=== PATIENT | female | born 1965 | race Caucasian/White ===

== ENCOUNTER 2019-08-05 10:35 | Emergency (ER) | payer OTHER ==
[2019-08-05 11:03] LABS: Absolute Lymphocytes (CBC) 1.3 K/uL (0.7-4.9); Basophils % 0.6 % (0-1.3); Hematocrit 38.7 % (36.0-45.0); MPV 10.1 fL (7.6-11.3); RBC Red Blood Cell Count 4.16 M/uL (3.86-4.86)
[2019-08-05 11:11] LABS: Protime INR 0.98
--- NOTE | 2019-08-05 11:27 | RAD REPORT ---
EXAM DESCRIPTION: RAD - Chest Single View - 08/05/2019 11:10 am CLINICAL HISTORY: CHEST PAIN COMPARISON: Two view chest September 2017 TECHNIQUE: AP portable chest image was obtained 08/05/2019 11:10 am . FINDINGS: Lungs are clear. Heart and vasculature are normal. No measurable pleural effusion and no p neumothorax. No acute bony abnormality seen. No acute aortic findings suspected. IMPRESSION: No acute cardiopulmonary process.
--- OUTSIDE RECORDS SUMMARY | 2019-08-05 11:30 | XMS REPORT | Clinical Summary ---
:1965 Author Organization [facility] Address [address] [place] [address] Care Team Providers Name Role Phone Jose Espino DO Primary Care Provider Allergies Active Allergy Reactions Severity Noted Date Comments Tetracycline Hives, Nausea And Vomiting Medium 02/14/2016 Medications Medication Sig Dispensed Refills Start Date End Date Status dexlansoprazole 60 mg Take 60 mg by 0 Active capsule mouth daily. levothyroxine (SYNTHROID, Take 50 mcg by 0 Active LEVOTHROID) 50 MCG tablet mouth Every morning on an empty stomach. methscopolamine (PAMINE Take 5 mg by 0 Active FORTE) 5 MG tablet mouth daily. propranolol (INDERAL) 40 Take 40 mg by 0 Active MG tabletIndications: mouth daily. migraines fLUoxetine (PROZAC) 10 MG Take 10 mg by 0 Active capsule mouth daily Takes 2 capsules . QUEtiapine (SEROQUEL) 300 Take 300 mg by 0 Active MG tablet mouth nightly. mesalamine (PENTASA) 500 Take 500 mg by 0 Active MG CR capsuleIndications: mouth 2 (two) Crohn's disease times daily Takes 4 tablets . uadk-crlcsjbqtgmyw-gglfwv Take 2 tablets 0 Active ls (THERAGRAN-M) 9 mg by mouth daily. iron-400 mcg Tab tablet Lactobacillus acidophilus Take by mouth. 0 Active (PROBIOTIC ORAL) calcium carbonate Take 2 tablets 0 Active (CALCIUM 500 ORAL) by mouth daily. cholecalciferol, vitamin Take 1 tablet 0 Active D3, (VITAMIN D3 ORAL) by mouth daily. methylPREDNISolone 2 tablets QID 33 tablet 0 01/19/2018 Active (MEDROL) 2 MG tablet for 2 days, 1.5 tablets TID for 2 days, 1 tablet TID for 2 days, then 0.5 tablets BID for 2 days. 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 Last Filed Vital Signs Not on file Plan of Treatment Not on file Implants Implanted Type Area Senior Care Manager Device Shelf Model / Identifier Expiration Serial / Date Lot Ryder Vhsd Full Strlprep 10ml [id number] - [id number] Cement/F N/A: Spine JOHNSON:BIOSCI 05/20/2019 [id number] / Implanted: Qty: 1 on 01/19/2018 by Chad Otto MD iller/ John Cervical / hesive [id number] Results Not on fileafter 08/04/2018 Insurance Payer Benefit Plan / Group Subscriber ID Type Phone A ddress AETNA - MGD CARE AETNA SELECT US ACCESS xxxxxxxxxx HMO/POS Advance Directives For more information, please contact:[address] [phone] Code Status Date Activated Date Inactivated Comments Full Code 01/19/2018 5:39 AM This code status was determined by: Patient
--- OUTSIDE RECORDS SUMMARY | 2019-08-05 11:31 | XMS REPORT | Continuity of Care Document ---
:1965 Author Organization [facility] Information [place] Care Team Providers Name Role Phone [facility] Pablito Information Infrascale Unavailable Un available Problems Problem Status Onset Classification Date Comments Sour e Date Reported [id number], MORBID Active 11/20/19 MH OBESITY 17 [facility] Gastroesophageal Active Problem 12/02/2016 reflux disease Memor ial (disorder) [facility] Hypothyroidism Active Problem 12/02/2016 MH (disorder) [facility] Migraine (disorder) Active Problem 12/02/[address] [facility] Morbid obesity Active Problem 12/02/2016 MH (disorder) [facility] Motion sickness Active Problem 12/02/2016 MH (disorder) [facility] Obesity (disorder) Active Problem 12/02/[address] [facility] Sleep apnea Active Problem 12/02/2016 MH (finding) [facility] ILLNESS, Active MH UNSPECIFIED [facility] Medications Medication Details Route Status Patient Ordering Order Source Instructions Provider Date Tylenol Notes: Do not No Longer exceed [address] [place] [address] gm/day. (Same City as: Tylenol) tramadol 50 mg = 1 tab, Active hydrochloride 50 PO, Q4H, PRN 2016 Mo morial MG Oral Tablet Pain, X 10 day, C ity # 60 tab, 0 Refill(s) Beneprotein 7 gm Notes: (Same Inactive 11/29/ H pkt as: [address] [place] [address] Beneprotein) [facility] Enoxaparin Notes: (Same Inactive as: Lovenox) [address] [place] [address] Ofirmev Notes: Infuse Inactive over 15 minutes 2016 [facility] Do not exceed [facility] 4gm/day of acetaminophen MEDICATION WASTE Product Size: 1000 mg Product Wasted: ___ mg Ketorolac 4 days Inactive MEDICATION [address] [place] [address] WASTE [facility] Product Size: 30 mg Product Wasted: ___ mg Famotidine Notes: (Same No Longer as: Pepcid) Can Active 2016 [facility] be dilute in [facility] 5-10cc NS IVP: Slow IV push over at least 2 minutes. tramadol Notes: Not to No Longer hydrochloride 50 exceed Active 2016 Memoria l MG Oral Tablet 400mg/day. [facility] (Same As: [facility]) Dilaudid Notes: Same as No Longer Dilaudid Active 2016 [facility] Calcium Chloride 1,000 mL, Rate: No Longer 11/29 0.0014 MEQ/ML / 125 ml/hr, [facility] Pot[facility] Infuse over: 8 [facility] Chloride 0.004 hr, Route: IV, MEQ/ML / Sodium Dosing Weight Chloride 0.103 102.273 kg, MEQ/ML / Sodium Total Volume: Lactate 0.028 1,000, Start MEQ/ML Injectable date: 11/28/16 Solution 19:49:00 CDT, Duration: 30 day, Stop date: 12/28/16 19:48:00 CDT Promethazine Notes: Do not No Longer give IV push. Active 2016 [facility] (Same as: [facility] Phenerg) Ondansetron Notes: (Same No Longer as: Zofran) Active 2016 [facility] MEDICATION City WASTE Product Size: 4 mg Product Wasted: ___ mg Metoprolol Notes: (Same No Longer as: Lopressor) Active 2016 [facility] Push over 2 City minutes Zofran Notes: (Same Inactive as: Zofran) 2016 [facility] MEDICATION City WASTE Product Size: 4 mg Product Wasted: ___ mg Dilaudid Notes: Same as No Longer Dilaudid Active 2016 [facility] ondansetron Route: IV, Drug Inactive (ANES) form: INJ, 2016 [facility] ONCE, Stop [facility] date: 11/28/16 15:52:00 CDT glycopyrrolate Route: IV, Drug Inactive (ANES) form: INJ, 2016 [facility] , Stop [facility] date: 11/28/16 15:52:00 CDT morphine Sulfate Route: IV, Drug Inactive (ANES) form: INJ, 2016 [facility] , Stop [facility] date: 11/28/16 15:52:00 CDT neostigmine Route: IV, Drug Inactive 10/05/ MH (ANES) form: 2016 date: 11/28/16 15:52:00 CDT fentaNYL (ANES) Route: IV, Drug Inactive 11/28/ MH form: 2016 date: 11/28/16 15:12:00 CDT hydrALAZINE Route: IV, Drug Inactive 11/28/ MH (ANES) form: 2016 date: 11/28/16 14:47:00 CDT fentaNYL (ANES) Route: IV, Drug Inactive 11/28/ MH form: 2016 date: 11/28/16 14:32:00 CDT famotidine (ANES) Route: IV, Drug Inactive 11/28 / MH form: 2016 [facility] date: 11/28/16 14:32:00 CDT metoclopramide Route: IV, Drug Inactive 11/28/ MH (ANES) form: 2016 [facility] date: 11/28/16 14:32:00 CDT succinylcholine Route: IV, Drug Inactive 11/28/ MH (ANES) form: 2016 [facility] date: 11/28/16 14:32:00 CDT midazolam (ANES) Route: IV, Drug Inactive 11/28/ MH form: [id number] date: 11/28/16 14:32:00 CDT lidocaine (ANES) Route: IV, Drug Inactive 11/28/ MH form: 2016 [facility] date: 11/28/16 14:32:00 CDT propofol (ANES) Route: IV, Drug Inactive 11/28/ MH form: 2016 [facility] date: 11/28/16 14:32:00 CDT dexamethasone Route: IV, Drug Inactive 11/28/ M H (ANES) form: 2016 [facility] date: 11/28/16 14:22:00 CDT rocuronium (ANES) Route: IV, Drug Inactive 05 / MH form: 2016 [facility] date: 11/28/16 14:22:00 CDT Promethazine Notes: Do not Inactive give IV push. 2016 (Same as: [facility] Phenergan) Ondansetron Notes: (Same Inactive as: Zofran) 2016 [facility] MEDICATION [facility] WASTE Product Size: 4 mg Product Wasted: ___ mg Morphine Notes: (Same Inactive as:MORPhine 2017 [facility] Sulfate) [facility] Flumazenil Notes: (Same Inactive as: Romazicon) 2016 [facility] Naloxone Notes: Same as Inactive Narcan 2016 [facility] Hydromorphone Notes: Same as Inactive Dilaudid 2016 [facility] ceFAZolin (ANES) Route: IV, Drug Inactive form: INJ, 2016 [facility] ONCE, Stop [facility] date: 11/28/16 14:16:00 CDT acetaminophen Route: IV, Drug Inactive H (ANES) (ANES) form: INJ, 2016 Memoria l Start date: [facility] 11/28/16 13:48:00 CDT, Stop date: 11/28/16 14:48:00 CDT LR 1000 mL INJ Route: IV, Inactive (ANES) Total Volume: 2016 [facility] 1,000, Start [facility] date: 11/28/16 13:32:00 CDT, Stop date: 11/28/16 14:32:00 CDT ceFAZolin Notes: Same as: No Longer Ancef Active 2016 [facility] dexlansoprazole 60 mg = 1 cap, No Longer 60 MG Enteric PO, Daily, # 30 Active 2016 Me morial Coated Capsule cap, 0 [facility] [Dexilant] Refill(s) Probiotic Formula 1 cap, PO, Active Daily, 0 2016 [facility] Refill(s) [facility] Allergies, Adverse Reactions, Alerts Substance Category Reaction Severity Reaction Status Date Comments S ource type Reported tetracyclines Assertion hives, Drug Active rash allergy [facility] Immunizations No Data Provided for This Section Results Order Name Results Value Reference Date Interpretation Comments Mahi rce Range ELECTROLYTE AGAP 14.2 10.0 - 11/29 S 20.0 /2017 [facility] ELECTROLYTE eGFR 76 11/29 Result S Comment: The [facility] eGFR is [facility] calculated using the CKD-EPI formula. In most young, healthy individuals the eGFR will be >90 mL/min/1.73m2 . The eGFR declines with age. An eGFR of 60-89 may be normal in some populations, particularly the elderly, for whom the CKD-EPI formula has not been extensively validated. Use of the eGFR is not recommended in the following populations:< br/>
Gunjan viduals with unstable creatinine concentration s, including patients and those with serious co-morbid conditions.<b r/>
Patie nts with extremes in muscle mass or diet.

The data above are obtained from the National Kidney Disease Education Program (NKDEP) which additionally recommends that when the eGFR is used in patients with extremes of body mass index for purposes of drug dosing, the eGFR should be multiplied by the estimated BMI. ELECTROLYTE CO2 27 24 - 32 11/29 S [facility] ELECTROLYTE Creatinine 0.88 0.50 - 11/29 S Lvl 1.40 [facility] ELECTROLYTE BUN 9 7 - 22 11/29 S [facility] ELECTROLYTE Glucose Lvl 119 70 - 99 11/29 S [facility] ELECTROLYTE Sodium Lvl 137 135 - 145 11/29 S [facility] ELECTROLYTE Chloride Lvl 100 95 - 109 11/29 S [facility] ELECTROLYTE Calcium Lvl 8.6 8.5 - 10.5 11/29 S [facility] ELECTROLYTE Potassium 4.2 3.5 - 5.1 11/29 S Lvl [facility] HEMATOLOGY Lymphocytes 0.7 1.0 - 5.5 11/29 # [facility] HEMATOLOGY Basophils 0.1 0.0 - 1.0 11/29 [facility] HEMATOLOGY Monocytes # 0.6 0.0 - 0.8 11/29 [facility] HEMATOLOGY Segs-Bands # 9.8 1.5 - 8.1 11/29 [facility] HEMATOLOGY Segs 88.3 45.0 - 11/29 MH 75.0 [facility] HEMATOLOGY Monocytes 5.6 2.0 - 12.0 11/29 [facility] HEMATOLOGY Lymphocytes 6.0 20.0 - 11/29 MH 40.0 [facility] HEMATOLOGY WBC 11.1 3.7 - 10.4 11/29 [facility] HEMATOLOGY RDW 14.6 11.5 - 11/29 MH 14.5 /2016 [facility] HEMATOLOGY Platelet 198 133 - 450 10 /2016 [facility] HEMATOLOGY Hgb 12.9 12.0 - 11/29 MH 16.0 [facility] HEMATOLOGY MPV 10.8 7.4 - 10.4 11/29 /2016 [facility] HEMATOLOGY MCH 29.8 27.0 - 11/29 MH 31.0 /2016 [facility] HEMATOLOGY MCHC 34.1 32.0 - 11/29 MH 36.0 /2016 [facility] HEMATOLOGY Hct 37.7 36.0 - 11/29 MH 48.0 /2016 [facility] HEMATOLOGY MCV 87.3 80.0 - 11/29 MH 98.0 /2016 [facility] HEMATOLOGY RBC 4.32 4.20 - 11/29 MH 5.40 /2016 [facility] BLOOD BANK Antibody Negative 11/28 RESULTS Scrn (11/28/16 10:31 AM) /2016 [facility] BLOOD BANK ABO/Rh B POS 11/28 RESULTS /2016 [facility] BLOOD [facility] RBC product Product available 11/28 RESULTS (11/28/16 6:00 AM) /2016 [facility] CHEM PANEL VITAMIN B1 140.8 66.5 - 11/21 Result (THIAMINE) 200.0 /2016 Comment: [facility] WHOLE BLOOD Performed At: [facility] [place]
[address] [place], [place] [id number]<br/ >Job Robbins MD Ph:[phone] CHEM PANEL Vitamin D, 25.5 30.0 - 11/21 25-OH, Total 100.0 [facility] ELECTROLYTE AGAP 14.0 10.0 - 11/21 MH S 20.0 [facility] ELECTROLYTE A/G Ratio 1.2 0.7 - 1.6 11/21 S [facility] ELECTROLYTE Globulin 3.7 2.7 - 4.2 11/21 S [facility] ELECTROLYTE B/C Ratio 14 6 - 25 11/21 S [facility] ELECTROLYTE Glucose Lvl 95 70 - 99 11/21 S [facility] ELECTROLYTE Calcium Lvl 8.9 8.5 - 10.5 11/21 S [facility] ELECTROLYTE BUN 15 7 - 22 11/21 S /2016 [facility] ELECTROLYTE Albumin Lvl 4.4 3.5 - 5.0 11/21 S [facility] ELECTROLYTE Potassium 4.0 3.5 - 5.1 11/21 S Lvl /2016 [facility] ELECTROLYTE Chloride Lvl 107 95 - 109 11/21 S [facility] ELECTROLYTE CO2 27 24 - 32 11/21 S [facility] ELECTROLYTE Sodium Lvl 144 135 - 145 11/21 S [facility] ELECTROLYTE Bili Total 0.9 0.2 - 1.3 11/21 S [facility] ELECTROLYTE Alk Phos 109 39 - 136 11/21 S [facility] ELECTROLYTE Total 8.1 6.4 - 8.4 11/21 S Protein [facility] ELECTROLYTE eGFR 59 11/21 Result Comment: The [facility] eGFR is City calculated using the CKD-EPI formula. In most young, healthy individuals the eGFR will be >90 mL/min/1.73m2 . The eGFR declines with age. An eGFR of 60-89 may be normal in some populations, particularly the elderly, for whom the CKD-EPI formula has not been extensively validated. Use of the eGFR is not recommended in the following populations:< br/>
Gunjan viduals with unstable creatinine concentration s, including patients and those with serious co-morbid conditions.<b r/>
Patie nts with extremes in muscle mass or diet.

The data above are obtained from the National Kidney Disease Education Program (NKDEP) which additionally recommends that when the eGFR is used in patients with extremes of body mass index for purposes of drug dosing, the eGFR should be multiplied by the estimated BMI. ELECTROLYTE ALT 36 0 - 65 11/21 S [facility] ELECTROLYTE AST 26 0 - 37 11/21 S [facility] ELECTROLYTE Creatinine 1.09 0.50 - 11/21 S Lvl 1.40 [facility] HEMATOLOGY Platelet 200 133 - 450 11/21 [facility] HEMATOLOGY MPV 10.3 7.4 - 10.4 11/21 [facility] HEMATOLOGY RDW 14.6 11.5 - 11/21 MH 14. [facility] HEMATOLOGY RBC 4.58 4.20 - 11/21 MH 5.40 [facility] HEMATOLOGY WBC 5.4 3.7 - 10.4 11/21 [facility] HEMATOLOGY Hct 39.8 36.0 - 11/21 MH 48.0 /2016 [facility] HEMATOLOGY MCV 86.9 80.0 - 11/21 MH 98.0 /2017 [facility] HEMATOLOGY Hgb 13.2 12.0 - 11/21 MH 16.0 /2016 [facility] HEMATOLOGY MCHC 33.3 32.0 - 11/21 MH 36.0 /2016 [facility] HEMATOLOGY MCH 28.9 27.0 - 11/21 MH 31.0 /2016 [facility] HEMATOLOGY Segs 51.4 45.0 - 11/21 MH 75.0 /2017 [facility] HEMATOLOGY Eosinophils 2.4 0.0 - 4.0 11/21 MH /2016 [facility] HEMATOLOGY Lymphocytes 34.7 20.0 - 11/21 MH 40.0 /2017 [facility] HEMATOLOGY Monocytes 10.8 2.0 - 12.0 11/21 /2016 [facility] HEMATOLOGY Basophils 0.7 0.0 - 1.0 11/21 /2016 [facility] HEMATOLOGY Segs-Bands # 2.8 1.5 - 8.1 11/21 /2016 [facility] HEMATOLOGY Lymphocytes 1.9 1.0 - 5.5 11/21 MH # /2017 [facility] HEMATOLOGY Monocytes # 0.6 0.0 - 0.8 11/21 /2016 [facility] HEMATOLOGY Eosinophils 0.1 0.0 - 0.5 11/21 MH # /2017 [facility] HEMATOLOGY PTT 44.5 22.9 - 11/21 MH 35.8 /2016 [facility] HEMATOLOGY PT 13.3 12.0 - 11/21 MH 14.7 /2016 [facility] HEMATOLOGY INR 0.99 0.85 - 11/21 MH 1.17 /2016 [facility] URINE AND UA <=1.0 0.1 - 1.0 11/21 STOOL Urobilinogen mg/dL /2016 [facility] URINE AND UA Ketones Negative 11/21 STOOL /2016 [facility] URINE AND UA RBC 2 0 - 2 11/21 STOOL /2017 [facility] URINE AND UA Mucus Few /LPF None Seen 11/21 STOOL /LPF /2016 [facility] URINE AND UA Glucose Negative Negative 11/21 STOOL mg/dL mg/dL /2016 [facility] URINE AND UA Blood Negative Negative 11/21 STOOL (11/21/16 1:20 PM) /2016 [facility] URINE AND UA Nitrite Negative Negative 11/21 STOOL (11/21/16 1:20 PM) /2016 [facility] URINE AND UA Protein Negative Negative 11/21 STOOL mg/dL mg/dL [facility] URINE AND UA Bili Negative Negative 11/21 STOOL *NA* /2016 [facility] (11/21/16 1:20 PM) [facility] URINE AND UA Leuk Est Negative Negative 11/21 STOOL (11/21/16 1:20 PM) [facility] URINE AND UA WBC 1 0 - 5 11/21 STOOL [facility] URINE AND UA Sq Epi Few /LPF Few /LPF 11/21 STOOL /2016 [facility] URINE AND UA Color Yellow Yellow 11/21 STOOL *NA* /2016 [facility] (11/21/16 1:20 PM) [facility] URINE AND UA Turbidity Clear Clear 11/21 STOOL (11/21/16 1:20 PM) [facility] URINE AND UA Spec Grav 1.025 <=1.030 11/21 [facility] URINE AND UA pH 5.0 5.0 - 8.0 11/21 STOOL [facility] Pathology Reports No Data Provided for This Section Diagnostic Reports Report Value Date Source Chest 2 views DX EXAM: 11/21/2016 [facility] y 2 view(s) of the chest. CLINICAL HX: Coughing - Pt Having Gastric procedure. Age: 51 years. Gender: Female. COMPARISON: Chest x-ray: 11/25/2008. FINDINGS: Support apparatus: None. Cardiac silhouette: Unremarkable. Mediastinum: -- Brenda: Unremarkable. -- Other: None. Lungs: -- Consolidation: Negative. -- Pleural effusion: Negative. -- Pneumothorax: Negative. -- Other: Negative. Bones: Unremarkable. Other: None. IMPRESSION: 1. No acute cardiopulmonary process. Consultation Notes No Data Provided for This Section Discharge Summaries No Data Provided for This Section History and Physicals No Data Provided for This Section Vital Signs Vital Sign Value Date Comments Source Systolic (mm Hg) 122 11/29/2016 [facility] Diastolic (mm Hg) 77 11/29/2016 [facility] Temperature Oral (F) 98.0 F 11/29/2016 [facility] Heart Rate 65 11/29/2016 [facility] Respitory Rate 18 11/29/2016 [facility] Temperature Oral (F) 97.7 F 11/29/2016 [facility] Heart Rate 69 11/29/2016 [facility] y Systolic (mm Hg) 116 11/29/2016 [facility] Rodriguez Diastolic (mm Hg) 79 11/29/2016 Rosio Frias Respitory Rate 18 11/29/2016 [facility] Ariadna douglas Respitory Rate 20 11/29/2016 [facility] Systolic (mm Hg) 137 11/29/[address] [facility] Diastolic (mm Hg) 82 11/29/2016 [facility] Temperature Oral (F) 97.6 F 11/29/[address] [facility] makenna [facility] Heart Rate 71 11/29/2016 [facility] y BMI Calculated 34.28 11/21/2016 [facility] Ariadna douglas Weight 102.273 11/21/2016 [facility] aj Height 172.72 cm 11/21/2016 [facility] aj Encounters Location Location Encounter Encounter Reason Attending ADM DC Stat us Source Details Type Number For Provider Date Date Visit [facility] Inpatient [id number] Wilfredo 11/28 11/29 KANDI Kenney [facility] Outpatient [id number] 12/08 Active [place] Procedures Procedure Code Date Perfomer Comments Source Cholecystectomy [id number] [facility] Colon operation [id number] [facility] Endoscopy [id number] [facility] Hysterectomy [id number] [facility] Assessment and Plan Assessment and Plan Date Source Extracted from:Title: Clinical Document 11/29/2016 [facility] Author: Wilfredo Macias MD Date: 11/29/16 Doing great, no issues VSS AFEB Abd is soft and wounds CDI A/P- will d/c, reviewed d/c info in detail Plan of Care No Data Provided for This Section Social History Social History Date Source Social History TypeResponse 11/21/[address] [facility] Alcohol Current, Type Liquor. Frequency: 1-2 times per week. Smoking Status Never smoker; Exposure to Tobacco Smoke None; Cigarette Smoking Last 365 Days No; Reg Smoking Cessation Counseling No Family History No Data Provided for This Section Advance Directives No Data Provided for This Section Functional Status No Data Provided for This Section
[2019-08-05 11:33] LABS: ALT/SGPT 31 U/L (12-78); AST/SGOT 24 U/L (15-37); Albumin 3.6 g/dL (3.4-5.0); Alkaline Phosphatase 110 U/L (45-117); BUN Blood Urea Nitrogen 15 mg/dL (7-18); Bicarbonate 29 mmol/L (21-32); Bilirubin Direct 0.1 mg/dL (0-0.2); Bilirubin Total 0.4 mg/dL (0.2-1.0); Glucose Level 61 mg/dL (74-106); Magnesium 1.9 mg/dL (1.8-2.4); NT PRO-BNP 70 pg/mL (<125); Potassium 3.9 mmol/L (3.5-5.1); Protein, Total 6.8 g/dL (6.4-8.2); Sodium Level 141 mmol/L (136-145); Troponin (Emerg Dept Use Only) < 0.02 ng/mL (0.0-0.045)
--- OUTSIDE RECORDS SUMMARY | 2019-08-05 11:33 | XMS REPORT | Continuity of Care Document ---
:1965 Author Organization [facility] t Address [address] [place] [address] Care Team Providers Name Role Phone Jose Espino DO Primary Care Physician Chetna Miller MD Attending Clinician JAMAICA HINSON Attending Clinician Unavailable Martha Macias Attending Clinician JAMAICA HINSON Admitting Clinician Unavailable Martha Macias Admitting Clinician Problems Condition Condition Condition Status Onset Resolution Last Treating Co mments Source Name Details Category Date Date Treatment Clinician Date Dysphagia Dysphagia Disease Active 2017-[address] [facility] Osteophyte Osteophyte Disease Active 2017-[address] [facility] [id number], Diagnosis Active 2016-2016-11-28 Mem oria MORBID 11-19 16:43:00 l OBESITY [id number], 00:00: [place] MORBID 00 OBESITY Active 11/19/2016 [facility] Mild Mild Problem Active [facility] vitamin D vitamin D [facility] - deficiency deficiency Me moria l Outpati ent Clinics B12 B12 Problem Active [facility] deficiency deficiency Laura kes - Memoria l Out[facility] Clinics Migraine Migraine Problem Active [facility] without without [facility] - aura and aura and Memori a without without l status status Outpati migrainosu migrainosu en t s, not s, not Clinics intractabl intractabl e e Bipolar Bipolar Problem Active [facility] disorder disorder [facility] Obstructiv Obstructiv Problem Active [facility] e sleep e sleep [facility] apnea apnea [facility]ics IBD IBD Problem Active [facility] (inflammat (inflammat Laura kes - ory bowel ory bowel Jose jabari disease) disease) l [facility] Diverticul Diverticul Problem Active [facility] ar disease ar disease Laura kes - [facility] Depression Depression Problem Active [facility] Gastroesop Gastroesop Diagnosis Active [facility] hageal hageal [facility] - reflux reflux Memoria disease disease l [facility] Iron Iron Problem Active [facility] deficiency deficiency Laura kes - anemia due anemia due Me moria to dietary to dietary l causes causes [facility] Mixed Mixed Problem Active [facility] hyperlipid hyperlipid Laura kes - emia emia [facility] Prediabete Prediabete Problem Active [facility] Hypothyroi Hypothyroi Problem Active [facility] dism dism kes - [facility]oria [facility] Anemia Anemia Problem Active [facility] History of History of Problem Active [facility] gastric gastric [facility] - bypass bypass [facility] Irritable Irritable Problem Active [facility] bowel bowel [facility] - syndrome syndrome Memori a with with l diarrhea diarrhea Outpat i ent Clinics Primary Primary Problem Active [facility] osteoarthr osteoarthr Laura kes - itis of itis of Memoria right knee right knee l [facility] Primary Primary Problem Active [facility] osteoarthr osteoarthr Laura kes - itis of itis of Memoria left knee left knee l [facility] Tension-ty Tension-ty Problem Active [facility] pe pe [facility] - headache, headache, Jose jabari not not l intractabl intractabl Ou tpati e, e, ent unspecifie unspecifie Cl inics d d chronicity chronicity pattern pattern Bone spur Bone spur Diagnosis Active [facility] History of History of Diagnosis Active [facility] chickenpox chickenpox Laura kes - [facility] Gastroesop Problem Active 2016-12-02 M emoria hageal 01:02:49 l reflux [place] disease Gastroesop (disorder) hageal reflux disease (disorder) Active Problem 12/02/2016 [facility] Hypothyroi Problem Active 2016-12-02 M emoria dism 01:02:49 l (disorder) Clarence n Hypothyroi dism (disorder) Active Problem 12/02/2016 [facility] Migraine Problem Active 2016-12-02 Mem oria (disorder) 01:02:49 l Migraine Clarence n (disorder) Active Problem 12/02/2016 [facility] Morbid Problem Active 2016-12-02 Memor ia obesity 01:02:49 l (disorder) Morbid Herm beverly obesity (disorder) Active Problem 12/02/2016 [facility] Motion Problem Active 2016-12-02 Memor ia sickness 01:02:49 l (disorder) Motion Herm beverly sickness (disorder) Active Problem 12/02/2016 [facility] Obesity Problem Active 2016-12-02 Jose jabari (disorder) 01:02:49 l Obesity [place] (disorder) Active Problem 12/02/2016 [facility] Sleep Problem Active 2016-12-02 Memor ia apnea 01:02:49 l (finding) Sleep Clarence n apnea (finding) Active Problem 12/02/2016 [facility] ILLNESS, Diagnosis Active 2016-11-28 M emoria UNSPECIFIE 16:43:00 l D ILLNESS, Clarence n UNSPECIFIE D Active [facility] Allergies, Adverse Reactions, Alerts Allergy Allergy Status Severity Reaction(s) Onset Inactive Treating Comm ents Source Name Type Date Date Clinician Tetracyc Propensi Active Hives, 2016- [facility] line ty to Nausea And 2-21 [facility] - adverse Vomiting 00:00: Medical reaction 00 Center s tetracyc Adverse Active Hives, [facility] line Reaction vomiting [facility] Zoloft Adverse Active Hives [facility] Reaction [facility] Neospori Adverse Active Info Not [facility] n Reaction Available [facility] tetracyc tetracyc Active Memori a lines lines l [place] Social History Social Habit Start Date Stop Date Quantity Comments Source Sex Assigned At [facility] Alcohol Comment 2017-12-31 2017-12-31 ocasional [facility] - 00:00:00 00:00:00 Medical Center Social History 2016-11-21 2016-11-21 [facility] Blake grijalva 18:33:35 18:33:35 Smoking Status Start Date Stop Date Source Never smoker [facility] edical [facility] Medications Ordered Filled Start Stop Current Ordering Indication Dosage Frequency Signature Comments Components Source Medication Medication Date Date Medication? Clinician (SIG) Name Name Propranolol Propranolol Yes Ashok [address] [facility] HCl HCl -04 Espino on an [facility] - 00:00: empty Memoria 00 stomach l Outpati ent Clinics methylPREDN 2017-02 Yes [address] ISolone 1-26 QID for 2 [facility] - (MEDROL) 2 00:00: days, 1.5 Me dical MG tablet 00 tablets Center TID for 2 days, 1 tablet TID for 2 days, then 0.5 tablets BID for 2 days. calcium 2017-02 Yes 2{tbl} QD Take [address] carbonate 1-07 tablets by Elijah Copeland (CALCIUM 10:36: mouth Medical 500 ORAL) 23 daily. [facility] cholecalcif 2017-02 Yes 1{tbl} QD Take [address] terry, 1-07 tablet by Lise Copeland vitamin D3, 10:36: mouth Medic al (VITAMIN D3 23 daily. [facility] ORAL) iron-multiv 2017-02 Yes 2{tbl} QD Take [address] itamins-min 1-07 tablets by Laura schaefer 10:10: mouth Medical (THERAGRAN- [address] [facility]) 9 mg iron-400 mcg Tab tablet Lactobacill 2017-02 Yes Take by [facility] St us 1-07 mouth. Lise - acidophilus 10:10: Medica l (PROBIOTIC 27 Center ORAL) methscopola 2017-02 Yes 5mg QD Take [address] mine 1-07 by mouth [facility] - (PAMINE 10:10: daily. Medical FORTE) 5 MG 26 Center tablet propranolol 2017-02 Yes 40mg QD Take [address] [facility] (INDERAL) 1-07 by mouth [facility] - 40 MG 10:10: daily. Medical tablet 26 Center fLUoxetine 2017-02 Yes 10mg QD Take [address] (PROZAC) 10 07 by mouth Luke s - MG capsule 10:10: daily Medica l 26 Takes 2 Center capsules . QUEtiapine 2017-02 Yes 300mg QD Take [address] (SEROQUEL) 1-07 mg by [facility] - 300 MG 10:10: mouth Medical tablet 26 nightly. Center mesalamine 2017-02 Yes Crohn's 500mg Q.5D Take [address] (PENTASA) 1-07 disease mg by [facility] - 500 MG CR 10:10: mouth 2 Medic al capsule 26 (two) Center times daily Takes 4 tablets . dexlansopra 2017-02 Yes 60mg QD Take [address] zole 60 mg 1-07 by mouth [facility] - capsule 10:10: daily. Medical 25 Center levothyroxi 2017-02 Yes 50ug Take [address] ne 1-07 mcg by [facility]ukes - (SYNTHROID, 10:10: mouth Medic al LEVOTHROID) 25 Every Center 50 MCG morning on tablet an empty stomach. Tylenol 2016-02 No Notes: Do Memor ia 0-07 not exceed l 05:00: 4 gm/day. [place] 00 (Same as: Tylenol) tramadol 2016-02 Yes 50 mg = 1 Jose jabari hydrochlori 0-06 tab, PO, l de 50 MG 17:02: Q4H, PRN Zaira nn Oral Tablet 00 Pain, X 10 day, # 60 tab, 0 Refill(s) Beneprotein 2016-02 No Notes: Jose jabari 7 gm pkt 0-06 (Same as: l 14:00: Beneprotei [place] 00 n) Enoxaparin 2016-02 No Notes: Memor ia 0-06 (Same as: l 13:00: Lovenox) [place] [facility] No Notes: Memoria 0-06 Infuse l 05:00: over 15 [place] 00 minutes Do not exceed 4gm/day of acetaminop hen MEDICATION WASTE Product Size: 1000 mg Product Wasted: ___ mg Ketorolac 2016-02 No 4 days Memor ia 0-06 l 05:00: MEDICATION [place] 00 WASTE Product Size: 30 mg Product Wasted: ___ mg Famotidine 2016-02 No Notes: Memor ia 0-06 (Same as: l 02:00: Pepcid) [place] 00 Can be dilute in 5-10cc NS IVP: Slow IV push over at least 2 minutes. tramadol 2016-02 No Notes: Not Mem oria hydrochlori 0-06 to exceed l de 50 MG 00:49: 400mg/day. Her abdalla Oral Tablet 00 (Same As: Ultram) Dilaudid 2016-02 No Notes: Memoria 0-06 Same as l 00:49: Dilaudid [place] 00 Calcium 2016-02 No 1,000 mL, Memor ia Chloride 0-06 Rate: 125 l 0.0014 00:49: ml/hr, [place] MEQ/ML / 00 Infuse Potassium over: 8 Chloride hr, Route: 0.004 IV, Dosing MEQ/ML / Weight Sodium 102.273 Chloride kg, Total 0.103 Volume: MEQ/ML / 1,000, Sodium Start Lactate date: 0.028 11/28/16 MEQ/ML 19:49:00 Injectable CDT, Solution Duration: 30 day, Stop date: 12/28/16 19:48:00 CDT Promethazin 2016-02 No Notes: Do M emoria e 0-06 not give l 00:49: IV push. [place] 00 (Same as: Phenergan) Ondansetron 2016-02 No Notes: Jose jabari 0-06 (Same as: l 00:49: Zofran) 00 MEDICATION WASTE Product Size: 4 mg Product Wasted: ___ mg Metoprolol 2016-02 No Notes: Memor ia 0-06 (Same as: l 00:49: Lopressor) [place] 00 Push over 2 minutes Zofran 2016-02 No Notes: Memoria 0-06 (Same as: l 00:10: Zofran) MEDICATION WASTE Product Size: 4 mg Product Wasted: ___ mg Dilaudid 2016-02 No Notes: Memoria 0-06 Same as l 00:09: Dilaudid [place] 00 ondansetron 2016-02 No Route: IV, Memoria (ANES) 0-05 Drug form: l 20:52: INJ, ONCE, Stop date: 11/28/16 15:52:00 CDT glycopyrrol 2016-02 No Route: IV, Memoria ate (ANES) 0-05 Drug form: l 20:52: INJ, ONCE, Stop date: 11/28/16 15:52:00 CDT morphine 2016-02 No Route: IV, Mem oria Sulfate 0-05 Drug form: l (ANES) 20:52: INJ, ONCE, Zaira nn Stop date: 11/28/16 15:52:00 CDT neostigmine 2016-02 No Route: IV, Memoria (ANES) 0-05 Drug form: l 20:52: INJ, ONCE, [place] 00 Stop date: 11/28/16 15:52:00 CDT fentaNYL 2016-02 No Route: IV, Mem oria (ANES) 0-05 Drug form: l 20:12: INJ, ONCE, Stop date: 11/28/16 15:12:00 CDT hydrALAZINE 2016-02 No Route: IV, Memoria (ANES) 0-05 Drug form: l 19:47: INJ, ONCE, Stop date: 11/28/16 14:47:00 CDT fentaNYL 2016-02 No Route: IV, Mem oria (ANES) 0-05 Drug form: l 19:32: INJ, ONCE, Stop date: 11/28/16 14:32:00 CDT famotidine 2016-02 No Route: IV, M emoria (ANES) 0-05 Drug form: l 19:32: INJ, ONCE, Stop date: 11/28/16 14:32:00 CDT metoclopram 2016-02 No Route: IV, Memoria tony (ANES) 0-05 Drug form: l 19:32: INJ, ONCE, Stop date: 11/28/16 14:32:00 CDT succinylcho 2016-02 No Route: IV, Memoria line (ANES) 0-05 Drug form: l 19:32: INJ, ONCE, Stop date: 11/28/16 14:32:00 CDT midazolam 2016-02 No Route: IV, Me moria (ANES) 0-05 Drug form: l 19:32: SOLN, 00 ONCE, Stop date: 11/28/16 14:32:00 CDT lidocaine 2016-02 No Route: IV, Me moria (ANES) 0-05 Drug form: l 19:32: INJ, ONCE, Stop date: 11/28/16 14:32:00 CDT propofol 2016-02 No Route: IV, Mem oria (ANES) 0-05 Drug form: l 19:32: INJ, ONCE, [place] 00 Stop date: 11/28/16 14:32:00 CDT dexamethaso 2016-02 No Route: IV, Memoria ne (ANES) 0-05 Drug form: l 19:22: INJ, ONCE, [place] Stop date: 11/28/16 14:22:00 CDT rocuronium 2016-02 No Route: IV, M emoria (ANES) 0-05 Drug form: l 19:22: INJ, ONCE, [place] Stop date: 11/28/16 14:22:00 CDT Promethazin 2016-02 No Notes: Do M emoria e 0-05 not give l 19:22: IV push. (Same as: Phenergan) Ondansetron 2016-02 No Notes: Jose jabari 0-05 (Same as: l 19:22: Zofran) MEDICATION WASTE Product Size: 4 mg Product Wasted: ___ mg Morphine 2016-02 No Notes: Memoria 0-05 (Same l 19:22: as:MORPhin e Sulfate) Flumazenil 2016-02 No Notes: Memor ia 0-05 (Same as: l 19:22: Romazicon) Naloxone 2016-02 No Notes: Memoria 0-05 Same as l 19:22: Narcan Hydromorpho 2016-02 No Notes: Jose jabari ne 0-05 Same as l 19:22: Dilaudid ceFAZolin 2016-02 No Route: IV, Me moria (ANES) 0-05 Drug form: l 19:16: INJ, ONCE, [place] Stop date: 11/28/16 14:16:00 CDT acetaminoph 2016-02 No Route: IV, Memoria en (ANES) 0-05 Drug form: l (ANES) 18:48: INJ, Start Zaira nn date: 11/28/16 13:48:00 CDT, Stop date: 11/28/16 14:48:00 CDT LR 1000 mL 2016-02 No Route: IV, M emoria INJ (ANES) 0-05 Total l 18:32: Volume: [place] 00 1,000, Start date: 11/28/16 13:32:00 CDT, Stop date: 11/28/16 14:32:00 CDT ceFAZolin 2016-02 No Notes: Memori a 0-05 Same as: l 03:00: Ancef [place] 00 dexlansopra 2016-02 No 60 mg = 1 M emoria zole 60 MG 0-04 cap, PO, l Enteric 20:19: Daily, # Clarence n Coated 00 30 cap, 0 Capsule Refill(s) [Dexilant] Probiotic Yes 1 cap, PO, Me moria Formula 9-28 Daily, 0 l 18:34: Refill(s) [place] 00 Multivitami Multivitami Yes Ashok not [facility] n & Mineral n & Mineral Espino defined [facility] Levothyroxi Levothyroxi Yes Ashok take [address] [facility] ne Sodium ne Sodium Espino tablet by [facility] - mouth once Memoria daily l [facility] Seroquel XR Seroquel XR Yes Ashok [address] [facility] Espino in the [facility]ukes - evening Memoria l [facility] Prozac Prozac Yes Ashok not [facility] Espino defined [facility] Dexilant Dexilant Yes Ashok [address] [facility] Espino [facility] Vitamin D3 Vitamin D3 Yes Ashok [address] [facility] Ultra Ultra Espino [facility]ukes - Potency Potency Memoria l [facility] Calcium Calcium Yes Ashok [address] [facility] Espino with meals [facility] Probiotic Probiotic Yes Ashok not [facility] Espino defined [facility] Ferrous Ferrous Yes Ashok [address] [facility] Sulfate Sulfate Espino [facility] Butalbital- Butalbital- Yes Ashok not [facility] APAP-Caffei APAP-Caffei Espino defined [facility] - ne ne Memoria l [facility] Immunizations Ordered Filled Immunization Date Status Comments Sour e Immunization Name Name Mary Hernandez 2019-03-[address] [facility] Afluria Afluria 2017-11-[address] [facility] - [facility]00 [facility] Vital Signs Vital Name Observation Time Observation Value Comments Source Systolic (mm Hg) 2016-11-29 15:59:00 Jose rial [place] Diastolic (mm Hg) 2016-11-29 15:59:00 Mem orial [place] Temperature Oral (F) 2016-11-29 15:59:00 98.0 F [facility] [place] Heart Rate 2016-11-29 15:59:00 [facility] [place] Respitory Rate 2016-11-29 15:59:00 Memori al [place] Temperature Oral (F) 2016-11-29 12:24:00 97.7 F [facility] [place] Heart Rate 2016-11-29 12:24:00 [facility] [place] Systolic (mm Hg) 2016-11-29 12:24:00 Jose rial [place] Diastolic (mm Hg) 2016-11-29 12:24:00 Mem orial [place] Respitory Rate 2016-11-29 12:24:00 Memori al [place] Respitory Rate 2016-11-29 09:00:00 Memori al [place] Systolic (mm Hg) 2016-11-29 09:00:00 Jose rial [place] Diastolic (mm Hg) 2016-11-29 09:00:00 Mem orial [place] Temperature Oral (F) 2016-11-29 09:00:00 97.6 F [facility] [place] Heart Rate 2016-11-29 09:00:00 [facility] [place] BMI Calculated 2016-11-21 18:12:00 Memori al [place] Weight 2016-11-21 18:12:00 [facility] [place] Height 2016-11-21 18:12:00 172.72 cm [facility] [place] Procedures Procedure Date / Time Performed Performing Clinician Sourc e Cholecystectomy [facility] [place] Colon operation [facility] [place] Endoscopy [facility] [place] Hysterectomy [facility] [place] Encounters Start End Encounter Admission Attending Care Care Encounter Source Date/Time Date/Time Type Type Clinicians Facility Department ID 2019-04-28 2019-04-28 Outpatient Jenna Ulloa [id number] [facility] 15:00:00 15:00:00 [facility] Medicine Outpati ent Clinics 2019-03-04 2019-03-04 Outpatient Jenna Ulloa [id number] [facility] 08:00:00 08:00:00 t [facility] - and [facility] ent Clinics 2019-03-01 2019-03-01 [place] [id number] 15:00:00 15:00:00 t [employer] s [facility] 2018-12-28 2018-12-28 [place]patient [place] [id number] 15:00:00 15:00:00 [place] [employer] s [facility] 2018-12-18 2018-12-18 Out[place] [id number] [facility] 15:44:00 15:44:00 t [place] [employer] Undergarments [employer] [facility] 2018-11-09 2018-11-09 Outpatient [place] [id number] 11:00:00 11:00:00 t [employer] s [facility] 2018-10-27 2018-10-27 Office Angela [facility] [id number] 13:07:55 13:47:13 Visit Suneal K AMBULATOR [id number] 2018-10-27 2018-10-27 Outpatient Jenna West[place] [id number] 08:00:00 08:00:00 t [facility] - [facility] Clinics 2018-10-20 2018-10-20 [place] [id number] 09:00:00 09:00:00 t [facility] Clinics 2018-10-13 2018-10-13 [place] [id number] 09:00:00 09:00:00 t [facility] Clinics 2018-09-24 2018-09-24 [place] [id number] 09:30:00 09:30:[address] [place] [address] [facility] 2018-09-23 2018-09-23 [place] [id number] 09:54:00 09:54:00 t [facility] 2018-09-09 2018-09-09 [place] [id number] 12:32:00 12:32:00 t [facility] and [facility] of [facility] 2018-09-08 2018-09-08 [place] [id number] 13:48:00 13:48:00 t [facility] and [facility] and [facility] 2018-08-25 2018-08-25 [place] [id number] 14:30:00 14:30:00 t [facility] Clinic of [facility] Clinics 2018-06-26 2018-06-26 [place] [id number] 09:00:00 09:00:00 t [facility] 2018-06-24 2018-06-24 [place] [id number] 09:00:00 09:00:00 t [facility] 2018-06-17 2018-06-17 [place] [id number] 13:52:00 13:52:00 t [facility] of [facility] 2018-06-09 2018-06-09 [place] [id number] 13:30:00 13:30:00 t [facility] Clinics 2018-02-27 2018-02-27 [place] [id number] 09:00:00 09:00:00 [facility] 2017-11-27 2017-11-27 Outpatient Jenna Ulloa [id number] 09:15:00 09:15:00 [facility] 2016-11-28 2016-11-29 Outpatient Gilberto [facility] [id number] 06:24:00 14:00:00 Garth P 01 Results Test Description Test Time Test Comments Results Result Sourc e Comments TISSUE EXAM 2018-01-28 Surgical Pathology 15:12:00 Report Case: [id number] Authorizing Provider: Chad Hinson MD Collected: 01/19/2018908 Ordering Location: [facility] PERI[facility] Received: 01/19/2018 0948 SERVICES Pathologist: Farzaneh Emery MD Specimen: Bone, C4-C5 Ostephyte VERTEBRA, C4-C5 DISCECTOMY WITH OSTEOPHYTECTOMY: - BONE AND FIBROCARTILAGE WITH DEGENERATIVE CHANGES AND REACTIVE FEATURES - NEGATIVE FOR MALIGNANCY Signing Pathologist Direct Phone Line: [phone] [place] signed by Farzaneh Emery MD on 01/28/2018 at 3:12 [id number] e vertebral, other dysphagia. C4-C5 osteophyte The specimen is received in a fluidless container labeled with patient information and labeled "C4-C5 osteophyte" and consists of three fragments of off white fibrocartilaginous tissue measuring 1 x 0.4 x 0.2 cm in aggregate. Submitted entirely A1 for decalcification. CG/pl Performed. FL, BREAKER UP IN 2018-01-19 Reason for FINAL REPORT PATIENT OR/30 MINUTE 12:31:00 exam:->osteoph ID: [id number] INCREMENTS yte Nondiagnostic exam. Radiology provided fluoroscopy for cervical surgery performed by Dr. hinson. Neither radiologist presence nor interpretation were requested. Please refer to the operative report for further information. Fluoroscopy time was 1.4 seconds. Total # of images: 1 Signed: JR Montoya Robert MDReport Verified Date/Time: 01/19/2018 12:31:32 Reading Location: [facility] Radiology Reading Room , BREAKER UP IN 2018-01-19 Reason for FINAL REPORT PATIENT OR/30 MINUTE 09:09:00 exam:->osteoph ID: [id number] FL, INCREMENTS yte BREAKER UP IN OR/30 MINUTE INCREMENTS CLINICAL INDICATION: osteophyte COMPARISON: None IMPRESSION: A single lateral view of the cervical spine is obtained intraoperatively. The indicator probe is oriented at the C4-5 level. Results were discussed with Dr. Hinson, who concurred with the above findings. Signed: JR Montoya Robert [place] Verified Date/Time: 01/19/2018 09:09:28 Reading Location: [facility] Radiology Reading Room , CHEST, 2 2017-12-31 Reason for FINAL REPORT PATIENT VIEWS 12:43:00 Exam:->pre op ID: [id number] HISTORY : pre op. Comparison: None Comment: Two views of the chest, PA and lateral, were obtained. The cardiac silhouette is within normal limits. There is no pleural effusion, pneumothorax or infiltrate. No lytic or blastic abnormalities. Multilevel degenerative changes of the visualized thoracolumbar spine are seen. Surgical clips are seen over the right upper quadrant of the abdomen. Impression: No acute cardiothoracic abnormalities. Signed: Joann Hammondort Verified Date/Time: 12/31/2017 12:43:22 Reading Location: [address] Radiology Reading Room ALYSIS W/ REFLEX URINE CULTURE 2017-12-31 11:18:00 Test Item Value Reference Range Interpretation Comme nts COLOR (BEAKER) (test code = 470) Yellow CLARITY (BEAKER) (test code = 469) Clear SPECIFIC GRAVITY UA (BEAKER) (test code = 468) 1.024 1.001-1 .035 PH UA (BEAKER) (test code = 467) 5.5 5.0-8.0 PROTEIN UA (BEAKER) (test code = 464) 30 mg/dL Negative A GLUCOSE UA (BEAKER) (test code = 365) Negative Negative KETONES UA (BEAKER) (test code = 371) Negative Negative BILIRUBIN UA (BEAKER) (test code = 462) Negative Negative BLOOD UA (BEAKER) (test code = 461) Negative Negative NITRITE UA (BEAKER) (test code = 465) Negative Negative LEUKOCYTE ESTERASE UA (BEAKER) (test code = 466) Negative Negat aquiles UROBILINOGEN UA (BEAKER) (test code = 463) 0.2 mg/dL 0.2-1.0 RBC UA (BEAKER) (test code = 519) < /HPF WBC UA (BEAKER) (test code = 520) 1 /HPF MUCUS (BEAKER) (test code = 1574) Moderate SQUAMOUS EPITHELIAL (BEAKER) (test code = 516) < /HPF HYALINE CASTS (BEAKER) (test code = 514) 8 /LPF SOURCE(BEAKER) (test code = 2795) [id number] 11:11:00 Test Item Value Reference Range Interpretation Comments PROTIME (BEAKER) (test code = 14.5 seconds 11.7-14.7 759) INR (BEAKER) (test code = 370) 1.1 <=5.9 PARTIAL THROMBOPLASTIN TIME 29.8 seconds 22.5-36.0 (BEAKER) (test code = 760) RECOMMENDED COUMADIN/WARFARIN INR THERAPY RANGESSTANDARD DOSE: 2.0 - 3.0 Includes: PROPHYLAXIS forvenous thrombosis, systemic embolization; TREATMENT for venous thrombosis and/or pulmonary embolus.HIGH RISK: Target INR is 2.5-3.5 for patients with mechanical heart valves.PROTHROMBIN TIME/[id number] 11:10:00 Test Item Value Reference Range Interpretation Comments PROTIME (BEAKER) (test code = 14.5 seconds 11.7-14.7 759) INR (BEAKER) (test code = 370) 1.1 <=5.9 RECOMMENDED COUMADIN/WARFARIN INR THERAPY RANGESSTANDARD DOSE: 2.0 - 3.0 Includes: PROPHYLAXIS forvenous thrombosis, systemic embolization; TREATMENT for venous thrombosis and/or pulmonary embolus.HIGH RISK: Target INR is 2.5-3.5 for patients with mechanical heart valves.CBC W/PLT COUNT & AUTO DIFFERENTIAL 2017-12-31 11:00:00 Test Item Value Reference Range Interpretation Comments WHITE BLOOD CELL COUNT (BEAKER) 2.5 K/ L 3.5-10.5 L (test code = 775) RED BLOOD CELL COUNT (BEAKER) 3.83 M/ L 3.93-5.22 L (test code = 761) HEMOGLOBIN (BEAKER) (test code = 12.0 GM/DL 11.2-15.7 410) HEMATOCRIT (BEAKER) (test code = 36.2 % 34.1-44.9 411) MEAN CORPUSCULAR VOLUME (BEAKER) 94.5 fL 79.4-94.8 (test code = 753) MEAN CORPUSCULAR HEMOGLOBIN 31.3 pg 25.6-32.2 (BEAKER) (test code = 751) MEAN CORPUSCULAR HEMOGLOBIN CONC 33.1 GM/DL 32.2-35.5 (BEAKER) (test code = 752) RED CELL DISTRIBUTION WIDTH 12.1 % 11.7-14.4 (BEAKER) (test code = 412) PLATELET COUNT (BEAKER) (test 142 K/CU MM 150-450 L code = 756) MEAN PLATELET VOLUME (BEAKER) 11.7 fL 9.4-12.3 (test code = 754) NUCLEATED RED BLOOD CELLS 0 /100 WBC 0-0 (BEAKER) (test code = 413) NEUTROPHILS RELATIVE PERCENT 46 % (BEAKER) (test code = 429) LYMPHOCYTES RELATIVE PERCENT 39 % (BEAKER) (test code = 430) MONOCYTES RELATIVE PERCENT 11 % (BEAKER) (test code = 431) EOSINOPHILS RELATIVE PERCENT 3 % (BEAKER) (test code = 432) BASOPHILS RELATIVE PERCENT 1 % (BEAKER) (test code = 437) NEUTROPHILS ABSOLUTE COUNT 1.17 K/ L 1.56-6.13 L (BEAKER) (test code = 670) LYMPHOCYTES ABSOLUTE COUNT 0.97 K/ L 1.18-3.74 L (BEAKER) (test code = 414) MONOCYTES ABSOLUTE COUNT (BEAKER) 0.28 K/ L 0.24-0.36 (test code = 415) EOSINOPHILS ABSOLUTE COUNT 0.07 K/ L 0.04-0.36 (BEAKER) (test code = 416) BASOPHILS ABSOLUTE COUNT (BEAKER) 0.02 K/ L 0.01-0.08 (test code = 417) IMMATURE GRANULOCYTES-RELATIVE 0 % 0-1 PERCENT (BEAKER) (test code = 2801) DUNQNKWCHYFV6885-12-94 09:13:0014.2[facility] LbcsihtKABPWSHFKBYI2464-59-32 09:13:0076[facility] ItibtuzHCFHJVETEWNU7653-66-22 09:13:0027[facility] [place] BDFGTUIIAFEQ4662-03-33 09:13:000.88[facility] HmfyqcaDDYNNVWMUVTB6949-45-89 09:13:009[facility] CgbvrjeAEHZYMGWFPTS4737-53-83 09:13:93514Aqgjlcys [place] QDRCGSGAXNTW5425-36-09 09:13:33985Zxyeafnq XzhvaglYMWKSSXCXCYI3981-70-83 09:13:67652Odlwxpax KpszkzpIVLOJMBPXEVZ5035-36-14 09:13:008.6[facility] [place] VRNPBTUNNETP1306-71-28 09:13:004.2[facility] PkzgdpfAYDQPDXLLA5000-86-60 09:13:00 0.7[facility] DmamcojPCTXSEWLUG8233-90-28 09:13:000.1[facility] HermannHEMATOLOGY 2016-11-29 09:13:000.6[facility] RxkxcgiGBUTXEUPIL9636-65-63 09:13:009.8[facility] SimmpseACXGOZVJOV8296-19-19 09:13:0088.3[facility] FzafbozNXCFNBDOCY5092-12-69 09:13:005.6[facility] DdgqxglDMREAEBPEZ7526-08-01 09:13:006.0[facility] [place] MEKSAURLXC9158-31-62 09:13:0011.1[facility] ClgcdtbDNCDIONJWA1744-56-01 09:13:00 14.6[facility] TkaarnoGAECDZPHTT1956-06-67 09:13:10033Zxrvnznz HermannHEMATOLOGY 2016-11-29 09:13:0012.9[facility] IwoizqmQRPPTTIXIS3794-09-95 09:13:0010.8[facility] YkuihpeYWMTAMLNVH1943-67-02 09:13:00 Test Item Value Reference Range Interpretation Comments MCH (test code = MCH) 29.8 pg 27.0-31.0 [facility] KhvebdwUGDLFDZLEW0719-19-09 09:13:0034.1[facility]annHEMATOLOGY 2016-11-29 09:13:0037.7[facility] ZhkmrttGKODWRRGAE1489-73-60 09:13:0087.3[facility] EyclzeoNYPSDRYOBU3612-36-22 09:13:004.32[facility] HermannBLOOD BANK RESULTS 2016-11-28 15:31:00Negative (11/28/16 10:31 AM)[facility] HermannBLOOD BANK RESULTS 2016-11-28 11:00:00Product available (11/28/16 6:00 AM)[facility]annCHEM PANEL 2016-11-21 18:29:42106.8[facility] HermannCHEM MWLIP6947-45-80 18:29:0025.5 [facility] AgqyaulTDNDKHIOJMEQ6016-99-90 18:29:0014.0[facility] HermannELECTROLYTES 2016-11-21 18:29:001.2[facility] WtarpmiNDSRQZZAAQIA2652-41-89 18:29:003.7[facility] GvhbzzsLVJIPKLZUMFK1187-40-74 18:29:0014[facility] RlficwhEVNSMRGMWGBA5692-13-98 18:29:0095[facility] MsgpjufJMIUUXWNYFZO1741-84-00 18:29:008.9[facility] [place] OCLPWJDLJHVY5506-70-62 18:29:0015[facility] FtyzxfdLWJZVPDKMZRR5081-52-98 18:29:00 4.4[facility] LlozhyvTCLIFHNSPPIW6801-24-88 18:29:004.0[facility] [place] VCUXYBILIBSB7536-53-78 18:29:70893Yludkixe RystyluIFOJESNYGYOF1978-35-23 18:29:0027[facility] GmoyfueNADDLKIYLSTT0004-03-39 18:29:14161Jxgeznbr [place] PFNMIMMRYABY5414-70-12 18:29:000.9[facility] MjymdnjECXRKXIPBMNO9705-48-76 18:29:20927Qplmvydo UidodrbNCPZNZIVIZCD8233-28-61 18:29:008.1[facility] [place] KVYSVRDTFYUO7634-49-08 18:29:0059[facility] MhktyxbCHJDDUCDOSZG1378-83-49 18:29:00 36[facility] YfcbminFAVJJFRUCDNV7729-33-45 18:29:0026[facility] HermannELECTROLYTES 2016-11-21 18:29:001.09[facility] UuoatviEEASAWOWHL2603-86-59 18:29:91835Izxeejie OofhrcnVYAUFXXVFG4440-23-15 18:29:0010.3[facility] FadanodSGWGCYVREE0082-28-61 18:29:0014.6[facility] LolihjzCFNXNXUZOD5595-12-33 18:29:004.58[facility] [place] HKZFYGJYXT6597-16-88 18:29:005.4[facility] ResblpoADRBVFODWC5103-33-49 18:29:00 39.8[facility] GbiqwcxSUVJZRVRIU3753-16-62 18:29:0086.9[facility] HermannHEMATOLOGY 2016-11-21 18:29:0013.2[facility] NksanpuETJOVGKHXL8979-26-47 18:29:0033.3[facility] MnmdezoGZFPNUILMP3474-42-45 18:29:00 Test Item Value Reference Range Interpretation Comments MCH (test code = MCH) 28.9 pg 27.0-31.0 [facility] SjmadglOVDACSVYVT3255-00-11 18:29:0051.4[facility] HermannHEMATOLOGY 2016-11-21 18:29:002.4[facility] VfpkmsdMGVCRMZFZJ3125-05-19 18:29:0034.7[facility] NpveoctNMISPHBWYP7512-56-70 18:29:0010.8[facility] BzcejhqFHAIXCJDNP5580-23-64 18:29:000.7[facility] VqcqjqhNSXSCMVNPX4320-95-59 18:29:002.8[facility] [place] EHTPUKBUIK7857-64-61 18:29:001.9[facility] TvcutvhDWREMEVXHC3181-40-97 18:29:000.6 [facility] MnprmcuODJBBEUHYC6413-03-97 18:29:000.1[facility] HermannHEMATOLOGY 2016-11-21 18:29:00 Test Item Value Reference Range Interpretation Comments PTT (test code = PTT) 44.5 s 22.9-35.8 [facility] TxflcnoUGOKLYDUEQ8534-14-49 18:29:00 Test Item Value Reference Range Interpretation Comments PT (test code = PT) 13.3 s 12.0-14.7 [facility] RamkpczXXIEIRJJOL0506-80-47 18:29:000.99[facility] HermannURINE AND STOOL 2016-11-21 18:20:002[facility]annURINE AND SYOUV1728-40-41 18:20:00Negative (11/21/16 1:20 PM)[facility]ann[facility] AND QWYXX6023-07-66 18:20:00Negative (11/21/16 1:20 PM)[facility]ann[facility] AND KCHKA4518-83-64 18:20:00Negative *NA*(11/21/16 1:20 PM)[facility] AND BPEHM3814-98-63 18:20:00Negative (11/21/16 1:20 PM)[facility]ann[facility] AND OAWCF4637-03-39 18:20:001[facility]annURINE AND VJKUS5605-75-36 18:20:00Yellow *NA*(11/21/16 1:20 PM)[facility]ann[facility] AND ISQQK3797-79-19 18:20:00Clear (11/21/16 1:20 PM)[facility] URINE AND BWIGM8001-50-18 18:20:001.025[facility] HermannURINE AND HITDZ5950-70-95 18:20:005.0[facility] [place]
--- NOTE | 2019-08-05 12:33 | ER ---
Nurse's Notes [facility] Name: Hiral Ruelas Age: 54 yrs Sex: Female : 1965 Arrival Date: 08/05/2019 Time: 10:36 Bed 6 Private MD: Diagnosis: Chest pain, unspecified Presentation: 08/04 10:46 Chief complaint: Chest tightness x 3-4 days. Denies cough/SOB. Coronavirus screen: hb Proceed with normal triage. Ebola Screen: No symptoms or risks identified at this time. Initial Sepsis Screen: Does the patient meet any 2 criteria? No. Patient's initial sepsis screen is negative. Does the patient have a suspected source of infection? No. Patient's initial sepsis screen is negative. Risk Assessment: Do you want to hurt yourself or someone else? Patient reports no desire to harm self or others. Onset of symptoms was August 02, 2019. 10:46 Method Of Arrival: Ambulatory 10:46 Acuity: LINETTE 3 hb Historical: - Allergies: 10:49 Tetracycline; hb - Home Meds: 10:49 levothyroxine oral [Active]; Prozac 30 mg Oral cap once daily [Active]; Seroquel 300 mg hb Oral tab 1 tab once daily [Active]; - PMHx: 10:49 Bipolar disorder; Hypothyroidism; hb - PSHx: 10:49 Gastric Bypass; hb - Immunization history:: Adult Immunizations up to date. - Social history:: Smoking status: Patient denies any tobacco usage or history of. Screenin:58 Abuse screen: Denies threats or abuse. Nutritional screening: No deficits noted. em Tuberculosis screening: No symptoms or risk factors identified. Fall Risk None identified. Assessment: 10:57 General: Appears in no apparent distress. comfortable, well groomed, Behavior is ph cooperative, appropriate for age, Denies fever, feeling ill. Pain: Complains of pain in mid-sternal area Pain does not radiate. Pain currently is 3 out of 10 on a pain scale. Quality of pain is described as pressure, Pain began approx 4 days ago. Neuro: Level of Consciousness is awake, alert, obeys commands, Oriented to person, place, time, situation, Denies weakness dizziness, headache. Cardiovascular: Reports chest pain, Denies lightheadedness, nausea, palpitations, shortness of breath, Chest pain is described as mild, quality is pressure, is located in substernal area began 4 days ago. Respiratory: Airway is patent Respiratory effort is even, unlabored, Respiratory pattern is regular, symmetrical. GI: No signs and/or symptoms were reported involving the gastrointestinal system. Derm: Skin is intact, is healthy with good turgor, Skin is pink, warm \T\ dry. Musculoskeletal: Circulation, motion, and sensation intact. Range of motion: intact in all extremities. 12:00 Reassessment: Patient appears in no apparent distress at this time. Patient and/or ph family updated on plan of care and expected duration. Pain level reassessed. Patient is alert, oriented x 3, equal unlabored respirations, skin warm/dry/pink. 13:00 Reassessment: Patient appears in no apparent distress at this time. Patient and/or ph family updated on plan of care and expected duration. Pain level reassessed. Patient is alert, oriented x 3, equal unlabored respirations, skin warm/dry/pink. Pt d/c home w/ family. Vital Signs: 10:46 BP 116 / 83; Pulse 72; Resp 16; Temp 97.6; Pulse Ox 97% ; Weight 71.67 kg; Height 5 ft. hb 8 in. (172.72 cm); Pain 3/10; 12:00 BP 111 / 74; Pulse 62; Resp 16; Pulse Ox 99% on R/A; ph 13:00 BP 107 / 76; Pulse 59; Resp 18; Temp 97.8; Pulse Ox 99% on R/A; ph 10:46 Body Mass Index 24.02 (71.67 kg, 172.72 cm) hb Vitals: 13:00 Cardiac Rhythm Assessment Sinus rhythm. ED Course: 10:36 Patient arrived in ED. fj1 10:39 David Pate, RN is Primary Nurse. em 10:46 Manish Alcantar MD is Attending Physician. kdr 10:47 Triage completed. hb 10:50 Initial lab(s) drawn, by me, sent to lab. EKG done. Inserted saline lock: 20 gauge in left antecubital area, using aseptic technique. Blood collected. Patient maintains SpO2 saturation greater than 95% on room air. 10:58 Patient has correct armband on for positive identification. Bed in low position. Call em light in reach. Side rails up X2. Adult w/ patient. youth nutritional monitor on. Pulse ox on. NIBP on. 11:00 Arm band placed on Patient placed in an exam room, on a stretcher, on youth nutritional monitor. ph 11:02 Warm blanket given. mh5 11:05 XRAY Chest (1 view) In Process Unspecified. EDMS 13:01 No provider procedures requiring assistance completed. IV discontinued, intact, ph bleeding controlled, No redness/swelling at site. Pressure dressing applied. Administered Medications: 10:58 Not Given (Patient Refused; pt states she was told not to have any aspirin or nsaids em after gastric bypass): Aspirin Chewable Tablet 324 mg PO once; 81 mg tablets x 4 Outcome: 12:33 Discharge ordered by . kdr 13:01 Discharged to home ambulatory, with family. ph 13:01 Condition: good 13:01 Discharge instructions given to patient, Instructed on discharge instructions, follow up and referral plans. Demonstrated understanding of instructions, follow-up care. 13:02 Patient left the ED. ph Signatures: Dispatcher [employer] EDAZ Manish Alcantar MD MD [facility] David Pate, RN RN Tara Thornton RN RN Nakia De La Garza, Latisha Hernandes RN [facility] Collin Mtz Corrections: (The following items were deleted from the chart) 13:01 13:00 BP 107 / 76; Pulse 59bpm; Resp 18bpm; Pulse Ox 99% RA; ph ph
--- NOTE | 2019-08-05 12:33 | EDPHYS ---
Physician Documentation [facility] Name: Hiral Ruelas Age: 54 yrs Sex: Female : 1965 Arrival Date: 08/05/2019 Time: 10:36 Bed 6 Private MD: ED Physician Manish Alcantar HPI: 08/04 11:05 This 54 yrs old Female presents to ER via Ambulatory with complaints of Chest kdr Tightness. 11:05 The patient or guardian reports chest pain that is located primarily in the anterior kdr chest wall, bilaterally. Onset: gradually, 4 day(s) ago. The pain does not radiate. Associated signs and symptoms: Pertinent positives: diaphoresis, headache, shortness of breath, Pertinent negatives: abdominal pain, cough, dizziness, lower extremity swelling, lightheadedness, nausea, near syncope, palpitations, recent travel, syncope, vomiting. The chest pain is described as dull, a pressure. Duration: The patient or guardian reports a single episode, that is still ongoing, and unchanged. Modifying factors: The symptoms are alleviated by nothing. the symptoms are aggravated by nothing. Severity of pain: At its worst the pain was mild in the emergency department the pain is unchanged. The patient has experienced similar episodes in the past, a few times, but today's symptoms are worse, lasting longer. The patient has not recently seen a physician. Historical: - Allergies: 10:49 Tetracycline; hb - Home Meds: 10:49 levothyroxine oral [Active]; Prozac 30 mg Oral cap once daily [Active]; Seroquel 300 mg hb Oral tab 1 tab once daily [Active]; - PMHx: 10:49 Bipolar disorder; Hypothyroidism; hb - PSHx: 10:49 Gastric Bypass; hb - Immunization history:: Adult Immunizations up to date. - Social history:: Smoking status: Patient denies any tobacco usage or history of. ROS: 11:05 Constitutional: Negative for fever, chills, and weight loss, Eyes: Negative for injury, kdr pain, redness, and discharge, Neck: Negative for injury, pain, and swelling, Respiratory: Negative for shortness of breath, cough, wheezing, and pleuritic chest pain, Abdomen/GI: Negative for abdominal pain, nausea, vomiting, diarrhea, and constipation, Back: Negative for injury and pain, : Negative for injury, bleeding, discharge, and swelling, MS/Extremity: Negative for injury and deformity, Skin: Negative for injury, rash, and discoloration, Neuro: Negative for headache, weakness, numbness, tingling, and seizure activity. 11:05 Cardiovascular: Positive for chest pain, of the anterior aspect of right upper chest, anterior aspect of left upper chest, xyphoid area, mid-sternal area, right breast and left breast. Exam: 11:05 Constitutional: This is a well developed, well nourished patient who is awake, alert, kdr and in no acute distress. Head/Face: Normocephalic, atraumatic. Eyes: Pupils equal round and reactive to light, extra-ocular motions intact. Lids and lashes normal. Conjunctiva and sclera are non-icteric and not injected. Cornea within normal limits. Periorbital areas with no swelling, redness, or edema. Neck: Trachea midline, no thyromegaly or masses palpated, and no cervical lymphadenopathy. Supple, full range of motion without nuchal rigidity, or vertebral point tenderness. No Meningismus. Chest/axilla: Normal chest wall appearance and motion. Nontender with no deformity. No lesions are appreciated. Cardiovascular: Regular rate and rhythm with a normal S1 and S2. No gallops, murmurs, or rubs. Normal PMI, no JVD. No pulse deficits. Respiratory: Lungs have equal breath sounds bilaterally, clear to auscultation and percussion. No rales, rhonchi or wheezes noted. No increased work of breathing, no retractions or nasal flaring. Abdomen/GI: Soft, non-tender, with normal bowel sounds. No distension or tympany. No guarding or rebound. No evidence of tenderness throughout. Back: No spinal tenderness. No costovertebral tenderness. Full range of motion. Skin: Warm, dry with normal turgor. Normal color with no rashes, no lesions, and no evidence of cellulitis. MS/ Extremity: Pulses equal, no cyanosis. Neurovascular intact. Full, normal range of motion. Neuro: Awake and alert, GCS 15, oriented to person, place, time, and situation. Cranial nerves II-XII grossly intact. Motor strength 5/5 in all extremities. Sensory grossly intact. Cerebellar exam normal. Normal gait. Psych: Awake, alert, with orientation to person, place and time. Behavior, mood, and affect are within normal limits. Vital Signs: 10:46 BP 116 / 83; Pulse 72; Resp 16; Temp 97.6; Pulse Ox 97% ; Weight 71.67 kg; Height 5 ft. hb 8 in. (172.72 cm); Pain 3/10; 12:00 BP 111 / 74; Pulse 62; Resp 16; Pulse Ox 99% on R/A; ph 13:00 BP 107 / 76; Pulse 59; Resp 18; Temp 97.8; Pulse Ox 99% on R/A; ph 10:46 Body Mass Index 24.02 (71.67 kg, 172.72 cm) hb MDM: 12:33 Patient medically screened. kdr 17:37 Data reviewed: vital signs, nurses notes, lab test result(s), radiologic studies. kdr Counseling: I had a detailed discussion with the patient and/or guardian regarding: the historical points, exam findings, and any diagnostic results supporting the discharge/admit diagnosis, lab results, radiology results. 08/04 10:46 Order name: Basic Metabolic Panel; Complete Time: 12:31 kdr 08/04 10:46 Order name: CBC with Diff; Complete Time: 12:31 [facility] 08/04 10:46 Order name: LFT's; Complete Time: 12: [facility] 08/04 10:46 Order name: Magnesium; Complete Time: 12:31 [facility] 08/04 10:46 Order name: NT PRO-BNP; Complete Time: 12:31 [facility] 08/04 10:46 Order name: PT-INR; Complete Time: 12: [facility] 08/04 10:46 Order name: Troponin (emerg Dept Use Only); Complete Time: 12:31 kdr 08/04 10:46 Order name: XRAY Chest (1 view); Complete Time: 12:31 kdr 08/04 10:46 Order name: EKG; Complete Time: 10:48 kdr 08/04 10:46 Order name: Cardiac monitoring; Complete Time: 10:56 [facility] 08/04 10:46 Order name: EKG - Nurse/Tech; Complete Time: 10:56 [facility] 08/04 10:46 Order name: IV Saline Lock; Complete Time: 10:56 [facility] 08/04 10:46 Order name: Labs collected and sent; Complete Time: 10:56 [facility] 08/04 10:46 Order name: O2 Per Protocol; Complete Time: 10:55 kdr 08/04 10:46 Order name: O2 Sat Monitoring; Complete Time: 10:55 kdr Administered Medications: 10:58 Not Given (Patient Refused; pt states she was told not to have any aspirin or nsaids em after gastric bypass): Aspirin Chewable Tablet 324 mg PO once; 81 mg tablets x 4 Disposition: 08/05/19 12:33 Discharged to Home. Impression: Chest pain, unspecified. - Condition is Stable. - Discharge Instructions: Nonspecific Chest Pain, Tilw-nh-Jpnd. - Medication Reconciliation Form, Thank You Letter form. - Follow up: Private Physician; When: 2 - 3 days; Reason: If symptoms return, Further diagnostic work-up, Recheck today's complaints, Continuance of care, Re-evaluation by your physician. - Problem is an ongoing problem. - Symptoms are unchanged. Signatures: Dispatcher [employer] Manish Sheppard MD MD [facility] Tara Thornton RN RN Nakia De La Garza RN RN David Pate RN Corrections: (The following items were deleted from the chart) 13:02 12:33 08/05/2019 12:33 Discharged to Home. Impression: Chest pain, unspecified. ph Condition is Stable. Forms are Medication Reconciliation Form, Thank You Letter, Antibiotic Education, Prescription Opioid Use. Follow up: Private Physician; When: 2 - 3 days; Reason: If symptoms return, Further diagnostic work-up, Recheck today's complaints, Continuance of care, Re-evaluation by your physician. Problem is an ongoing problem. Symptoms are unchanged. kdr
[2019-08-05 13:12] VITALS: O2SAT 99
[2019-08-05 13:14] VITALS: BP 107/76; TEMP 97.8
== END 2019-08-05 13:02 | disposition home or self-care (01) ==
LOC: ER 10:35
DX: R07.9 Chest pain, unspecified (principal); E03.9 Hypothyroidism, unspecified; F31.9 Bipolar disorder, unspecified; Z88.1 Allergy status to other antibiotic agents; Z98.84 Bariatric surgery status
CPT/HCPCS: 36415; 71045; 80048; 80076; 83735; 83880; 84484; 85025; 85610; 93005; 99285

== ENCOUNTER 2022-07-23 11:44 | Emergency (ER) | payer OTHER ==
--- OUTSIDE RECORDS SUMMARY | 2022-07-23 12:03 | XMS REPORT | Continuity of Care Document ---
:1965 Author Organization [facility] t Address [address] [place] [address] [place] [id number] Care Team Providers Name Role Phone Unknown, Physician Primary Care Physician Unavailable Ashok Espino Attending Clinician Unavailable NELY OAKLEY Attending Clinician Unavailable MICAELA CALL Attending Clinician Unavailable NELY OAKLEY Attending Clinician Unavailable Vaccine, Adc Family Medicine Attending Clinician Unavailable Kady Vazquez MD Attending Clinician [phone] KADY VAZQUEZ Attending Clinician Unavailable Doctor Unassigned, [place] Attending Clinician Unavailable Andrew Bryan Claudia Attending Clinician KACARTERSE, TANDARCIZWA LETY Attending Clinician Unavailable ANDREW BRYANM Attending Clinician Unavailable VISIT, VEHICLE DYNAMICS ENGINEER MPB Attending Clinician Unavailable Nely Oakley MD Attending Clinician Sharon Garcia MD Attending Clinician Unavailable ANNIA LOZANO Attending Clinician Unavailable Annia Lozano MD Attending Clinician ANNIA LOZANO Attending Clinician Unavailable Megan Lujan Attending Clinician Unavailable ADRIENNE_ISAIAH_Cathremigio Attending Clinician Unavailable Mariam Watkins Attending Clinician [phone] DAVID BORRERO Attending Clinician Unavailable Vaccine, Ang Db Cbc Fam Attending Clinician Unavailable Unknown, Attending Attending Clinician Unavailable UNKNOWN, ATTENDING Attending Clinician Unavailable Rima Clements Attending Clinician [phone] Nataliya Glez MA Attending Clinician Unavailable Aiden Ching Attending Clinician DINESH RASHID Attending Clinician Unavailable Nurse, Adc Pob Immunization Attending Clinician Unavailable Dinesh Rashid DO Attending Clinician Radiology Attending Clinician Unavailable RADIOLOGY Attending Clinician Unavailable Lana Miller MD Attending Clinician JOHN HINSON Attending Clinician Unavailable Wilfredo Macias Attending Clinician NELY OAKLEY Admitting Clinician Unavailable JUVENAL, FROYLANZWA LETY Admitting Clinician Unavailable José Miguel Bryanwa Claudia Admitting Clinician JOSÉ MIGUEL BRYANWA CLAUDIA Admitting Clinician Unavailable ANNIA LOZANO Admitting Clinician Unavailable Megan Lujan Admitting Clinician Unavailable ADRIENNE_ISAIAH_June Admitting Clinician Unavailable Physician, No Primary or Family Admitting Clinician UnavailJOHN Hackett Admitting Clinician Unavailable Wilfredo Macias Admitting Clinician Payers Payer Name Policy Type Policy Number Effective Date Expiration Date S ource AETNA SELECT [id number] 2010 [place] ACCESS 00:00:00 OPEN ACCESS [id number] 2010 AETNA SELECT 00:00:00 EPO OPEN ACCESS [id number] 2017 HMO/POS/EPO/P 00:00:00 PO - AETNA CVCP-AETNA [id number] SELECT/SELECT [id number] 2010 PLUS - UHC 00:00:00 00:00:00 AETNA 53 [id number] 2010 [facility] 00:00:00 - [facility] AETNA (EPO) [id number] 2010 00:00:00 AETNA 53 [id number] [facility] Problems Condition Condition Condition Status Onset Resolution Last Treating Co mments Source Name Details Category Date Date Treatment Clinician Date DYSPHAGIA, DYSPHAGIA Diagnosis Active 2021-022021-12-07 Memoria REFLUX ,REFLUX 0 12:40:00 l Active 00:00: [place] 12/03/2021 [facility] DYSPHAGIA, DYSPHAGIA Diagnosis Active 2021-11-30 Memoria REFLUX , REFLUX 11-22 07:13:00 l Active 00:00: [place] 11/22/2021 [facility] Urinary Urinary Problem Active [facility] incontinen Incontinen 03-26 Me dical ce ce 00:00: 00 Dysphagia Dysphagia Disease Active 2017-[address] [facility] 00 [place] Osteophyte Osteophyte Disease Active 2017-[address] of spine of spine 03-21 [facility] Medical 00 Center [id number], [id number], Diagnosis Active 2016-11-28 Me moria MORBID MORBID 11-19 16:43:00 l OBESITY OBESITY 00:00: [place] Active 00 11/19/2016 [facility] Obesity Obesity Disease Active 2015-02 Univers (BMI (BMI 2-22 ity of 30-39.9) 30-39.9) 00:00: [address] Branch [id number] Migraine Problem Comm on without Spirit aura and - [facility] without [facility] status [facility] migrainosu Medica l s, not Center intractabl e Iron Iron Problem Common deficiency deficiency Sp dhiraj anemia due anemia due - CHI to dietary to dietary St causes [facility] [id number] Other Problem Common chronic Spirit pain - [facility] Irritable Irritable Problem Com mon bowel bowel Spirit syndrome syndrome - CHI with with St diarrhea diarrhea [facility] [id number] History of Problem Co mmon gastric Spirit bypass - [facility] [id number] Osteoarthr Problem Co mmon itis of Spirit spine with - CHI radiculopa [facility] lumbar Medical region Center Hypothyroi Hypothyroi Problem C ommon dism dism [facility] Mixed Mixed Problem Common hyperlipid hyperlipid Sp dhiraj emia emia - [facility] [id number] IBD Problem Common (inflammat Spirit ory bowel - CHI disease) [facility] [id number] Primary Problem Comm on osteoarthr Spirit itis of - CHI right knee [facility] [id number] Primary Problem Comm on osteoarthr Spirit itis of - CHI left knee [facility] [id number] Tension-ty Problem Co mmon pe Spirit headache, - CHI not St intractabl [facility] e, Medical unspecifie Center d chronicity pattern Diverticul Diverticul Problem C ommon ar disease ar disease Sp dhiraj [facility] Obstructiv Obstructiv Problem C ommon e sleep e sleep Spirit apnea apnea - [facility] Vitamin B12 Problem Common B12 deficiency Spirit deficiency [facility] (non St anemic) [facility] Bipolar Bipolar Problem Common disorder disorder [facility] Prediabete Prediabete Problem C ommon s s Spirit [facility] Gastroesop Gastroesop Problem C ommon hageal hageal Spirit reflux reflux - CHI disease disease [facility] Anemia Anemia Problem Common [facility] Depression Depression Problem C ommon Spirit [facility] Vitamin D Mild Problem Common deficiency vitamin D Spi rit deficiency - [facility] History of History Problem Active 2021-12-15 Memoria bypass of of bypass 05:23:34 l stomach of stomach Zaira nn (situation (situation ) ) Active Problem 12/15/2021 [facility] Migraine Migraine Problem Active 2021-12-15 Memoria (disorder) (disorder) 05:23:34 l Active [place] Problem 12/15/2021 [facility] Motion Motion Problem Active 2021-12-15 Jose jabari sickness sickness 05:23:34 l (disorder) (disorder) He rmann Active Problem 12/15/2021 [facility] Obesity Obesity Problem Active 2021-02-08 Me moria (disorder) (disorder) 02:21:26 l Active [place] Problem 02/08/2021 Medical Group,[facility] Sleep Sleep Problem Active 2021-02-08 Memor ia apnea apnea 02:21:26 l (finding) (finding) Herm fadi Active Problem 02/08/2021 [facility] History of History Problem Active 2021-12-15 Memoria excision of 05:23:34 l of small excision Clarence n intestine of small intestine Active Problem 12/15/2021 of elongated cany-cane limb Medical Group History of History Problem Active 2021-12-09 Memoria bariatric of 23:01:47 l surgical bariatric Zaira nn procedure surgical (situation procedure ) (situation ) Active Problem 12/09/2021 Medical Group,[facility] R11.2 - R11.2 - Diagnosis Active 2021-03-07 Memoria NAUSEA NAUSEA 11:06:00 l WITH WITH [place] VOMITING, VOMITING, UNSPECIF Z UNSPECIF Z Active MOUSTAPHA [place] ILLNESS, ILLNESS, Diagnosis Active 2021-12-07 Memoria UNSPECIFIE UNSPECIFIE 12:40:00 l D D Active [facility] Morbid Morbid Problem Active 2019-11-06 Jose jabari obesity obesity 01:02:27 l (disorder) (disorder) He rmann Active Problem 11/06/2019 Medical Group,[facility] Allergies, Adverse Reactions, Alerts Allergy Allergy Status Severity Reaction(s) Onset Inactive Treating Comm ents Source Name Type Date Date Clinician Sertrali Drug Active Hives [facility]06 [facility]: Medical 00 Center Neomycin Drug Active Other (See Caused [facility] -Bacitra Allergy Comments) 11-06 sore Luke s frank-Poly 00:00: infection Medic al myxin 00 . Center NEOMYCIN Allergy Active High Other [facility] -[facility] - [facility] FRANK-POLY 00:00: Medical MYXIN 00 Center SERTRALI Allergy Active High Hives [facility] 9-13 [facility] 00:[facility]: Medical 00 Center Neomycin Propensi Active [facility] ty to 1-04 Health adverse 00:00: reaction 00 s Neospori Propensi Active [facility] n Wound ty to 4-18 [employer] adverse 00:00: of reaction 00 Medicin s to e drug Tetracyc Propensi Active Hives [facility] lines & ty to 9-24 College Related adverse 00:00: of reaction 00 Medicin s to e drug Tetracyc Propensi Active Nausea 2015-02 Univer s line ty to and/or 2-21 ity of adverse Vomiting 00:00: [place] reaction 00 Medical s to Branch drug TETRACYC DRUG Active Med Hives 2015-02 Univers LINE INGREDI 2-21 ity of 00:00: [place] 00 Medical Branch Tetracyc Drug Active Hives, [address] line Allergy Nausea And 2-21 [facility] Vomiting 00:00: Medical 00 [place] Tetracyc Propensi Active Hives, [address] line ty to Nausea And 2-21 [facility] adverse Vomiting 00:00: Medical reaction 00 Center s TETRACYC Allergy Active High Hives 2015- [facility] LINE 2-21 [facility] 00:00: Medical 00 [place] tetracyc DA Active [place] HIVES [facility] line 2-10 [place] 00:00: d 00 [facility] tetracyc tetracyc Active Memori a lines lines l [place] tetracyc tetracyc Active Memori a lines lines l [place] Neospori Neospori Active Memori a n n l [place] NEOSPORI Allergy Active Swelling Privi a N to Medical (MATHEUS-JULISSA substanc -POLYM) e Tetracyc Allergy Active Hives, [facility] line to Nausea, Medical substanc Swelling e Tetracyc Tetracyc Active Hives, Common line line vomiting [facility] [id number] Drug Active Unknown Common allergy [facility] Social History Social Habit Start Date Stop Date Quantity Comments Source History of Tobacco [facility] - Use [facility] Alcohol intake 2021-11-13 2021-11-13 [facility]er [facility] 00:00:00 of [facility] (finding) Exposure to 2021-10-27 2021-11-06 [facility] sure [facility]2 (event) 00:00:00 14:58:00 Medica l Center History [facility] 2021-02-27 2021-02-27 4 [facility] Alcohol Frequency 00:00:00 00:00:00 History [facility] 2021-02-27 2021-02-27 1 [facility] Alcohol Std Drinks 00:00:00 00:00:00 History [facility] 2021-02-27 2021-02-27 1 [facility] Alcohol Binge 00:00:00 00:00:00 Tobacco use and 2017-12-31 2017-12-31 Smokeless tobacco [facility] exposure 00:00:00 00:00:00 non-user Medical Center Alcohol Comment 2017-12-31 2017-12-31 ocasional VALENCIA Krause 00:00:00 00:00:00 [facility] Social History 2016-11-21 2016-11-21 [facility] 18:33:35 18:33:35 Sex [birth year] At [birth year] VALENCIA Krause 00:00:00 00:00:00 [facility] Smoking Status Start Date Stop Date Source Tobacco smoking consumption unknown [facility] Tobacco smoking status [facility] Medications Ordered Filled Start Stop Current Ordering Indication Dosage Frequency Signature Comments Components Source Medication Medication Date Date Medication? Clinician (SIG) Name Name Euflexxa Euflexxa 2021-02 No 20mg Commo n 2-05 Spirit 00:00: - [facility] Euflexxa Euflexxa 2021-02 No 20mg Commo n 2-05 Spirit 00:00: - [facility] Euflexxa Euflexxa 2021- No 20mg Commo n 2-05 Spirit 00:00: - [facility] Euflexxa Euflexxa 2021- No 20mg Commo n 2-05 Spirit 00:00: - [facility] Euflexxa Euflexxa 2021- No 20mg Commo n 2-05 [facility] 00:00: - [facility] Euflexxa Euflexxa 2021- No 20mg Commo n 2-05 Spirit 00:00: - [facility] Euflexxa Euflexxa 2021-1 No 20mg Commo n 2-05 Spirit 00:00: - CHI 00 [facility] Euflexxa Euflexxa 2021-1 No 20mg Commo n 2-05 Spirit 00:00: - CHI 00 [facility] Macrobid Macrobid 2021-022- No 1{capsu BID Macrobid 100 MG 100 MG 03-20 le_with 100 MG 00:00: 00:00 _food} 00 :00 Macrobid Macrobid 2021-022- No 1{capsu BID Macrobid 100 MG 100 MG 03-20 le_with 100 MG 00:00: 00:00 _food} 00 :00 Macrobid Macrobid 2021-02- No 1{capsu BID Macrobid 100 MG 100 MG 03-20 le_with 100 MG 00:00: 00:00 _food} 00 :00 Euflexxa Euflexxa 2021-1 No 20mg Commo n 1-22 Spirit 00:00: - CHI 00 [facility] Euflexxa Euflexxa 2021-1 No 20mg Commo n 1-22 Spirit 00:00: - CHI 00 [facility] Euflexxa Euflexxa 2021-1 No 20mg Commo n 1-22 Spirit 00:00: - CHI 00 [facility] Euflexxa Euflexxa 2021-1 No 20mg Commo n 1-22 Spirit 00:00: - CHI 00 [facility] Euflexxa Euflexxa 2021-1 No 20mg Commo n 1-22 Spirit 00:00: - CHI 00 [facility] Euflexxa Euflexxa 2021-1 No 20mg Commo n 1-22 Spirit 00:00: - CHI 00 [facility] Euflexxa Euflexxa 2021-1 No 20mg Commo n 1-22 Spirit 00:00: - CHI 00 [facility] Euflexxa Euflexxa 2021-1 No 20mg Commo n 1-22 Spirit 00:00: - CHI 00 [facility] Euflexxa Euflexxa 2021-1 No 20mg Commo n 1-22 Spirit 00:00: - CHI 00 [facility] Euflexxa Euflexxa 2022-1 No 20mg Commo n 1-22 Spirit 00:00: - CHI 00 [facility] Euflexxa Euflexxa 2021-02 No 20mg Commo n 1-22 Spirit 00:00: - CHI 00 [facility] Euflexxa Euflexxa 2021-02 No 20mg Commo n 1-22 Spirit 00:00: - CHI 00 [facility] Euflexxa Euflexxa 2021-02 No 20mg Commo n 1-22 Spirit 00:00: - CHI 00 [facility] Euflexxa Euflexxa 2021-02 No 20mg Commo n 1-22 Spirit 00:00: - CHI 00 [facility] Euflexxa Euflexxa 2021-02 No 20mg Commo n 1-15 Spirit 00:00: - CHI 00 [facility] Kenalog Kenalog 2021-02 No 40mg Common (Triamcinol (Triamcinol 1-15 S pirit one) one) 00:00: - CHI 00 [facility] Bupivicaine Bupivicaine 2021-02 No 2.5mg Common [place] 1-15 Spirit 00:00: - CHI 00 [facility] Kenalog Kenalog 2021-02 No 40mg Common (Triamcinol (Triamcinol 1-15 S pirit one) one) 00:00: - CHI 00 [facility] Euflexxa Euflexxa 2021-02 No 20mg Commo n 1-15 Spirit 00:00: - CHI 00 [facility] Bupivicaine Bupivicaine 2021-02 No 2.5mg Common [place] 1-15 Spirit 00:00: - CHI 00 [facility] Euflexxa Euflexxa 2021-02 No 20mg Commo n 1-15 Spirit 00:00: - CHI 00 [facility] Kenalog Kenalog 2021-02 No 40mg Common (Triamcinol (Triamcinol 1-15 S pirit one) one) 00:00: - CHI 00 [facility] Bupivicaine Bupivicaine 2021-02 No 2.5mg Common [place] 1-15 Spirit 00:00: - CHI 00 [facility] Kenalog Kenalog 2022-1 No 40mg Common (Triamcinol (Triamcinol 1-15 S pirit one) one) 00:00: - CHI 00 [facility] Euflexxa Euflexxa 2021-02 No 20mg Commo n 1-15 Spirit 00:00: - CHI 00 [facility] Bupivicaine Bupivicaine 2021-02 No 2.5mg Common [place] 1-15 Spirit 00:00: - CHI 00 [facility] Euflexxa Euflexxa 2021-02 No 20mg Commo n 1-15 Spirit 00:00: - CHI 00 [facility] Kenalog Kenalog 2021-02 No 40mg Common (Triamcinol (Triamcinol 1-15 S pirit one) one) 00:00: - CHI 00 [facility] Bupivicaine Bupivicaine 2021-02 No 2.5mg Common [place] 1-15 Spirit 00:00: - CHI 00 [facility] Kenalog Kenalog 2021-02 No 40mg Common (Triamcinol (Triamcinol 1-15 S pirit one) one) 00:00: - CHI 00 [facility] Euflexxa Euflexxa 2021-02 No 20mg Commo n 1-15 Spirit 00:00: - CHI 00 [facility] Bupivicaine Bupivicaine 2021-02 No 2.5mg Common [place] 1-15 Spirit 00:00: - CHI 00 [facility] Euflexxa Euflexxa 2021-02 No 20mg Commo n 1-15 Spirit 00:00: - CHI 00 [facility] Kenalog Kenalog 2021-02 No 40mg Common (Triamcinol (Triamcinol 1-15 S pirit one) one) 00:00: - CHI 00 [facility] Bupivicaine Bupivicaine 2021-02 No 2.5mg Common [place] 1-15 Spirit 00:00: - CHI 00 [facility] Kenalog Kenalog 2021-02 No 40mg Common (Triamcinol (Triamcinol 1-15 S pirit one) one) 00:00: - CHI 00 [facility] Euflexxa Euflexxa 2021-02 No 20mg Commo n 1-15 Spirit 00:00: - CHI 00 [facility] Bupivicaine Bupivicaine 2021-02 No 2.5mg Common [place] 1-15 Spirit 00:00: - CHI 00 [facility] Euflexxa Euflexxa 2021-02 No 20mg Commo n 1-15 Spirit 00:00: - CHI 00 [facility] Kenalog Kenalog 2021-02 No 40mg Common (Triamcinol (Triamcinol 1-15 S pirit one) one) 00:00: - CHI 00 [facility] Bupivicaine Bupivicaine 2021-02 No 2.5mg Common [place] 1-15 Spirit 00:00: - CHI 00 [facility] Kenalog Kenalog 2021-02 No 40mg Common (Triamcinol (Triamcinol 1-15 S pirit one) one) 00:00: - CHI 00 [facility] Euflexxa Euflexxa 2021-02 No 20mg Commo n 1-15 Spirit 00:00: - CHI 00 [facility] Bupivicaine Bupivicaine 2021-02 No 2.5mg Common [place] 1-15 Spirit 00:00: - CHI 00 [facility] Euflexxa Euflexxa 2021-02 No 20mg Commo n 1-15 Spirit 00:00: - CHI 00 [facility] Kenlucius Kenalog 2021-02 No 40mg Common (Triamcinol (Triamcinol 1-15 S pirit one) one) 00:00: - CHI 00 [facility] Bupivicaine Bupivicaine 2021-02 No 2.5mg Common [place] 1-15 Spirit 00:00: - CHI 00 [facility] Kenalog Kenalog 2021-02 No 40mg Common (Triamcinol (Triamcinol 1-15 S pirit one) one) 00:00: - CHI 00 [facility] Euflexxa Euflexxa 2021-02 No 20mg Commo n 1-15 Spirit 00:00: - CHI 00 [facility] Bupivicaine Bupivicaine 2021-02 No 2.5mg Common [place] 1-15 Spirit 00:00: - CHI 00 [facility] Euflexxa Euflexxa 2021-02 No 20mg Commo n 1-15 Spirit 00:00: - CHI 00 [facility] Kenalog Kenalog 2021-02 No 40mg Common (Triamcinol (Triamcinol 1-15 S pirit one) one) 00:00: - CHI 00 [facility] Bupivicaine Bupivicaine 2021-02 No 2.5mg Common [place] 1-15 Spirit 00:00: - CHI 00 [facility] Kenalog Kenalog 2021-02 No 40mg Common (Triamcinol (Triamcinol 1-15 S pirit one) one) 00:00: - CHI 00 [facility] Euflexxa Euflexxa 2021-02 No 20mg Commo n 1-15 Spirit 00:00: - CHI 00 [facility] Bupivicaine Bupivicaine 2021-02 No 2.5mg Common [place] 1-15 Spirit 00:00: - CHI 00 [facility] Euflexxa Euflexxa 2021-02 No 20mg Commo n 1-15 Spirit 00:00: - CHI 00 [facility] Kenalog Kenalog 2021-02 No 40mg Common (Triamcinol (Triamcinol 1-15 S pirit one) one) 00:00: - CHI 00 [facility] Bupivicaine Bupivicaine 2021-02 No 2.5mg Common [place] 1-15 Spirit 00:00: - CHI 00 [facility] Kenalog Kenalog 2021-02 No 40mg Common (Triamcinol (Triamcinol 1-15 S pirit one) one) 00:00: - CHI 00 [facility] Euflexxa Euflexxa 2021-02 No 20mg Commo n 1-15 Spirit 00:00: - CHI 00 [facility] Bupivicaine Bupivicaine 2021-02 No 2.5mg Common [place] 1-15 Spirit 00:00: - [facility]I 00 [facility] tramadol 50 2021-02 Yes 50 mg = 1 M emoria mg oral 0-14 tab, PO, l tablet 14:59: Q4H, PRN [place] 00 Pain Score 1-3, # 12 tab, 0 Refill(s), Pharmacy: [id number], 172.72, cm, 12/05/21 14:07:00 CDT, Height, 78.636, kg, 12/05/21 14:07:00 CDT, Weight propranolol 2021-02 Yes 20 mg = 1 M emoria 20 mg oral 0-13 tab, PO, l tablet 13:16: Daily, 0 [place] 00 Refill(s) Home 2021-02 Yes Refill(s) Memoria Medication 0-07 0 l 12:56: [place] 00 multivitami 2021-02 Yes Daily, 0 Me moria n 0-07 Refill(s) l 12:55: [place] 00 ferrous 2021-02 Yes PO, 0 Memoria sulfate 0-07 Refill(s) l 12:55: [place] 00 famotidine Yes 20 mg = 1 Me moria 9-27 tab, PO, l 18:14: BID, # 60 [place] 00 tab, 0 Refill(s) omeprazole Yes 40 mg = 1 Me moria 40 mg oral 9-27 cap, PO, l delayed 18:14: Daily, 0 Clarence n release 00 Refill(s) capsule levothyroxi Yes 50ug Take [address] ne 9-20 mcg by Lise (SYNTHROID, 13:03: mouth Medic al LEVOTHROID) 40 Every Center 50 MCG morning on tablet an empty stomach. fLUoxetine Yes 30mg QD Take [address] (PROZAC) 10 9-20 by mouth Luke s MG capsule 13:03: daily . Medi mya 40 Center iron-multiv Yes 2{tbl} QD Take [address] itamins-min 9-20 tablets by Laura schaefer 13:03: mouth Medical (THERAGRAN- 40 daily. Center ) 9 mg iron-400 mcg Tab tablet calcium Yes 2{tbl} QD Take [address] carbonate 9-20 tablets by Elijah s (CALCIUM 13:03: mouth Medical 500 ORAL) 40 daily. [place] cholecalcif Yes 1{tbl} QD Take [address] terry, 9-20 tablet by Lise vitamin D3, 13:03: mouth Medic al (VITAMIN D3 40 daily. Center ORAL) QUEtiapine 0 Yes 200mg QD Take [address] (SEROquel) 9-20 mg by Lukes 200 MG 13:03: mouth Medical tablet 40 nightly Center Takes with 50 MG for a total of 250 MG. QUEtiapine 0 Yes 50mg QD Take [address] (SEROquel) 9-20 by mouth [facility]ukes 50 MG 13:03: nightly. Medical tablet 40 Center propranoloL 0 Yes 20mg QD Take [address] (INDERAL) 9-20 by mouth [facility]ukes 20 MG 13:03: daily For Medical tablet 40 migraine Center prevention . diphenoxyla Yes 1{tbl} Take [address] te-atropine 9-20 tablet by Magalie es (LOMOTIL) 13:03: mouth 4 Medic al 2.5-0.025 40 (four) Center mg per times tablet daily as needed for Diarrhea. famotidine Yes 20mg Take [address] (PEPCID) 20 9-20 by mouth Luke s MG tablet 13:03: every Medical 40 night as Center needed for Heartburn. omeprazole Yes 40mg QD Take [address] (PriLOSEC) 9-20 by mouth [facility]ukes 40 MG 13:03: daily. Medical capsule 40 Center colesevelam Yes 1875mg Take 1,[address] (WELCHOL) 9-20 mg by [facility]ukes 625 mg 13:03: mouth 2 Medical tablet 40 (two) Center times daily with breakfast and dinner. levothyroxi Yes 50ug Take [address] ne 9-20 mcg by Lise (SYNTHROID, 13:03: mouth Medic al LEVOTHROID) 40 Every Center 50 MCG morning on tablet an empty stomach. fLUoxetine Yes 30mg QD Take [address] (PROZAC) 10 9-20 by mouth Luke s MG capsule 13:03: daily . Medi mya 40 Center iron-multiv Yes 2{tbl} QD Take [address] itamins-min 9-20 tablets by Laura schaefer 13:03: mouth Medical (THERAGRAN- 40 daily. Center M) 9 mg iron-400 mcg Tab tablet calcium Yes 2{tbl} QD Take [address] carbonate 9-20 tablets by Luke s (CALCIUM 13:03: mouth Medical 500 ORAL) 40 daily. [place] cholecalcif Yes 1{tbl} QD Take [address] terry, 9-20 tablet by Lukes vitamin D3, 13:03: mouth Medic al (VITAMIN D3 40 daily. Center ORAL) QUEtiapine Yes 200mg QD Take [address] (SEROquel) 9-20 mg by [facility]ukes 200 MG 13:03: mouth Medical tablet 40 nightly Center Takes with 50 MG for a total of 250 MG. QUEtiapine Yes 50mg QD Take [address] (SEROquel) 9-20 by mouth [facility]ukes 50 MG 13:03: nightly. Medical tablet 40 [place] propranoloL Yes 20mg QD Take [address] (INDERAL) 9-20 by mouth [facility]ukes 20 MG 13:03: daily For Medical tablet 40 migraine Center prevention . diphenoxyla Yes 1{tbl} Take [address] te-atropine 9-20 tablet by Magalie es (LOMOTIL) 13:03: mouth 4 Medic al 2.5-0.025 40 (four) Center mg per times tablet daily as needed for Diarrhea. famotidine Yes 20mg Take [address] (PEPCID) 20 9-20 by mouth Luke s MG tablet 13:03: every Medical 40 night as Center needed for Heartburn. omeprazole Yes 40mg QD Take [address] (PriLOSEC) 9-20 by mouth [facility] 40 MG 13:03: daily. Medical capsule 40 [place] colesevelam Yes 1875mg Take 1,[address] (WELCHOL) 9-20 mg by [facility]ukes 625 mg 13:03: mouth 2 Medical tablet 40 (two) Center times daily with breakfast and dinner. QUEtiapine 0 2021- No 300mg QD Take 300 C HI [facility] (SEROQUEL) 9-19 09-19 mg [facility] 300 MG 11:09: 00:00 mouth Medical tablet 44 :00 nightly. [facility] QUEtiapine 0 2021- No 300mg QD Take [address] (SEROQUEL) 9-19 09-19 mg [facility] 300 MG 11:09: 00:00 mouth Medical tablet 44 :00 nightly. Center propranolol 2021- No 40mg QD Take [address] [facility] (INDERAL) 11-12 by [facility] 40 MG 11:09: 00:00 daily. Medical tablet 23 :00 Center propranolol 2021- No 40mg QD Take [address] [facility] (INDERAL) 11-12 by [facility] 40 MG 11:09: 00:00 daily. Medical tablet 23 :00 Center methscopola 2021- No 5mg QD Take [address] [facility] mine 11-12 by [facility] (PAMINE 11:08: 00:00 daily. Medical FORTE) 5 MG 19 :00 Center tablet methscopola 2021- No 5mg QD Take [address] [facility] mine 11-12 by [facility] (PAMINE 11:08: 00:00 daily. Medical FORTE) 5 MG 19 :00 Center tablet mesalamine 2021- No Crohn's 500mg Q.5D Take [address] [facility] (PENTASA) 11-12 disease mg by [facility] 500 MG CR 11:08: 00:00 mouth 2 Medi mya capsule 03 :00 (two) Center times daily Takes 4 tablets . mesalamine 2021- No Crohn's 500mg Q.5D Take [address] [facility] (PENTASA) 11-12 disease mg by [facility] 500 MG CR 11:08: 00:00 mouth 2 Medi mya capsule 03 :00 (two) Center times daily Takes 4 tablets . Lactobacill 2021- No Take by [facility] 11-12 mouth. [facility] acidophilus 11:07: 00:00 Medic al (PROBIOTIC 27 :00 Center ORAL) Lactobacill 2021-2021- No Take by [facility] 11-12 mouth. [facility] acidophilus 11:07: 00:00 Medic al (PROBIOTIC 27 :00 Center ORAL) dexlansopra 2021- No 60mg QD Take [address] [facility] zole 60 mg 11-12 by mouth Luke s capsule 11:05: 00:00 daily. Medical 05 :00 Center dexlansopra 0 2- No 60mg QD Take [address] [facility] zole 60 mg 11-12 by mouth [facility] capsule 11:05: 00:00 daily. Medical 05 :00 Center famotidine Yes 20mg Take [address] (PEPCID) 20 9-13 by mouth [facility] MG tablet 14:53: every Medical 54 night as Center needed for Heartburn. omeprazole Yes 40mg QD Take [address] (PriLOSEC) 9-13 [facility] 40 MG 14:53: daily. Medical capsule 54 Center propranolol 0 Yes 40mg QD Take [address] [facility] (INDERAL) 9-13 by mouth [facility] 40 MG 14:51: daily. Medical tablet 07 Center QUEtiapine Yes 200mg QD Take [address] (SEROquel) 9-13 mg by [facility] 200 MG 14:51: mouth Medical tablet 07 nightly Center Takes with 50 MG for a total of 250 MG. propranoloL Yes 20mg QD Take [address] [facility] (INDERAL) 9-13 by [facility] 20 MG 14:51: daily For Medical tablet 07 migraine Center prevention . diphenoxyla Yes 1{tbl} Take [address] te-atropine 9-13 tablet by Magalie es (LOMOTIL) 14:51: mouth 4 Medic al 2.5-0.025 07 (four) Center mg per times tablet daily as needed for Diarrhea. colesevelam Yes 1875mg Take 1,[address] [facility] (WELCHOL) 9-13 mg by [facility] 625 mg 14:51: mouth 2 Medical tablet 07 (two) Center times daily with breakfast and dinner. dexlansopra 0 Yes 60mg QD Take [address] [facility] zole 60 mg 9-13 by mouth [facility] capsule 14:48: daily. Medical 57 Center methscopola 0 Yes 5mg QD Take [address] mine 9-13 by mouth [facility] (PAMINE 14:48: daily. Medical FORTE) 5 MG 57 Center tablet fLUoxetine 0 Yes 30mg QD Take [address] (PROZAC) 10 9-13 by mouth [facility] MG capsule 14:48: daily . Medi mya 57 Center QUEtiapine 0 Yes 300mg QD Take [address] (SEROQUEL) 9-13 mg by Lise 300 MG 14:48: mouth Medical tablet 57 nightly. [facility] mesalamine 0 Yes Crohn's 500mg Q.5D Take [address] [facility] [address] (PENTASA) 9-13 disease mg by Luandrei 500 MG CR 14:48: mouth 2 Medic al capsule 57 (two) Center times daily Takes 4 tablets . Lactobacill 0 Yes Take by [facility] us 9-13 mouth. [facility] acidophilus 14:48: Medica l (PROBIOTIC 57 Center ORAL) QUEtiapine Yes 50mg QD Take [address] (SEROquel) 9-13 by mouth [facility] 50 MG 14:48: nightly. Medical tablet 57 Center levothyroxi Yes 50ug Take [address] [facility] [facility] ne 9-13 mcg by Lise (SYNTHROID, 14:37: mouth Medic al LEVOTHROID) 35 Every Center 50 MCG morning on tablet an empty stomach. iron-multiv Yes 2{tbl} QD Take [address] itamins-min 9-13 tablets by Laura schaefer 14:37: mouth Medical (THERAGRAN- 35 daily. [facility]) 9 mg iron-400 mcg Tab tablet calcium Yes 2{tbl} QD Take [address] [facility] carbonate 9-13 tablets by Elijah ramos (CALCIUM 14:37: mouth Medical 500 ORAL) 35 daily. [facility] cholecalcif Yes 1{tbl} QD Take [address] terry, 9-13 tablet by L[facility] vitamin D3, 14:37: mouth Medic al (VITAMIN D3 35 daily. Center ORAL) Dexlansopra Yes Take by Rosebud jasvir zole 60 MG 8-15 [facility] CPDR 13:15: daily. of 28 Medicin e Levothyroxi Yes Take by Rosebud jasvir ne Sodium 8-15 [facility] (LEVOXYL 13:15: daily. of OR) 28 Medicin e FLUoxetine Yes 30mg Take 30 mg B aylor HCl (PROZAC 8-15 by mouth Arin ege OR) 13:15: daily. of 28 Medicin e Quetiapine Yes Take by [facility] or Fumarate 15 mouth [facility] 300 MG TB24 13:15: nightly. of 28 Medicin e Multiple Yes Take by [facility] Vitamins-Ir -15 mouth [place] on 13:15: daily. of (MULTI-CAT 28 Medicin MIN/IRON e OR) Cholecalcif Yes Take by [facility] terry (D-3-5 -15 mouth [place] OR) 13:15: daily. of 28 Medicin e Calcium Yes Take by [facility] Carb-Cholec -15 mouth [place] alciferol 13:15: daily. of (CALCIUM 28 Medicin 500 +D OR) e diphenoxyla Yes 1{tbl} Take 1 Tab [facility] te-atropine 8-15 by mouth 4 [facility] (LOMOTIL) 13:15: times of 2.5-0.025 28 daily as Medici n MG per needed for e tablet Diarrhea. colesevelam Yes 1875mg Take 3 [facility] (WELCHOL) 8-15 Tablets by Arin egbelem 625 MG 00:00: mouth 2 of tablet 00 times Medicin daily e (with meals). Sodium Yes Use as [facility] Sulfate-Mag 8-15 directed Arin egbelem Sulfate-KCl 00:00: of (SUTAB) 00 Medicin [id number] e 8 MG TABS omeprazole 0 2021- No 40mg Take 1 [facility] (PRILOSEC) 8-15 10-15 capsule by [facility]lege 40 MG 00:00: 04:59 mouth two of capsule 00 :00 times Medicin daily for e 60 days. Famotidine Famotidine No 1{table QD Famotidine 20 MG 20 MG 7-28 t_at_be 20 MG 00:00: dtime_a 00 s_neede d} Famotidine Famotidine No 1{table QD Famotidine 20 MG 20 MG 7-28 t_at_be 20 MG 00:00: dtime_a 00 s_neede d} Famotidine Famotidine No 1{table QD Famotidine 20 MG 20 MG 7-28 t_at_be 20 MG 00:00: dtime_a 00 s_neede d} Famotidine Famotidine 2021- No 1{table QD Famotidine 20 MG 20 MG 7-28 t_at_be 20 MG 00:00: dtime_a 00 s_neede d} Famotidine Famotidine 2021-0 No 1{table QD Famotidine 20 MG 20 MG 7-28 t_at_be 20 MG 00:00: dtime_a 00 s_neede d} Famotidine Famotidine 2021-0 No 1{table QD Famotidine 20 MG 20 MG 7-28 t_at_be 20 MG 00:00: dtime_a 00 s_neede d} Famotidine Famotidine 2021-0 No 1{table QD Famotidine 20 MG 20 MG 7-28 t_at_be 20 MG 00:00: dtime_a 00 s_neede d} famotidine 2021-0 Yes TAKE 1 [facility] (PEPCID) 20 7-28 TABLET BY Col lege MG tablet 00:00: MOUTH of 00 EVERY DAY Medicin AT BEDTIME e NEEDED Butalbital- Butalbital- 2021-0 No 1{capsu BID Butalbital APAP-Caffei APAP-Caffei 7-05 le_as_n -APAP-Caff ne ne 00:00: eeded} eine 50-300-40 50-300-40 00 50-300-40 MG MG MG Butalbital- Butalbital- 2021-0 No 1{capsu BID Butalbital APAP-Caffei APAP-Caffei 7-05 le_as_n -APAP-Caff ne ne 00:00: eeded} eine 50-300-40 50-300-40 00 50-300-40 MG MG MG Butalbital- Butalbital- 2021-0 No 1{capsu BID Butalbital APAP-Caffei APAP-Caffei 7-05 le_as_n -APAP-Caff ne ne 00:00: eeded} eine 50-300-40 50-300-40 00 50-300-40 MG MG MG Vitamin B12 Vitamin B12 No 1000ug Common (Cyanocobal (Cyanocobal 5-10 S pirit hamilton) hamilton) 00:00: - [facility] 00 [facility] Vitamin B12 Vitamin B12 2-0 No 1000ug Common (Cyanocobal (Cyanocobal 5-10 S pirit hamilton) hamilton) 00:00: - [facility] 00 [facility] Vitamin B12 Vitamin B12 2-0 No 1000ug Common (Cyanocobal (Cyanocobal 5-10 S pirit hamilton) hamilton) 00:00: - [facility] 00 [facility] Vitamin B12 Vitamin B12 2-0 No 1000ug Common (Cyanocobal (Cyanocobal 5-10 S pirit hamilton) hamilton) 00:00: - [facility] 00 [facility] Vitamin B12 Vitamin B12 2-0 No 1000ug Common (Cyanocobal (Cyanocobal 5-10 S pirit hamilton) hamilton) 00:00: - [facility] 00 [facility] Vitamin B12 Vitamin B12 2-0 No 1000ug Common (Cyanocobal (Cyanocobal 5-10 S pirit hamilton) hamilton) 00:00: - [facility] 00 [facility] Vitamin B12 Vitamin B12 2-0 No 1000ug Common (Cyanocobal (Cyanocobal 5-10 S pirit hamilton) hamilton) 00:00: - [facility] 00 [facility] Vitamin B12 Vitamin B12 2-0 No 1000ug Common (Cyanocobal (Cyanocobal 5-10 S pirit hamilton) hamilton) 00:00: - [facility] 00 [facility] Vitamin B12 Vitamin B12 2-0 No 1000ug Common (Cyanocobal (Cyanocobal 5-10 S pirit hamilton) hamilton) 00:00: - [facility] 00 [facility] Vitamin B12 Vitamin B12 2-0 No 1000ug Common (Cyanocobal (Cyanocobal 5-10 S pirit hamilton) hamilton) 00:00: - [facility] 00 [facility] Vitamin B12 Vitamin B12 2-0 No 1000ug Common (Cyanocobal (Cyanocobal 5-10 S pirit hamilton) hamilton) 00:00: - [facility] 00 [facility] Vitamin B12 Vitamin B12 2-0 No 1000ug Common (Cyanocobal (Cyanocobal 5-10 S pirit hamilton) hamilton) 00:00: - [facility] 00 [facility] Vitamin B12 Vitamin B12 2-0 No 1000ug Common (Cyanocobal (Cyanocobal 5-10 S pirit hamilton) hamilton) 00:00: - [facility] 00 [facility] Vitamin B12 Vitamin B12 2021-0 No 1000ug Common (Cyanocobal (Cyanocobal 5-10 S pirit hamilton) hamilton) 00:00: - [facility] 00 [facility] Vitamin B12 Vitamin B12 2-0 No 1000ug Common (Cyanocobal (Cyanocobal 5-10 S pirit hamilton) hamilton) 00:00: - [facility] 00 [facility] Vitamin B12 Vitamin B12 2021-0 No 1000ug Common (Cyanocobal (Cyanocobal 5-10 S pirit hamilton) hamilton) 00:00: - [facility] 00 [facility] Vitamin B12 Vitamin B12 2021-0 No 1000ug Common (Cyanocobal (Cyanocobal 4-26 S pirit hamilton) hamilton) 00:00: - [facility] 00 [facility] Vitamin B12 Vitamin B12 2021-0 No 1000ug Common (Cyanocobal (Cyanocobal 4-26 S pirit hamilton) hamilton) 00:00: - [facility] 00 [facility] Vitamin B12 Vitamin B12 2021-0 No 1000ug Common (Cyanocobal (Cyanocobal 4-26 S pirit hamilton) hamilton) 00:00: - [facility] 00 [facility] Vitamin B12 Vitamin B12 2021-0 No 1000ug Common (Cyanocobal (Cyanocobal 4-26 S pirit hamilton) hamilton) 00:00: - [facility] 00 [facility] Vitamin B12 Vitamin B12 2-0 No 1000ug Common (Cyanocobal (Cyanocobal 4-26 S pirit hamilton) hamilton) 00:00: - [facility] 00 [facility] Vitamin B12 Vitamin B12 2-0 No 1000ug Common (Cyanocobal (Cyanocobal 4-26 S pirit hamilton) hamilton) 00:00: - [facility] 00 [facility] Vitamin B12 Vitamin B12 2-0 No 1000ug Common (Cyanocobal (Cyanocobal 4-26 S pirit hamilton) hamilton) 00:00: - [facility] 00 [facility] Vitamin B12 Vitamin B12 2022-0 No 1000ug Common (Cyanocobal (Cyanocobal 4-26 S pirit hamilton) hamilton) 00:00: - [facility] 00 [facility] Vitamin B12 Vitamin B12 2-0 No 1000ug Common (Cyanocobal (Cyanocobal 4-26 S pirit hamilton) hamilton) 00:00: - [facility] 00 [facility] Vitamin B12 Vitamin B12 2021-0 No 1000ug Common (Cyanocobal (Cyanocobal 4-26 S pirit hamilton) hamilton) 00:00: - [facility] 00 [facility] Vitamin B12 Vitamin B12 2-0 No 1000ug Common (Cyanocobal (Cyanocobal 4-26 S pirit hamitlon) hamilton) 00:00: - [facility] 00 [facility] Vitamin B12 Vitamin B12 2021-0 No 1000ug Common (Cyanocobal (Cyanocobal 4-26 S pirit hamilton) hamilton) 00:00: - [facility] 00 [facility] Vitamin B12 Vitamin B12 2021-0 No 1000ug Common (Cyanocobal (Cyanocobal 4-26 S pirit hamilton) hamilton) 00:00: - [facility] 00 [facility] Vitamin B12 Vitamin B12 2021-0 No 1000ug Common (Cyanocobal (Cyanocobal 4-26 S pirit hamilton) hamilton) 00:00: - [facility] 00 [facility] Vitamin B12 Vitamin B12 2021-0 No 1000ug Common (Cyanocobal (Cyanocobal 4-26 S pirit hamilton) hamilton) 00:00: - [facility] 00 [facility] Vitamin B12 Vitamin B12 2021-0 No 1000ug Common (Cyanocobal (Cyanocobal 4-26 S pirit hamilton) hamilton) 00:00: - [facility] 00 [facility] Vitamin B12 Vitamin B12 2021-0 No 1000ug Common (Cyanocobal (Cyanocobal 4-26 S pirit hamilton) hamilton) 00:00: - [facility] 00 [facility] Vitamin B12 Vitamin B12 2-0 No 1000ug Common (Cyanocobal (Cyanocobal 4-12 S pirit hamilton) hamilton) 00:00: - [facility] 00 [facility] Vitamin B12 Vitamin B12 2-0 No 1000ug Common (Cyanocobal (Cyanocobal 4-12 S pirit hamilton) hamilton) 00:00: - [facility] 00 [facility] Vitamin B12 Vitamin B12 2022-0 No 1000ug Common (Cyanocobal (Cyanocobal 4-12 S pirit hamilton) hamilton) 00:00: - [facility] 00 [facility] Vitamin B12 Vitamin B12 2021-0 No 1000ug Common (Cyanocobal (Cyanocobal 4-12 S pirit hamilton) hamilton) 00:00: - [facility] 00 [facility] Vitamin B12 Vitamin B12 2-0 No 1000ug Common (Cyanocobal (Cyanocobal 4-12 S pirit hamilton) hamilton) 00:00: - [facility] 00 [facility] Vitamin B12 Vitamin B12 2022-0 No 1000ug Common (Cyanocobal (Cyanocobal 4-12 S pirit hamilton) hamilton) 00:00: - [facility] 00 [facility] Vitamin B12 Vitamin B12 2-0 No 1000ug Common (Cyanocobal (Cyanocobal 4-12 S pirit hamilton) hamilton) 00:00: - [facility] 00 [facility] Vitamin B12 Vitamin B12 2021-0 No 1000ug Common (Cyanocobal (Cyanocobal 4-12 S pirit hamilton) hamilton) 00:00: - [facility] 00 [facility] Vitamin B12 Vitamin B12 2-0 No 1000ug Common (Cyanocobal (Cyanocobal 4-12 S pirit hamilton) hamilton) 00:00: - [facility] 00 [facility] Vitamin B12 Vitamin B12 2-0 No 1000ug Common (Cyanocobal (Cyanocobal 4-12 S pirit hamilton) hamilton) 00:00: - [facility] 00 [facility] Vitamin B12 Vitamin B12 2021-0 No 1000ug Common (Cyanocobal (Cyanocobal 4-12 S pirit hamilton) hamilton) 00:00: - [facility] 00 [facility] Vitamin B12 Vitamin B12 2-0 No 1000ug Common (Cyanocobal (Cyanocobal 4-12 S pirit hamilton) hamilton) 00:00: - [facility] 00 [facility] Vitamin B12 Vitamin B12 2022-0 No 1000ug Common (Cyanocobal (Cyanocobal 4-12 S pirit hamilton) hamilton) 00:00: - [facility] 00 [facility] Vitamin B12 Vitamin B12 2022-0 No 1000ug Common (Cyanocobal (Cyanocobal 4-12 S pirit hamilton) hamilton) 00:00: - [facility] 00 [facility] Vitamin B12 Vitamin B12 2022-0 No 1000ug Common (Cyanocobal (Cyanocobal 4-12 S pirit hamilton) hamilton) 00:00: - [facility] 00 [facility] Vitamin B12 Vitamin B12 2022-0 No 1000ug Common (Cyanocobal (Cyanocobal 4-12 S pirit hamilton) hamilton) 00:00: - [facility] 00 [facility] Vitamin B12 Vitamin B12 2-0 No 1000ug Common (Cyanocobal (Cyanocobal 4-12 S pirit hamilton) hamilton) 00:00: - [facility] 00 [facility] Vitamin B12 Vitamin B12 2022-0 No 1000ug Common (Cyanocobal (Cyanocobal 4-12 S pirit hamilton) hamilton) 00:00: - [facility] 00 [facility] Vitamin B12 Vitamin B12 2-0 No 1000ug Common (Cyanocobal (Cyanocobal 4-12 S pirit hamilton) hamilton) 00:00: - [facility] 00 [facility] Vitamin B12 Vitamin B12 2-0 No 1000ug Common (Cyanocobal (Cyanocobal 3-29 S pirit hamilton) hamilton) 00:00: - [facility] 00 [facility] Vitamin B12 Vitamin B12 2-0 No 1000ug Common (Cyanocobal (Cyanocobal 3-29 S pirit hamilton) hamilton) 00:00: - [facility] 00 [facility] Vitamin B12 Vitamin B12 2-0 No 1000ug Common (Cyanocobal (Cyanocobal 3-29 S pirit hamilton) hamilton) 00:00: - [facility] 00 [facility] Vitamin B12 Vitamin B12 2-0 No 1000ug Common (Cyanocobal (Cyanocobal 3-29 S pirit hamilton) hamilton) 00:00: - [facility] 00 [facility] Vitamin B12 Vitamin B12 2-0 No 1000ug Common (Cyanocobal (Cyanocobal 3-29 S pirit hamilton) hamilton) 00:00: - [facility] 00 [facility] Vitamin B12 Vitamin B12 2022-0 No 1000ug Common (Cyanocobal (Cyanocobal 3-29 S pirit hamilton) hamilton) 00:00: - [facility] 00 [facility] Vitamin B12 Vitamin B12 2022-0 No 1000ug Common (Cyanocobal (Cyanocobal 3-29 S pirit hamilton) hamilton) 00:00: - [facility] 00 [facility] Vitamin B12 Vitamin B12 2022-0 No 1000ug Common (Cyanocobal (Cyanocobal 3-29 S pirit hamilton) hamilton) 00:00: - [facility] 00 [facility] Vitamin B12 Vitamin B12 2022-0 No 1000ug Common (Cyanocobal (Cyanocobal 3-29 S pirit hamilton) hamilton) 00:00: - [facility] 00 [facility] Vitamin B12 Vitamin B12 2022-0 No 1000ug Common (Cyanocobal (Cyanocobal 3-29 S pirit hamilton) hamilton) 00:00: - [facility] 00 [facility] Vitamin B12 Vitamin B12 2022-0 No 1000ug Common (Cyanocobal (Cyanocobal 3-29 S pirit hamilton) hamilton) 00:00: - [facility] 00 [facility] Vitamin B12 Vitamin B12 2022-0 No 1000ug Common (Cyanocobal (Cyanocobal 3-29 S pirit hamilton) hamilton) 00:00: - [facility] 00 [facility] Vitamin B12 Vitamin B12 2022-0 No 1000ug Common (Cyanocobal (Cyanocobal 3-29 S pirit hamilton) hamilton) 00:00: - [facility] 00 [facility] Vitamin B12 Vitamin B12 2022-0 No 1000ug Common (Cyanocobal (Cyanocobal 3-29 S pirit hamilton) hamilton) 00:00: - [facility] 00 [facility] Vitamin B12 Vitamin B12 2022-0 No 1000ug Common (Cyanocobal (Cyanocobal 3-29 S pirit hamilton) hamilton) 00:00: - [facility] 00 [facility] Vitamin B12 Vitamin B12 2-0 No 1000ug Common (Cyanocobal (Cyanocobal 3-29 S pirit hamilton) hamilton) 00:00: - [facility] 00 [facility] Vitamin B12 Vitamin B12 2022-0 No 1000ug Common (Cyanocobal (Cyanocobal 3-29 S pirit hamilton) hamilton) 00:00: - [facility] 00 [facility] Vitamin B12 Vitamin B12 2022-0 No 1000ug Common (Cyanocobal (Cyanocobal 3-29 S pirit hamilton) hamilton) 00:00: - [facility] 00 [facility] Vitamin B12 Vitamin B12 2022-0 No 1000ug Common (Cyanocobal (Cyanocobal 3-29 S pirit hamilton) hamilton) 00:00: - [facility] 00 [facility] Vitamin B12 Vitamin B12 2022-0 No 1000ug Common (Cyanocobal (Cyanocobal 3-29 S pirit hamilton) hamilton) 00:00: - [facility] 00 [facility] Vitamin B12 Vitamin B12 2022-0 No 1000ug Common (Cyanocobal (Cyanocobal 3-15 S pirit hamilton) hamilton) 00:00: - [facility] 00 [facility] Vitamin B12 Vitamin B12 2-0 No 1000ug Common (Cyanocobal (Cyanocobal 3-15 S pirit hamilton) hamilton) 00:00: - [facility] 00 [facility] Vitamin B12 Vitamin B12 2-0 No 1000ug Common (Cyanocobal (Cyanocobal 3-15 S pirit hamilton) hamilton) 00:00: - [facility] 00 [facility] Vitamin B12 Vitamin B12 2-0 No 1000ug Common (Cyanocobal (Cyanocobal 3-15 S pirit hamilton) hamilton) 00:00: - [facility] 00 [facility] Vitamin B12 Vitamin B12 2021-0 No 1000ug Common (Cyanocobal (Cyanocobal 3-15 S pirit hamilton) hamilton) 00:00: - [facility] 00 [facility] Vitamin B12 Vitamin B12 2-0 No 1000ug Common (Cyanocobal (Cyanocobal 3-15 S pirit hamilton) hamilton) 00:00: - [facility] 00 [facility] Vitamin B12 Vitamin B12 2-0 No 1000ug Common (Cyanocobal (Cyanocobal 3-15 S pirit hamilton) hamilton) 00:00: - [facility] 00 [facility] Vitamin B12 Vitamin B12 2-0 No 1000ug Common (Cyanocobal (Cyanocobal 3-15 S pirit hamilton) hamilton) 00:00: - [facility] 00 [facility] Vitamin B12 Vitamin B12 2-0 No 1000ug Common (Cyanocobal (Cyanocobal 3-15 S pirit hamilton) hamilton) 00:00: - [facility] 00 [facility] Vitamin B12 Vitamin B12 2-0 No 1000ug Common (Cyanocobal (Cyanocobal 3-15 S pirit hamilton) hamilton) 00:00: - [facility] 00 [facility] Vitamin B12 Vitamin B12 2022-0 No 1000ug Common (Cyanocobal (Cyanocobal 3-15 S pirit hamilton) hamilton) 00:00: - [facility] 00 [facility] Vitamin B12 Vitamin B12 2022-0 No 1000ug Common (Cyanocobal (Cyanocobal 3-15 S pirit hamilton) hamilton) 00:00: - [facility] 00 [facility] Vitamin B12 Vitamin B12 2-0 No 1000ug Common (Cyanocobal (Cyanocobal 3-15 S pirit hamilton) hamilton) 00:00: - [facility] 00 [facility] Vitamin B12 Vitamin B12 2-0 No 1000ug Common (Cyanocobal (Cyanocobal 3-15 S pirit hamilton) hamilton) 00:00: - [facility] 00 [facility] Vitamin B12 Vitamin B12 2-0 No 1000ug Common (Cyanocobal (Cyanocobal 3-15 S pirit hamilton) hamilton) 00:00: - [facility] 00 [facility] Vitamin B12 Vitamin B12 2-0 No 1000ug Common (Cyanocobal (Cyanocobal 3-15 S pirit hamilton) hamilton) 00:00: - [facility] 00 [facility] Vitamin B12 Vitamin B12 2021-0 No 1000ug Common (Cyanocobal (Cyanocobal 3-15 S pirit hamilton) hamilton) 00:00: - [facility] 00 [facility] Vitamin B12 Vitamin B12 2021-0 No 1000ug Common (Cyanocobal (Cyanocobal 3-15 S pirit hamilton) hamilton) 00:00: - [facility] 00 [facility] Vitamin B12 Vitamin B12 2-0 No 1000ug Common (Cyanocobal (Cyanocobal 3-15 S pirit hamilton) hamilton) 00:00: - [facility] 00 [facility] Vitamin B12 Vitamin B12 2-0 No 1000ug Common (Cyanocobal (Cyanocobal 3-15 S pirit hamilton) hamilton) 00:00: - [facility] 00 [facility] Vitamin B12 Vitamin B12 2-0 No 1000ug Common (Cyanocobal (Cyanocobal 3-15 S pirit hamilton) hamilton) 00:00: - [facility] 00 [facility] Vitamin B12 Vitamin B12 2022-0 No 1000ug Common (Cyanocobal (Cyanocobal 3-02 S pirit hamilton) hamilton) 00:00: - [facility] 00 [facility] Vitamin B12 Vitamin B12 2022-0 No 1000ug Common (Cyanocobal (Cyanocobal 3-02 S pirit hamilton) hamilton) 00:00: - [facility] 00 [facility] Vitamin B12 Vitamin B12 2022-0 No 1000ug Common (Cyanocobal (Cyanocobal 3-02 S pirit hamilton) hamilton) 00:00: - [facility] 00 [facility] Vitamin B12 Vitamin B12 2022-0 No 1000ug Common (Cyanocobal (Cyanocobal 3-02 S pirit hamilton) hamilton) 00:00: - [facility] 00 [facility] Vitamin B12 Vitamin B12 2022-0 No 1000ug Common (Cyanocobal (Cyanocobal 3-02 S pirit hamilton) hamilton) 00:00: - [facility] 00 [facility] Vitamin B12 Vitamin B12 2-0 No 1000ug Common (Cyanocobal (Cyanocobal 3-02 S pirit hamilton) hamilton) 00:00: - [facility] 00 [facility] Vitamin B12 Vitamin B12 2-0 No 1000ug Common (Cyanocobal (Cyanocobal 3-02 S pirit hamilton) hamilton) 00:00: - [facility] 00 [facility] Vitamin B12 Vitamin B12 2021-0 No 1000ug Common (Cyanocobal (Cyanocobal 3-02 S pirit hamilton) hamilton) 00:00: - [facility] 00 [facility] Vitamin B12 Vitamin B12 2021-0 No 1000ug Common (Cyanocobal (Cyanocobal 3-02 S pirit hamilton) hamilton) 00:00: - [facility] 00 [facility] Vitamin B12 Vitamin B12 2-0 No 1000ug Common (Cyanocobal (Cyanocobal 3-02 S pirit hamilton) hamilton) 00:00: - [facility] 00 [facility] Vitamin B12 Vitamin B12 2-0 No 1000ug Common (Cyanocobal (Cyanocobal 3-02 S pirit hamilton) hamilton) 00:00: - [facility] 00 [facility] Vitamin B12 Vitamin B12 2-0 No 1000ug Common (Cyanocobal (Cyanocobal 3-02 S pirit hamilton) hamilton) 00:00: - [facility] 00 [facility] Vitamin B12 Vitamin B12 2022-0 No 1000ug Common (Cyanocobal (Cyanocobal 3-02 S pirit hamilton) hamilton) 00:00: - [facility] 00 [facility] Vitamin B12 Vitamin B12 2022-0 No 1000ug Common (Cyanocobal (Cyanocobal 3-02 S pirit hamilton) hamilton) 00:00: - [facility] 00 [facility] Vitamin B12 Vitamin B12 2022-0 No 1000ug Common (Cyanocobal (Cyanocobal 3-02 S pirit hamilton) hamilton) 00:00: - [facility] 00 [facility] Vitamin B12 Vitamin B12 2-0 No 1000ug Common (Cyanocobal (Cyanocobal 3-02 S pirit hamilton) hamilton) 00:00: - [facility] 00 [facility] Vitamin B12 Vitamin B12 2-0 No 1000ug Common (Cyanocobal (Cyanocobal 3-02 S pirit hamilton) hamilton) 00:00: - [facility] 00 [facility] Vitamin B12 Vitamin B12 2-0 No 1000ug Common (Cyanocobal (Cyanocobal 3-02 S pirit hamilton) hamilton) 00:00: - [facility] 00 [facility] Vitamin B12 Vitamin B12 2021-0 No 1000ug Common (Cyanocobal (Cyanocobal 3-02 S pirit hamilton) hamilton) 00:00: - [facility] 00 [facility] Vitamin B12 Vitamin B12 2-0 No 1000ug Common (Cyanocobal (Cyanocobal 3-02 S pirit hamilton) hamilton) 00:00: - [facility] 00 [facility] Vitamin B12 Vitamin B12 2-0 No 1000ug Common (Cyanocobal (Cyanocobal 3-02 S pirit hamilton) hamilton) 00:00: - [facility] 00 [facility] Vitamin B12 Vitamin B12 2-0 No 1000ug Common (Cyanocobal (Cyanocobal 3-02 S pirit hamilton) hamilton) 00:00: - [facility] 00 [facility] Vitamin B12 Vitamin B12 2-0 No 1000ug Common (Cyanocobal (Cyanocobal 3-02 S pirit hamilton) hamilton) 00:00: - [facility] 00 [facility] Vitamin B12 Vitamin B12 2-0 No 1000ug Common (Cyanocobal (Cyanocobal 2-15 S pirit hamilton) hamilton) 00:00: - [facility] 00 [facility] Vitamin B12 Vitamin B12 2-0 No 1000ug Common (Cyanocobal (Cyanocobal 2-15 S pirit hamilton) hamilton) 00:00: - [facility]I 00 [facility] Vitamin B12 Vitamin B12 2022-0 No 1000ug Common (Cyanocobal (Cyanocobal 2-15 S pirit hamilton) hamilton) 00:00: - [facility]I 00 [facility] Vitamin B12 Vitamin B12 2022-0 No 1000ug Common (Cyanocobal (Cyanocobal 2-15 S pirit hamilton) hamilton) 00:00: - [facility]I 00 [facility] Vitamin B12 Vitamin B12 2021-0 No 1000ug Common (Cyanocobal (Cyanocobal 2-15 S pirit hamilton) hamilton) 00:00: - [facility]I 00 [facility] Vitamin B12 Vitamin B12 2021-0 No 1000ug Common (Cyanocobal (Cyanocobal 2-15 S pirit hamilton) hamilton) 00:00: - [facility]I 00 [facility] Vitamin B12 Vitamin B12 2021-0 No 1000ug Common (Cyanocobal (Cyanocobal 2-15 S pirit hamilton) hamilton) 00:00: - [facility]I 00 [facility] Vitamin B12 Vitamin B12 2021-0 No 1000ug Common (Cyanocobal (Cyanocobal 2-15 S pirit hamilton) hamilton) 00:00: - [facility]I 00 [facility] Vitamin B12 Vitamin B12 2021-0 No 1000ug Common (Cyanocobal (Cyanocobal 2-15 S pirit hamilton) hamilton) 00:00: - [facility]I 00 [facility] Vitamin B12 Vitamin B12 2021-0 No 1000ug Common (Cyanocobal (Cyanocobal 2-15 S pirit hamilton) hamilton) 00:00: - [facility]I 00 [facility] Vitamin B12 Vitamin B12 2021-0 No 1000ug Common (Cyanocobal (Cyanocobal 2-15 S pirit hamilton) hamilton) 00:00: - [facility]I 00 [facility] Vitamin B12 Vitamin B12 2021-0 No 1000ug Common (Cyanocobal (Cyanocobal 2-15 S pirit hamilton) hamilton) 00:00: - [facility]I 00 [facility] Vitamin B12 Vitamin B12 2021-0 No 1000ug Common (Cyanocobal (Cyanocobal 2-15 S pirit hamilton) hamilton) 00:00: - [facility]I 00 [facility] Vitamin B12 Vitamin B12 2-0 No 1000ug Common (Cyanocobal (Cyanocobal 2-15 S pirit hamilton) hamilton) 00:00: - [facility]I 00 [facility] Vitamin B12 Vitamin B12 2-0 No 1000ug Common (Cyanocobal (Cyanocobal 2-15 S pirit hamilton) hamilton) 00:00: - [facility]I 00 [facility] Vitamin B12 Vitamin B12 2-0 No 1000ug Common (Cyanocobal (Cyanocobal 2-15 S pirit hamilton) hamilton) 00:00: - [facility]I 00 [facility] Vitamin B12 Vitamin B12 2021-0 No 1000ug Common (Cyanocobal (Cyanocobal 2-15 S pirit hamilton) hamilton) 00:00: - [facility]I 00 [facility] Vitamin B12 Vitamin B12 2-0 No 1000ug Common (Cyanocobal (Cyanocobal 2-15 S pirit hamilton) hamilton) 00:00: - [facility]I 00 [facility] Vitamin B12 Vitamin B12 2021-0 No 1000ug Common (Cyanocobal (Cyanocobal 2-15 S pirit hamilton) hamilton) 00:00: - [facility]I 00 [facility] Vitamin B12 Vitamin B12 2021-0 No 1000ug Common (Cyanocobal (Cyanocobal 2-15 S pirit hamilton) hamilton) 00:00: - [facility]I 00 [facility] Vitamin B12 Vitamin B12 2021-0 No 1000ug Common (Cyanocobal (Cyanocobal 2-15 S pirit hamilton) hamilton) 00:00: - [facility]I 00 [facility] Vitamin B12 Vitamin B12 2021-0 No 1000ug Common (Cyanocobal (Cyanocobal 2-15 S pirit hamilton) hamilton) 00:00: - [facility]I 00 [facility] Vitamin B12 Vitamin B12 2021-0 No 1000ug Common (Cyanocobal (Cyanocobal 2-15 S pirit hamilton) hamilton) 00:00: - [facility]I 00 [facility] Vitamin B12 Vitamin B12 2-0 No 1000ug Common (Cyanocobal (Cyanocobal 2-01 S pirit hamilton) hamilton) 00:00: - [facility]I 00 [facility] Vitamin B12 Vitamin B12 2-0 No 1000ug Common (Cyanocobal (Cyanocobal 2-01 S pirit hamilton) hamilton) 00:00: - [facility]I 00 [facility] Vitamin B12 Vitamin B12 2-0 No 1000ug Common (Cyanocobal (Cyanocobal 2-01 S pirit hamilton) hamilton) 00:00: - [facility]I 00 [facility] Vitamin B12 Vitamin B12 2-0 No 1000ug Common (Cyanocobal (Cyanocobal 2-01 S pirit hamilton) hamilton) 00:00: - [facility]I 00 [facility] Vitamin B12 Vitamin B12 2-0 No 1000ug Common (Cyanocobal (Cyanocobal 2-01 S pirit hamilton) hamilton) 00:00: - [facility]I 00 [facility] Vitamin B12 Vitamin B12 2021-0 No 1000ug Common (Cyanocobal (Cyanocobal 2-01 S pirit hamilton) hamilton) 00:00: - [facility]I 00 [facility] Vitamin B12 Vitamin B12 2021-0 No 1000ug Common (Cyanocobal (Cyanocobal 2-01 S pirit hamilton) hamilton) 00:00: - [facility]I 00 [facility] Vitamin B12 Vitamin B12 2021-0 No 1000ug Common (Cyanocobal (Cyanocobal 2-01 S pirit hamilton) hamilton) 00:00: - [facility]I 00 [facility] Vitamin B12 Vitamin B12 2021-0 No 1000ug Common (Cyanocobal (Cyanocobal 2-01 S pirit hamilton) hamilton) 00:00: - [facility]I 00 [facility] Vitamin B12 Vitamin B12 2021-0 No 1000ug Common (Cyanocobal (Cyanocobal 2-01 S pirit hamilton) hamilton) 00:00: - [facility]I 00 [facility] Vitamin B12 Vitamin B12 2021-0 No 1000ug Common (Cyanocobal (Cyanocobal 2-01 S pirit hamilton) hamilton) 00:00: - [facility]I 00 [facility] Vitamin B12 Vitamin B12 2021-0 No 1000ug Common (Cyanocobal (Cyanocobal 2-01 S pirit hamilton) hamilton) 00:00: - [facility]I 00 [facility] Vitamin B12 Vitamin B12 2-0 No 1000ug Common (Cyanocobal (Cyanocobal 2-01 S pirit hamilton) hamilton) 00:00: - [facility]I 00 [facility] Vitamin B12 Vitamin B12 2-0 No 1000ug Common (Cyanocobal (Cyanocobal 2-01 S pirit hamilton) hamilton) 00:00: - [facility]I 00 [facility] Vitamin B12 Vitamin B12 2-0 No 1000ug Common (Cyanocobal (Cyanocobal 2-01 S pirit hamilton) hamilton) 00:00: - [facility]I 00 [facility] Vitamin B12 Vitamin B12 2022-0 No 1000ug Common (Cyanocobal (Cyanocobal 2-01 S pirit hamilton) hamilton) 00:00: - [facility]I 00 [facility] Vitamin B12 Vitamin B12 2-0 No 1000ug Common (Cyanocobal (Cyanocobal 2-01 S pirit hamilton) hamilton) 00:00: - [facility]I 00 [facility] Vitamin B12 Vitamin B12 2021-0 No 1000ug Common (Cyanocobal (Cyanocobal 2-01 S pirit hamilton) hamilton) 00:00: - [facility]I 00 [facility] Vitamin B12 Vitamin B12 2-0 No 1000ug Common (Cyanocobal (Cyanocobal 2-01 S pirit hamilton) hamilton) 00:00: - [facility]I 00 [facility] Vitamin B12 Vitamin B12 2021-0 No 1000ug Common (Cyanocobal (Cyanocobal 2-01 S pirit hamilton) hamilton) 00:00: - [facility]I 00 [facility] Vitamin B12 Vitamin B12 2021-0 No 1000ug Common (Cyanocobal (Cyanocobal 2-01 S pirit hamilton) hamilton) 00:00: - [facility]I 00 [facility] Vitamin B12 Vitamin B12 2021-0 No 1000ug Common (Cyanocobal (Cyanocobal 2-01 S pirit hamilton) hamilton) 00:00: - [facility]I 00 [facility] Vitamin B12 Vitamin B12 2021-0 No 1000ug Common (Cyanocobal (Cyanocobal 2-01 S pirit hamilton) hamilton) 00:00: - [facility]I 00 [facility] Vitamin B12 Vitamin B12 2021-0 No 1000ug Common (Cyanocobal (Cyanocobal 1-18 S pirit hamilton) hamilton) 00:00: - [facility]I 00 [facility] Vitamin B12 Vitamin B12 2021-0 No 1000ug Common (Cyanocobal (Cyanocobal 1-18 S pirit hamilton) hamilton) 00:00: - [facility]I 00 [facility] Vitamin B12 Vitamin B12 2021-0 No 1000ug Common (Cyanocobal (Cyanocobal 1-18 S pirit hamilton) hamilton) 00:00: - [facility]I 00 [facility] Vitamin B12 Vitamin B12 2-0 No 1000ug Common (Cyanocobal (Cyanocobal 1-18 S pirit hamilton) hamilton) 00:00: - [facility]I 00 [facility] Vitamin B12 Vitamin B12 2022-0 No 1000ug Common (Cyanocobal (Cyanocobal 1-18 S pirit hamilton) hamilton) 00:00: - [facility]I 00 [facility] Vitamin B12 Vitamin B12 2-0 No 1000ug Common (Cyanocobal (Cyanocobal 1-18 S pirit hamilton) hamilton) 00:00: - [facility]I 00 [facility] Vitamin B12 Vitamin B12 2-0 No 1000ug Common (Cyanocobal (Cyanocobal 1-18 S pirit hamilton) hamilton) 00:00: - [facility]I 00 [facility] Vitamin B12 Vitamin B12 2022-0 No 1000ug Common (Cyanocobal (Cyanocobal 1-18 S pirit hamilton) hamilton) 00:00: - [facility]I 00 [facility] Vitamin B12 Vitamin B12 2-0 No 1000ug Common (Cyanocobal (Cyanocobal 1-18 S pirit hamilton) hamilton) 00:00: - [facility]I 00 [facility] Vitamin B12 Vitamin B12 2021-0 No 1000ug Common (Cyanocobal (Cyanocobal 1-18 S pirit hamilton) hamilton) 00:00: - [facility]I 00 [facility] Vitamin B12 Vitamin B12 2-0 No 1000ug Common (Cyanocobal (Cyanocobal 1-18 S pirit hamilton) hamilton) 00:00: - [facility]I 00 [facility] Vitamin B12 Vitamin B12 2-0 No 1000ug Common (Cyanocobal (Cyanocobal 1-18 S pirit hamilton) hamilton) 00:00: - [facility]I 00 [facility] Vitamin B12 Vitamin B12 2-0 No 1000ug Common (Cyanocobal (Cyanocobal 1-18 S pirit hamilton) hamilton) 00:00: - [facility]I 00 [facility] Vitamin B12 Vitamin B12 2-0 No 1000ug Common (Cyanocobal (Cyanocobal 1-18 S pirit hamilton) hamilton) 00:00: - [facility]I 00 [facility] Vitamin B12 Vitamin B12 2022-0 No 1000ug Common (Cyanocobal (Cyanocobal 1-18 S pirit hamilton) hamilton) 00:00: - [facility]I 00 [facility] Vitamin B12 Vitamin B12 2022-0 No 1000ug Common (Cyanocobal (Cyanocobal 1-18 S pirit hamilton) hamilton) 00:00: - [facility]I 00 [facility] Vitamin B12 Vitamin B12 2022-0 No 1000ug Common (Cyanocobal (Cyanocobal 1-18 S pirit hamilton) hamilton) 00:00: - [facility]I 00 [facility] Vitamin B12 Vitamin B12 2022-0 No 1000ug Common (Cyanocobal (Cyanocobal 1-18 S pirit hamilton) hamilton) 00:00: - [facility]I 00 [facility] Vitamin B12 Vitamin B12 2021-0 No 1000ug Common (Cyanocobal (Cyanocobal 1-18 S pirit hamilton) hamilton) 00:00: - [facility]I 00 [facility] Vitamin B12 Vitamin B12 2021-0 No 1000ug Common (Cyanocobal (Cyanocobal 1-18 S pirit hamilton) hamilton) 00:00: - [facility]I 00 [facility] Vitamin B12 Vitamin B12 2021-0 No 1000ug Common (Cyanocobal (Cyanocobal 1-18 S pirit hamilton) hamilton) 00:00: - [facility]I 00 [facility] Vitamin B12 Vitamin B12 2021-0 No 1000ug Common (Cyanocobal (Cyanocobal 1-18 S pirit hamilton) hamilton) 00:00: - [facility]I 00 [facility] Vitamin B12 Vitamin B12 2021-0 No 1000ug Common (Cyanocobal (Cyanocobal 1-18 S pirit hamilton) hamilton) 00:00: - [facility]I 00 [facility] levothyroxi 2021-0 Yes 50ug Take 50 UT ne 1-04 mcg by Health (Synthroid, 10:25: mouth 1 Levoxyl) 50 50 (one) time MCG tablet each day before breakfast. levothyroxi 2021-0 Yes 50ug Take 50 UT ne 1-04 mcg by Health (Synthroid, 10:25: mouth 1 Levoxyl) 50 50 (one) time MCG tablet each day before breakfast. levothyroxi 2021-0 Yes 50ug Take 50 UT ne 1-04 mcg by Health (Synthroid, 10:25: mouth 1 Levoxyl) 50 50 (one) time MCG tablet each day before breakfast. levothyroxi 2021-0 Yes 50ug Take 50 UT ne 1-04 mcg by Health (Synthroid, 10:25: mouth 1 Levoxyl) 50 50 (one) time MCG tablet each day before breakfast. propranolol 2021-0 Yes 20mg [id number] Take 20 mg UT (Inderal) 1-04 [id number] by mouth 3 Health 20 MG 10:25: 3D (three) tablet 41 times a day. propranolol 2021-0 Yes 20mg Q.[id number] Take 20 mg UT (Inderal) 1-04 [id number] by mouth 3 Health 20 MG 10:25: 3D (three) tablet 41 times a day. propranolol 2022-0 Yes 20mg Q.[id number] Take 20 mg UT (Inderal) 1-04 [id number] by mouth 3 Health 20 MG 10:25: 3D (three) tablet 41 times a day. propranolol 2022-0 Yes 20mg Q.[id number] Take 20 mg UT (Inderal) 1-04 [id number] by mouth 3 Health 20 MG 10:25: 3D (three) tablet 41 times a day. dexlansopra 2022-0 Yes 60mg QD Take 60 mg UT zole 1-04 by mouth 1 Health (Dexilant) 10:25: (one) time [address] 30 each day. capsule Do not crush or chew. dexlansopra 2022-0 Yes 60mg QD Take 60 mg UT zole 1-04 by mouth 1 Health (Dexilant) 10:25: (one) time [address] 30 each day. capsule Do not crush or chew. dexlansopra 2022-0 Yes 60mg QD Take 60 mg UT zole 1-04 by mouth 1 Health (Dexilant) 10:25: (one) time [address] 30 each day. capsule Do not crush or chew. dexlansopra 2022-0 Yes 60mg QD Take 60 mg UT zole 1-04 by mouth 1 Health (Dexilant) 10:25: (one) time [address] 30 each day. capsule Do not crush or chew. FLUoxetine 2022-0 Yes 30mg QD Take 30 mg U T (PROzac) 10 1-04 by mouth 1 He alth MG capsule 10:25: (one) time 05 each day. FLUoxetine 2022-0 Yes 30mg QD Take 30 mg U T (PROzac) 10 1-04 by mouth 1 He alth MG capsule 10:25: (one) time 05 each day. FLUoxetine 2022-0 Yes 30mg QD Take 30 mg U T (PROzac) 10 1-04 by mouth 1 He alth MG capsule 10:25: (one) time 05 each day. FLUoxetine 2022-0 Yes 30mg QD Take 30 mg U T (PROzac) 10 1-04 by mouth 1 He alth MG capsule 10:25: (one) time 05 each day. QUEtiapine 2022-0 Yes 50mg Take 50 mg U T (SEROquel) 1-04 by mouth Healt h 50 MG 10:24: every tablet 48 night. QUEtiapine 2022-0 Yes 50mg Take 50 mg U T (SEROquel) 1-04 by mouth Healt h 50 MG 10:24: every tablet 48 night. QUEtiapine 2022-0 Yes 50mg Take 50 mg U T (SEROquel) 1-04 by mouth Healt h 50 MG 10:24: every tablet 48 night. QUEtiapine 2022-0 Yes 50mg Take 50 mg U T (SEROquel) 1-04 by mouth Healt h 50 MG 10:24: every tablet 48 night. QUEtiapine 2022-0 Yes 200mg Take 200 UT (SEROquel) 1-04 mg by Health 200 MG 10:24: mouth tablet 40 every night. QUEtiapine 2022-0 Yes 200mg Take 200 UT (SEROquel) 1-04 mg by Health 200 MG 10:24: mouth tablet 40 every night. QUEtiapine 2022-0 Yes 200mg Take 200 UT (SEROquel) 1-04 mg by Health 200 MG 10:24: mouth tablet 40 every night. QUEtiapine 2022-0 Yes 200mg Take 200 UT (SEROquel) 1-04 mg by Health 200 MG 10:24: mouth tablet 40 every night. Vitamin B12 Vitamin B12 0 No 1000ug Common (Cyanocobal (Cyanocobal 1-04 S pirit hamilton) hamilton) 00:00: - [facility]I 00 [facility] Vitamin B12 Vitamin B12 2021-0 No 1000ug Common (Cyanocobal (Cyanocobal 1-04 S pirit hamilton) hamilton) 00:00: - [facility]I 00 [facility] Vitamin B12 Vitamin B12 2021-0 No 1000ug Common (Cyanocobal (Cyanocobal 1-04 S pirit hamilton) hamilton) 00:00: - [facility]I 00 [facility] Vitamin B12 Vitamin B12 2021-0 No 1000ug Common (Cyanocobal (Cyanocobal 1-04 S pirit hamilton) hamilton) 00:00: - [facility]I 00 [facility] Vitamin B12 Vitamin B12 2022-0 No 1000ug Common (Cyanocobal (Cyanocobal 1-04 S pirit hamilton) hamilton) 00:00: - [facility]I 00 [facility] Vitamin B12 Vitamin B12 2-0 No 1000ug Common (Cyanocobal (Cyanocobal 1-04 S pirit hamilton) hamilton) 00:00: - [facility]I 00 [facility] Vitamin B12 Vitamin B12 2-0 No 1000ug Common (Cyanocobal (Cyanocobal 1-04 S pirit hamilton) hamilton) 00:00: - [facility]I 00 [facility] Vitamin B12 Vitamin B12 2-0 No 1000ug Common (Cyanocobal (Cyanocobal 1-04 S pirit hamilton) hamilton) 00:00: - [facility]I 00 [facility] Vitamin B12 Vitamin B12 2-0 No 1000ug Common (Cyanocobal (Cyanocobal 1-04 S pirit hamilton) hamilton) 00:00: - [facility]I 00 [facility] Vitamin B12 Vitamin B12 2-0 No 1000ug Common (Cyanocobal (Cyanocobal 1-04 S pirit hamilton) hamilton) 00:00: - [facility]I 00 [facility] Vitamin B12 Vitamin B12 2-0 No 1000ug Common (Cyanocobal (Cyanocobal 1-04 S pirit hamilton) hamilton) 00:00: - CHI 00 [facility] Vitamin B12 Vitamin B12 2-0 No 1000ug Common (Cyanocobal (Cyanocobal 1-04 S pirit hamilton) hamilton) 00:00: - CHI 00 [facility] Vitamin B12 Vitamin B12 2-0 No 1000ug Common (Cyanocobal (Cyanocobal 1-04 S pirit hamilton) hamilton) 00:00: - [facility]I 00 [facility] Vitamin B12 Vitamin B12 2022-0 No 1000ug Common (Cyanocobal (Cyanocobal 1-04 S pirit hamilton) hamilton) 00:00: - [facility]I 00 [facility] Vitamin B12 Vitamin B12 2022-0 No 1000ug Common (Cyanocobal (Cyanocobal 1-04 S pirit hamilton) hamilton) 00:00: - [facility]I 00 [facility] Vitamin B12 Vitamin B12 2022-0 No 1000ug Common (Cyanocobal (Cyanocobal 1-04 S pirit hamilton) hamilton) 00:00: - [facility]I 00 [facility] Vitamin B12 Vitamin B12 2022-0 No 1000ug Common (Cyanocobal (Cyanocobal 1-04 S pirit hamilton) hamilton) 00:00: - [facility]I 00 [facility] Vitamin B12 Vitamin B12 2021-0 No 1000ug Common (Cyanocobal (Cyanocobal 1-04 S pirit hamilton) hamilton) 00:00: - [facility]I 00 [facility] Vitamin B12 Vitamin B12 2-0 No 1000ug Common (Cyanocobal (Cyanocobal 1-04 S pirit hamilton) hamilton) 00:00: - [facility]I 00 [facility] Vitamin B12 Vitamin B12 2021-0 No 1000ug Common (Cyanocobal (Cyanocobal 1-04 S pirit hamilton) hamilton) 00:00: - [facility]I 00 [facility] Vitamin B12 Vitamin B12 2021-0 No 1000ug Common (Cyanocobal (Cyanocobal 1-04 S pirit hamilton) hamilton) 00:00: - [facility]I 00 [facility] Vitamin B12 Vitamin B12 2021-0 No 1000ug Common (Cyanocobal (Cyanocobal 1-04 S pirit hamilton) hamilton) 00:00: - [facility]I 00 [facility] Vitamin B12 Vitamin B12 2021-0 No 1000ug Common (Cyanocobal (Cyanocobal 1-04 S pirit hamilton) hamilton) 00:00: - CHI 00 [facility] cholestyram 2022- No [id number] 4g Q.[id number] Take 1 UT ine light 02-27 [id number] packet (4 Health (Prevalite) 00:00: 05:59 3D g total) 4 g packet 00 :00 by mouth 3 (three) times a day. cholestyram 2022- No [id number] 4g Q.[id number] Take 1 UT ine light 02-27 [id number] packet (4 Health (Prevalite) 00:00: 05:59 3D g total) 4 g packet 00 :00 by mouth 3 (three) times a day. cholestyram 2022- No [id number] 4g Q.[id number] Take 1 UT ine light 02-27 [id number] packet (4 Health (Prevalite) 00:00: 05:59 3D g total) 4 g packet 00 :00 by mouth 3 (three) times a day. cholestyram 2022- No [id number] 4g Q.[id number] Take 1 [facility] light 02-27 [id number] packet (4 Health (Prevalite) 00:00: 05:59 3D g total) 4 g packet 00 :00 by mouth 3 (three) times a day. Vitamin B12 Vitamin B12 2020-02 No 1000ug Common (Cyanocobal (Cyanocobal 2-21 S pirit hamilton) hamilton) 00:00: - [facility]I 00 [facility] Vitamin B12 Vitamin B12 2020-02 No 1000ug Common (Cyanocobal (Cyanocobal 2-21 S pirit hamilton) hamilton) 00:00: - CHI 00 [facility] Vitamin B12 Vitamin B12 2020-02 No 1000ug Common (Cyanocobal (Cyanocobal 2-21 S pirit hamilton) hamilton) 00:00: - [facility]I 00 [facility] Vitamin B12 Vitamin B12 2020-02 No 1000ug Common (Cyanocobal (Cyanocobal 2-21 S pirit hamilton) hamilton) 00:00: - CHI 00 [facility] Vitamin B12 Vitamin B12 2020-02 No 1000ug Common (Cyanocobal (Cyanocobal 2-21 S pirit hamilton) hamilton) 00:00: - [facility]I 00 [facility] Vitamin B12 Vitamin B12 2020-02 No 1000ug Common (Cyanocobal (Cyanocobal 2-21 S pirit hamilton) hamilton) 00:00: - CHI 00 [facility] Vitamin B12 Vitamin B12 2020-02 No 1000ug Common (Cyanocobal (Cyanocobal 2-21 S pirit hamilton) hamilton) 00:00: - CHI 00 [facility] Vitamin B12 Vitamin B12 2020-02 No 1000ug Common (Cyanocobal (Cyanocobal 2-21 S pirit hamilton) hamilton) 00:00: - CHI 00 [facility] Vitamin B12 Vitamin B12 2020-02 No 1000ug Common (Cyanocobal (Cyanocobal 2-21 S pirit hamilton) hamilton) 00:00: - CHI 00 [facility] Vitamin B12 Vitamin B12 2020-02 No 1000ug Common (Cyanocobal (Cyanocobal 2-21 S pirit hamilton) hamilton) 00:00: - CHI 00 [facility] Vitamin B12 Vitamin B12 2020-02 No 1000ug Common (Cyanocobal (Cyanocobal 2-21 S pirit hamilton) hamilton) 00:00: - [facility]I 00 [facility] Vitamin B12 Vitamin B12 2020-02 No 1000ug Common (Cyanocobal (Cyanocobal 2-21 S pirit hamilton) hamilton) 00:00: - CHI 00 [facility] Vitamin B12 Vitamin B12 2020-02 No 1000ug Common (Cyanocobal (Cyanocobal 2-21 S pirit hamilton) hamilton) 00:00: - CHI 00 [facility] Vitamin B12 Vitamin B12 2020-02 No 1000ug Common (Cyanocobal (Cyanocobal 2-21 S pirit hamilton) hamilton) 00:00: - CHI 00 [facility] Vitamin B12 Vitamin B12 2020-02 No 1000ug Common (Cyanocobal (Cyanocobal 2-21 S pirit hamilton) hamilton) 00:00: - CHI 00 [facility] Vitamin B12 Vitamin B12 2020-02 No 1000ug Common (Cyanocobal (Cyanocobal 2-21 S pirit hamilton) hamilton) 00:00: - CHI 00 [facility] Vitamin B12 Vitamin B12 2020-02 No 1000ug Common (Cyanocobal (Cyanocobal 2-21 S pirit hamilton) hamilton) 00:00: - CHI 00 [facility] Vitamin B12 Vitamin B12 2020-02 No 1000ug Common (Cyanocobal (Cyanocobal 2-21 S pirit hamilton) hamilton) 00:00: - CHI 00 [facility] Vitamin B12 Vitamin B12 2020-02 No 1000ug Common (Cyanocobal (Cyanocobal 2-21 S pirit hamilton) hamilton) 00:00: - CHI 00 [facility] Vitamin B12 Vitamin B12 2020-02 No 1000ug Common (Cyanocobal (Cyanocobal 2-21 S pirit hamilton) hamilton) 00:00: - CHI 00 [facility] Vitamin B12 Vitamin B12 2020-02 No 1000ug Common (Cyanocobal (Cyanocobal 2-21 S pirit hamilton) hamilton) 00:00: - CHI 00 [facility] Vitamin B12 Vitamin B12 2020-02 No 1000ug Common (Cyanocobal (Cyanocobal 2-21 S pirit hamilton) hamilton) 00:00: - CHI 00 [facility] Vitamin B12 Vitamin B12 2020-02 No 1000ug Common (Cyanocobal (Cyanocobal 2-21 S pirit hamilton) hamilton) 00:00: - CHI 00 [facility] Vitamin B12 Vitamin B12 2020-02 No 1000ug Common (Cyanocobal (Cyanocobal 2-07 S pirit hamilton) hamilton) 00:00: - CHI 00 [facility] Vitamin B12 Vitamin B12 2020-02 No 1000ug Common (Cyanocobal (Cyanocobal 2-07 S pirit hamilton) hamilton) 00:00: - CHI 00 [facility] Vitamin B12 Vitamin B12 2020-02 No 1000ug Common (Cyanocobal (Cyanocobal 2-07 S pirit hamilton) hamilton) 00:00: - CHI 00 [facility] Vitamin B12 Vitamin B12 2020-02 No 1000ug Common (Cyanocobal (Cyanocobal 2-07 S pirit hamilton) hamilton) 00:00: - CHI 00 [facility] Vitamin B12 Vitamin B12 2020-02 No 1000ug Common (Cyanocobal (Cyanocobal 2-07 S pirit hamilton) hamilton) 00:00: - CHI 00 [facility] Vitamin B12 Vitamin B12 2020-02 No 1000ug Common (Cyanocobal (Cyanocobal 2-07 S pirit hamilton) hamilton) 00:00: - CHI 00 [facility] Vitamin B12 Vitamin B12 2020-02 No 1000ug Common (Cyanocobal (Cyanocobal 2-07 S pirit hamilton) hamilton) 00:00: - CHI 00 [facility] Vitamin B12 Vitamin B12 2020-02 No 1000ug Common (Cyanocobal (Cyanocobal 2-07 S pirit hamilton) hamilton) 00:00: - CHI 00 [facility] Vitamin B12 Vitamin B12 2020-02 No 1000ug Common (Cyanocobal (Cyanocobal 2-07 S pirit hamilton) hamilton) 00:00: - CHI 00 [facility] Vitamin B12 Vitamin B12 2020-02 No 1000ug Common (Cyanocobal (Cyanocobal 2-07 S pirit hamilton) hamilton) 00:00: - CHI 00 [facility] Vitamin B12 Vitamin B12 2020-02 No 1000ug Common (Cyanocobal (Cyanocobal 2-07 S pirit hamilton) hamilton) 00:00: - CHI 00 [facility] Vitamin B12 Vitamin B12 2020-02 No 1000ug Common (Cyanocobal (Cyanocobal 2-07 S pirit hamilton) hamilton) 00:00: - CHI 00 [facility] Vitamin B12 Vitamin B12 2020-02 No 1000ug Common (Cyanocobal (Cyanocobal 2-07 S pirit hamilton) hamilton) 00:00: - CHI 00 [facility] Vitamin B12 Vitamin B12 2020-02 No 1000ug Common (Cyanocobal (Cyanocobal 2-07 S pirit hamilton) hamilton) 00:00: - CHI 00 [facility] Vitamin B12 Vitamin B12 2020-02 No 1000ug Common (Cyanocobal (Cyanocobal 2-07 S pirit hamilton) hamilton) 00:00: - CHI 00 [facility] Vitamin B12 Vitamin B12 2020-02 No 1000ug Common (Cyanocobal (Cyanocobal 2-07 S pirit hamilton) hamilton) 00:00: - CHI 00 [facility] Vitamin B12 Vitamin B12 2020-02 No 1000ug Common (Cyanocobal (Cyanocobal 2-07 S pirit hamilton) hamilton) 00:00: - CHI 00 [facility] Vitamin B12 Vitamin B12 2020-02 No 1000ug Common (Cyanocobal (Cyanocobal 2-07 S pirit hamilton) hamilton) 00:00: - CHI 00 [facility] Vitamin B12 Vitamin B12 2020-02 No 1000ug Common (Cyanocobal (Cyanocobal 2-07 S pirit hamilton) hamilton) 00:00: - CHI 00 [facility] Vitamin B12 Vitamin B12 2020-02 No 1000ug Common (Cyanocobal (Cyanocobal 2-07 S pirit hamilton) hamilton) 00:00: - CHI 00 [facility] Vitamin B12 Vitamin B12 2020-02 No 1000ug Common (Cyanocobal (Cyanocobal 2-07 S pirit hamilton) hamilton) 00:00: - CHI 00 [facility] Vitamin B12 Vitamin B12 2020-02 No 1000ug Common (Cyanocobal (Cyanocobal 2-07 S pirit hamilton) [place]) 00:00: - [facility] 00 [facility] Vitamin B12 Vitamin B12 2020-02 No 1000ug Common (Cyanocobal (Cyanocobal 2-07 S pirit hamilton) hamilton) 00:00: - [facility] 00 [facility] Diphenoxyla Diphenoxyla 2020-02 No 1{table BID Diphenoxyl te-Atropine te-Atropine 1-30 t_as_ne ate-Atropi 2.5-0.025 2.5-0.025 00:00: eded} ne MG MG 00 2.5-0.025 MG Diphenoxyla Diphenoxyla 2020-02 No 1{table BID Diphenoxyl te-Atropine te-Atropine 1-30 t_as_ne ate-Atropi 2.5-0.025 2.5-0.025 00:00: eded} ne MG MG 00 2.5-0.025 MG Diphenoxyla Diphenoxyla 2020-02 No 1{table BID Diphenoxyl te-Atropine te-Atropine 1-30 t_as_ne ate-Atropi 2.5-0.025 2.5-0.025 00:00: eded} ne MG MG 00 2.5-0.025 MG Diphenoxyla Diphenoxyla 2020-02 No 1{table BID Diphenoxyl te-Atropine te-Atropine 1-30 t_as_ne ate-Atropi 2.5-0.025 2.5-0.025 00:00: eded} ne MG MG 00 2.5-0.025 MG Diphenoxyla Diphenoxyla 2020-02 No 1{table BID Diphenoxyl te-Atropine te-Atropine 1-30 t_as_ne ate-Atropi 2.5-0.025 2.5-0.025 00:00: eded} ne MG MG 00 2.5-0.025 MG Diphenoxyla Diphenoxyla 2020-02 No 1{table BID Diphenoxyl te-Atropine te-Atropine 1-30 t_as_ne ate-Atropi 2.5-0.025 2.5-0.025 00:00: eded} ne MG MG 00 2.5-0.025 MG Diphenoxyla Diphenoxyla 2020-02 No 1{table BID Diphenoxyl te-Atropine te-Atropine 1-30 t_as_ne ate-Atropi 2.5-0.025 2.5-0.025 00:00: eded} ne MG MG 00 2.5-0.025 MG Diphenoxyla Diphenoxyla 2020- No 1{table BID Diphenoxyl te-Atropine te-Atropine 1-30 t_as_ne ate-Atropi 2.5-0.025 2.5-0.025 00:00: eded} ne MG MG 00 2.5-0.025 MG Diphenoxyla Diphenoxyla 2020-02 No 1{table BID Diphenoxyl te-Atropine te-Atropine 1-30 t_as_ne ate-Atropi 2.5-0.025 2.5-0.025 00:00: eded} ne MG MG 00 2.5-0.025 MG Diphenoxyla Diphenoxyla 2020-02 No 1{table BID Diphenoxyl te-Atropine te-Atropine 1-30 t_as_ne ate-Atropi 2.5-0.025 2.5-0.025 00:00: eded} ne MG MG 00 2.5-0.025 MG Diphenoxyla Diphenoxyla 2020-02 No 1{table BID Diphenoxyl te-Atropine te-Atropine 1-30 t_as_ne ate-Atropi 2.5-0.025 2.5-0.025 00:00: eded} ne MG MG 00 2.5-0.025 MG Diphenoxyla Diphenoxyla 2020-02 No 1{table BID Diphenoxyl te-Atropine te-Atropine 1-30 t_as_ne ate-Atropi 2.5-0.025 2.5-0.025 00:00: eded} ne MG MG 00 2.5-0.025 MG Diphenoxyla Diphenoxyla 2020-02 No 1{table BID Diphenoxyl te-Atropine te-Atropine 1-30 t_as_ne ate-Atropi 2.5-0.025 2.5-0.025 00:00: eded} ne MG MG 00 2.5-0.025 MG Diphenoxyla Diphenoxyla 2020-02 No 1{table BID Diphenoxyl te-Atropine te-Atropine 1-30 t_as_ne ate-Atropi 2.5-0.025 2.5-0.025 00:00: eded} ne MG MG 00 2.5-0.025 MG Diphenoxyla Diphenoxyla 2020-02 No 1{table BID Diphenoxyl te-Atropine te-Atropine 1-30 t_as_ne ate-Atropi 2.5-0.025 2.5-0.025 00:00: eded} ne MG MG 00 2.5-0.025 MG Diphenoxyla Diphenoxyla 2020-02 No 1{table BID Diphenoxyl te-Atropine te-Atropine 1-30 t_as_ne ate-Atropi 2.5-0.025 2.5-0.025 00:00: eded} ne MG MG 00 2.5-0.025 MG Diphenoxyla Diphenoxyla 2020-02 No 1{table BID Diphenoxyl te-Atropine te-Atropine 1-30 t_as_ne ate-Atropi 2.5-0.025 2.5-0.025 00:00: eded} ne MG MG 00 2.5-0.025 MG Diphenoxyla Diphenoxyla 2020-02 No 1{table BID Diphenoxyl te-Atropine te-Atropine 1-30 t_as_ne ate-Atropi 2.5-0.025 2.5-0.025 00:00: eded} ne MG MG 00 2.5-0.025 MG Diphenoxyla Diphenoxyla 2020-02 No 1{table BID Diphenoxyl te-Atropine te-Atropine 1-30 t_as_ne ate-Atropi 2.5-0.025 2.5-0.025 00:00: eded} ne MG MG 00 2.5-0.025 MG Diphenoxyla Diphenoxyla 2020-02 No 1{table BID Diphenoxyl te-Atropine te-Atropine 1-30 t_as_ne ate-Atropi 2.5-0.025 2.5-0.025 00:00: eded} ne MG MG 00 2.5-0.025 MG Diphenoxyla Diphenoxyla 2020-02 No 1{table BID Diphenoxyl te-Atropine te-Atropine 1-30 t_as_ne ate-Atropi 2.5-0.025 2.5-0.025 00:00: eded} ne MG MG 00 2.5-0.025 MG Diphenoxyla Diphenoxyla 2020-02 No 1{table BID Diphenoxyl te-Atropine te-Atropine 1-30 t_as_ne ate-Atropi 2.5-0.025 2.5-0.025 00:00: eded} ne MG MG 00 2.5-0.025 MG Diphenoxyla Diphenoxyla 2020-02 No 1{table BID Diphenoxyl te-Atropine te-Atropine 1-30 t_as_ne ate-Atropi 2.5-0.025 2.5-0.025 00:00: eded} ne MG MG 00 2.5-0.025 MG Diphenoxyla Diphenoxyla 2020-02 No 1{table BID Diphenoxyl te-Atropine te-Atropine 1-30 t_as_ne ate-Atropi 2.5-0.025 2.5-0.025 00:00: eded} ne MG MG 00 2.5-0.025 MG Diphenoxyla Diphenoxyla 2020-02 No 1{table BID Diphenoxyl te-Atropine te-Atropine 1-30 t_as_ne ate-Atropi 2.5-0.025 2.5-0.025 00:00: eded} ne MG MG 00 2.5-0.025 MG Diphenoxyla Diphenoxyla 2020-02 No 1{table BID Diphenoxyl te-Atropine te-Atropine 1-30 t_as_ne ate-Atropi 2.5-0.025 2.5-0.025 00:00: eded} ne MG MG 00 2.5-0.025 MG Diphenoxyla Diphenoxyla 2020-02 No 1{table BID Diphenoxyl te-Atropine te-Atropine 1-30 t_as_ne ate-Atropi 2.5-0.025 2.5-0.025 00:00: eded} ne MG MG 00 2.5-0.025 MG Diphenoxyla Diphenoxyla 2020-02 No 1{table BID Diphenoxyl te-Atropine te-Atropine 1-30 t_as_ne ate-Atropi 2.5-0.025 2.5-0.025 00:00: eded} ne MG MG 00 2.5-0.025 MG Diphenoxyla Diphenoxyla 2020-02 No 1{table BID Diphenoxyl te-Atropine te-Atropine 1-30 t_as_ne ate-Atropi 2.5-0.025 2.5-0.025 00:00: eded} ne MG MG 00 2.5-0.025 MG Diphenoxyla Diphenoxyla 2020-02 No 1{table BID Diphenoxyl te-Atropine te-Atropine 1-30 t_as_ne ate-Atropi 2.5-0.025 2.5-0.025 00:00: eded} ne MG MG 00 2.5-0.025 MG Vitamin B12 Vitamin B12 2020-02 No 1000ug Common (Cyanocobal (Cyanocobal 1-23 S pirit hamilton) hamilton) 00:00: - [facility] 00 [facility] Vitamin B12 Vitamin B12 2020-02 No 1000ug Common (Cyanocobal (Cyanocobal 1-23 S pirit hamilton) hamilton) 00:00: - [facility] 00 [facility] Vitamin B12 Vitamin B12 2020-02 No 1000ug Common (Cyanocobal (Cyanocobal 1-23 S pirit hamilton) hamilton) 00:00: - [facility] 00 [facility] Vitamin B12 Vitamin B12 2020-02 No 1000ug Common (Cyanocobal (Cyanocobal 1-23 S pirit hamilton) hamilton) 00:00: - [facility] 00 [facility] Vitamin B12 Vitamin B12 2020-02 No 1000ug Common (Cyanocobal (Cyanocobal 1-23 S pirit hamilton) hamilton) 00:00: - [facility] 00 [facility] Vitamin B12 Vitamin B12 2020-02 No 1000ug Common (Cyanocobal (Cyanocobal 1-23 S pirit hamilton) hamilton) 00:00: - [facility] 00 [facility] Vitamin B12 Vitamin B12 2020-02 No 1000ug Common (Cyanocobal (Cyanocobal 1-23 S pirit hamilton) hamilton) 00:00: - [facility] 00 [facility] Vitamin B12 Vitamin B12 2020-02 No 1000ug Common (Cyanocobal (Cyanocobal 1-23 S pirit hamilton) hamilton) 00:00: - [facility] 00 [facility] Vitamin B12 Vitamin B12 2020-02 No 1000ug Common (Cyanocobal (Cyanocobal 1-23 S pirit hamilton) hamilton) 00:00: - [facility] 00 [facility] Vitamin B12 Vitamin B12 2020-02 No 1000ug Common (Cyanocobal (Cyanocobal 1-23 S pirit hamilton) hamilton) 00:00: - [facility] 00 [facility] Vitamin B12 Vitamin B12 2020-02 No 1000ug Common (Cyanocobal (Cyanocobal 1-23 S pirit hamilton) hamilton) 00:00: - [facility] 00 [facility] Vitamin B12 Vitamin B12 2020-02 No 1000ug Common (Cyanocobal (Cyanocobal 1-23 S pirit hamilton) hamilton) 00:00: - [facility] 00 [facility] Vitamin B12 Vitamin B12 2020-02 No 1000ug Common (Cyanocobal (Cyanocobal 1-23 S pirit hamilton) hamilton) 00:00: - [facility] 00 [facility] Vitamin B12 Vitamin B12 2020-02 No 1000ug Common (Cyanocobal (Cyanocobal 1-23 S pirit hamilton) hamilton) 00:00: - [facility] 00 [facility] Vitamin B12 Vitamin B12 2020-02 No 1000ug Common (Cyanocobal (Cyanocobal 1-23 S pirit hamilton) hamilton) 00:00: - [facility] 00 [facility] Vitamin B12 Vitamin B12 2020-02 No 1000ug Common (Cyanocobal (Cyanocobal 1-23 S pirit hamilton) hamilton) 00:00: - [facility] 00 [facility] Vitamin B12 Vitamin B12 2020-02 No 1000ug Common (Cyanocobal (Cyanocobal 1-23 S pirit hamilton) hamilton) 00:00: - [facility] 00 [facility] Vitamin B12 Vitamin B12 2020-02 No 1000ug Common (Cyanocobal (Cyanocobal 1-23 S pirit hamiltno) hamilton) 00:00: - [facility] 00 [facility] Vitamin B12 Vitamin B12 2020-02 No 1000ug Common (Cyanocobal (Cyanocobal 1-23 S pirit hamilton) hamilton) 00:00: - [facility] 00 [facility] Vitamin B12 Vitamin B12 2020-02 No 1000ug Common (Cyanocobal (Cyanocobal 1-23 S pirit hamilton) hamilton) 00:00: - [facility] 00 [facility] Vitamin B12 Vitamin B12 2020-1 No 1000ug Common (Cyanocobal (Cyanocobal 1-23 S pirit hamilton) hamilton) 00:00: - [facility] 00 [facility] Vitamin B12 Vitamin B12 2020-1 No 1000ug Common (Cyanocobal (Cyanocobal 1-23 S pirit hamilton) hamilton) 00:00: - [facility] 00 [facility] Vitamin B12 Vitamin B12 2020- No 1000ug Common (Cyanocobal (Cyanocobal 1-23 S pirit hamilton) hamilton) 00:00: - [facility] 00 [facility] Synvisc Synvisc 2020-0 No 16mg Common - Spirit 00:00: - [facility] 00 [facility] Synvisc Synvisc 2020-0 No 16mg Common 09-19 Spirit 00:00: - [facility] 00 [facility] Synvisc Synvisc 2020-0 No 16mg Common 09-19 Spirit 00:00: - [facility] 00 [facility] Synvisc Synvisc 2020-0 No 16mg Common 09-19 Spirit 00:00: - [facility] 00 [facility] Synvisc Synvisc 2020-0 No 16mg Common 09-19 Spirit 00:00: - [facility] 00 [facility] Synvisc Synvisc 2020-0 No 16mg Common 09-19 Spirit 00:00: - [facility] 00 [facility] Synvisc Synvisc 2020-0 No 16mg Common 09-19 Spirit 00:00: - [facility] 00 [facility] Synvisc Synvisc 2020-0 No 16mg Common 09-19 Spirit 00:00: - [facility] 00 [facility] Synvisc Synvisc 2020-0 No 16mg Common 09-19 Spirit 00:00: - [facility] 00 [facility] Synvisc Synvisc 2020-0 No 16mg Common 09-19 Spirit 00:00: - [facility] 00 [facility] Synvisc Synvisc 2020-0 No 16mg Common 09-19 Spirit 00:00: - [facility] 00 [facility] Synvisc Synvisc 2020-0 No 16mg Common 09-19 Spirit 00:00: - [facility] 00 [facility] Synvisc Synvisc 2020-0 No 16mg Common 09-19 Spirit 00:00: - [facility] 00 [facility] Synvisc Synvisc 2020-0 No 16mg Common 09-19 Spirit 00:00: - [facility] 00 [facility] Synvisc Synvisc 2020-0 No 16mg Common 09-19 Spirit 00:00: - [facility] 00 [facility] Synvisc Synvisc 2020-0 No 16mg Common 09-19 Spirit 00:00: - [facility] 00 [facility] Synvisc Synvisc 2020-0 No 16mg Common 09-19 Spirit 00:00: - [facility] 00 [facility] Synvisc Synvisc 2020-0 No 16mg Common 09-19 Spirit 00:00: - [facility] 00 [facility] Synvisc Synvisc 2020-0 No 16mg Common 09-19 Spirit 00:00: - [facility] 00 [facility] Synvisc Synvisc 2020-0 No 16mg Common 09-19 Spirit 00:00: - [facility] 00 [facility] Synvisc Synvisc 2020-0 No 16mg Common 09-19 Spirit 00:00: - [facility] 00 [facility] Synvisc Synvisc 2020-0 No 16mg Common 09-19 Spirit 00:00: - [facility] 00 [facility] Synvisc Synvisc 2020-0 No 16mg Common 09-19 Spirit 00:00: - [facility] 00 [facility] Synvisc Synvisc 2020-0 No 16mg Common 09-19 Spirit 00:00: - [facility] 00 [facility] Synvisc Synvisc 1-0 No 16mg Common 09-19 Spirit 00:00: - [facility] 00 [facility] Synvisc Synvisc 1-0 No 16mg Common 09-19 Spirit 00:00: - [facility] 00 [facility] Synvisc Synvisc 2020-0 No 16mg Common 09-19 Spirit 00:00: - [facility] 00 [facility] Synvisc Synvisc 1-0 No 16mg Common 09-19 Spirit 00:00: - [facility] 00 [facility] Synvisc Synvisc 2020-0 No 16mg Common 09-19 Spirit 00:00: - [facility] 00 [facility] Synvisc Synvisc 2021-0 No 16mg Common 09-19 Spirit 00:00: - [facility] 00 [facility] Synvisc Synvisc 1-0 No 16mg Common 09-19 Spirit 00:00: - [facility] 00 [facility] Synvisc Synvisc 2021-0 No 16mg Common 09-19 Spirit 00:00: - [facility] 00 [facility] Synvisc Synvisc 2020-0 No 16mg Common 09-19 Spirit 00:00: - [facility] 00 [facility] Synvisc Synvisc 2020-0 No 16mg Common 09-19 Spirit 00:00: - [facility] 00 [facility] Synvisc Synvisc 2020-0 No 16mg Common 09-19 Spirit 00:00: - [facility] 00 [facility] Synvisc Synvisc 1-0 No 16mg Common 09-19 Spirit 00:00: - [facility] 00 [facility] Synvisc Synvisc 2020-0 No 16mg Common 09-19 Spirit 00:00: - [facility] 00 [facility] Synvisc Synvisc 1-0 No 16mg Common 09-19 Spirit 00:00: - [facility] 00 [facility] Synvisc Synvisc 1-0 No 16mg Common 09-19 Spirit 00:00: - [facility] 00 [facility] Synvisc Synvisc 1-0 No 16mg Common 09-19 Spirit 00:00: - [facility] 00 [facility] Synvisc Synvisc 1-0 No 16mg Common 09-19 Spirit 00:00: - [facility] 00 [facility] Synvisc Synvisc 2021-0 No 16mg Common 09-19 Spirit 00:00: - [facility] 00 [facility] Synvisc Synvisc 2021-0 No 16mg Common 09-19 Spirit 00:00: - [facility] 00 [facility] Synvisc Synvisc 2021-0 No 16mg Common 09-19 Spirit 00:00: - [facility] 00 [facility] Synvisc Synvisc 2021-0 No 16mg Common 09-19 Spirit 00:00: - [facility] 00 [facility] Synvisc Synvisc 2021-0 No 16mg Common 7-27 Spirit 00:00: - [facility] 00 [facility] Synvisc Synvisc 1-0 No 16mg Common 7-20 Spirit 00:00: - [facility] 00 [facility] Synvisc Synvisc 1-0 No 16mg Common 7-20 Spirit 00:00: - [facility] 00 [facility] Synvisc Synvisc 1-0 No 16mg Common 7-20 Spirit 00:00: - [facility] 00 [facility] Synvisc Synvisc 2020-0 No 16mg Common 7-20 Spirit 00:00: - [facility] 00 [facility] Synvisc Synvisc 1-0 No 16mg Common 7-20 Spirit 00:00: - [facility] 00 [facility] Synvisc Synvisc 2020-0 No 16mg Common 7-20 Spirit 00:00: - [facility] 00 [facility] Synvisc Synvisc 1-0 No 16mg Common 7-20 Spirit 00:00: - [facility] 00 [facility] Synvisc Synvisc 2020-0 No 16mg Common 7-20 Spirit 00:00: - [facility] 00 [facility] Synvisc Synvisc 1-0 No 16mg Common 7-20 Spirit 00:00: - [facility] 00 [facility] Synvisc Synvisc 2020-0 No 16mg Common 7-20 Spirit 00:00: - [facility] 00 [facility] Synvisc Synvisc 1-0 No 16mg Common 7-20 Spirit 00:00: - [facility] 00 [facility] Synvisc Synvisc 1-0 No 16mg Common 7-20 Spirit 00:00: - [facility] 00 [facility] Synvisc Synvisc 1-0 No 16mg Common 7-20 Spirit 00:00: - [facility] 00 [facility] Synvisc Synvisc 1-0 No 16mg Common 7-20 Spirit 00:00: - [facility] 00 [facility] Synvisc Synvisc 1-0 No 16mg Common 7-20 Spirit 00:00: - [facility] 00 [facility] Synvisc Synvisc 1-0 No 16mg Common 7-20 Spirit 00:00: - [facility] 00 [facility] Synvisc Synvisc 2020-0 No 16mg Common 7-20 Spirit 00:00: - [facility] 00 [facility] Synvisc Synvisc 1-0 No 16mg Common 7-20 Spirit 00:00: - [facility] 00 [facility] Synvisc Synvisc 2020-0 No 16mg Common 7-20 Spirit 00:00: - [facility] 00 [facility] Synvisc Synvisc 2020-0 No 16mg Common 7-20 Spirit 00:00: - [facility] 00 [facility] Synvisc Synvisc 2020-0 No 16mg Common 7-20 Spirit 00:00: - [facility] 00 [facility] Synvisc Synvisc 2020-0 No 16mg Common 7-20 Spirit 00:00: - [facility]I [facility] Synvisc Synvisc 2020-0 No 16mg Common 7-20 Spirit 00:00: - [facility]I [facility] Synvisc Synvisc 2020-0 No 16mg Common 7-20 Spirit 00:00: - [facility] 00 [facility] Synvisc Synvisc 2020-0 No 16mg Common 7-20 Spirit 00:00: - [facility] 00 [facility] Synvisc Synvisc 2020-0 No 16mg Common 7-20 Spirit 00:00: - [facility] 00 [facility] Synvisc Synvisc 2020-0 No 16mg Common 7-20 Spirit 00:00: - [facility] 00 [facility] Synvisc Synvisc 2020-0 No 16mg Common 7-20 Spirit 00:00: - [facility] 00 [facility] Synvisc Synvisc 1-0 No 16mg Common 7-20 Spirit 00:00: - [facility] 00 [facility] Synvisc Synvisc 1-0 No 16mg Common 7-20 Spirit 00:00: - [facility] 00 [facility] Synvisc Synvisc 2020-0 No 16mg Common 7-20 Spirit 00:00: - [facility] 00 [facility] Synvisc Synvisc 1-0 No 16mg Common 7-20 Spirit 00:00: - [facility] 00 [facility] Synvisc Synvisc 2020-0 No 16mg Common 7-20 Spirit 00:00: - [facility] 00 [facility] Synvisc Synvisc 2020-0 No 16mg Common 7-20 Spirit 00:00: - [facility] 00 [facility] Synvisc Synvisc 2020-0 No 16mg Common 7-20 Spirit 00:00: - [facility] 00 [facility] Synvisc Synvisc 2020-0 No 16mg Common 7-20 Spirit 00:00: - [facility] 00 [facility] Synvisc Synvisc 2020-0 No 16mg Common 7-20 Spirit 00:00: - [facility] 00 [facility] Synvisc Synvisc 2020-0 No 16mg Common 7-20 Spirit 00:00: - [facility] 00 [facility] Synvisc Synvisc 2020-0 No 16mg Common 7-20 Spirit 00:00: - [facility] 00 [facility] Synvisc Synvisc 2020-0 No 16mg Common 7-20 Spirit 00:00: - [facility] Synvisc Synvisc 2020-0 No 16mg Common 7-20 Spirit 00:00: - [facility] 00 [facility] Synvisc Synvisc 2020-0 No 16mg Common 7-20 Spirit 00:00: - [facility] 00 [facility] Synvisc Synvisc 2020-0 No 16mg Common 7-20 Spirit 00:00: - [facility] 00 [facility] Synvisc Synvisc 2020-0 No 16mg Common 7-20 Spirit 00:00: - [facility] Synvisc Synvisc 2020-0 No 16mg Common 7-20 Spirit 00:00: - [facility] 00 [facility] Synvisc Synvisc 2020-0 No 16mg Common 7-20 Spirit 00:00: - [facility] 00 [facility] Synvisc Synvisc 2020-0 No 16mg Common 7- Spirit 00:00: - [facility] 00 [facility] Kenalog Kenalog 2020-0 No 40mg Common (Triamcinol (Triamcinol 7-13 S pirit one) one) 00:00: - [facility] 00 [facility] Bupivicaine Bupivicaine 2020-0 No 2.5mg Common [place] 7-13 Spirit 00:00: - [facility] 00 [facility] Kenalog Kenalog 2020-0 No 40mg Common (Triamcinol (Triamcinol 7-13 S pirit one) one) 00:00: - [facility] 00 [facility] Synvisc Synvisc 2020-0 No 16mg Common 7-13 Spirit 00:00: - [facility] 00 [facility] Bupivicaine Bupivicaine 2020-0 No 2.5mg Common [place] 7-13 Spirit 00:00: - [facility] 00 [facility] Synvisc Synvisc 0 No 16mg Common 7-13 Spirit 00:00: - [facility] 00 [facility] Kenalog Kenalog 2020-0 No 40mg Common (Triamcinol (Triamcinol 7-13 S pirit one) one) 00:00: - [facility] 00 [facility] Bupivicaine Bupivicaine 2020-0 No 2.5mg Common [place] 7-13 Spirit 00:00: - [facility] 00 [facility] Kenalog Kenalog 2020-0 No 40mg Common (Triamcinol (Triamcinol 7-13 S pirit one) one) 00:00: - [facility] 00 [facility] Synvisc Synvisc 2020-0 No 16mg Common 7-13 Spirit 00:00: - [facility] 00 [facility] Bupivicaine Bupivicaine 2020-0 No 2.5mg Common [place] 7-13 Spirit 00:00: - [facility] 00 [facility] Synvisc Synvisc 2020-0 No 16mg Common 7-13 Spirit 00:00: - [facility] 00 [facility] Kenalog Kenalog 2020-0 No 40mg Common (Triamcinol (Triamcinol 7-13 S pirit one) one) 00:00: - [facility] 00 [facility] Bupivicaine Bupivicaine 2020-0 No 2.5mg Common [place] 7-13 Spirit 00:00: - [facility] 00 [facility] Kenalog Kenalog 2020-0 No 40mg Common (Triamcinol (Triamcinol 7-13 S pirit one) one) 00:00: - [facility] 00 [facility] Synvisc Synvisc 2021-0 No 16mg Common 7-13 Spirit 00:00: - [facility] 00 [facility] Bupivicaine Bupivicaine 2020-0 No 2.5mg Common [place] 7-13 Spirit 00:00: - [facility] 00 [facility] Synvisc Synvisc 0 No 16mg Common 7-13 Spirit 00:00: - [facility] 00 [facility] Kenalog Kenalog 2020-0 No 40mg Common (Triamcinol (Triamcinol 7-13 S pirit one) one) 00:00: - [facility] 00 [facility] Bupivicaine Bupivicaine 2020-0 No 2.5mg Common [place] 7-13 Spirit 00:00: - [facility] 00 [facility] Kenalog Kenalog 2020-0 No 40mg Common (Triamcinol (Triamcinol 7-13 S pirit one) one) 00:00: - [facility] 00 [facility] Synvisc Synvisc 0 No 16mg Common 7-13 Spirit 00:00: - [facility] 00 [facility] Bupivicaine Bupivicaine 2020-0 No 2.5mg Common [place] 7-13 Spirit 00:00: - [facility] 00 [facility] Synvisc Synvisc 0 No 16mg Common 7-13 [facility] 00:00: - [facility] 00 [facility] Kenalog Kenalog 2020-0 No 40mg Common (Triamcinol (Triamcinol 7-13 S pirit one) one) 00:00: - [facility] 00 [facility] Bupivicaine Bupivicaine 2020-0 No 2.5mg Common [place] 7-13 [facility] 00:00: - [facility] 00 [facility] Kenalog Kenalog 2020-0 No 40mg Common (Triamcinol (Triamcinol 7-13 S pirit one) one) 00:00: - [facility] 00 [facility] Synvisc Synvisc 2020-0 No 16mg Common 7-13 [facility] 00:00: - [facility] Bupivicaine Bupivicaine 2020-0 No 2.5mg Common [place] 7-13 [facility] 00:00: - [facility] 00 [facility] Synvisc Synvisc 0 No 16mg Common 7-13 [facility] 00:00: - [facility] 00 [facility] Kenalog Kenalog 2020-0 No 40mg Common (Triamcinol (Triamcinol 7-13 S pirit one) one) 00:00: - [facility] 00 [facility] Bupivicaine Bupivicaine 2020-0 No 2.5mg Common [place] 7-13 [facility] 00:00: - [facility] 00 [facility] Kenalog Kenalog 2020-0 No 40mg Common (Triamcinol (Triamcinol 7-13 S pirit one) one) 00:00: - [facility] 00 [facility] Synvisc Synvisc 0 No 16mg Common 7-13 [facility] 00:00: - [facility] 00 [facility] Bupivicaine Bupivicaine 2020-0 No 2.5mg Common [place] 7-13 [facility] 00:00: - [facility] 00 [facility] Synvisc Synvisc 0 No 16mg Common 7-13 [facility] 00:00: - [facility] 00 [facility] Kenalog Kenalog 2020-0 No 40mg Common (Triamcinol (Triamcinol 7-13 S pirit one) one) 00:00: - [facility] 00 [facility] Bupivicaine Bupivicaine 2020-0 No 2.5mg Common [place] 7-13 [facility] 00:00: - [facility] 00 [facility] Kenalog Kenalog 2020-0 No 40mg Common (Triamcinol (Triamcinol 7-13 S pirit one) one) 00:00: - [facility] 00 [facility] Synvisc Synvisc 0 No 16mg Common 7-13 [facility] 00:00: - [facility] 00 [facility] Bupivicaine Bupivicaine 2020-0 No 2.5mg Common [place] 7-13 [facility] 00:00: - [facility] 00 [facility] Synvisc Synvisc 0 No 16mg Common 7-13 [facility] 00:00: - [facility] 00 [facility] Kenalog Kenalog 2020-0 No 40mg Common (Triamcinol (Triamcinol 7-13 S pirit one) one) 00:00: - [facility] 00 [facility] Bupivicaine Bupivicaine 2020-0 No 2.5mg Common [place] 7-13 [facility] 00:00: - [facility] 00 [facility] Kenalog Kenalog 2020-0 No 40mg Common (Triamcinol (Triamcinol 7-13 S pirit one) one) 00:00: - [facility] 00 [facility] Synvisc Synvisc 2020-0 No 16mg Common 7-13 [facility] 00:00: - [facility] 00 [facility] Bupivicaine Bupivicaine 2020-0 No 2.5mg [facility] [place] [facility] 00:00: - [facility]I 00 [facility] Synvisc Synvisc 2020-0 No 16mg Common 7-13 Spirit 00:00: - [facility]I 00 [facility] Kenalog Kenalog 2020-0 No 40mg Common (Triamcinol (Triamcinol 7-13 S pirit one) one) 00:00: - [facility]I 00 [facility] Bupivicaine Bupivicaine 2020-0 No 2.5mg [facility] [place] [facility] 00:00: - [facility]I 00 [facility] Synvisc Synvisc 2020-0 No 16mg Common 7-13 Spirit 00:00: - [facility]I 00 [facility] Kenalog Kenalog 2020-0 No 40mg Common (Triamcinol (Triamcinol 7-13 S pirit one) one) 00:00: - [facility]I 00 [facility] Bupivicaine Bupivicaine 2020-0 No 2.5mg Common [place] [facility] 00:00: - [facility]I 00 [facility] Synvisc Synvisc 2020-0 No 16mg Common 7-13 Spirit 00:00: - [facility]I 00 [facility] Kenalog Kenalog 2020-0 No 40mg Common (Triamcinol (Triamcinol 7-13 S pirit one) one) 00:00: - CHI 00 [facility] Bupivicaine Bupivicaine 2020-0 No 2.5mg Common [place] [facility] 00:00: - [facility]I 00 [facility] Synvisc Synvisc 2020-0 No 16mg Common 7-13 Spirit 00:00: - CHI 00 [facility] Kenalog Kenalog 2020-0 No 40mg Common (Triamcinol (Triamcinol 7-13 S pirit one) one) 00:00: - CHI 00 [facility] Bupivicaine Bupivicaine 2020-0 No 2.5mg Common [place] [facility] 00:00: - [facility]I 00 [facility] Synvisc Synvisc 2020-0 No 16mg Common 7-13 Spirit 00:00: - CHI 00 [facility] Kenalog Kenalog 2020-0 No 40mg Common (Triamcinol (Triamcinol 7-13 S pirit one) one) 00:00: - CHI 00 [facility] Bupivicaine Bupivicaine 2020-0 No 2.5mg Common [place] [facility]13 [facility] 00:00: - CHI 00 [facility] Synvis Synvisc 2020-0 No 16mg Common 7-13 Spirit 00:00: - [facility] 00 [facility] Kenalog Kenalog 2020-0 No 40mg Common (Triamcinol (Triamcinol 7-13 S pirit one) one) 00:00: - [facility]I 00 [facility] Bupivicaine Bupivicaine 2020-0 No 2.5mg Common [place] 7-13 Spirit 00:00: - [facility] 00 [facility] Synvisc Synvisc 2020-0 No 16mg Common 7-13 Spirit 00:00: - [facility] 00 [facility] Kenalog Kenalog 2020-0 No 40mg Common (Triamcinol (Triamcinol 7-13 S pirit one) one) 00:00: - [facility]I 00 [facility] Bupivicaine Bupivicaine 2020-0 No 2.5mg Common [place] 7-13 Spirit 00:00: - [facility] 00 [facility] Synvisc Synvisc 2020-0 No 16mg Common 7-13 Spirit 00:00: - [facility] 00 [facility] Kenalog Kenalog 2020-0 No 40mg Common (Triamcinol (Triamcinol 7-13 S pirit one) one) 00:00: - [facility]I 00 [facility] Bupivicaine Bupivicaine 2020-0 No 2.5mg Common [place] 7-13 Spirit 00:00: - [facility] 00 [facility] Synvisc Synvisc 2020-0 No 16mg Common 7-13 Spirit 00:00: - [facility] 00 [facility] Kenalog Kenalog 2020-0 No 40mg Common (Triamcinol (Triamcinol 7-13 S pirit one) one) 00:00: - [facility] 00 [facility] Bupivicaine Bupivicaine 2020-0 No 2.5mg Common [place] 7-13 Spirit 00:00: - [facility] 00 [facility] Synvisc Synvisc 2020-0 No 16mg Common 7-13 Spirit 00:00: - [facility] 00 [facility] Kenalog Kenalog 2020-0 No 40mg Common (Triamcinol (Triamcinol 7-13 S pirit one) one) 00:00: - CHI [facility] Bupivicaine Bupivicaine 2020-0 No 2.5mg Common [place] 7-13 Spirit 00:00: - [facility]I 00 [facility] Synvisc Synvisc 2020-0 No 16mg Common 7-13 Spirit 00:00: - [facility] 00 [facility] Kenalog Kenalog 2020-0 No 40mg Common (Triamcinol (Triamcinol 7-13 S pirit one) one) 00:00: - [facility]I 00 [facility] Bupivicaine Bupivicaine 2020-0 No 2.5mg Common [place] 7-13 Spirit 00:00: - [facility]I 00 [facility] Synvisc Synvisc 2020-0 No 16mg Common 7-13 Spirit 00:00: - [facility]I 00 [facility] Kenalog Kenalog 2020-0 No 40mg Common (Triamcinol (Triamcinol 7-13 S pirit one) one) 00:00: - CHI [facility] Bupivicaine Bupivicaine 2020-0 No 2.5mg Common [place] 7-13 Spirit 00:00: - [facility]I 00 [facility] Synvisc Synvisc 2020-0 No 16mg Common 7-13 Spirit 00:00: - [facility]I 00 [facility] Kenalog Kenalog 2020-0 No 40mg Common (Triamcinol (Triamcinol 7-13 S pirit one) one) 00:00: - [facility]I 00 [facility] Bupivicaine Bupivicaine 2020-0 No 2.5mg Common [place] 7-13 Spirit 00:00: - [facility]I 00 [facility] Synvisc Synvisc 2020-0 No 16mg Common 7-13 Spirit 00:00: - [facility] 00 [facility] Kenalog Kenalog 2020-0 No 40mg Common (Triamcinol (Triamcinol 7-13 S pirit one) one) 00:00: - [facility]I 00 [facility] Bupivicaine Bupivicaine 2020-0 No 2.5mg Common [place] 7-13 Spirit 00:00: - [facility]I 00 [facility] Bupivicaine Bupivicaine 2020-0 No Common [place] 7-13 Spirit 00:00: - [facility] 00 [facility] Kenalog Kenalog 2020-0 No 40mg Common (Triamcinol (Triamcinol 7-13 S pirit one) one) 00:00: - [facility]I 00 [facility] Synvisc Synvisc 2020-0 No 16mg Common 7-13 Spirit 00:00: - [facility]I 00 [facility] Kenlucius Kenalog 2020-0 No 40mg Common (Triamcinol (Triamcinol 7-13 S pirit one) one) 00:00: - [facility]I 00 [facility] Bupivicaine Bupivicaine 2020-0 No Common [place] 7-13 Spirit 00:00: - [facility]I 00 [facility] Synvisc Synvisc 2020-0 No 16mg Common 7-13 Spirit 00:00: - [facility]I 00 [facility] Bupivicaine Bupivicaine 2020-0 No Common [place] 7-13 Spirit 00:00: - [facility]I 00 [facility] Kenalog Kenalog 2020-0 No 40mg Common (Triamcinol (Triamcinol 7-13 S pirit one) one) 00:00: - [facility]I 00 [facility] Synvisc Synvisc 2020-0 No 16mg Common 7-13 Spirit 00:00: - [facility]I 00 [facility] Kenalog Kenalog 0 No 40mg Common (Triamcinol (Triamcinol 7-13 S pirit one) one) 00:00: - [facility]I 00 [facility] Bupivicaine Bupivicaine 2020-0 No Common [place] 7-13 Spirit 00:00: - [facility]I 00 [facility] Synvisc Synvisc 0 No 16mg Common 7-13 Spirit 00:00: - [facility]I 00 [facility] Bupivicaine Bupivicaine 2020-0 No Common [place] 7-13 Spirit 00:00: - [facility] 00 [facility] Kenalog Kenalog 0 No 40mg Common (Triamcinol (Triamcinol 7-13 S pirit one) one) 00:00: - CHI 00 [facility] Synvis Synvisc 0 No 16mg Common 7-13 Spirit 00:00: - [facility] 00 [facility] Bupivicaine Bupivicaine 2020-0 No Common [place] 7-13 Spirit 00:00: - [facility] 00 [facility] Kenalog Kenalog 0 No 40mg Common (Triamcinol (Triamcinol 7-13 S pirit one) one) 00:00: - [facility]I 00 [facility] Synvis Synvisc 0 No 16mg Common 7-13 Spirit 00:00: - [facility] 00 [facility] Bupivicaine Bupivicaine 2020-0 No 2.5mg Common [place] 7-13 Spirit 00:00: - [facility] 00 [facility] Synvisc Synvisc 0 No 16mg Common 7-13 Spirit 00:00: - [facility] 00 [facility] Kenalog Kenalog 2020-0 No 40mg Common (Triamcinol (Triamcinol 7-13 S pirit one) one) 00:00: - [facility] 00 [facility] Bupivicaine Bupivicaine 2020-0 No 2.5mg Common [place] 7-13 Spirit 00:00: - [facility]I 00 [facility] Kenalog Kenalog 2020-0 No 40mg Common (Triamcinol (Triamcinol 7-13 S pirit one) one) 00:00: - CHI 00 [facility] Synvisc Synvisc 2020-0 No 16mg Common 7-13 Spirit 00:00: - [facility] 00 [facility] Bupivicaine Bupivicaine 2020-0 No 2.5mg Common [place] 7-13 Spirit 00:00: - [facility]I 00 [facility] Synvisc Synvisc 2020-0 No 16mg Common 7-13 Spirit 00:00: - [facility]I 00 [facility] Kenalog Kenalog 2020-0 No 40mg Common (Triamcinol (Triamcinol 7-13 S pirit one) one) 00:00: - [facility]I 00 [facility] Bupivicaine Bupivicaine 2020-0 No 2.5mg Common [place] 7-13 Spirit 00:00: - [facility]I 00 [facility] Kenalog Kenalog 2020-0 No 40mg Common (Triamcinol (Triamcinol 7-13 S pirit one) one) 00:00: - CHI 00 [facility] Synvisc Synvisc 0 No 16mg Common 7-13 Spirit 00:00: - [facility]I 00 [facility] Bupivicaine Bupivicaine 2020-0 No 2.5mg Common [place] 7-13 Spirit 00:00: - [facility] 00 [facility] Synvisc Synvisc 0 No 16mg Common 7-13 Spirit 00:00: - [facility]I 00 [facility] Kenalog Kenalog 2020-0 No 40mg Common (Triamcinol (Triamcinol 7-13 S pirit one) one) 00:00: - [facility]I 00 [facility] Bupivicaine Bupivicaine 2020-0 No 2.5mg Common [place] 7-13 Spirit 00:00: - [facility]I 00 [facility] Kenalog Kenalog 2020-0 No 40mg Common (Triamcinol (Triamcinol 7-13 S pirit one) one) 00:00: - CHI 00 [facility] Synvisc Synvisc 2020-0 No 16mg Common 7-13 Spirit 00:00: - [facility]I 00 [facility] Synvisc Synvisc No 16mg Common 7-13 Spirit 00:00: - CHI [facility] Kenalog Kenalog No 40mg Common (Triamcinol (Triamcinol 7-13 S pirit one) one) 00:00: - [facility]I 00 [facility] Bupivicaine Bupivicaine 0 No 2.5mg Common [place] 7-13 Spirit 00:00: - CHI [facility] Bupivicaine Bupivicaine No 2.5mg Common [place] 7-13 Spirit 00:00: - CHI [facility] Kenalog Kenalog No 40mg Common (Triamcinol (Triamcinol 7-13 S pirit one) one) 00:00: - CHI [facility] Synvis Synvisc No 16mg Common 7-13 Spirit 00:00: - [facility] No 16mg Common 7-13 [facility] 00:00: - CHI [facility] Kenalog Kenalog No 40mg Common (Triamcinol (Triamcinol 7-13 S pirit one) one) 00:00: - CHI [facility] Bupivicaine Bupivicaine No 2.5mg Common [place] 7-13 Spirit 00:00: - CHI [facility] Kenalog Kenalog 0 No 40mg Common (Triamcinol (Triamcinol 7-13 S pirit one) one) 00:00: - CHI [facility] Synvis Synvisc No 16mg Common 7-13 Spirit 00:00: - CHI [facility] Bupivicaine Bupivicaine No 2.5mg Common [place] 7-13 Spirit 00:00: - CHI [facility] cyclobenzap Yes [id number] 10mg Take 1 Nolan rine 2-03 Tablet by [place] (FLEXERIL) 00:00: mouth 3 of 10 MG 00 times Medicin tablet daily as e needed for Muscle spasms. propranolol Yes 1{tbl} Take 1 Ba ylor (INDERAL) 1-20 Tablet by Colle [facility] 20 MG 00:00: mouth of tablet 00 daily. Medicin e gabapentin 2019-02 Yes 1{capsu Take 1 Ba ylor (NEURONTIN) 2-23 le} capsule by [facility] 100 MG 00:00: mouth of capsule 00 daily. Medicin e gabapentin 2019-02 Yes 100 mg = 1 M emoria 100 MG Oral 0-14 cap, PO, l Capsule 16:21: TID, 0 [place] [Neurontin] 00 Refill(s) dexlansopra 2019-02 Yes 60 mg = 1 M emoria zole 60 MG 0-14 cap, PO, l Enteric 16:21: Daily, 0 Clarence n Coated 00 Refill(s) Capsule [Dexilant] gabapentin 2019-02 Yes 100 mg = 1 M emoria 100 MG Oral 0-14 cap, PO, l Capsule 16:21: TID, 0 [place] [Neurontin] 00 Refill(s) dexlansopra 2019-02 Yes 60 mg = 1 M emoria zole 60 MG 0-14 cap, PO, l Enteric 16:21: Daily, 0 Clarence n Coated 00 Refill(s) Capsule [Dexilant] Bupivicaine Bupivicaine 2020-0 No 1mL Common [place] -09 Spirit 00:00: - CHI [facility] Kenalog Kenalog 2020-0 No 1mL Common (Triamcinol (Triamcinol 1-09 S pirit one) one) 00:00: - CHI [facility] Bupivicaine Bupivicaine 2020-0 No 1mL Common [place] 09 Spirit 00:00: - CHI [facility] Kenalog Kenalog 2020-0 No 1mL Common (Triamcinol (Triamcinol 1-09 S pirit one) one) 00:00: - CHI [facility] Bupivicaine Bupivicaine 2020-0 No 1mL Common [place] 09 Spirit 00:00: - CHI [facility] Kenalog Kenalog 2020-0 No 1mL Common (Triamcinol (Triamcinol 1-09 S pirit one) one) 00:00: - CHI [facility] Bupivicaine Bupivicaine 2020-0 No 1mL Common [place] 1-09 Spirit 00:00: - [facility]I 00 [facility] Kenalog Kenalog 2020-0 No 1mL Common (Triamcinol (Triamcinol 1-09 S pirit one) one) 00:00: - CHI 00 [facility] Bupivicaine Bupivicaine 2020-0 No 1mL Common [place] 1-09 Spirit 00:00: - [facility]I 00 [facility] Kenalog Kenalog 2020-0 No 1mL Common (Triamcinol (Triamcinol 1-09 S pirit one) one) 00:00: - CHI 00 [facility] Bupivicaine Bupivicaine 2020-0 No 1mL Common [place] 1-09 Spirit 00:00: - [facility]I 00 [facility] Kenalog Kenalog 2020-0 No 1mL Common (Triamcinol (Triamcinol 1-09 S pirit one) one) 00:00: - [facility]I 00 [facility] Bupivicaine Bupivicaine 2020-0 No 1mL Common [place] 1-09 Spirit 00:00: - [facility]I 00 [facility] Kenalog Kenalog 2020-0 No 1mL Common (Triamcinol (Triamcinol 1-09 S pirit one) one) 00:00: - [facility]I 00 [facility] Bupivicaine Bupivicaine 2020-0 No 1mL Common [place] 1-09 Spirit 00:00: - [facility]I 00 [facility] Kenalog Kenalog 2020-0 No 1mL Common (Triamcinol (Triamcinol 1-09 S pirit one) one) 00:00: - [facility]I 00 [facility] Bupivicaine Bupivicaine 2020-0 No 1mL Common [place] 1-09 Spirit 00:00: - [facility]I 00 [facility] Kenalog Kenalog 2020-0 No 1mL Common (Triamcinol (Triamcinol 1-09 S pirit one) one) 00:00: - [facility]I 00 [facility] Bupivicaine Bupivicaine 2020-0 No 1mL Common [place] 1-09 Spirit 00:00: - [facility]I 00 [facility] Kenalog Kenalog 2020-0 No 1mL Common (Triamcinol (Triamcinol 1-09 S pirit one) one) 00:00: - [facility]I 00 [facility] Bupivicaine Bupivicaine 2020-0 No 1mL Common [place] 1-09 Spirit 00:00: - [facility]I 00 [facility] Kenalog Kenalog 2020-0 No 1mL Common (Triamcinol (Triamcinol 1-09 S pirit one) one) 00:00: - CHI 00 [facility] Bupivicaine Bupivicaine 2020-0 No 1mL Common [place] 1-09 Spirit 00:00: - [facility]I 00 [facility] Kenalog Kenalog 2020-0 No 1mL Common (Triamcinol (Triamcinol 1-09 S pirit one) one) 00:00: - [facility]I 00 [facility] Bupivicaine Bupivicaine 2020-0 No 1mL Common [place] 1-09 Spirit 00:00: - [facility]I 00 [facility] Kenalog Kenalog 2020-0 No 1mL Common (Triamcinol (Triamcinol 1-09 S pirit one) one) 00:00: - CHI 00 [facility] Bupivicaine Bupivicaine 2020-0 No 1mL Common [place] 1-09 Spirit 00:00: - [facility]I 00 [facility] Kenalog Kenalog 2020-0 No 1mL Common (Triamcinol (Triamcinol 1-09 S pirit one) one) 00:00: - CHI 00 [facility] Kenalog Kenalog 2020-0 No 1mL Common (Triamcinol (Triamcinol 1-09 S pirit one) one) 00:00: - CHI 00 [facility] Bupivicaine Bupivicaine 2020-0 No 1mL Common [place] 1-09 Spirit 00:00: - [facility]I 00 [facility] Kenalog Kenalog 2020-0 No 1mL Common (Triamcinol (Triamcinol 1-09 S pirit one) one) 00:00: - CHI 00 [facility] Bupivicaine Bupivicaine 2020-0 No 1mL Common [place] 1-09 Spirit 00:00: - CHI 00 [facility] Kenalog Kenalog 2020-0 No 1mL Common (Triamcinol (Triamcinol 1-09 S pirit one) one) 00:00: - CHI 00 [facility] Bupivicaine Bupivicaine 2020-0 No 1mL Common [place] 1-09 Spirit 00:00: - [facility]I 00 [facility] Kenalog Kenalog 2020-0 No 1mL Common (Triamcinol (Triamcinol 1-09 S pirit one) one) 00:00: - [facility]I 00 [facility] Bupivicaine Bupivicaine 2020-0 No 1mL Common [place] 1-09 Spirit 00:00: - [facility]I 00 [facility] Kenalog Kenalog 2020-0 No 1mL Common (Triamcinol (Triamcinol 1-09 S pirit one) one) 00:00: - [facility]I 00 [facility] Bupivicaine Bupivicaine 2020-0 No 1mL Common [place] 09 [facility] 00:00: - [facility]I 00 [facility] Kenalog Kenalog 2020-0 No 1mL Common (Triamcinol (Triamcinol 1-09 S pirit one) one) 00:00: - CHI 00 [facility] Bupivicaine Bupivicaine 2020-0 No 1mL Common [place] 1-09 Spirit 00:00: - [facility]I 00 [facility] Kenalog Kenalog 2020-0 No 1mL Common (Triamcinol (Triamcinol 1-09 S pirit one) one) 00:00: - [facility]I 00 [facility] Bupivicaine Bupivicaine 2020-0 No 1mL Common [place] 1-09 Spirit 00:00: - [facility]I 00 [facility] Kenalog Kenalog 2020-0 No 1mL Common (Triamcinol (Triamcinol 1-09 S pirit one) one) 00:00: - [facility]I 00 [facility] Bupivicaine Bupivicaine 2020-0 No 1mL Common [place] 1-09 Spirit 00:00: - [facility]I 00 [facility] Kenalog Kenalog 2020-0 No 1mL Common (Triamcinol (Triamcinol 1-09 S pirit one) one) 00:00: - CHI 00 [facility] Bupivicaine Bupivicaine 2020-0 No 1mL Common [place] 1-09 Spirit 00:00: - [facility]I 00 [facility] Kenalog Kenalog 2020-0 No 1mL Common (Triamcinol (Triamcinol 1-09 S pirit one) one) 00:00: - CHI 00 [facility] Bupivicaine Bupivicaine 2020-0 No 1mL Common [place] 1-09 Spirit 00:00: - [facility]I 00 [facility] Kenalog Kenalog 2020-0 No 1mL Common (Triamcinol (Triamcinol 1-09 S pirit one) one) 00:00: - CHI 00 [facility] Bupivicaine Bupivicaine 2020-0 No 1mL Common [place] 1-09 Spirit 00:00: - [facility]I 00 [facility] Kenalog Kenalog 2020-0 No 1mL Common (Triamcinol (Triamcinol 1-09 S pirit one) one) 00:00: - CHI 00 [facility] Bupivicaine Bupivicaine 2020-0 No 1mL Common [place] 1-09 Spirit 00:00: - [facility]I 00 [facility] Kenalog Kenalog 2020-0 No 1mL Common (Triamcinol (Triamcinol 1-09 S pirit one) one) 00:00: - CHI 00 [facility] Bupivicaine Bupivicaine 2020-0 No 1mL Common [place] 1-09 Spirit 00:00: - [facility]I 00 [facility] Kenalog Kenalog 2020-0 No 1mL Common (Triamcinol (Triamcinol 1-09 S pirit one) one) 00:00: - CHI 00 [facility] Bupivicaine Bupivicaine 2020-0 No 1mL Common [place] 1-09 [facility] 00:00: - [facility]I 00 [facility] Kenalog Kenalog 2020-0 No 1mL Common (Triamcinol (Triamcinol 1-09 S pirit one) one) 00:00: - CHI 00 [facility] Bupivicaine Bupivicaine 2020-0 No 1mL Common [place] 1-09 Spirit 00:00: - [facility]I 00 [facility] Kenalog Kenalog 2020-0 No 1mL Common (Triamcinol (Triamcinol 1-09 S pirit one) one) 00:00: - CHI 00 [facility] Bupivicaine Bupivicaine 2020-0 No 1mL Common [place] 1-09 Spirit 00:00: - [facility]I 00 [facility] Kenalog Kenalog 2020-0 No 1mL Common (Triamcinol (Triamcinol 1-09 S pirit one) one) 00:00: - CHI 00 [facility] Bupivicaine Bupivicaine 2020-0 No 1mL Common [place] 1-09 Spirit 00:00: - [facility]I 00 [facility] Bupivicaine Bupivicaine 2020-0 No 1mL Common [place] 1-09 [facility] 00:00: - [facility]I 00 [facility] Kenalog Kenalog 2020-0 No 1mL Common (Triamcinol (Triamcinol 1-09 S pirit one) one) 00:00: - CHI 00 [facility] Kenalog Kenalog 2020-0 No 1mL Common (Triamcinol (Triamcinol 1-09 S pirit one) one) 00:00: - CHI 00 [facility] Bupivicaine Bupivicaine 2020-0 No 1mL Common [place] 1-09 Spirit 00:00: - [facility]I 00 [facility] Bupivicaine Bupivicaine 2020-0 No 1mL Common [place] 1-09 [facility] 00:00: - [facility]I 00 [facility] Kenalog Kenalog 2020-0 No 1mL Common (Triamcinol (Triamcinol 1-09 S pirit one) one) 00:00: - CHI 00 [facility] Kenalog Kenalog 2020-0 No 1mL Common (Triamcinol (Triamcinol 1-09 S pirit one) one) 00:00: - CHI 00 [facility] Bupivicaine Bupivicaine 2020-0 No 1mL Common [place] 1-09 [facility] 00:00: - [facility]I 00 [facility] Bupivicaine Bupivicaine 2020-0 No 1mL Common [place] 1-09 [facility] 00:00: - [facility]I 00 [facility] Kenalog Kenalog 2020-0 No 1mL Common (Triamcinol (Triamcinol 1-09 S pirit one) one) 00:00: - CHI 00 [facility] Kenalog Kenalog 2020-0 No 1mL Common (Triamcinol (Triamcinol 1-09 S pirit one) one) 00:00: - CHI 00 [facility] Bupivicaine Bupivicaine 2020-0 No 1mL Common [place] 1-09 [facility] 00:00: - [facility]I 00 [facility] Bupivicaine Bupivicaine 2020-0 No 1mL Common [place] 1-09 [facility] 00:00: - [facility]I 00 [facility] Kenalog Kenalog 2020-0 No 1mL Common (Triamcinol (Triamcinol 1-09 S pirit one) one) 00:00: - CHI 00 [facility] Kenalog Kenalog 2020-0 No 1mL Common (Triamcinol (Triamcinol 1-09 S pirit one) one) 00:00: - CHI 00 [facility] Bupivicaine Bupivicaine 2020-0 No 1mL Common [place] 1-09 [facility] 00:00: - [facility]I 00 [facility] Bupivicaine Bupivicaine 2020-0 No 1mL Common [place] -09 [facility] 00:00: - [facility]I 00 [facility] Kenalog Kenalog 2020-0 No 1mL Common (Triamcinol (Triamcinol 1-09 S pirit one) one) 00:00: - CHI 00 [facility] Kenalog Kenalog 2020-0 No 1mL Common (Triamcinol (Triamcinol 1-09 S pirit one) one) 00:00: - CHI 00 [facility] Bupivicaine Bupivicaine 2020-0 No 1mL Common [place] 1-09 [facility] 00:00: - [facility] 00 [facility] Bupivicaine Bupivicaine 2020-0 No 1mL Common [place] 1-09 [facility] 00:00: - [facility]I 00 [facility] Kenalog Kenalog 2020-0 No 1mL Common (Triamcinol (Triamcinol 1-09 S pirit one) one) 00:00: - CHI 00 [facility] Bupivicaine Bupivicaine 2020-0 No 1mL Common [place] 1-09 [facility] 00:00: - CHI 00 [facility] Kenalog Kenalog 2020-0 No 1mL Common (Triamcinol (Triamcinol 1-09 S pirit one) one) 00:00: - CHI 00 [facility] Bupivicaine Bupivicaine 2020-0 No 1mL Common [place] 1-09 [facility] 00:00: - [facility]I 00 [facility] Kenalog Kenalog 2020-0 No 1mL Common (Triamcinol (Triamcinol 1-09 S pirit one) one) 00:00: - CHI 00 [facility] Bupivicaine Bupivicaine 2020-0 No 1mL Common [place] 1-09 [facility] 00:00: - [facility]I 00 [facility] Kenalog Kenalog 2020-0 No 1mL Common (Triamcinol (Triamcinol 1-09 S pirit one) one) 00:00: - CHI 00 [facility] Bupivicaine Bupivicaine 2020-0 No 1mL Common [place] 1-09 [facility] 00:00: - [facility]I 00 [facility] Kenalog Kenalog 2020-0 No 1mL Common (Triamcinol (Triamcinol 1-09 S pirit one) one) 00:00: - CHI 00 [facility] diphenoxyla 2018-0 Yes 1{tbl} Take 1 Tab [facility] te-atropine 10-27 by mouth 4 Co llege (LOMOTIL) 18:24: times of 2.5-0.025 01 daily as Medici n MG per needed for e tablet Diarrhea. Probiotic 2019- No Take by [facility] or Product 10-27 mouth College (PRO-BIOTIC 18:17: 00:00 daily. of BLEND OR) 13 :00 Medicin e Mesalamine 2018- No Take by Rosebud jasvir ([place] 10-27 mouth two Colle ge OR) 18:17: 00:00 times of 04 :00 daily. Medicin e Orthovisc Orthovisc 2019-0 No 2mL Com mon 10-27 Spirit 00:00: - CHI [facility] Orthovisc Orthovisc 2019-0 No 2mL Com 10-27 Spirit 00:00: - CH[facility] Orthovisc Orthovisc 2019-0 No 2mL Com 10-27 Spirit 00:00: - CH[facility] Orthovisc Orthovisc 2019-0 No 2mL Com 10-27 Spirit 00:00: - CH[facility] Orthovisc Orthovisc 2019-0 No 2mL Com 10-27 Spirit 00:00: - [facility]I 00 [facility] Orthovisc Orthovisc 2019-0 No 2mL Com 10-27 Spirit 00:00: - CH[facility] Orthovisc Orthovisc 2019-0 No 2mL Com 10-27 Spirit 00:00: - [facility]I 00 [facility] Orthovisc Orthovisc 2019-0 No 2mL Com 10-27 Spirit 00:00: - CH[facility] Orthovisc Orthovisc 2019-0 No 2mL Com 10-27 Spirit 00:00: - CH[facility] Orthovisc Orthovisc 2019-0 No 2mL Com 10-27 Spirit 00:00: - CH[facility] Orthovisc Orthovisc 2019-0 No 2mL Com 10-27 Spirit 00:00: - [facility]I 00 [facility] Orthovisc Orthovisc 2019-0 No 2mL Com 10-27 Spirit 00:00: - [facility] 00 [facility] Orthovisc Orthovisc 2019-0 No 2mL Com 10-27 Spirit 00:00: - CH[facility] Orthovisc Orthovisc 2019-0 No 2mL Com 10-27 Spirit 00:00: - CH[facility] Orthovisc Orthovisc 2019-0 No 2mL Com 10-27 Spirit 00:00: - CH[facility] Orthovisc Orthovisc 2019-0 No 2mL Com 10-27 Spirit 00:00: - CH[facility] Orthovisc Orthovisc 2019-0 No 2mL Com 10-27 Spirit 00:00: - [facility] 00 [facility] Orthovisc Orthovisc 2019-0 No 2mL Com 10-27 Spirit 00:00: - CH[facility] Orthovisc Orthovisc 2019-0 No 2mL Com 10-27 Spirit 00:00: - CH[facility] Orthovisc Orthovisc 2019-0 No 2mL Com 10-27 Spirit 00:00: - [facility] 00 [facility] Orthovisc Orthovisc 2019-0 No 2mL Com 10-27 Spirit 00:[facility]: - [facility] 00 [facility] 2019-0 No 2mL Com 10-27 [facility] 00[facility]: - [facility] 00 [facility] 2019-0 No 2mL Com 10-27 [facility] 00:[facility]: - [facility] 00 [facility] 2019-0 No 2mL Com 10-27 [facility] 00:[facility]: - [facility] 00 [facility] 2019-0 No 2mL Com 10-27 [facility] 00:[facility]: - [facility] 00 [facility] 2019-0 No 2mL Com 10-27 [facility] 00:[facility]: - [facility] 00 [facility] 2019-0 No 2mL Com 10-27 [facility] 00:00: - [facility] 00 [facility] 2019-0 No 2mL Com 10-27 [facility] 00:[facility]: - [facility] 00 [facility] 2019-0 No 2mL Com 10-27 [facility] 00:00: - [facility] 00 [facility] 2019-0 No 2mL Com 10-27 [facility] 00:00: - [facility] 00 [facility] 2019-0 No 2mL Com 10-27 [facility] 00:00: - [facility] 00 [facility] 2019-0 No 2mL Com 10-27 [facility] 00:[facility]: - [facility] 00 [facility] 2019-0 No 2mL Com 10-27 [facility] 00:00: - [facility] 00 [facility] 2019-0 No 2mL Com 10-27 [facility] 00:00: - [facility] 00 [facility] 2019-0 No 2mL Com 10-27 [facility] 00:00: - [facility] Orthovisc Orthovisc 2019-0 No 2mL Com 10-27 Spirit 00:00: - [facility] Orthovisc Orthovisc 2019-0 No 2mL Com 10-27 Spirit 00:00: - [facility] Orthovisc Orthovisc 2019-0 No 2mL Com 10-27 Spirit 00:00: - [facility] Orthovisc Orthovisc 2019-0 No 2mL Com 10-27 Spirit 00:00: - [facility] Orthovisc Orthovisc 2019-0 No 2mL Com 10-27 Spirit 00:00: - [facility] Orthovisc Orthovisc 2019-0 No 2mL Com 10-27 Spirit 00:00: - [facility] Orthovisc Orthovisc 2019-0 No 2mL Com 10-27 Spirit 00:00: - [facility] Orthovisc Orthovisc 2019-0 No 2mL Com 10-27 Spirit 00:00: - [facility] Orthovisc Orthovisc 2019-0 No 2mL Com 10-27 Spirit 00:00: - [facility] Orthovisc Orthovisc 2019-0 No 2mL Com 10-27 Spirit 00:00: - [facility] Orthovisc Orthovisc 2019-0 No 2mL Com 10-27 Spirit 00:00: - [facility] cholestyram 2019-0 Yes 4g Take 1 Bayl or ine light 4 10-27 Packet by Col travis g packet 00:00: mouth two of 00 times Medicin daily. e Alosetron 2019-0 Yes .5mg Take 0.5 Bayl or HCl 0.5 MG 10-27 mg by [facility] TABS 00:00: mouth two of 00 times Medicin daily. e Orthovisc Orthovisc 2019-0 No 2mL Com 10-20 Spirit 00:00: - [facility] Orthovisc Orthovisc 2019-0 No 2mL Com 10-20 Spirit 00:00: - [facility] Orthovisc Orthovisc 2019-0 No 2mL Com 10-20 00:00: - [facility] Orthovisc Orthovisc 2019-0 No 2mL Com 10-20 Spirit 00:00: - [facility] Orthovisc Orthovisc 2019-0 No 2mL Com 10-20 Spirit 00:00: - [facility] Orthovisc Orthovisc 2019-0 No 2mL Com 10-20 Spirit 00:00: - [facility] Orthovisc Orthovisc 2019-0 No 2mL Com 10-20 Spirit 00:00: - [facility] Orthovisc Orthovisc 2019-0 No 2mL Com 10-20 Spirit 00:00: - [facility] Orthovisc Orthovisc 2019-0 No 2mL Com 10-20 Spirit 00:00: - [facility] Orthovisc Orthovisc 2019-0 No 2mL Com 10-20 Spirit 00:00: - [facility] Orthovisc Orthovisc 2019-0 No 2mL Com 10-20 Spirit 00:00: - [facility] Orthovisc Orthovisc 2019-0 No 2mL Com 10-20 Spirit 00:00: - [facility] Orthovisc Orthovisc 2019-0 No 2mL Com 10-20 Spirit 00:00: - [facility] Orthovisc Orthovisc 2019-0 No 2mL Com 10-20 Spirit 00:00: - [facility] Orthovisc Orthovisc 2019-0 No 2mL Com 10-20 Spirit 00:00: - [facility] Orthovisc Orthovisc 2019-0 No 2mL Com 10-20 Spirit 00:00: - [facility] Orthovisc Orthovisc 2019-0 No 2mL Com 10-20 Spirit 00:00: - [facility] Orthovisc Orthovisc 2019-0 No 2mL Com 10-20 Spirit 00:00: - [facility] Orthovisc Orthovisc 2019-0 No 2mL Com 10-20 Spirit 00:00: - [facility] Orthovisc Orthovisc 2019-0 No 2mL Com 10-20 Spirit 00:00: - [facility] Orthovisc Orthovisc 2019-0 No 2mL Com 10-20 Spirit 00:00: - [facility] Orthovisc Orthovisc 2019-0 No 2mL Com 10-20 Spirit 00:00: - [facility] Orthovisc Orthovisc 2019-0 No 2mL Com 10-20 Spirit 00:00: - [facility] Orthovisc Orthovisc 2019-0 No 2mL Com 10-20 Spirit 00:00: - [facility] Orthovisc Orthovisc 2019-0 No 2mL Com 10-20 Spirit 00:00: - [facility] Orthovisc Orthovisc 2019-0 No 2mL Com 10-20 Spirit 00:00: - [facility] Orthovisc Orthovisc 2019-0 No 2mL Com 10-20 Spirit 00:00: - [facility] Orthovisc Orthovisc 2019-0 No 2mL Com 10-20 Spirit 00:00: - [facility] Orthovisc Orthovisc 2019-0 No 2mL Com 10-20 Spirit 00:00: - [facility] Orthovisc Orthovisc 2019-0 No 2mL Com 10-20 Spirit 00:00: - [facility] Orthovisc Orthovisc 2019-0 No 2mL Com 10-20 Spirit 00:00: - [facility] Orthovisc Orthovisc 2019-0 No 2mL Com 10-20 Spirit 00:00: - [facility] Orthovisc Orthovisc 2019-0 No 2mL Com 10-20 Spirit 00:00: - [facility] Orthovisc Orthovisc 2019-0 No 2mL Com 10-20 Spirit 00:00: - [facility] Orthovisc Orthovisc 2019-0 No 2mL Com 10-20 Spirit 00:00: - [facility] Orthovisc Orthovisc 2019-0 No 2mL Com 10-20 Spirit 00:00: - [facility] Orthovisc Orthovisc 2019-0 No 2mL Com 10-20 Spirit 00:00: - [facility] Orthovisc Orthovisc 2019-0 No 2mL Com 10-20 Spirit 00:00: - [facility] Orthovisc Orthovisc 2019-0 No 2mL Com 10-20 Spirit 00:00: - [facility] Orthovisc Orthovisc 2019-0 No 2mL Com 10-20 Spirit 00:00: - [facility] Orthovisc Orthovisc 2019-0 No 2mL Com 10-20 Spirit 00:00: - [facility] Orthovisc Orthovisc 2019-0 No 2mL Com 10-20 Spirit 00:00: - [facility] Orthovisc Orthovisc 2019-0 No 2mL Com 10-20 Spirit 00:00: - [facility] Orthovisc Orthovisc 2019-0 No 2mL Com 10-20 Spirit 00:00: - [facility] Orthovisc Orthovisc 2019-0 No 2mL Com 10-20 Spirit 00:00: - [facility] Orthovisc Orthovisc 2019-0 No 2mL Com 10-20 Spirit 00:00: - [facility] Orthovisc Orthovisc 2019-0 No 2mL Com 10-13 Spirit 00:00: - [facility] Orthovisc Orthovisc 2019-0 No 2mL Com 10-13 Spirit 00:00: - [facility] Orthovisc Orthovisc 2019-0 No 2mL Com 10-13 Spirit 00:00: - [facility] Orthovisc Orthovisc 2019-0 No 2mL Com 10-13 Spirit 00:00: - [facility] Orthovisc Orthovisc 2019-0 No 2mL Com 10-13 Spirit 00:00: - [facility] Orthovisc Orthovisc 2019-0 No 2mL Com 10-13 Spirit 00:00: - [facility] Orthovisc Orthovisc 2019-0 No 2mL Com 10-13 Spirit 00:00: - [facility] Orthovisc Orthovisc 2019-0 No 2mL Com 10-13 Spirit 00:00: - [facility] Orthovisc Orthovisc 2019-0 No 2mL Com 10-13 Spirit 00:00: - [facility] Orthovisc Orthovisc 2019-0 No 2mL Com 10-13 Spirit 00:00: - [facility] Orthovisc Orthovisc 2019-0 No 2mL Com 10-13 Spirit 00:00: - [facility] Orthovisc Orthovisc 2019-0 No 2mL Com 10-13 Spirit 00:00: - [facility] Orthovisc Orthovisc 2019-0 No 2mL Com 10-13 Spirit 00:00: - [facility] Orthovisc Orthovisc 2019-0 No 2mL Com 10-13 Spirit 00:00: - [facility] Orthovisc Orthovisc 2019-0 No 2mL Com 10-13 Spirit 00:00: - [facility] Orthovisc Orthovisc 2019-0 No 2mL Com 10-13 Spirit 00:00: - [facility] Orthovisc Orthovisc 2019-0 No 2mL Com 10-13 Spirit 00:00: - [facility] Orthovisc Orthovisc 2019-0 No 2mL Com 10-13 Spirit 00:00: - [facility] Orthovisc Orthovisc 2019-0 No 2mL Com 10-13 Spirit 00:00: - [facility] Orthovisc Orthovisc 2019-0 No 2mL Com 10-13 Spirit 00:00: - [facility] Orthovisc Orthovisc 2019-0 No 2mL Com 10-13 Spirit 00:00: - [facility] Orthovisc Orthovisc 2019-0 No 2mL Com 10-13 Spirit 00:00: - [facility] Orthovisc Orthovisc 2019-0 No 2mL Com 10-13 Spirit 00:00: - [facility] Orthovisc Orthovisc 2019-0 No 2mL Com 10-13 Spirit 00:00: - [facility] Orthovisc Orthovisc 2019-0 No 2mL Com 10-13 Spirit 00:00: - [facility] Orthovisc Orthovisc 2019-0 No 2mL Com 10-13 Spirit 00:00: - [facility] Orthovisc Orthovisc 2019-0 No 2mL Com 10-13 Spirit 00:00: - [facility] Orthovisc Orthovisc 2019-0 No 2mL Com 10-13 Spirit 00:00: - [facility] Orthovisc Orthovisc 2019-0 No 2mL Com 10-13 Spirit 00:00: - [facility] Orthovisc Orthovisc 2019-0 No 2mL Com 10-13 Spirit 00:00: - [facility] Orthovisc Orthovisc 2019-0 No 2mL Com 10-13 [facility] 00:00: - [facility] Orthovisc Orthovisc 2019-0 No 2mL Com 10-13 Spirit 00:00: - [facility] Orthovisc Orthovisc 2019-0 No 2mL Com 10-13 Spirit 00:00: - [facility] Orthovisc Orthovisc 2019-0 No 2mL Com 10-13 Spirit 00:00: - [facility] Orthovisc Orthovisc 2019-0 No 2mL Com 10-13 [facility] 00:00: - [facility] Orthovisc Orthovisc 2019-0 No 2mL Com 10-13 Spirit 00:00: - [facility] Orthovisc Orthovisc 2019-0 No 2mL Com 10-13 Spirit 00:00: - [facility] Orthovisc Orthovisc 2019-0 No 2mL Com 10-13 Spirit 00:00: - [facility] Orthovisc Orthovisc 2019-0 No 2mL Com 10-13 [facility] 00:00: - [facility] Orthovisc Orthovisc 2019-0 No 2mL Com 10-13 [facility] 00:00: - [facility] Orthovisc Orthovisc 2019-0 No 2mL Com 10-13 [facility] 00:00: - [facility] Orthovisc Orthovisc 2019-0 No 2mL Com fri [facility] 00:00: - [facility] Orthovisc Orthovisc 2019-0 No 2mL Com mon 8 Spirit 00:00: - [facility] Orthovisc Orthovisc 2019-0 No 2mL Com mon 8 Spirit 00:00: - [facility] Orthovisc Orthovisc 2019-0 No 2mL Com mon 8 [facility] 00:00: - [facility] Orthovisc Orthovisc 2019-0 No 2mL Com mon 10-13 Spirit 00:00: - [facility] LIDOCAINE LIDOCAINE 2019-0 No 10mg Com mon HCL 10MG/ML HCL 10MG/ML 5-01 S pirit 00:00: - [facility] Kenalog Kenalog 2019-0 No 40mg Common (Triamcinol (Triamcinol 5-01 S pirit one) one) 00:00: - [facility] Kenalog Kenalog 2019-0 No 40mg Common (Triamcinol (Triamcinol 5-01 S pirit one) one) 00:00: - [facility] LIDOCAINE LIDOCAINE 2019-0 No 10mg Com mon HCL 10MG/ML HCL 10MG/ML 5-01 S pirit 00:00: - [facility] 00 [facility] LIDOCAINE LIDOCAINE 2019-0 No 10mg Com mon HCL 10MG/ML HCL 10MG/ML 5-01 S pirit 00:00: - [facility] Kenalog Kenalog 2019-0 No 40mg Common (Triamcinol (Triamcinol 5-01 S pirit one) one) 00:00: - [facility] Kenalog Kenalog 2019-0 No 40mg Common (Triamcinol (Triamcinol 5-01 S pirit one) one) 00:00: - [facility] LIDOCAINE LIDOCAINE 2019-0 No 10mg Com mon HCL 10MG/ML HCL 10MG/ML 5-01 S pirit 00:00: - [facility] LIDOCAINE LIDOCAINE 2019-0 No 10mg Com mon HCL 10MG/ML HCL 10MG/ML 5-01 S pirit 00:00: - [facility] Kenalog Kenalog 2019-0 No 40mg Common (Triamcinol (Triamcinol 5-01 S pirit one) one) 00:00: - [facility] 00 [facility] Kenalog Kenalog 2019-0 No 40mg Common (Triamcinol (Triamcinol 5-01 S pirit one) one) 00:00: - [facility] 00 [facility] LIDOCAINE LIDOCAINE 2019-0 No 10mg Com mon HCL 10MG/ML HCL 10MG/ML 5-01 S pirit 00:00: - [facility] 00 [facility] LIDOCAINE LIDOCAINE 2019-0 No 10mg Com mon HCL 10MG/ML HCL 10MG/ML 5-01 S pirit 00:00: - [facility] Amita Kenalog 2019-0 No 40mg Common (Triamcinol (Triamcinol 5-01 S pirit one) one) 00:00: - [facility] Amita Kenalog 2019-0 No 40mg Common (Triamcinol (Triamcinol 5-01 S pirit one) one) 00:00: - [facility] 00 [facility] LIDOCAINE LIDOCAINE 2019-0 No 10mg Com mon HCL 10MG/ML HCL 10MG/ML 5-01 S pirit 00:00: - [facility] 00 [facility] LIDOCAINE LIDOCAINE 2019-0 No 10mg Com mon HCL 10MG/ML HCL 10MG/ML 5-01 S pirit 00:00: - [facility] Kenlucius Kenalog 2019-0 No 40mg Common (Triamcinol (Triamcinol 5-01 S pirit one) one) 00:00: - [facility] Kenalog Kenalog 2019-0 No 40mg Common (Triamcinol (Triamcinol 5-01 S pirit one) one) 00:00: - [facility] LIDOCAINE LIDOCAINE 2019-0 No 10mg Com mon HCL 10MG/ML HCL 10MG/ML 5-01 S pirit 00:00: - [facility] 00 [facility] LIDOCAINE LIDOCAINE 2019-0 No 10mg Com mon HCL 10MG/ML HCL 10MG/ML 5-01 S pirit 00:00: - [facility] Kenalog Kenalog 2019-0 No 40mg Common (Triamcinol (Triamcinol 5-01 S pirit one) one) 00:00: - [facility] Kenalog Kenalog 2019-0 No 40mg Common (Triamcinol (Triamcinol 5-01 S pirit one) one) 00:00: - [facility] LIDOCAINE LIDOCAINE 2019-0 No 10mg Com mon HCL 10MG/ML HCL 10MG/ML 5-01 S pirit 00:00: - [facility] 00 [facility] LIDOCAINE LIDOCAINE 2019-0 No 10mg Com mon HCL 10MG/ML HCL 10MG/ML 5-01 S pirit 00:00: - [facility] 00 [facility] Kenalog Kenalog 2019-0 No 40mg Common (Triamcinol (Triamcinol 5-01 S pirit one) one) 00:00: - [facility] 00 [facility] Kenalog Kenalog 2019-0 No 40mg Common (Triamcinol (Triamcinol 5-01 S pirit one) one) 00:00: - [facility] 00 [facility] LIDOCAINE LIDOCAINE 2019-0 No 10mg Com mon HCL 10MG/ML HCL 10MG/ML 5-01 S pirit 00:00: - [facility] 00 [facility] Kenalog Kenalog 2019-0 No 40mg Common (Triamcinol (Triamcinol 5-01 S pirit one) one) 00:00: - [facility] 00 [facility] Kenalog Kenalog 2019-0 No 40mg Common (Triamcinol (Triamcinol 5-01 S pirit one) one) 00:00: - [facility] 00 [facility] LIDOCAINE LIDOCAINE 2019-0 No 10mg Com mon HCL 10MG/ML HCL 10MG/ML 5-01 S pirit 00:00: - [facility] 00 [facility] LIDOCAINE LIDOCAINE 2019-0 No 10mg Com mon HCL 10MG/ML HCL 10MG/ML 5-01 S pirit 00:00: - [facility] 00 [facility] Kenalog Kenalog 2019-0 No 40mg Common (Triamcinol (Triamcinol 5-01 S pirit one) one) 00:00: - [facility] 00 [facility] Kenalog Kenalog 2019-0 No 40mg Common (Triamcinol (Triamcinol 5-01 S pirit one) one) 00:00: - [facility] 00 [facility] LIDOCAINE LIDOCAINE 2019-0 No 10mg Com mon HCL 10MG/ML HCL 10MG/ML 5-01 S pirit 00:00: - [facility] 00 [facility] LIDOCAINE LIDOCAINE 2019-0 No 10mg Com mon HCL 10MG/ML HCL 10MG/ML 5-01 S pirit 00:00: - [facility] 00 [facility] Kenalog Kenalog 2019-0 No 40mg Common (Triamcinol (Triamcinol 5-01 S pirit one) one) 00:00: - [facility] Kenalog Kenalog 2019-0 No 40mg Common (Triamcinol (Triamcinol 5-01 S pirit one) one) 00:00: - [facility] LIDOCAINE LIDOCAINE 2019-0 No 10mg Com mon HCL 10MG/ML HCL 10MG/ML 5-01 S pirit 00:00: - [facility] LIDOCAINE LIDOCAINE 2019-0 No 10mg Com mon HCL 10MG/ML HCL 10MG/ML 5-01 S pirit 00:00: - [facility] 00 [facility] Kenalog Kenalog 2019-0 No 40mg Common (Triamcinol (Triamcinol 5-01 S pirit one) one) 00:00: - [facility] Kenalog Kenalog 2019-0 No 40mg Common (Triamcinol (Triamcinol 5-01 S pirit one) one) 00:00: - [facility] LIDOCAINE LIDOCAINE 2019-0 No 10mg Com mon HCL 10MG/ML HCL 10MG/ML 5-01 S pirit 00:00: - [facility] LIDOCAINE LIDOCAINE 2019-0 No 10mg Com mon HCL 10MG/ML HCL 10MG/ML 5-01 S pirit 00:00: - [facility] 00 [facility] Kenalog Kenalog 2019-0 No 40mg Common (Triamcinol (Triamcinol 5-01 S pirit one) one) 00:00: - [facility] Kenalog Kenalog 2019-0 No 40mg Common (Triamcinol (Triamcinol 5-01 S pirit one) one) 00:00: - [facility] LIDOCAINE LIDOCAINE 2019-0 No 10mg Com mon HCL 10MG/ML HCL 10MG/ML 5-01 S pirit 00:00: - [facility] 00 [facility] LIDOCAINE LIDOCAINE 2019-0 No 10mg Com mon HCL 10MG/ML HCL 10MG/ML 5-01 S pirit 00:00: - [facility] Kenalog Kenalog 2019-0 No 40mg Common (Triamcinol (Triamcinol 5-01 S pirit one) one) 00:00: - [facility] Kenalog Kenalog 2019-0 No 40mg Common (Triamcinol (Triamcinol 5-01 S pirit one) one) 00:00: - [facility] LIDOCAINE LIDOCAINE 2019-0 No 10mg Com mon HCL 10MG/ML HCL 10MG/ML 5-01 S pirit 00:00: - [facility] LIDOCAINE LIDOCAINE 2019-0 No 10mg Com mon HCL 10MG/ML HCL 10MG/ML 5-01 S pirit 00:00: - [facility] Kenalog Kenalog 2019-0 No 40mg Common (Triamcinol (Triamcinol 5-01 S pirit one) one) 00:00: - [facility] Kenalog Kenalog 2019-0 No 40mg Common (Triamcinol (Triamcinol 5-01 S pirit one) one) 00:00: - [facility] LIDOCAINE LIDOCAINE 2019-0 No 10mg Com mon HCL 10MG/ML HCL 10MG/ML 5-01 S pirit 00:00: - [facility] LIDOCAINE LIDOCAINE 2019-0 No 10mg Com mon HCL 10MG/ML HCL 10MG/ML 5-01 S pirit 00:00: - [facility] 00 [facility] Kenalog Kenalog 2019-0 No 40mg Common (Triamcinol (Triamcinol 5-01 S pirit one) one) 00:00: - [facility] Kenalog Kenalog 2019-0 No 40mg Common (Triamcinol (Triamcinol 5-01 S pirit one) one) 00:00: - [facility] LIDOCAINE LIDOCAINE 2019-0 No 10mg Com mon HCL 10MG/ML HCL 10MG/ML 5-01 S pirit 00:00: - [facility] LIDOCAINE LIDOCAINE 2019-0 No 10mg Com mon HCL 10MG/ML HCL 10MG/ML 5-01 S pirit 00:00: - [facility] 00 [facility] LIDOCAINE LIDOCAINE 2019-0 No 10mg Com mon HCL 10MG/ML HCL 10MG/ML 5-01 S pirit 00:00: - [facility] 00 [facility] Kenalog Kenalog 2019-0 No 40mg Common (Triamcinol (Triamcinol 5-01 S pirit one) one) 00:00: - [facility] Kenalog Kenalog 2019-0 No 40mg Common (Triamcinol (Triamcinol 5-01 S pirit one) one) 00:00: - [facility] LIDOCAINE LIDOCAINE 2019-0 No 10mg Com mon HCL 10MG/ML HCL 10MG/ML 5-01 S pirit 00:00: - [facility] LIDOCAINE LIDOCAINE 2019-0 No 10mg Com mon HCL 10MG/ML HCL 10MG/ML 5-01 S pirit 00:00: - [facility] 00 [facility] Kenalog Kenalog 2019-0 No 40mg Common (Triamcinol (Triamcinol 5-01 S pirit one) one) 00:00: - [facility] 00 [facility] Kenalog Kenalog 2019-0 No 40mg Common (Triamcinol (Triamcinol 5-01 S pirit one) one) 00:00: - [facility] LIDOCAINE LIDOCAINE 2019-0 No 10mg Com mon HCL 10MG/ML HCL 10MG/ML 5-01 S pirit 00:00: - [facility] LIDOCAINE LIDOCAINE 2019-0 No 10mg Com mon HCL 10MG/ML HCL 10MG/ML 5-01 S pirit 00:00: - [facility] 00 [facility] Kenalog Kenalog 2019-0 No 40mg Common (Triamcinol (Triamcinol 5-01 S pirit one) one) 00:00: - [facility] Kenalog Kenalog 2019-0 No 40mg Common (Triamcinol (Triamcinol 5-01 S pirit one) one) 00:00: - [facility] LIDOCAINE LIDOCAINE 2019-0 No 10mg Com mon HCL 10MG/ML HCL 10MG/ML 5-01 S pirit 00:00: - [facility] LIDOCAINE LIDOCAINE 2019-0 No 10mg Com mon HCL 10MG/ML HCL 10MG/ML 5-01 S pirit 00:00: - [facility] 00 [facility] Kenalog Kenalog 2019-0 No 40mg Common (Triamcinol (Triamcinol 5-01 S pirit one) one) 00:00: - [facility] Kenalog Kenalog 2019-0 No 40mg Common (Triamcinol (Triamcinol 5-01 S pirit one) one) 00:00: - [facility] LIDOCAINE LIDOCAINE 2019-0 No 10mg Com mon HCL 10MG/ML HCL 10MG/ML 5-01 S pirit 00:00: - [facility] LIDOCAINE LIDOCAINE 2019-0 No 10mg Com mon HCL 10MG/ML HCL 10MG/ML 5-01 S pirit 00:00: - [facility] 00 [facility] Kenalog Kenalog 2019-0 No 40mg Common (Triamcinol (Triamcinol 5-01 S pirit one) one) 00:00: - [facility] 00 [facility] Kenalog Kenalog 2019-0 No 40mg Common (Triamcinol (Triamcinol 5-01 S pirit one) one) 00:00: - [facility] 00 [facility] LIDOCAINE LIDOCAINE 2019-0 No 10mg Com mon HCL 10MG/ML HCL 10MG/ML 5-01 S pirit 00:00: - [facility] 00 [facility] LIDOCAINE LIDOCAINE 2019-0 No 10mg Com mon HCL 10MG/ML HCL 10MG/ML 5-01 S pirit 00:00: - [facility] 00 [facility] Kenalog Kenalog 2019-0 No 40mg Common (Triamcinol (Triamcinol 5-01 S pirit one) one) 00:00: - [facility] 00 [facility] Kenalog Kenalog 2019-0 No 40mg Common (Triamcinol (Triamcinol 5-01 S pirit one) one) 00:00: - [facility] 00 [facility] LIDOCAINE LIDOCAINE 2019-0 No 10mg Com mon HCL 10MG/ML HCL 10MG/ML 5-01 S pirit 00:00: - [facility] LIDOCAINE LIDOCAINE 2019-0 No 10mg Com mon HCL 10MG/ML HCL 10MG/ML 5-01 S pirit 00:00: - [facility] Kenalog Kenalog 2019-0 No 40mg Common (Triamcinol (Triamcinol 5-01 S pirit one) one) 00:00: - [facility] Kenalog Kenalog 2019-0 No 40mg Common (Triamcinol (Triamcinol 5-01 S pirit one) one) 00:00: - [facility] LIDOCAINE LIDOCAINE 2019-0 No 10mg Com mon HCL 10MG/ML HCL 10MG/ML 5-01 S pirit 00:00: - [facility] LIDOCAINE LIDOCAINE 2019-0 No 10mg Com mon HCL 10MG/ML HCL 10MG/ML 5-01 S pirit 00:00: - [facility] Kenalog Kenalog 2019-0 No 40mg Common (Triamcinol (Triamcinol 5-01 S pirit one) one) 00:00: - [facility] Kenalog Kenalog 2019-0 No 40mg Common (Triamcinol (Triamcinol 5-01 S pirit one) one) 00:00: - [facility] LIDOCAINE LIDOCAINE 2019-0 No 10mg Com mon HCL 10MG/ML HCL 10MG/ML 5-01 S pirit 00:00: - [facility] hyoscyamine 2019-[id number] 1 [facility] (LEVSIN/SL) 4-30 Tab under Col lege 0.125 MG SL 00:00: the tongue of tablet 00 every 4 Medicin hours as e needed for Cramping. hyoscyamine 2019-[id number] [facility] (LEVSIN/SL) 4-30 Tab under Col lege 0.125 MG SL 00:00: the tongue of tablet 00 every 4 Medicin hours as e needed for Cramping. rifAXIMin 2019-0 2019- No 550mg Take 550 [facility] 550 MG TABS 4-18 09-03 [facility] by [facility] 00:[facility]: 00:00 mouth 3 of 00 :00 times Medicin daily. e Propranolol Propranolol Yes Ashok 1 tablet Common HCl HCl 1-04 [place] on an [facility] 00:00: empty - [facility] 00 stomach [facility] Dexlansopra 2017-02 Yes Take by [facility] zole 13 [facility] (DEXILANT) 19:10: daily. of 60 MG CPDR 53 Medicin e Levothyroxi 2017-02 Yes Take by [facility] ne Sodium 04-08 [facility] (LEVOXYL 19:10: daily. of OR) 53 Medicin e Methscopola 2017-02 Yes Take by [facility] mine 04-08 [facility] [place] 19:10: daily. of (PAMINE 53 Medicin FORTE) 5 MG e TABS propranolol 2017-02 Yes 40mg Take 40 mg [facility] (INDERAL) 04-08 by mouth [facility] 40 MG 19:10: daily. of tablet 53 Medicin e FLUoxetine 2017-02 Yes 30mg Take 30 mg B [facility]yl[facility] HCl (PROZAC 04-08 by mouth Arin ege [place]) 19:10: daily. of 53 Medicin e Quetiapine 2017-02 Yes Take by [facility] or Fumarate 04-08 [facility] (SEROQUEL 19:10: nightly. of XR) 300 MG 53 Medicin TB24 e Multiple 2017-02 Yes Take by [facility] Vitamins-Ir 04-08 [facility] on 19:10: daily. of (MULTI-CAT 53 Medicin MIN/IRON e OR) Cholecalcif 2017-02 Yes Take by [facility] terry (D-3-5 04-08 [facility] OR) 19:10: daily. of 53 Medicin e Calcium 2017-02 Yes Take by [facility] Carb-Cholec 04-08 [facility] alciferol 19:10: daily. of (CALCIUM 53 Medicin 500 +D OR) e lidocaine 2017-02 Yes [id number] 1{patch Place 1 [facility] (LIDODERM) 2-13 } Patch onto Col lege 5 % patch 00:00: the skin of 00 every 24 Medicin hours. e lidocaine 2017-02 Yes [id number] 1{patch Place 1 [facility] (LIDODERM) 2-13 } Patch onto Col lege 5 % patch 00:00: the skin of 00 every 24 Medicin hours. e dexlansopra 2017-02 Yes 60mg QD Take [address] [facility] zole 60 mg 1-26 [facility] 12:20: daily. [facility] Center levothyroxi 2017-02 Yes 50ug Take [address] [facility] ne 1-26 mcg by [facility] (SYNTHROID, 12:20: mouth Medic al LEVOTHROID) 26 Every Center 50 MCG morning on tablet an empty stomach. methscopola 2017-02 Yes 5mg QD Take [address] [facility] - [facility] (PAMINE 12:20: daily. Medical FORTE) 5 MG 26 Center tablet propranolol 2017-02 Yes 40mg QD Take [address] [facility] (INDERAL) - by mouth [facility] 40 MG 12:20: daily. Medical tablet 26 Center fLUoxetine 2017-02 Yes 10mg QD Take [address] (PROZAC) 10 - by mouth [facility] capsule 12:20: daily Medica l 26 Takes 2 Center capsules . QUEtiapine 2017-02 Yes 300mg QD Take [address] [facility] [address] [facility] (SEROQUEL) 1-26 mg by [facility] 300 MG 12:20: mouth Medical tablet 26 nightly. [place] mesalamine 2017-02 Yes Crohn's 500mg Q.5D Take [address] [facility] (PENTASA) 1-26 disease mg by [facility] 500 MG CR 12:20: mouth 2 Medic al capsule 26 (two) Center times daily Takes 4 tablets . iron-multiv 2017-02 Yes 2{tbl} QD Take [address] [facility] [address] [facility] itamins-min 1-26 tablets by Laura schaefer 12:20: mouth Medical (THERAGRAN- 26 daily. Center M) 9 mg iron-400 mcg Tab tablet Lactobacill 2017-02 Yes Take by [facility] 1-26 mouth. Luandrei acidophilus 12:20: Medica l (PROBIOTIC 26 Center ORAL) calcium 2017-02 Yes 2{tbl} QD Take [address] [facility] carbonate 1-26 tablets by Elijah s (CALCIUM 12:20: mouth Medical 500 ORAL) 26 daily. [place] cholecalcif 2017-02 Yes 1{tbl} QD Take [address] [facility] [address] [facility] terry, 1-26 tablet by Luandrei vitamin D3, 12:20: mouth Medic al (VITAMIN D3 26 daily. Center ORAL) methylPREDN 2018-1 Yes [address] ISolone 03-21 QID for 2 [facility] (MEDROL) 2 00:00: days, 1.5 Me dical MG tablet 00 tablets Center TID for 2 days, 1 tablet TID for 2 days, then 0.5 tablets BID for 2 days. methylPREDN 2017-02 Yes [address] ISolone 03-21 QID for 2 [facility] (MEDROL) 2 00:00: days, 1.5 Me dical MG tablet 00 tablets Center TID for 2 days, 1 tablet TID for 2 days, then 0.5 tablets BID for 2 days. methylPREDN 2017-02- No [address] [facility] ISolone 03-21 QID for 2 [facility] (MEDROL) 2 00:00: 00:00 days, 1.5 M edical MG tablet 00 :00 tablets Center TID for 2 days, 1 tablet TID for 2 days, then 0.5 tablets BID for 2 days. methylPREDN 2017-02 No [address] [facility] ISolone 03-21 QID for 2 [facility] (MEDROL) 2 00:00: 00:00 days, 1.5 M edical MG tablet 00 :00 tablets Center TID for 2 days, 1 tablet TID for 2 days, then 0.5 tablets BID for 2 days. Tylenol 2016-02 No Notes: Do Memor ia 0-07 not exceed l 05:00: 4 gm/day. [place] 00 (Same as: Tylenol) Tylenol 2016-02 No Notes: Do Memor ia 0-07 not exceed l 05:00: 4 gm/day. [place] (Same as: Tylenol) tramadol 2016-02 Yes 50 mg = 1 Jose jabari hydrochlori 0-06 tab, PO, l de 50 MG 17:02: Q4H, PRN Zaira nn Oral Tablet 00 Pain, X 10 day, # 60 tab, 0 Refill(s) tramadol 2016-02 Yes 50 mg = 1 Jose jabari hydrochlori 0-06 tab, PO, l de 50 MG 17:02: Q4H, PRN Zaira nn Oral Tablet 00 Pain, X 10 day, # 60 tab, 0 Refill(s) Beneprotein 2016-02 No Notes: Jose jabari 7 gm pkt 0-06 (Same as: l 14:00: Beneprotei [place] 00 n) Beneprotein 2017 No Notes: Jose jabari 7 gm pkt 0-06 (Same as: l 14:00: Beneprotei [place] 00 n) Enoxaparin 2016-02 No Notes: Memor ia 0-06 (Same as: l 13:00: Lovenox) [place] 00 Enoxaparin 2016-02 No Notes: Memor ia 0-06 (Same as: l 13:00: Lovenox) [place] 00 Ofirmev 2016-02 No Notes: Memoria 0-06 Infuse l 05:00: over 15 [place] 00 minutes Do not exceed 4gm/day of acetaminop hen MEDICATION WASTE Product Size: 1000 mg Product Wasted: ___ mg Ketorolac 2016-02 No 4 days Memor ia 0-06 l 05:00: MEDICATION [place] 00 WASTE Product Size: 30 mg Product Wasted: ___ mg Ofirmev 2016-02 No Notes: Memoria 0-06 Infuse l 05:00: over 15 [place] 00 minutes Do not exceed 4gm/day of acetaminop hen MEDICATION WASTE Product Size: 1000 mg Product Wasted: ___ mg Ketorolac 2017 No 4 days Memor ia 0-06 l 05:00: MEDICATION [place] 00 WASTE Product Size: 30 mg Product Wasted: ___ mg Famotidine 2016-02 No Notes: Memor ia 0-06 (Same as: l 02:00: Pepcid) [place] 00 Can be dilute in 5-10cc NS IVP: Slow IV push over at least 2 minutes. Famotidine 2016-02 No Notes: Memor ia 0-06 (Same as: l 02:00: Pepcid) [place] 00 Can be dilute in 5-10cc NS [...] 0-06 not give l 00:49: IV push. [place] 00 (Same as: Phenergan) Ondansetron 2016-02 No Notes: Jose jabari 0-06 (Same as: l 00:49: Zofran) [place] 00 MEDICATION WASTE Product Size: 4 mg Product Wasted: ___ mg Metoprolol 2016-02 No Notes: Memor ia 0-06 (Same as: l 00:49: Lopressor) [place] 00 Push over 2 minutes tramadol 2016-02 No Notes: Not Mem oria hydrochlori 0-06 to exceed l de 50 MG 00:49: 400mg/day. Her abdalla Oral Tablet 00 (Same As: Ultram) Dilaudid 2016-02 No Notes: Memoria 0-06 Same as l 00:49: Dilaudid [place] 00 Calcium 2016-02 No 1,000 mL, Memor ia Chloride 0-06 Rate: 125 l 0.0014 00:49: ml/hr, [place] MEQ/ML / 00 Infuse Potassium over: 8 Chloride hr, Route: 0.004 IV, Dosing MEQ/ML / Weight Sodium 102.273 Chloride kg, Total 0.103 Volume: MEQ/ML / 1,000, Sodium Start Lactate date: 0.028 11/28/16 MEQ/ML 19:49:00 Injectable CDT, Solution Duration: 30 day, Stop date: 12/28/16 19:48:00 CDT Promethazin 2016-02 No Notes: Do M emoria e 0-06 not give l 00:49: IV push. [place] 00 (Same as: Phenergan) Ondansetron 2016-02 No Notes: Jose jabari 0-06 (Same as: l 00:49: Zofran) MEDICATION WASTE Product Size: 4 mg Product Wasted: ___ mg Metoprolol 2016-02 No Notes: Memor ia 0-06 (Same as: l 00:49: Lopressor) Push over 2 minutes Zofran 2016-02 No Notes: Memoria 0-06 (Same as: l 00:10: Zofran) [place] 00 MEDICATION WASTE Product Size: 4 mg Product Wasted: ___ mg Zofran 2016-02 No Notes: Memoria 0-06 (Same as: l 00:10: Zofran) MEDICATION WASTE Product Size: 4 mg Product Wasted: ___ mg Dilaudid 2016-02 No Notes: Memoria 0-06 Same as l 00:09: Dilaudid Dilaudid 2016-02 No Notes: Memoria 0-06 Same as l 00:09: Dilaudid ondansetron 2016-02 No Route: IV, Memoria (ANES) 0-05 Drug form: l 20:52: INJ, ONCE, [place] 00 Stop date: 11/28/16 15:52:00 CDT glycopyrrol 2016-02 No Route: IV, Memoria ate (ANES) 0-05 Drug form: l 20:52: INJ, ONCE, [place] 00 Stop date: 11/28/16 15:52:00 CDT morphine 2016-02 No Route: IV, Mem oria Sulfate 0-05 Drug form: l (ANES) 20:52: INJ, ONCE, Zaira nn Stop date: 11/28/16 15:52:00 CDT neostigmine 2016-02 No Route: IV, Memoria (ANES) 0-05 Drug form: l 20:52: INJ, ONCE, [place] Stop date: 11/28/16 15:52:00 CDT ondansetron 2016-02 No Route: IV, Memoria (ANES) 0-05 Drug form: l 20:52: INJ, ONCE, [place] Stop date: 11/28/16 15:52:00 CDT glycopyrrol 2016-02 No Route: IV, Memoria ate (ANES) 0-05 Drug form: l 20:52: INJ, ONCE, Stop date: 11/28/16 15:52:00 CDT morphine 2016-02 No Route: IV, Mem oria Sulfate 0-05 Drug form: l (ANES) 20:52: INJ, ONCE, Zaira Stop date: 11/28/16 15:52:00 CDT neostigmine 2016-02 No Route: IV, Memoria (ANES) 0-05 Drug form: l 20:52: INJ, ONCE, Stop date: 11/28/16 15:52:00 CDT fentaNYL 2016-02 No Route: IV, Mem oria (ANES) 0-05 Drug form: l 20:12: INJ, ONCE, Stop date: 11/28/16 15:12:00 CDT fentaNYL 2016-02 No Route: IV, Mem oria (ANES) 0-05 Drug form: l 20:12: INJ, ONCE, Stop date: 11/28/16 15:12:00 CDT hydrALAZINE 2016-02 No Route: IV, Memoria (ANES) 0-05 Drug form: l 19:47: INJ, ONCE, Stop date: 11/28/16 14:47:00 CDT hydrALAZINE 2016-02 No Route: IV, Memoria [...] (ANES) 0-05 Drug form: l 19:32: SOLN, [place] ONCE, Stop date: 11/28/16 14:32:00 CDT lidocaine 2016-02 No Route: IV, Me moria (ANES) 0-05 Drug form: l 19:32: INJ, ONCE, Stop date: 11/28/16 14:32:00 CDT propofol 2016-02 No Route: IV, Mem oria (ANES) 0-05 Drug form: l 19:32: INJ, ONCE, Stop date: 11/28/16 14:32:00 CDT fentaNYL 2016-02 No Route: IV, Mem [...] (ANES) 0-05 Drug form: l 19:32: SOLN, [place] 00 ONCE, Stop date: 11/28/16 14:32:00 CDT lidocaine 2016-02 No Route: IV, Me moria (ANES) 0-05 Drug form: l 19:32: INJ, ONCE, [place] 00 Stop date: 11/28/16 14:32:00 CDT propofol 2016-02 No Route: IV, Mem oria (ANES) 0-05 Drug form: l 19:32: INJ, ONCE, [place] 00 Stop date: 11/28/16 14:32:00 CDT dexamethaso 2016-02 No Route: IV, Memoria ne (ANES) 0-05 Drug form: l 19:22: INJ, ONCE, [place] Stop date: 11/28/16 14:22:00 CDT rocuronium 2016-02 No Route: IV, M emoria (ANES) 0-05 Drug form: l 19:22: INJ, ONCE, [place] Stop date: 11/28/16 14:22:00 CDT Promethazin 2016-02 No Notes: Do M emoria e 0-05 not give l 19:22: IV push. [place] 00 (Same as: Phenergan) Ondansetron 2016-02 No Notes: Jose jabari 0-05 (Same as: l 19:22: Zofran) MEDICATION WASTE Product Size: 4 mg Product Wasted: ___ mg Morphine 2016-02 No Notes: Memoria 0-05 (Same l 19:22: as:MORPhin [place] 00 e Sulfate) Flumazenil 2016-02 No Notes: Memor ia 0-05 (Same as: l 19:22: Romazicon) Naloxone 2016-02 No Notes: Memoria 0-05 Same as l 19:22: Narcan Hydromorpho 2016-02 No Notes: Jose jabari ne 0-05 Same as l 19:22: Dilaudid [place] 00 dexamethaso 2016-02 No Route: IV, Memoria ne (ANES) 0-05 Drug form: l 19:22: INJ, ONCE, [place] Stop date: 11/28/16 14:22:00 CDT rocuronium 2016-02 No Route: IV, M emoria (ANES) 0-05 Drug form: l 19:22: INJ, ONCE, [place] 00 Stop date: 11/28/16 14:22:00 CDT Promethazin 2016-02 No Notes: Do M emoria e 0-05 not give l 19:22: IV push. [place] 00 (Same as: Phenergan) Ondansetron 2016-02 No [...] 0-05 Drug form: l 19:16: INJ, ONCE, Stop date: 11/28/16 14:16:00 CDT ceFAZolin 2016-02 No Route: IV, Me moria (ANES) 0-05 Drug form: l 19:16: INJ, ONCE, Stop date: 11/28/16 14:16:00 CDT acetaminoph 2016-02 No Route: IV, Memoria en (ANES) 0-05 Drug form: l (ANES) 18:48: INJ, Start Zaira date: 11/28/16 13:48:00 CDT, Stop date: 11/28/16 14:48:00 CDT acetaminoph 2016-02 No Route: IV, Memoria en (ANES) 0-05 Drug form: l (ANES) 18:48: INJ, Start Zaira date: 11/28/16 13:48:00 CDT, Stop date: 11/28/16 14:48:00 CDT LR 1000 mL 2016-02 No Route: IV, M emoria INJ (ANES) 0-05 Total l 18:32: Volume: [place] 00 1,000, Start date: 11/28/16 13:32:00 CDT, Stop date: 11/28/16 14:32:00 CDT LR 1000 mL 2016-02 No Route: IV, M emoria INJ (ANES) 0-05 Total l 18:32: Volume: [place] 1,000, Start date: 11/28/16 13:32:00 CDT, Stop date: 11/28/16 14:32:00 CDT ceFAZolin 2016-02 No Notes: Memori a 0-05 Same as: l 03:00: Ancef [place] 00 ceFAZolin 2016-02 No Notes: Memori a 0-05 Same as: l 03:00: Ancef dexlansopra 2016-02 No 60 mg = 1 M emoria zole 60 MG 0-04 cap, PO, l Enteric 20:19: Daily, # Clarence n Co[place] 00 30 cap, 0 Capsule Refill(s) [Dexilant] dexlansopra 2016-02 No 60 mg = 1 M emoria zole 60 MG 0-04 cap, PO, l Enteric 20:19: Daily, # Clarence n Coated 00 30 cap, 0 Capsule Refill(s) [Dexilant] Probiotic Yes 1 cap, PO, Me moria Formula 9-28 Daily, 0 l 18:34: Refill(s) Probiotic Yes 1 cap, PO, Me moria Formula 9-28 Daily, 0 l 18:34: Refill(s) levothyroxi Yes 50 Memori a ne 50 mcg 3-14 microgram l (0.05 mg) 23:04: = 1 tab, Herm fadi oral tablet 00 PO, Daily, # 30 tab, 0 Refill(s), Pharmacy: [facility] [place] Dexlansopra 2015-02 Yes 60mg Take 60 mg [facility] zole 2-22 by mouth ity of (DEXILANT) 16:16: daily. [place] 60 mg 16 Medical capsule Branch FLUoxetine 2015-02 Yes 30mg Take 30 mg U nivers (PROZAC) 10 2-22 by mouth ity of mg capsule 16:16: daily. [place] 16 Medical Branch levothyroxi 2015-02 Yes .05mg Take 0.05 Univers ne 2-22 mg by ity of (LEVOXYL) 16:16: mouth [place] 50 mcg 16 daily. Medical tablet Branch propranolol 2015-02 Yes 60mg Take 60 mg Univers (INDERAL 2-22 by mouth ity of [place]) 60 mg 16:16: daily. [place] 24 hr 16 Medical capsule Branch methscopola 2015-02 Yes 5mg Take 5 mg U nivers mine 2-22 by mouth ity of (PAMINE 16:16: daily. [place] FORTE) 5 mg 16 Medical tablet Branch QUEtiapine 2015-02 Yes 300mg Take 300 Un [facility] (SEROQUEL 2-22 mg by ity of XR) 300 mg 16:16: mouth at [place] 24 hr 16 bedtime. Medical tablet Branch ranitidine 2015-02 Yes 150mg Take 150 Un [facility]opher (ZANTAC) 2-22 mg by ity of 150 mg 16:16: mouth at [place] tablet 16 bedtime. Medical Branch LACTOBACILL 2015-02 Yes 1{tbl} Take 1 Un christopher US 2-22 tablet by ity of ACIDOPHILUS 16:16: mouth [place] (PROBIOTIC 16 daily. Medical ORAL) Branch Dexlansopra 2015-02 Yes 60mg Take 60 mg [facility] zole 2-22 by mouth ity of (DEXILANT) 16:16: daily. [place] 60 mg 16 Medical capsule Branch FLUoxetine 2015-02 Yes 30mg Take 30 mg U nivers (PROZAC) 10 2-22 by mouth ity of mg capsule 16:16: daily. [place] 16 Medical Branch levothyroxi 2015-02 Yes .05mg Take 0.05 Univers ne 2-22 mg by ity of (LEVOXYL) 16:16: mouth [place] 50 mcg 16 daily. Medical tablet Branch propranolol 2015-02 Yes 60mg Take 60 mg Univers (INDERAL 2-22 by mouth ity of [place]) 60 mg 16:16: daily. [place] 24 hr 16 Medical capsule Branch methscopola 2015-02 Yes 5mg Take 5 mg U nivers mine 2-22 by mouth ity of (PAMINE 16:16: daily. [place] FORTE) 5 mg 16 Medical tablet Branch QUEtiapine 2015-02 Yes 300mg Take 300 Un [facility]opher (SEROQUEL 2-22 mg by ity of XR) 300 mg 16:16: mouth at [place] 24 hr 16 bedtime. Medical tablet Branch ranitidine 2015-02 Yes 150mg Take 150 Un christopher (ZANTAC) 2-22 mg by ity of 150 mg 16:16: mouth at [place] tablet 16 bedtime. Medical Branch LACTOBACILL 2015-02 Yes 1{tbl} Take 1 Un christopher US 2-22 tablet by ity of ACIDOPHILUS 16:16: mouth [place] (PROBIOTIC 16 daily. Medical ORAL) Branch Dexlansopra 2015-02 Yes 60mg Take 60 mg Univers zole 2-22 by mouth ity of (DEXILANT) 16:16: daily. [place] 60 mg 16 Medical capsule Branch FLUoxetine 2015-02 Yes 30mg Take 30 mg U nivers (PROZAC) 10 2-22 by mouth ity of mg capsule 16:16: daily. [place] [address] Medical Branch levothyroxi 2015-02 Yes .05mg Take 0.05 Univers ne 2-22 mg by ity of (LEVOXYL) 16:16: mouth [place] 50 mcg 16 daily. Medical tablet Branch propranolol 2015-02 Yes 60mg Take 60 mg Univers (INDERAL 2-22 by mouth ity of [place]) 60 mg 16:16: daily. [place] 24 hr 16 Medical capsule Branch methscopola 2015-02 Yes 5mg Take 5 mg U nivers mine 2-22 by mouth ity of (PAMINE 16:16: daily. [place] FORTE) 5 mg 16 Medical tablet Branch QUEtiapine 2015-02 Yes 300mg Take 300 Un christopher (SEROQUEL 2-22 mg by ity of XR) 300 mg 16:16: mouth at [place] 24 hr 16 bedtime. Medical tablet Branch ranitidine 2015-02 Yes 150mg Take 150 Un christopher (ZANTAC) 2-22 mg by ity of 150 mg 16:16: mouth at [place] tablet 16 bedtime. Medical Branch LACTOBACILL 2015-02 Yes 1{tbl} Take 1 Un christopher US 2-22 tablet by ity of ACIDOPHILUS 16:16: mouth [place] (PROBIOTIC 16 daily. Medical ORAL) Branch Dexlansopra 2015-02 Yes 60mg Take 60 mg Univers zole 2-22 by mouth ity of (DEXILANT) 10:16: daily. [place] 60 mg 16 Medical capsule Branch FLUoxetine 2015-02 Yes 30mg Take 30 mg U nivers (PROZAC) 10 2-22 by mouth ity of mg capsule 10:16: daily. [place] 16 Medical Branch levothyroxi 2015-02 Yes .05mg Take 0.05 Univers ne 2-22 mg by ity of (LEVOXYL) 10:16: mouth [place] 50 mcg 16 daily. Medical tablet Branch propranolol 2015-02 Yes 60mg Take 60 mg Univers (INDERAL 2-22 by mouth ity of [place]) 60 mg 10:16: daily. [place] 24 hr 16 Medical capsule Branch methscopola 2015-02 Yes 5mg Take 5 mg U nivers mine 2-22 by mouth ity of (PAMINE 10:16: daily. [place] FORTE) 5 mg 16 Medical tablet Branch QUEtiapine 2015-02 Yes 300mg Take 300 Un christopher (SEROQUEL 2-22 mg by ity of XR) 300 mg 10:16: mouth at [place] 24 hr 16 bedtime. Medical tablet Branch ranitidine 2015-02 Yes 150mg Take 150 Un christopher (ZANTAC) 2-22 mg by ity of 150 mg 10:16: mouth at [place] tablet 16 bedtime. Medical Branch LACTOBACILL 2015-02 Yes 1{tbl} Take 1 Un christopher US 2-22 tablet by ity of ACIDOPHILUS 10:16: mouth [place] (PROBIOTIC 16 daily. Medical ORAL) Branch Dexlansopra 2015-02 Yes 60mg Take 60 mg Univers zole 2-22 by mouth ity of (DEXILANT) 10:16: daily. [place] 60 mg 16 Medical capsule Branch FLUoxetine 2015-02 Yes 30mg Take 30 mg U nivers (PROZAC) 10 2-22 by mouth ity of mg capsule 10:16: daily. [place] 16 Medical Branch levothyroxi 2015-02 Yes .05mg Take 0.05 Univers ne 2-22 mg by ity of (LEVOXYL) 10:16: mouth [place] 50 mcg 16 daily. Medical tablet Branch propranolol 2015-02 Yes 60mg Take 60 mg Univers (INDERAL 2-22 by mouth ity of [place]) 60 mg 10:16: daily. [place] 24 hr 16 Medical capsule Branch methscopola 2015-02 Yes 5mg Take 5 mg U nivers mine 2-22 by mouth ity of (PAMINE 10:16: daily. [place] FORTE) 5 mg 16 Medical tablet Branch QUEtiapine 2015-02 Yes 300mg Take 300 Un christopher (SEROQUEL 2-22 mg by ity of XR) 300 mg 10:16: mouth at [place] 24 hr 16 bedtime. Medical tablet Branch ranitidine 2015-02 Yes 150mg Take 150 Un christopher (ZANTAC) 2-22 mg by ity of 150 mg 10:16: mouth at [place] tablet 16 bedtime. Medical Branch LACTOBACILL 2015-02 Yes 1{tbl} Take 1 Un christopher US 2-22 tablet by ity of ACIDOPHILUS 10:16: mouth [place] (PROBIOTIC 16 daily. Medical ORAL) Branch Dexlansopra 2015-02 Yes 60mg Take 60 mg Univers zole 2-22 by mouth ity of (DEXILANT) 10:16: daily. [place] 60 mg 16 Medical capsule Branch FLUoxetine 2015-02 Yes 30mg Take 30 mg U nivers (PROZAC) 10 2-22 by mouth ity of mg capsule 10:16: daily. [place] 16 Medical Branch levothyroxi 2015-02 Yes .05mg Take 0.05 Univers ne 2-22 mg by ity of (LEVOXYL) 10:16: mouth [place] 50 mcg 16 daily. Medical tablet Branch propranolol 2015-02 Yes 60mg Take 60 mg Univers (INDERAL 2-22 by mouth ity of [place]) 60 mg 10:16: daily. [place] 24 hr 16 Medical capsule Branch methscopola 2015-02 Yes 5mg Take 5 mg U nivers mine 2-22 by mouth ity of (PAMINE 10:16: daily. [place] FORTE) 5 mg 16 Medical tablet Branch QUEtiapine 2015-02 Yes 300mg Take 300 Un christopher (SEROQUEL 2-22 mg by ity of XR) 300 mg 10:16: mouth at [place] 24 hr 16 bedtime. Medical tablet Branch ranitidine 2015-02 Yes 150mg Take 150 Un christopher (ZANTAC) 2-22 mg by ity of 150 mg 10:16: mouth at [place] tablet 16 bedtime. Medical Branch LACTOBACILL 2015-02 Yes 1{tbl} Take 1 Un christopher US 2-22 tablet by ity of ACIDOPHILUS 10:16: mouth [place] (PROBIOTIC 16 daily. Medical ORAL) Branch PROzac 10 Yes 30 mg = 3 Mem oria mg oral 9-19 cap, PO, l capsule 16:02: Daily, # Clarence n 00 90 cap, 0 Refill(s) SEROquel XR Yes 300 mg = 1 Memoria 300 mg oral 9-19 tab, PO, l tablet, 16:02: Daily, # Clarence n extended 00 30 tab, 0 release Refill(s) Multivitami Multivitami Yes Ashok not Common n & Mineral n & Mineral Espino defined Spirit [facility] Levothyroxi Levothyroxi Yes Ashok take 1 Common ne Sodium ne Sodium Espino tablet by Spirit mouth once - [facility] daily [facility] Seroquel XR Seroquel XR Yes Ashok 1 tablet Common Espino in the Spirit evening [facility] Prozac Prozac Yes Ashok not Common Espino defined [facility] Dexilant Dexilant Yes Ashok 1 capsule Common Espino [facility] Vitamin D3 Vitamin D3 Yes Ashok 1 tablet Common Ultra Ultra Espino [facility] Pot[facility] Calcium Calcium Yes Ashok 1 tablet Com mon Espino with meals [facility] Ferrous Ferrous Yes Ashok 1 tablet Com mon Sulfate Sulfate Espino [facility] Butalbital- Butalbital- Yes Ashok not Common APAP-Caffei APAP-Caffei Espino defined [facility] ne ne [facility] Probiotic Probiotic Yes Ashok not Com mon Espino defined [facility] Propranolol Propranolol Yes Ashok TAKE 1 Common HCl HCl Espino TABLET Spirit DAILY ON - CHI AN EMPTY [facility] Multivitami Multivitami No Multivitam n & Mineral n & Mineral in & Mineral Vitamin D3 Vitamin D3 No 1{table Vitamin D3 Ultra Ultra t} Ultra Potency Potency Potency 11246 UNIT [id number] UNIT 27568 UNIT Ferrous Ferrous No 1{table QD Ferrous Sulfate 325 Sulfate 325 t} Sulfate (65 Fe) MG (65 Fe) MG 325 (65 Fe) MG Dexilant 60 Dexilant 60 No 1{capsu QD Dexilant MG MG le} 60 MG Levothyroxi Levothyroxi No QD Levothyrox ne Sodium ne Sodium ine Sodium 50 50 50 Propranolol Propranolol No 1{table QD Propranolo HCl 20 MG HCl 20 MG t_on_an l HCl 20 _empty_ MG stomach } Multivitami Multivitami No Multivitam n & Mineral n & Mineral in & Mineral Dexlansopra Dexlansopra No Dexlansopr zole 60 MG zole 60 MG azole 60 MG Probiotic Probiotic No Probiotic Ferrous Ferrous No 1{table QD Ferrous Sulfate 325 Sulfate 325 t} Sulfate (65 Fe) MG (65 Fe) MG 325 (65 Fe) MG Calcium 500 Calcium 500 No 1{table BID Calcium MG MG t_with_ 500 MG meals} Synthroid Synthroid No Synthroid 50 MCG 50 MCG 50 MCG SEROquel XR SEROquel XR No 1{table QD SEROquel 300 MG 300 MG t_in_th XR 300 MG e_eveni ng} Propranolol Propranolol No Propranolo HCl 20 MG HCl 20 MG l HCl 20 MG PROzac PROzac No PROzac Levothyroxi Levothyroxi No Levothyrox ne Sodium ne Sodium ine Sodium 50 50 50 Dexilant 60 Dexilant 60 No 1{capsu QD Dexilant MG MG le} 60 MG Vitamin D3 Vitamin D3 No 1{table Vitamin D3 Ultra Ultra t} Ultra Potency Potency Potency 05327 UNIT 09778 UNIT 89379 UNIT Levothyroxi Levothyroxi No QD Levothyrox ne Sodium ne Sodium ine Sodium 50 50 50 Propranolol Propranolol No 1{table QD Propranolo HCl 20 MG HCl 20 MG t_on_an l HCl 20 _empty_ MG stomach } Multivitami Multivitami No Multivitam n & Mineral n & Mineral in & Mineral Dexlansopra Dexlansopra No Dexlansopr zole 60 MG zole 60 MG azole 60 MG Probiotic Probiotic No Probiotic Ferrous Ferrous No 1{table QD Ferrous Sulfate 325 Sulfate 325 t} Sulfate (65 Fe) MG (65 Fe) MG 325 (65 Fe) MG Calcium 500 Calcium 500 No 1{table BID Calcium MG MG t_with_ 500 MG meals} Synthroid Synthroid No Synthroid 50 MCG 50 MCG 50 MCG SEROquel XR SEROquel XR No 1{table QD SEROquel 300 MG 300 MG t_in_th XR 300 MG e_eveni ng} Propranolol Propranolol No Propranolo HCl 20 MG HCl 20 MG l HCl 20 MG PROzac PROzac No PROzac Levothyroxi Levothyroxi No Levothyrox ne Sodium ne Sodium ine Sodium 50 50 50 Dexilant 60 Dexilant 60 No 1{capsu QD Dexilant MG MG le} 60 MG Vitamin D3 Vitamin D3 No 1{table Vitamin D3 Ultra Ultra t} Ultra Potency Potency Potency 95271 UNIT 26691 UNIT 95704 UNIT Propranolol Propranolol No Propranolo HCl 20 MG HCl 20 MG l HCl 20 MG Dexilant 60 Dexilant 60 No 1{capsu QD Dexilant MG MG le} 60 MG Levothyroxi Levothyroxi No Levothyrox ne Sodium ne Sodium ine Sodium 50 50 50 Probiotic Probiotic No Probiotic SEROquel XR SEROquel XR No 1{table QD SEROquel 300 MG 300 MG t_in_th XR 300 MG e_eveni ng} PROzac PROzac No PROzac Dexlansopra Dexlansopra No Dexlansopr zole 60 MG zole 60 MG azole 60 MG Synthroid Synthroid No Synthroid 50 MCG 50 MCG 50 MCG Levothyroxi Levothyroxi No QD Levothyrox ne Sodium ne Sodium ine Sodium 50 50 50 Calcium 500 Calcium 500 No 1{table BID Calcium MG MG t_with_ 500 MG meals} Multivitami Multivitami No Multivitam n & Mineral n & Mineral in & Mineral Vitamin D3 Vitamin D3 No 1{table Vitamin D3 Ultra Ultra t} Ultra Potency Potency Potency 59521 UNIT 14423 UNIT 76888 UNIT Ferrous Ferrous No 1{table QD Ferrous Sulfate 325 Sulfate 325 t} Sulfate (65 Fe) MG (65 Fe) MG 325 (65 Fe) MG Dexlansopra Dexlansopra No Dexlansopr zole 60 MG zole 60 MG azole 60 MG Calcium 500 Calcium 500 No 1{table BID Calcium MG MG t_with_ 500 MG meals} SEROquel SEROquel No SEROquel Propranolol Propranolol No 1{table QD Propranolo HCl 20 MG HCl 20 MG t_on_an l HCl 20 _empty_ MG stomach } Synthroid Synthroid No Synthroid 50 MCG 50 MCG 50 MCG Propranolol Propranolol No Propranolo HCl 20 MG HCl 20 MG l HCl 20 MG Probiotic Probiotic No Probiotic Multi For Multi For No Multi For Her Her Her Levothyroxi Levothyroxi No QD Levothyrox ne Sodium ne Sodium ine Sodium 50 50 50 Vitamin D3 Vitamin D3 No 1{table Vitamin D3 Ultra Ultra t} Ultra Potency Potency Potency 70013 UNIT 16822 UNIT 67798 UNIT Levothyroxi Levothyroxi No Levothyrox ne Sodium ne Sodium ine Sodium 50 50 50 Multivitami Multivitami No Multivitam n & Mineral n & Mineral in & Mineral PROzac PROzac No PROzac Butalbital- Butalbital- No 1{capsu BID Butalbital APAP-Caffei APAP-Caffei le_as_n -APAP-Caff ne ne eeded} eine 50-300-40 50-300-40 50-300-40 MG MG MG SEROquel XR SEROquel XR No 1{table QD SEROquel 300 MG 300 MG t_in_th XR 300 MG e_eveni ng} Ferrous Ferrous No 1{table QD Ferrous Sulfate 325 Sulfate 325 t} Sulfate (65 Fe) MG (65 Fe) MG 325 (65 Fe) MG Probiotic Probiotic No Probiotic Dexlansopra Dexlansopra No Dexlansopr zole 60 MG zole 60 MG azole 60 MG Calcium 500 Calcium 500 No 1{table BID Calcium MG MG t_with_ 500 MG meals} SEROquel SEROquel No SEROquel Propranolol Propranolol No 1{table QD Propranolo HCl 20 MG HCl 20 MG t_on_an l HCl 20 _empty_ MG stomach } Synthroid Synthroid No Synthroid 50 MCG 50 MCG 50 MCG Propranolol Propranolol No Propranolo HCl 20 MG HCl 20 MG l HCl 20 MG Probiotic Probiotic No Probiotic Calcium 500 Calcium 500 No 1{table BID Calcium MG MG t_with_ 500 MG meals} Multi For Multi For No Multi For Her Her Her Levothyroxi Levothyroxi No QD Levothyrox ne Sodium ne Sodium ine Sodium 50 50 50 Vitamin D3 Vitamin D3 No 1{table Vitamin D3 Ultra Ultra t} Ultra Potency Potency Potency 85973 UNIT [id number] UNIT [id number] UNIT Levothyroxi Levothyroxi No Levothyrox ne Sodium ne Sodium ine Sodium 50 50 50 Multivitami Multivitami No Multivitam n & Mineral n & Mineral in & Mineral PROzac PROzac No PROzac Butalbital- Butalbital- No 1{capsu BID Butalbital APAP-Caffei APAP-Caffei le_as_n -APAP-Caff ne ne eeded} eine 50-300-40 50-300-40 50-300-40 MG MG MG SEROquel XR SEROquel XR No 1{table QD SEROquel 300 MG 300 MG t_in_th XR 300 MG e_eveni ng} Ferrous Ferrous No 1{table QD Ferrous Sulfate 325 Sulfate 325 t} Sulfate (65 Fe) MG (65 Fe) MG 325 (65 Fe) MG Propranolol Propranolol No 1{table QD Propranolo HCl 20 MG HCl 20 MG t_on_an l HCl 20 _empty_ MG stomach } Ferrous Ferrous No 1{table QD Ferrous Sulfate 325 Sulfate 325 t} Sulfate (65 Fe) MG (65 Fe) MG 325 (65 Fe) MG Levothyroxi Levothyroxi No QD Levothyrox ne Sodium ne Sodium ine Sodium 50 50 50 Butalbital- Butalbital- No Butalbital APAP-Caffei APAP-Caffei -APAP-Caff ne ne eine 50-300-40 50-300-40 50-300-40 MG MG MG Multivitami Multivitami No Multivitam n & Mineral n & Mineral in & Mineral SEROquel XR SEROquel XR No 1{table QD SEROquel 300 MG 300 MG t_in_th XR 300 MG e_eveni ng} Dexlansopra Dexlansopra No Dexlansopr zole 60 MG zole 60 MG azole 60 MG SEROquel SEROquel No SEROquel Levothyroxi Levothyroxi No QD Levothyrox ne Sodium ne Sodium ine Sodium 50 50 50 Synthroid Synthroid No Synthroid 50 MCG 50 MCG 50 MCG Levothyroxi Levothyroxi No Levothyrox ne Sodium ne Sodium ine Sodium 50 50 50 Multi For Multi For No Multi For Her Her Her Probiotic Probiotic No Probiotic Multivitami Multivitami No Multivitam n & Mineral n & Mineral in & Mineral Propranolol Propranolol No Propranolo HCl 20MG HCl 20MG l HCl 20MG Butalbital- Butalbital- No 1{capsu BID Butalbital APAP-Caffei APAP-Caffei le_as_n -APAP-Caff ne ne eeded} eine 50-300-40 50-300-40 50-300-40 MG MG MG SEROquel XR SEROquel XR No 1{table QD SEROquel 300 MG 300 MG t_in_th XR 300 MG e_eveni ng} Calcium 500 Calcium 500 No 1{table BID Calcium MG MG t_with_ 500 MG meals} Vitamin D3 Vitamin D3 No 1{table Vitamin D3 Ultra Ultra t} Ultra Potency Potency Potency 14903 UNIT 18839 UNIT 11653 UNIT Ferrous Ferrous No 1{table QD Ferrous Sulfate 325 Sulfate 325 t} Sulfate (65 Fe) MG (65 Fe) MG 325 (65 Fe) MG Propranolol Propranolol No Propranolo HCl 20 MG HCl 20 MG l HCl 20 MG PROzac PROzac No PROzac Levothyroxi Levothyroxi No Levothyrox ne Sodium ne Sodium ine Sodium 50 50 50 Dexilant 60 Dexilant 60 No 1{capsu QD Dexilant MG MG le} 60 MG Vitamin D3 Vitamin D3 No 1{table Vitamin D3 Ultra Ultra t} Ultra Potency Potency Potency 89463 UNIT 05896 UNIT 10613 UNIT PROzac PROzac No PROzac PROzac PROzac No PROzac Multivitami Multivitami No Multivitam n & Mineral n & Mineral in & Mineral SEROquel XR SEROquel XR No 1{table QD SEROquel 300 MG 300 MG t_in_th XR 300 MG e_eveni ng} Butalbital- Butalbital- No 1{capsu BID Butalbital APAP-Caffei APAP-Caffei le_as_n -APAP-Caff ne ne eeded} eine 50-300-40 50-300-40 50-300-40 MG MG MG Levothyroxi Levothyroxi No Levothyrox ne Sodium ne Sodium ine Sodium 50 50 50 Levothyroxi Levothyroxi No QD Levothyrox ne Sodium ne Sodium ine Sodium 50 50 50 Vitamin D3 Vitamin D3 No 1{table Vitamin D3 Ultra Ultra t} Ultra Potency Potency Potency 80407 UNIT 81635 UNIT 54075 UNIT Calcium 500 Calcium 500 No 1{table BID Calcium MG MG t_with_ 500 MG meals} Dexlansopra Dexlansopra No Dexlansopr zole 60 MG zole 60 MG azole 60 MG Multi For Multi For No Multi For Her Her Her Ferrous Ferrous No 1{table QD Ferrous Sulfate 325 Sulfate 325 t} Sulfate (65 Fe) MG (65 Fe) MG 325 (65 Fe) MG Synthroid Synthroid No Synthroid 50 MCG 50 MCG 50 MCG Probiotic Probiotic No Probiotic SEROquel SEROquel No SEROquel Propranolol Propranolol No Propranolo HCl 20 MG HCl 20 MG l HCl 20 MG Vitamin D3 Vitamin D3 No 1{table Vitamin D3 Ultra Ultra t} Ultra Potency Potency Potency 57191 UNIT 37978 UNIT 61094 UNIT Probiotic Probiotic No Probiotic Multivitami Multivitami No Multivitam n & Mineral n & Mineral in & Mineral Levothyroxi Levothyroxi No Levothyrox ne Sodium ne Sodium ine Sodium 50 50 50 Ferrous Ferrous No 1{table QD Ferrous Sulfate 325 Sulfate 325 t} Sulfate (65 Fe) MG (65 Fe) MG 325 (65 Fe) MG Multi For Multi For No Multi For Her Her Her SEROquel SEROquel No SEROquel Dexlansopra Dexlansopra No Dexlansopr zole 60 MG zole 60 MG azole 60 MG Synthroid Synthroid No Synthroid 50 MCG 50 MCG 50 MCG Calcium 500 Calcium 500 No 1{table BID Calcium MG MG t_with_ 500 MG meals} Propranolol Propranolol No Propranolo HCl 20 MG HCl 20 MG l HCl 20 MG Butalbital- Butalbital- No 1{capsu BID Butalbital APAP-Caffei APAP-Caffei le_as_n -APAP-Caff ne ne eeded} eine 50-300-40 50-300-40 50-300-40 MG MG MG Levothyroxi Levothyroxi No QD Levothyrox ne Sodium ne Sodium ine Sodium 50 50 50 PROzac PROzac No PROzac SEROquel XR SEROquel XR No 1{table QD SEROquel 300 MG 300 MG t_in_ XR 300 MG e_eveni ng} Vitamin D3 Vitamin D3 No 1{table Vitamin D3 Ultra Ultra t} Ultra Potency Potency Potency 12655 UNIT 90196 UNIT 70061 UNIT Probiotic Probiotic No Probiotic Multivitami Multivitami No Multivitam n & Mineral n & Mineral in & Mineral Levothyroxi Levothyroxi No Levothyrox ne Sodium ne Sodium ine Sodium 50 50 50 Ferrous Ferrous No 1{table QD Ferrous Sulfate 325 Sulfate 325 t} Sulfate (65 Fe) MG (65 Fe) MG 325 (65 Fe) MG Multi For Multi For No Multi For Her Her Her SEROquel SEROquel No SEROquel Dexlansopra Dexlansopra No Dexlansopr zole 60 MG zole 60 MG azole 60 MG Synthroid Synthroid No Synthroid 50 MCG 50 MCG 50 MCG Calcium 500 Calcium 500 No 1{table BID Calcium MG MG t_with_ 500 MG meals} Propranolol Propranolol No Propranolo HCl 20 MG HCl 20 MG l HCl 20 MG Butalbital- Butalbital- No 1{capsu BID Butalbital APAP-Caffei APAP-Caffei le_as_n -APAP-Caff ne ne eeded} eine 50-300-40 50-300-40 50-300-40 MG MG MG Levothyroxi Levothyroxi No QD Levothyrox ne Sodium ne Sodium ine Sodium 50 50 50 PROzac PROzac No PROzac SEROquel XR SEROquel XR No 1{table QD SEROquel 300 MG 300 MG t_in_th XR 300 MG e_eveni ng} Ferrous Ferrous No 1{table QD Ferrous Sulfate 325 Sulfate 325 t} Sulfate (65 Fe) MG (65 Fe) MG 325 (65 Fe) MG Vitamin D3 Vitamin D3 No 1{table Vitamin D3 Ultra Ultra t} Ultra Potency Potency Potency 15995 UNIT 19405 UNIT 90936 UNIT PROzac PROzac No PROzac Calcium 500 Calcium 500 No 1{table BID Calcium MG MG t_with_ 500 MG meals} Dexlansopra Dexlansopra No Dexlansopr zole 60 MG zole 60 MG azole 60 MG Multi For Multi For No Multi For Her Her Her Synthroid Synthroid No Synthroid 50 MCG 50 MCG 50 MCG Propranolol Propranolol No 1{table QD Propranolo HCl 20 MG HCl 20 MG t_on_an l HCl 20 _empty_ MG stomach } Levothyroxi Levothyroxi No QD Levothyrox ne Sodium ne Sodium ine Sodium 50 50 50 Famotidine Famotidine No 1{table QD Famotidine 20 MG 20 MG t_at_be 20 MG dtime_a s_neede d} Probiotic Probiotic No Probiotic Multivitami Multivitami No Multivitam n & Mineral n & Mineral in & Mineral SEROquel XR SEROquel XR No 1{table QD SEROquel 300 MG 300 MG t_in_th XR 300 MG e_eveni ng} Propranolol Propranolol No Propranolo HCl 20 MG HCl 20 MG l HCl 20 MG Levothyroxi Levothyroxi No Levothyrox ne Sodium ne Sodium ine Sodium 50 50 50 Butalbital- Butalbital- No 1{capsu BID Butalbital APAP-Caffei APAP-Caffei le_as_n -APAP-Caff ne ne eeded} eine 50-300-40 50-300-40 50-300-40 MG MG MG SEROquel SEROquel No SEROquel Propranolol Propranolol No Propranolo HCl 20 MG HCl 20 MG l HCl 20 MG Probiotic Probiotic No Probiotic PROzac PROzac No PROzac Famotidine Famotidine No 1{table QD Famotidine 20 MG 20 MG t_at_be 20 MG dtime_a s_neede d} Synthroid Synthroid No Synthroid 50 MCG 50 MCG 50 MCG Ferrous Ferrous No 1{table QD Ferrous Sulfate 325 Sulfate 325 t} Sulfate (65 Fe) MG (65 Fe) MG 325 (65 Fe) MG Levothyroxi Levothyroxi No QD Levothyrox ne Sodium ne Sodium ine Sodium 50 50 50 Propranolol Propranolol No 1{table QD Propranolo HCl 20 MG HCl 20 MG t_on_an l HCl 20 _empty_ MG stomach } Multi For Multi For No Multi For Her Her Her Dexlansopra Dexlansopra No Dexlansopr zole 60 MG zole 60 MG azole 60 MG SEROquel XR SEROquel XR No 1{table QD SEROquel 300 MG 300 MG t_in_th XR 300 MG e_eveni ng} SEROquel SEROquel No SEROquel Vitamin D3 Vitamin D3 No 1{table Vitamin D3 Ultra Ultra t} Ultra Potency Potency Potency 16251 UNIT 90775 UNIT 72114 UNIT Levothyroxi Levothyroxi No Levothyrox ne Sodium ne Sodium ine Sodium 50 50 50 Calcium 500 Calcium 500 No 1{table BID Calcium MG MG t_with_ 500 MG meals} Multivitami Multivitami No Multivitam n & Mineral n & Mineral in & Mineral Butalbital- Butalbital- No 1{capsu BID Butalbital APAP-Caffei APAP-Caffei le_as_n -APAP-Caff ne ne eeded} eine 50-300-40 50-300-40 50-300-40 MG MG MG Probiotic Probiotic No Probiotic Calcium 500 Calcium 500 No 1{table BID Calcium MG MG t_with_ 500 MG meals} Propranolol Propranolol No 1{table QD Propranolo HCl 20 MG HCl 20 MG t_on_an l HCl 20 _empty_ MG stomach } Ferrous Ferrous No 1{table QD Ferrous Sulfate 325 Sulfate 325 t} Sulfate (65 Fe) MG (65 Fe) MG 325 (65 Fe) MG Famotidine Famotidine No 1{table QD Famotidine 20 MG 20 MG t_at_be 20 MG dtime_a s_neede d} Propranolol Propranolol No Propranolo HCl 20 MG HCl 20 MG l HCl 20 MG Dexlansopra Dexlansopra No Dexlansopr zole 60 MG zole 60 MG azole 60 MG Probiotic Probiotic No Probiotic Multivitami Multivitami No Multivitam n & Mineral n & Mineral in & Mineral Levothyroxi Levothyroxi No QD Levothyrox ne Sodium ne Sodium ine Sodium 50 50 50 SEROquel XR SEROquel XR No 1{table QD SEROquel 300 MG 300 MG t_in_th XR 300 MG e_eveni ng} Ferrous Ferrous No 1{table QD Ferrous Sulfate 325 Sulfate 325 t} Sulfate (65 Fe) MG (65 Fe) MG 325 (65 Fe) MG Levothyroxi Levothyroxi No QD Levothyrox ne Sodium ne Sodium ine Sodium 50 50 50 Levothyroxi Levothyroxi No Levothyrox ne Sodium ne Sodium ine Sodium 50 50 50 Multi For Multi For No Multi For Her Her Her Vitamin D3 Vitamin D3 No 1{table Vitamin D3 Ultra Ultra t} Ultra Potency Potency Potency 39421 UNIT 74228 UNIT 49610 UNIT Butalbital- Butalbital- No 1{capsu BID Butalbital APAP-Caffei APAP-Caffei le_as_n -APAP-Caff ne ne eeded} eine 50-300-40 50-300-40 50-300-40 MG MG MG Synthroid Synthroid No Synthroid 50 MCG 50 MCG 50 MCG SEROquel SEROquel No SEROquel Calcium 500 Calcium 500 No 1{table BID Calcium MG MG t_with_ 500 MG meals} PROzac PROzac No PROzac Butalbital- Butalbital- No Butalbital APAP-Caffei APAP-Caffei -APAP-Caff ne ne eine 50-300-40 50-300-40 50-300-40 MG MG MG Multivitami Multivitami No Multivitam n & Mineral n & Mineral in & Mineral SEROquel XR SEROquel XR No 1{table QD SEROquel 300 MG 300 MG t_in_th XR 300 MG e_eveni ng} Propranolol Propranolol No Propranolo HCl 20MG HCl 20MG l HCl 20MG Levothyroxi Levothyroxi No Levothyrox ne Sodium ne Sodium ine Sodium 50 50 50 Dexilant 60 Dexilant 60 No 1{capsu QD Dexilant MG MG le} 60 MG SEROquel XR SEROquel XR No 1{table QD SEROquel 300 MG 300 MG t_in_th XR 300 MG e_eveni ng} PROzac PROzac No PROzac Propranolol Propranolol No Propranolo HCl 20 MG HCl 20 MG l HCl 20 MG Dexlansopra Dexlansopra No Dexlansopr zole 60 MG zole 60 MG azole 60 MG Vitamin D3 Vitamin D3 No 1{table Vitamin D3 Ultra Ultra t} Ultra Potency Potency Potency 05587 UNIT 64376 UNIT 50862 UNIT Famotidine Famotidine No 1{table QD Famotidine 20 MG 20 MG t_at_be 20 MG dtime_a s_neede d} Synthroid Synthroid No Synthroid 50 MCG 50 MCG 50 MCG Probiotic Probiotic No Probiotic Levothyroxi Levothyroxi No Levothyrox ne Sodium ne Sodium ine Sodium 50 50 50 Ferrous Ferrous No 1{table QD Ferrous Sulfate 325 Sulfate 325 t} Sulfate (65 Fe) MG (65 Fe) MG 325 (65 Fe) MG Levothyroxi Levothyroxi No QD Levothyrox ne Sodium ne Sodium ine Sodium 50 50 50 Butalbital- Butalbital- No 1{capsu BID Butalbital APAP-Caffei APAP-Caffei le_as_n -APAP-Caff ne ne eeded} eine 50-300-40 50-300-40 50-300-40 MG MG MG Multivitami Multivitami No Multivitam n & Mineral n & Mineral in & Mineral Calcium 500 Calcium 500 No 1{table BID Calcium MG MG t_with_ 500 MG meals} PROzac PROzac No PROzac Vitamin D3 Vitamin D3 No 1{table Vitamin D3 Ultra Ultra t} Ultra Potency Potency Potency 02040 UNIT 98420 UNIT 64977 UNIT SEROquel XR SEROquel XR No 1{table QD SEROquel 300 MG 300 MG t_in_th XR 300 MG e_eveni ng} PROzac PROzac No PROzac Propranolol Propranolol No Propranolo HCl 20 MG HCl 20 MG l HCl 20 MG Dexlansopra Dexlansopra No Dexlansopr zole 60 MG zole 60 MG azole 60 MG Famotidine Famotidine No 1{table QD Famotidine 20 MG 20 MG t_at_be 20 MG dtime_a s_neede d} Synthroid Synthroid No Synthroid 50 MCG 50 MCG 50 MCG Probiotic Probiotic No Probiotic Levothyroxi Levothyroxi No Levothyrox ne Sodium ne Sodium ine Sodium 50 50 50 Ferrous Ferrous No 1{table QD Ferrous Sulfate 325 Sulfate 325 t} Sulfate (65 Fe) MG (65 Fe) MG 325 (65 Fe) MG Levothyroxi Levothyroxi No QD Levothyrox ne Sodium ne Sodium ine Sodium 50 50 50 Butalbital- Butalbital- No 1{capsu BID Butalbital APAP-Caffei APAP-Caffei le_as_n -APAP-Caff ne ne eeded} eine 50-300-40 50-300-40 50-300-40 MG MG MG Multivitami Multivitami No Multivitam n & Mineral n & Mineral in & Mineral Calcium 500 Calcium 500 No 1{table BID Calcium MG MG t_with_ 500 MG meals} Vitamin D3 Vitamin D3 No 1{table Vitamin D3 Ultra Ultra t} Ultra Potency Potency Potency 10334 UNIT 54412 UNIT 31415 UNIT Probiotic Probiotic No Probiotic Calcium 500 Calcium 500 No 1{table BID Calcium MG MG t_with_ 500 MG meals} Propranolol Propranolol No 1{table QD Propranolo HCl 20 MG HCl 20 MG t_on_an l HCl 20 _empty_ MG stomach } Ferrous Ferrous No 1{table QD Ferrous Sulfate 325 Sulfate 325 t} Sulfate (65 Fe) MG (65 Fe) MG 325 (65 Fe) MG Levothyroxi Levothyroxi No QD Levothyrox ne Sodium ne Sodium ine Sodium 50 50 50 Butalbital- Butalbital- No Butalbital APAP-Caffei APAP-Caffei -APAP-Caff ne ne eine 50-300-40 50-300-40 50-300-40 MG MG MG Multivitami Multivitami No Multivitam n & Mineral n & Mineral in & Mineral SEROquel XR SEROquel XR No 1{table QD SEROquel 300 MG 300 MG t_in_th XR 300 MG e_eveni ng} Propranolol Propranolol No Propranolo HCl 20MG HCl 20MG l HCl 20MG Levothyroxi Levothyroxi No Levothyrox ne Sodium ne Sodium ine Sodium 50 50 50 Dexilant 60 Dexilant 60 No 1{capsu QD Dexilant MG MG le} 60 MG Vitamin D3 Vitamin D3 No 1{table Vitamin D3 Ultra Ultra t} Ultra Potency Potency Potency 55539 UNIT 78201 UNIT 44860 UNIT PROzac PROzac No PROzac Synthroid Synthroid No Synthroid 50 MCG 50 MCG 50 MCG Calcium 500 Calcium 500 No 1{table BID Calcium MG MG t_with_ 500 MG meals} Levothyroxi Levothyroxi No QD Levothyrox ne Sodium ne Sodium ine Sodium 50 50 50 Ferrous Ferrous No 1{table QD Ferrous Sulfate 325 Sulfate 325 t} Sulfate (65 Fe) MG (65 Fe) MG 325 (65 Fe) MG Dexilant 60 Dexilant 60 No Dexilant MG MG 60 MG Probiotic Probiotic No Probiotic Levothyroxi Levothyroxi No Levothyrox ne Sodium ne Sodium ine Sodium 50 50 50 SEROquel XR SEROquel XR No 1{table QD SEROquel 300 MG 300 MG t_in_th XR 300 MG e_eveni ng} Butalbital- Butalbital- No Butalbital APAP-Caffei APAP-Caffei -APAP-Caff ne ne eine 50-300-40 50-300-40 50-300-40 MG MG MG Propranolol Propranolol No Propranolo HCl 20 MG HCl 20 MG l HCl 20 MG Multivitami Multivitami No Multivitam n & Mineral n & Mineral in & Mineral Vitamin D3 Vitamin D3 No 1{table Vitamin D3 Ultra Ultra t} Ultra Potency Potency Potency 07016 UNIT 50877 UNIT 46847 UNIT PROzac PROzac No PROzac Multivitami Multivitami No Multivitam n & Mineral n & Mineral in & Mineral Propranolol Propranolol No 1{table QD Propranolo HCl 20 MG HCl 20 MG t_on_an l HCl 20 _empty_ MG stomach } Dexilant 60 Dexilant 60 No Dexilant MG MG 60 MG Probiotic Probiotic No Probiotic Propranolol Propranolol No Propranolo HCl 20 MG HCl 20 MG l HCl 20 MG Synthroid Synthroid No Synthroid 50 MCG 50 MCG 50 MCG SEROquel XR SEROquel XR No 1{table QD SEROquel 300 MG 300 MG t_in_th XR 300 MG e_eveni ng} Vitamin D3 Vitamin D3 No 1{table Vitamin D3 Ultra Ultra t} Ultra Potency Potency Potency 41865 UNIT 19070 UNIT 27623 UNIT Butalbital- Butalbital- No Butalbital APAP-Caffei APAP-Caffei -APAP-Caff ne ne eine 50-300-40 50-300-40 50-300-40 MG MG MG Ferrous Ferrous No 1{table QD Ferrous Sulfate 325 Sulfate 325 t} Sulfate (65 Fe) MG (65 Fe) MG 325 (65 Fe) MG Levothyroxi Levothyroxi No QD Levothyrox ne Sodium ne Sodium ine Sodium 50 50 50 PROzac PROzac No PROzac Dexilant 60 Dexilant 60 No 1{capsu QD Dexilant MG MG le} 60 MG Levothyroxi Levothyroxi No Levothyrox ne Sodium ne Sodium ine Sodium 50 50 50 Calcium 500 Calcium 500 No 1{table BID Calcium MG MG t_with_ 500 MG meals} Multivitami Multivitami No Multivitam n & Mineral n & Mineral in & Mineral Calcium 500 Calcium 500 No 1{table BID Calcium MG MG t_with_ 500 MG meals} Levothyroxi Levothyroxi No QD Levothyrox ne Sodium ne Sodium ine Sodium 50 50 50 Propranolol Propranolol No Propranolo HCl 20 MG HCl 20 MG l HCl 20 MG Synthroid Synthroid No Synthroid 50 MCG 50 MCG 50 MCG Probiotic Probiotic No Probiotic Vitamin D3 Vitamin D3 No 1{table Vitamin D3 Ultra Ultra t} Ultra Potency Potency Potency 40177 UNIT 58419 UNIT 86740 UNIT Propranolol Propranolol No 1{table QD Propranolo HCl 20 MG HCl 20 MG t_on_an l HCl 20 _empty_ MG stomach } Dexilant 60 Dexilant 60 No Dexilant MG MG 60 MG PROzac PROzac No PROzac Levothyroxi Levothyroxi No Levothyrox ne Sodium ne Sodium ine Sodium 50 50 50 SEROquel XR SEROquel XR No 1{table QD SEROquel 300 MG 300 MG t_in_th XR 300 MG e_eveni ng} Dexilant 60 Dexilant 60 No 1{capsu QD Dexilant MG MG le} 60 MG Butalbital- Butalbital- No Butalbital APAP-Caffei APAP-Caffei -APAP-Caff ne ne eine 50-300-40 50-300-40 50-300-40 MG MG MG Ferrous Ferrous No 1{table QD Ferrous Sulfate 325 Sulfate 325 t} Sulfate (65 Fe) MG (65 Fe) MG 325 (65 Fe) MG PROzac PROzac No PROzac Levothyroxi Levothyroxi No Levothyrox ne Sodium ne Sodium ine Sodium 50 50 50 Synthroid Synthroid No Synthroid 50 MCG 50 MCG 50 MCG Propranolol Propranolol No 1{table QD Propranolo HCl 20 MG HCl 20 MG t_on_an l HCl 20 _empty_ MG stomach } SEROquel XR SEROquel XR No 1{table QD SEROquel 300 MG 300 MG t_in_ XR 300 MG e_eveni ng} Levothyroxi Levothyroxi No QD Levothyrox ne Sodium ne Sodium ine Sodium 50 50 50 Vitamin D3 Vitamin D3 No 1{table Vitamin D3 Ultra Ultra t} Ultra Potency Potency Potency 65404 UNIT 31779 UNIT 87044 UNIT Propranolol Propranolol No Propranolo HCl 20 MG HCl 20 MG l HCl 20 MG Dexilant 60 Dexilant 60 No 1{capsu QD Dexilant MG MG le} 60 MG Dexilant 60 Dexilant 60 No Dexilant MG MG 60 MG Butalbital- Butalbital- No Butalbital APAP-Caffei APAP-Caffei -APAP-Caff ne ne eine 50-300-40 50-300-40 50-300-40 MG MG MG Multivitami Multivitami No Multivitam n & Mineral n & Mineral in & Mineral Ferrous Ferrous No 1{table QD Ferrous Sulfate 325 Sulfate 325 t} Sulfate (65 Fe) MG (65 Fe) MG 325 (65 Fe) MG Probiotic Probiotic No Probiotic Calcium 500 Calcium 500 No 1{table BID Calcium MG MG t_with_ 500 MG meals} Levothyroxi Levothyroxi No Levothyrox ne Sodium ne Sodium ine Sodium 50 50 50 Vitamin D3 Vitamin D3 No 1{table Vitamin D3 Ultra Ultra t} Ultra Potency Potency Potency 19907 UNIT 63417 UNIT 87379 UNIT Calcium 500 Calcium 500 No 1{table BID Calcium MG MG t_with_ 500 MG meals} Dexilant 60 Dexilant 60 No 1{capsu QD Dexilant MG MG le} 60 MG Ferrous Ferrous No 1{table QD Ferrous Sulfate 325 Sulfate 325 t} Sulfate (65 Fe) MG (65 Fe) MG 325 (65 Fe) MG Butalbital- Butalbital- No Butalbital APAP-Caffei APAP-Caffei -APAP-Caff ne ne eine 50-300-40 50-300-40 50-300-40 MG MG MG Dexilant 60 Dexilant 60 No Dexilant MG MG 60 MG Probiotic Probiotic No Probiotic SEROquel XR SEROquel XR No 1{table QD SEROquel 300 MG 300 MG t_in_th XR 300 MG e_eveni ng} Propranolol Propranolol No Propranolo HCl 20 MG HCl 20 MG l HCl 20 MG Propranolol Propranolol No 1{table QD Propranolo HCl 20 MG HCl 20 MG t_on_an l HCl 20 _empty_ MG stomach } Levothyroxi Levothyroxi No QD Levothyrox ne Sodium ne Sodium ine Sodium 50 50 50 Multivitami Multivitami No Multivitam n & Mineral n & Mineral in & Mineral PROzac PROzac No PROzac Synthroid Synthroid No Synthroid 50 MCG 50 MCG 50 MCG Dexilant 60 Dexilant 60 No Dexilant MG MG 60 MG Multivitami Multivitami No Multivitam n & Mineral n & Mineral in & Mineral Vitamin D3 Vitamin D3 No 1{table Vitamin D3 Ultra Ultra t} Ultra Potency Potency Potency 66805 UNIT 75978 UNIT 23462 UNIT PROzac PROzac No PROzac SEROquel XR SEROquel XR No 1{table QD SEROquel 300 MG 300 MG t_in_th XR 300 MG e_eveni ng} Propranolol Propranolol No Propranolo HCl 20 MG HCl 20 MG l HCl 20 MG Calcium 500 Calcium 500 No 1{table BID Calcium MG MG t_with_ 500 MG meals} Levothyroxi Levothyroxi No Levothyrox ne Sodium ne Sodium ine Sodium 50 50 50 Synthroid Synthroid No Synthroid 50 MCG 50 MCG 50 MCG Levothyroxi Levothyroxi No QD Levothyrox ne Sodium ne Sodium ine Sodium 50 50 50 Butalbital- Butalbital- No Butalbital APAP-Caffei APAP-Caffei -APAP-Caff ne ne eine 50-300-40 50-300-40 50-300-40 MG MG MG Ferrous Ferrous No 1{table QD Ferrous Sulfate 325 Sulfate 325 t} Sulfate (65 Fe) MG (65 Fe) MG 325 (65 Fe) MG Dexilant 60 Dexilant 60 No 1{capsu QD Dexilant MG MG le} 60 MG Probiotic Probiotic No Probiotic Vitamin D3 Vitamin D3 No 1{table Vitamin D3 Ultra Ultra t} Ultra Potency Potency Potency 13695 UNIT 58543 UNIT 29841 UNIT Calcium 500 Calcium 500 No 1{table BID Calcium MG MG t_with_ 500 MG meals} Dexilant 60 Dexilant 60 No 1{capsu QD Dexilant MG MG le} 60 MG Multivitami Multivitami No Multivitam n & Mineral n & Mineral in & Mineral Levothyroxi Levothyroxi No Levothyrox ne Sodium ne Sodium ine Sodium 50 50 50 Dexilant 60 Dexilant 60 No Dexilant MG MG 60 MG SEROquel XR SEROquel XR No 1{table QD SEROquel 300 MG 300 MG t_in_ XR 300 MG e_eveni ng} Butalbital- Butalbital- No Butalbital APAP-Caffei APAP-Caffei -APAP-Caff ne ne eine 50-300-40 50-300-40 50-300-40 MG MG MG Probiotic Probiotic No Probiotic Propranolol Propranolol No Propranolo HCl 20 MG HCl 20 MG l HCl 20 MG PROzac PROzac No PROzac Synthroid Synthroid No Synthroid 50 MCG 50 MCG 50 MCG Ferrous Ferrous No 1{table QD Ferrous Sulfate 325 Sulfate 325 t} Sulfate (65 Fe) MG (65 Fe) MG 325 (65 Fe) MG Levothyroxi Levothyroxi No QD Levothyrox ne Sodium ne Sodium ine Sodium 50 50 50 Probiotic Probiotic No Probiotic Ferrous Ferrous No 1{table QD Ferrous Sulfate 325 Sulfate 325 t} Sulfate (65 Fe) MG (65 Fe) MG 325 (65 Fe) MG Multivitami Multivitami No Multivitam n & Mineral n & Mineral in & Mineral Dexilant 60 Dexilant 60 No 1{capsu QD Dexilant MG MG le} 60 MG Levothyroxi Levothyroxi No Levothyrox ne Sodium ne Sodium ine Sodium 50 50 50 PROzac PROzac No PROzac Synthroid Synthroid No Synthroid 50 MCG 50 MCG 50 MCG Butalbital- Butalbital- No Butalbital APAP-Caffei APAP-Caffei -APAP-Caff ne ne eine 50-300-40 50-300-40 50-300-40 MG MG MG Vitamin D3 Vitamin D3 No 1{table Vitamin D3 Ultra Ultra t} Ultra Potency Potency Potency 52352 UNIT 72060 UNIT 76238 UNIT Propranolol Propranolol No Propranolo HCl 20 MG HCl 20 MG l HCl 20 MG SEROquel XR SEROquel XR No 1{table QD SEROquel 300 MG 300 MG t_in_th XR 300 MG e_eveni ng} Dexilant 60 Dexilant 60 No Dexilant MG MG 60 MG Calcium 500 Calcium 500 No 1{table BID Calcium MG MG t_with_ 500 MG meals} Levothyroxi Levothyroxi No QD Levothyrox ne Sodium ne Sodium ine Sodium 50 50 50 Probiotic Probiotic No Probiotic Ferrous Ferrous No 1{table QD Ferrous Sulfate 325 Sulfate 325 t} Sulfate (65 Fe) MG (65 Fe) MG 325 (65 Fe) MG Multivitami Multivitami No Multivitam n & Mineral n & Mineral in & Mineral Dexilant 60 Dexilant 60 No 1{capsu QD Dexilant MG MG le} 60 MG Levothyroxi Levothyroxi No Levothyrox ne Sodium ne Sodium ine Sodium 50 50 50 PROzac PROzac No PROzac Synthroid Synthroid No Synthroid 50 MCG 50 MCG 50 MCG Butalbital- Butalbital- No Butalbital APAP-Caffei APAP-Caffei -APAP-Caff ne ne eine 50-300-40 50-300-40 50-300-40 MG MG MG Vitamin D3 Vitamin D3 No 1{table Vitamin D3 Ultra Ultra t} Ultra Potency Potency Potency 76981 UNIT [id number] UNIT 82415 UNIT Propranolol Propranolol No Propranolo HCl 20 MG HCl 20 MG l HCl 20 MG SEROquel XR SEROquel XR No 1{table QD SEROquel 300 MG 300 MG t_in_th XR 300 MG e_eveni ng} Dexilant 60 Dexilant 60 No Dexilant MG MG 60 MG Calcium 500 Calcium 500 No 1{table BID Calcium MG MG t_with_ 500 MG meals} Levothyroxi Levothyroxi No QD Levothyrox ne Sodium ne Sodium ine Sodium 50 50 50 Probiotic Probiotic No Probiotic Levothyroxi Levothyroxi No QD Levothyrox ne Sodium ne Sodium ine Sodium 50 50 50 Propranolol Propranolol No Propranolo HCl 20 MG HCl 20 MG l HCl 20 MG Synthroid Synthroid No Synthroid 50 MCG 50 MCG 50 MCG Calcium 500 Calcium 500 No 1{table BID Calcium MG MG t_with_ 500 MG meals} Ferrous Ferrous No 1{table QD Ferrous Sulfate 325 Sulfate 325 t} Sulfate (65 Fe) MG (65 Fe) MG 325 (65 Fe) MG Dexilant 60 Dexilant 60 No 1{capsu QD Dexilant MG MG le} 60 MG Vitamin D3 Vitamin D3 No 1{table Vitamin D3 Ultra Ultra t} Ultra Potency Potency Potency 47326 UNIT 21785 UNIT 30283 UNIT Multivitami Multivitami No Multivitam n & Mineral n & Mineral in & Mineral SEROquel XR SEROquel XR No 1{table QD SEROquel 300 MG 300 MG t_in_th XR 300 MG e_eveni ng} Levothyroxi Levothyroxi No Levothyrox ne Sodium ne Sodium ine Sodium 50 50 50 PROzac PROzac No PROzac Butalbital- Butalbital- No Butalbital APAP-Caffei APAP-Caffei -APAP-Caff ne ne eine 50-300-40 50-300-40 50-300-40 MG MG MG Dexilant 60 Dexilant 60 No Dexilant MG MG 60 MG Probiotic Probiotic No Probiotic Levothyroxi Levothyroxi No QD Levothyrox ne Sodium ne Sodium ine Sodium 50 50 50 Propranolol Propranolol No Propranolo HCl 20 MG HCl 20 MG l HCl 20 MG Synthroid Synthroid No Synthroid 50 MCG 50 MCG 50 MCG Calcium 500 Calcium 500 No 1{table BID Calcium MG MG t_with_ 500 MG meals} Ferrous Ferrous No 1{table QD Ferrous Sulfate 325 Sulfate 325 t} Sulfate (65 Fe) MG (65 Fe) MG 325 (65 Fe) MG Dexilant 60 Dexilant 60 No 1{capsu QD Dexilant MG MG le} 60 MG Vitamin D3 Vitamin D3 No 1{table Vitamin D3 Ultra Ultra t} Ultra Potency Potency Potency 01620 UNIT [id number] UNIT 37914 UNIT Multivitami Multivitami No Multivitam n & Mineral n & Mineral in & Mineral SEROquel XR SEROquel XR No 1{table QD SEROquel 300 MG 300 MG t_in_th XR 300 MG e_eveni ng} Levothyroxi Levothyroxi No Levothyrox ne Sodium ne Sodium ine Sodium 50 50 50 PROzac PROzac No PROzac Butalbital- Butalbital- No Butalbital APAP-Caffei APAP-Caffei -APAP-Caff ne ne eine 50-300-40 50-300-40 50-300-40 MG MG MG Dexilant 60 Dexilant 60 No Dexilant MG MG 60 MG Butalbital- Butalbital- No Butalbital APAP-Caffei APAP-Caffei -APAP-Caff ne ne eine 50-300-40 50-300-40 50-300-40 MG MG MG Probiotic Probiotic No Probiotic PROzac PROzac No PROzac Ferrous Ferrous No 1{table QD Ferrous Sulfate 325 Sulfate 325 t} Sulfate (65 Fe) MG (65 Fe) MG 325 (65 Fe) MG Synthroid Synthroid No Synthroid 50 MCG 50 MCG 50 MCG Propranolol Propranolol No Propranolo HCl 20 MG HCl 20 MG l HCl 20 MG Dexilant 60 Dexilant 60 No Dexilant MG MG 60 MG SEROquel XR SEROquel XR No 1{table QD SEROquel 300 MG 300 MG t_in_th XR 300 MG e_eveni ng} Levothyroxi Levothyroxi No Levothyrox ne Sodium ne Sodium ine Sodium 50 50 50 Levothyroxi Levothyroxi No QD Levothyrox ne Sodium ne Sodium ine Sodium 50 50 50 Dexilant 60 Dexilant 60 No 1{capsu QD Dexilant MG MG le} 60 MG Calcium 500 Calcium 500 No 1{table BID Calcium MG MG t_with_ 500 MG meals} Vitamin D3 Vitamin D3 No 1{table Vitamin D3 Ultra Ultra t} Ultra Potency Potency Potency 45318 UNIT 32823 UNIT 87581 UNIT Multivitami Multivitami No Multivitam n & Mineral n & Mineral in & Mineral Butalbital- Butalbital- No Butalbital APAP-Caffei APAP-Caffei -APAP-Caff ne ne eine 50-300-40 50-300-40 50-300-40 MG MG MG Levothyroxi Levothyroxi No Levothyrox ne Sodium ne Sodium ine Sodium 50 50 50 SEROquel XR SEROquel XR No 1{table QD SEROquel 300 MG 300 MG t_in_th XR 300 MG e_eveni ng} Dexlansopra Dexlansopra No Dexlansopr zole 60 MG zole 60 MG azole 60 MG Propranolol Propranolol No 1{table QD Propranolo HCl 20 MG HCl 20 MG t_on_an l HCl 20 _empty_ MG stomach } Propranolol Propranolol No Propranolo HCl 20 MG HCl 20 MG l HCl 20 MG Ferrous Ferrous No 1{table QD Ferrous Sulfate 325 Sulfate 325 t} Sulfate (65 Fe) MG (65 Fe) MG 325 (65 Fe) MG PROzac PROzac No PROzac Synthroid Synthroid No Synthroid 50 MCG 50 MCG 50 MCG Vitamin D3 Vitamin D3 No 1{table Vitamin D3 Ultra Ultra t} Ultra Potency Potency Potency 56728 UNIT 89477 UNIT 55838 UNIT Dexilant 60 Dexilant 60 No 1{capsu QD Dexilant MG MG le} 60 MG Calcium 500 Calcium 500 No 1{table BID Calcium MG MG t_with_ 500 MG meals} Levothyroxi Levothyroxi No QD Levothyrox ne Sodium ne Sodium ine Sodium 50 50 50 Multivitami Multivitami No Multivitam n & Mineral n & Mineral in & Mineral Probiotic Probiotic No Probiotic Propranolol Propranolol No Propranolo HCl 20 MG HCl 20 MG l HCl 20 MG Ferrous Ferrous No 1{table QD Ferrous Sulfate 325 Sulfate 325 t} Sulfate (65 Fe) MG (65 Fe) MG 325 (65 Fe) MG Dexlansopra Dexlansopra No Dexlansopr zole 60 MG zole 60 MG azole 60 MG Vitamin D3 Vitamin D3 No 1{table Vitamin D3 Ultra Ultra t} Ultra Potency Potency Potency 24538 UNIT 48372 UNIT 81115 UNIT PROzac PROzac No PROzac Probiotic Probiotic No Probiotic Dexilant 60 Dexilant 60 No 1{capsu QD Dexilant MG MG le} 60 MG Butalbital- Butalbital- No Butalbital APAP-Caffei APAP-Caffei -APAP-Caff ne ne eine 50-300-40 50-300-40 50-300-40 MG MG MG SEROquel XR SEROquel XR No 1{table QD SEROquel 300 MG 300 MG t_in_ XR 300 MG e_eveni ng} Synthroid Synthroid No Synthroid 50 MCG 50 MCG 50 MCG Levothyroxi Levothyroxi No Levothyrox ne Sodium ne Sodium ine Sodium 50 50 50 Multivitami Multivitami No Multivitam n & Mineral n & Mineral in & Mineral Levothyroxi Levothyroxi No QD Levothyrox ne Sodium ne Sodium ine Sodium 50 50 50 Calcium 500 Calcium 500 No 1{table BID Calcium MG MG t_with_ 500 MG meals} Propranolol Propranolol No Propranolo HCl 20 MG HCl 20 MG l HCl 20 MG Ferrous Ferrous No 1{table QD Ferrous Sulfate 325 Sulfate 325 t} Sulfate (65 Fe) MG (65 Fe) MG 325 (65 Fe) MG Dexlansopra Dexlansopra No Dexlansopr zole 60 MG zole 60 MG azole 60 MG Vitamin D3 Vitamin D3 No 1{table Vitamin D3 Ultra Ultra t} Ultra Potency Potency Potency 79632 UNIT 86891 UNIT 72576 UNIT PROzac PROzac No PROzac Probiotic Probiotic No Probiotic Dexilant 60 Dexilant 60 No 1{capsu QD Dexilant MG MG le} 60 MG Butalbital- Butalbital- No Butalbital APAP-Caffei APAP-Caffei -APAP-Caff ne ne eine 50-300-40 50-300-40 50-300-40 MG MG MG SEROquel XR SEROquel XR No 1{table QD SEROquel 300 MG 300 MG t_in_ XR 300 MG e_eveni ng} Synthroid Synthroid No Synthroid 50 MCG 50 MCG 50 MCG Levothyroxi Levothyroxi No Levothyrox ne Sodium ne Sodium ine Sodium 50 50 50 Multivitami Multivitami No Multivitam n & Mineral n & Mineral in & Mineral Levothyroxi Levothyroxi No QD Levothyrox ne Sodium ne Sodium ine Sodium 50 50 50 Calcium 500 Calcium 500 No 1{table BID Calcium MG MG t_with_ 500 MG meals} Multivitami Multivitami No Multivitam n & Mineral n & Mineral in & Mineral Ferrous Ferrous No 1{table QD Ferrous Sulfate 325 Sulfate 325 t} Sulfate (65 Fe) MG (65 Fe) MG 325 (65 Fe) MG Levothyroxi Levothyroxi No Levothyrox ne Sodium ne Sodium ine Sodium 50 50 50 PROzac PROzac No PROzac Butalbital- Butalbital- No Butalbital APAP-Caffei APAP-Caffei -APAP-Caff ne ne eine 50-300-40 50-300-40 50-300-40 MG MG MG Probiotic Probiotic No Probiotic Dexlansopra Dexlansopra No Dexlansopr zole 60 MG zole 60 MG azole 60 MG Synthroid Synthroid No Synthroid 50 MCG 50 MCG 50 MCG Vitamin D3 Vitamin D3 No 1{table Vitamin D3 Ultra Ultra t} Ultra Potency Potency Potency 62697 UNIT 40538 UNIT 29594 UNIT Propranolol Propranolol No Propranolo HCl 20 MG HCl 20 MG l HCl 20 MG Levothyroxi Levothyroxi No QD Levothyrox ne Sodium ne Sodium ine Sodium 50 50 50 Dexilant 60 Dexilant 60 No 1{capsu QD Dexilant MG MG le} 60 MG Calcium 500 Calcium 500 No 1{table BID Calcium MG MG t_with_ 500 MG meals} SEROquel XR SEROquel XR No 1{table QD SEROquel 300 MG 300 MG t_in_th XR 300 MG e_eveni ng} Butalbital- Butalbital- No Butalbital APAP-Caffei APAP-Caffei -APAP-Caff ne ne eine 50-300-40 50-300-40 50-300-40 MG MG MG Calcium 500 Calcium 500 No 1{table BID Calcium MG MG t_with_ 500 MG meals} Propranolol Propranolol No Propranolo HCl 20 MG HCl 20 MG l HCl 20 MG Probiotic Probiotic No Probiotic Levothyroxi Levothyroxi No QD Levothyrox ne Sodium ne Sodium ine Sodium 50 50 50 SEROquel XR SEROquel XR No 1{table QD SEROquel 300 MG 300 MG t_in_th XR 300 MG e_eveni ng} Levothyroxi Levothyroxi No Levothyrox ne Sodium ne Sodium ine Sodium 50 50 50 PROzac PROzac No PROzac Dexlansopra Dexlansopra No Dexlansopr zole 60 MG zole 60 MG azole 60 MG Synthroid Synthroid No Synthroid 50 MCG 50 MCG 50 MCG Multivitami Multivitami No Multivitam n & Mineral n & Mineral in & Mineral Vitamin D3 Vitamin D3 No 1{table Vitamin D3 Ultra Ultra t} Ultra Potency Potency Potency 23679 UNIT 65874 UNIT 34870 UNIT Ferrous Ferrous No 1{table QD Ferrous Sulfate 325 Sulfate 325 t} Sulfate (65 Fe) MG (65 Fe) MG 325 (65 Fe) MG Dexilant 60 Dexilant 60 No 1{capsu QD Dexilant MG MG le} 60 MG Butalbital- Butalbital- No Butalbital APAP-Caffei APAP-Caffei -APAP-Caff ne ne eine 50-300-40 50-300-40 50-300-40 MG MG MG Calcium 500 Calcium 500 No 1{table BID Calcium MG MG t_with_ 500 MG meals} Propranolol Propranolol No Propranolo HCl 20 MG HCl 20 MG l HCl 20 MG Probiotic Probiotic No Probiotic Levothyroxi Levothyroxi No QD Levothyrox ne Sodium ne Sodium ine Sodium 50 50 50 SEROquel XR SEROquel XR No 1{table QD SEROquel 300 MG 300 MG t_in_th XR 300 MG e_eveni ng} Levothyroxi Levothyroxi No Levothyrox ne Sodium ne Sodium ine Sodium 50 50 50 PROzac PROzac No PROzac Dexlansopra Dexlansopra No Dexlansopr zole 60 MG zole 60 MG azole 60 MG Synthroid Synthroid No Synthroid 50 MCG 50 MCG 50 MCG calcium calcium No calcium [facility] Dexilant 60 Dexilant 60 No 1capsul Q1D Dexilant [facility] mg capsule, mg capsule, e(s) 60 mg Medical delayed delayed capsule, release release delayed Take 1 Take 1 release capsule capsule Take 1 every day every day capsule by oral by oral every day route for route for by oral 56 days. 56 days. route for 56 days. iron iron No iron [facility] Lomotil Lomotil No Lomotil [facility] multivitami multivitami No multivitam [facility] propranolol propranolol No propranolo [facility] 20 mg 20 mg l 20 mg Medical tablet tablet tablet Prozac 10 Prozac 10 No 1capsul Q1D Prozac 10 [facility] mg capsule mg capsule e(s) mg capsule Medical Take 1 Take 1 Take 1 capsule capsule capsule every day every day every day by oral by oral by oral route. route. route. quetiapine quetiapine No quetiapine [facility] 50 mg 50 mg 50 mg Medical tablet tablet tablet Seroquel Seroquel No 1 BID Seroquel [facility] via 200 mg 200 mg 200 mg Medical tablet Take tablet Take tablet 1 tablet 1 tablet Take 1 twice a day twice a day tablet by oral by oral twice a route. route. day by oral route. Synthroid Synthroid No Synthroid [facility] 50 mcg 50 mcg 50 mcg Medical tablet tablet tablet calcium calcium No calcium [facility] Dexilant 60 Dexilant 60 No 1capsul Q1D Dexilant [facility] mg capsule, mg capsule, e(s) 60 mg Medical delayed delayed capsule, release release delayed Take 1 Take 1 release capsule capsule Take 1 every day every day capsule by oral by oral every day route for route for by oral 56 days. 56 days. route for 56 days. docusate docusate No docusate [facility] via sodium 100 sodium 100 sodium 100 Medical mg capsule mg capsule mg capsule TAKE 2 TAKE 2 TAKE 2 CAPSULES BY CAPSULES BY CAPSULES MOUTH EVERY MOUTH EVERY BY MOUTH DAY FOR 50 DAY FOR 50 EVERY DAY DAYS DAYS FOR 50 NEEDED NEEDED DAYS NEEDED iron iron No iron [facility] Lomotil Lomotil No Lomotil [facility] multivitami multivitami No multivitam [facility] propranolol propranolol No propranolo [facility] 20 mg 20 mg l 20 mg Medical tablet tablet tablet Prozac 10 Prozac 10 No 1capsul Q1D Prozac 10 [facility] mg capsule mg capsule e(s) mg capsule Medical Take 1 Take 1 Take 1 capsule capsule capsule every day every day every day by oral by oral by oral route. route. route. quetiapine quetiapine No quetiapine [facility] 50 mg 50 mg 50 mg Medical tablet tablet tablet Seroquel Seroquel No 1 BID Seroquel [facility] via 200 mg 200 mg 200 mg Medical tablet Take tablet Take tablet 1 tablet 1 tablet Take 1 twice a day twice a day tablet by oral by oral twice a route. route. day by oral route. Synthroid Synthroid No Synthroid [facility] 50 mcg 50 mcg 50 mcg Medical tablet tablet tablet calcium calcium No calcium [facility] dexlansopra dexlansopra No dexlansopr [facility] zole 60 mg zole 60 mg azole 60 Medical capsule,bip capsule,bip mg hase hase capsule,bi delayed delayed phase release release delayed Take 1 Take 1 release capsule capsule Take 1 every day every day capsule by oral by oral every day route for route for by oral 56 days. 56 days. route for 56 days. fluoxetine fluoxetine No fluoxetine [facility] 10 mg 10 mg 10 mg Medical capsule capsule capsule Take 1 Take 1 Take 1 capsule capsule capsule every day every day every day by oral by oral by oral route. route. route. iron iron No iron [facility] Lomotil Lomotil No Lomotil [facility] multivitami multivitami No multivitam [facility] propranolol propranolol No propranolo [facility] 20 mg 20 mg l 20 mg Medical tablet tablet tablet quetiapine quetiapine No quetiapine [facility] 200 mg 200 mg 200 mg Medical tablet TAKE tablet TAKE tablet ONE TABLET ONE TABLET TAKE ONE BY MOUTH BY MOUTH TABLET BY DAILY AT DAILY AT MOUTH BEDTIME BEDTIME DAILY AT WITH 50MG WITH 50MG BEDTIME TABLET TABLET WITH 50MG TABLET quetiapine quetiapine No quetiapine [facility] 50 mg 50 mg 50 mg Medical tablet TAKE tablet TAKE tablet ONE TABLET ONE TABLET TAKE ONE BY MOUTH AT BY MOUTH AT TABLET BY BEDTIME BEDTIME MOUTH AT WITH 200MG WITH 200MG BEDTIME TABLET TABLET WITH 200MG TABLET Synthroid Synthroid No Synthroid [facility] 50 mcg 50 mcg 50 mcg Medical tablet tablet tablet calcium calcium No calcium [facility] Dexilant 60 Dexilant 60 No 1capsul Q1D Dexilant [facility] mg capsule, mg capsule, e(s) 60 mg Medical delayed delayed capsule, release release delayed Take 1 Take 1 release capsule capsule Take 1 every day every day capsule by oral by oral every day route for route for by oral 56 days. 56 days. route for 56 days. Gemtesa 75 Gemtesa 75 No 1 Q1D Gem[place]a 75 [facility] mg tablet mg tablet mg tablet Medical Take 1 Take 1 Take 1 tablet tablet tablet every day every day every day by oral by oral by oral route for route for route for 90 days. 90 days. 90 days. for for for overactive overactive overactive bladder bladder bladder iron iron No iron [facility] Lomotil Lomotil No Lomotil [facility] multivitami multivitami No multivitam [facility] nitrofurant nitrofurant No nitrofuran [facility] o[facility] toin Medical monohydrate monohydrate monohydrat /macrocryst /macrocryst e/macrocry als 100 mg als 100 mg stals 100 capsule capsule mg capsule Take 1 Take 1 Take 1 capsule capsule capsule after each after each after each visit visit visit propranolol propranolol No propranolo [facility] 20 mg 20 mg l 20 mg Medical tablet tablet tablet Prozac 10 Prozac 10 No 1capsul Q1D Prozac 10 [facility] mg capsule mg capsule e(s) mg capsule Medical Take 1 Take 1 Take 1 capsule capsule capsule every day every day every day by oral by oral by oral route. route. route. Seroquel Seroquel No 1 BID Seroquel [facility] via 200 mg 200 mg 200 mg Medical tablet Take tablet Take tablet 1 tablet 1 tablet Take 1 twice a day twice a day tablet by oral by oral twice a route. route. day by oral route. Synthroid Synthroid No Synthroid [facility] 50 mcg 50 mcg 50 mcg Medical tablet tablet tablet calcium calcium No calcium [facility] Dexilant 60 Dexilant 60 No 1capsul Q1D Dexilant [facility] mg capsule, mg capsule, e(s) 60 mg Medical delayed delayed capsule, release release delayed Take 1 Take 1 release capsule capsule Take 1 every day every day capsule by oral by oral every day route for route for by oral 56 days. 56 days. route for 56 days. Gemtesa 75 Gemtesa 75 No Gem[place]a 75 [facility] mg tablet mg tablet mg tablet Medical Take 1 Take 1 Take 1 tablet tablet tablet every day every day every day by oral by oral by oral route for route for route for 90 days. 90 days. 90 days. iron iron No iron [facility] Lomotil Lomotil No Lomotil [facility] multivitami multivitami No multivitam [facility] in [facility] nitrofurant nitrofurant No nitrofuran [facility] oin oin toin Medical monohydrate monohydrate monohydrat /macrocryst /macrocryst e/macrocry als 100 mg als 100 mg stals 100 capsule capsule mg capsule TAKE 1 TAKE 1 TAKE 1 CAPSULE BY CAPSULE BY CAPSULE BY MOUTH EVERY MOUTH EVERY MOUTH 12 HOURS 12 HOURS EVERY 12 FOR 7 DAYS FOR 7 DAYS HOURS FOR 7 DAYS propranolol propranolol No propranolo [facility] 20 mg 20 mg l 20 mg Medical tablet tablet tablet Prozac 10 Prozac 10 No 1capsul Q1D Prozac 10 [facility] mg capsule mg capsule e(s) mg capsule Medical Take 1 Take 1 Take 1 capsule capsule capsule every day every day every day by oral by oral by oral route. route. route. Seroquel Seroquel No 1 BID Seroquel [facility] via 200 mg 200 mg 200 mg Medical tablet Take tablet Take tablet 1 tablet 1 tablet Take 1 twice a day twice a day tablet by oral by oral twice a route. route. day by oral route. Synthroid Synthroid No Synthroid [facility] 50 mcg 50 mcg 50 mcg Medical tablet tablet tablet Immunizations Ordered Filled Immunization Date Status Comments [facility] Immunization Name Name SARS-COV-2 COVID-19 2021-12-14 Completed Unive rsity of VACCINE 17 YRS+, 00:00:00 [place] [facility] BIVALENT 0.5ML, IM, Branc h (MODERNA BOOSTER) [id number] 2021-06-04 Completed [facility] [place] [id number] 00:00:00 SARS-COV-2 COVID-19 2021-06-04 Completed Unive rs[facility] of MODERNA 0.25ML 00:00:00 [place] [facility] BOOSTER VACCINE Branch SARS-COV-2 COVID-19 2021-06-04 Completed Unive rs[facility] of MODERNA BOOSTER 00:00:00 [place] [facility] VACCINE Branch SARS-COV-2 COVID-19 2021-06-04 Completed Unive rsity of MODERNA 0.25ML 00:00:00 [place] [facility] BOOSTER VACCINE Branch Afluria Afluria 2020-11-24 Completed [facility] - 14:05:00 [facility] Afluria Afluria 2020-11-24 Completed [facility] - 14:05:00 [facility] Afluria Afluria 2020-11-24 Completed [facility] - 14:05:00 [facility] Afluria Afluria 2020-11-24 Completed [facility] - 14:05:00 [facility] Afluria Afluria 2020-11-24 Completed [facility] - 14:05:00 [facility] Afluria Afluria 2020-11-24 Completed [facility] - 14:05:00 [facility] Afluria Afluria 2020-11-24 Completed [facility] - 14:05:00 [facility] Afluria Afluria 2020-11-24 Completed [facility] - 14:05:00 [facility] Afluria Afluria 2020-11-24 Completed [facility] - 14:05:00 [facility] Afluria Afluria 2020-11-24 Completed [facility] - 14:05:00 [facility] Afluria Afluria 2020-11-24 Completed [facility] - 14:05:00 [facility] Afluria Afluria 2020-11-24 Completed [facility] - 14:05:00 [facility] Afluria Afluria 2020-11-24 Completed [facility] - 14:05:00 [facility] Afluria Afluria 2020-11-24 Completed [facility] - 14:05:00 [facility] Afluria Afluria 2020-11-24 Completed [facility] - 14:05:00 [facility] Afluria Afluria 2020-11-24 Completed [facility] - 14:05:00 [facility] Afluria Afluria 2020-11-24 Completed [facility] - 14:05:00 [facility] Afluria Afluria 2020-11-24 Completed [facility] - 14:05:00 [facility] Afluria Afluria 2020-11-24 Completed [facility] - 14:05:00 [facility] Afluria Afluria 2020-11-24 Completed [facility] - 14:05:00 [facility] Afluria Afluria 2020-11-24 Completed [facility] - 14:05:00 [facility] Afluria Afluria 2020-11-24 Completed [facility] - 14:05:00 [facility] Afluria Afluria 2020-11-24 Completed [facility] - 14:05:00 [facility] Afluria Afluria 2020-11-24 Completed [facility] - 14:05:00 [facility] Afluria Afluria 2020-11-24 Completed [facility] - 14:05:00 [facility] Afluria Afluria 2020-11-24 Completed [facility] - 14:05:00 [facility] Afluria Afluria 2020-11-24 Completed [facility] - 14:05:00 [facility] Afluria Afluria 2020-11-24 Completed [facility] - 14:05:00 [facility] Afluria Afluria 2020-11-24 Completed [facility] - 14:05:00 [facility] Afluria Afluria 2020-11-24 Completed [facility] - 14:05:00 [facility] Afluria Afluria 2020-11-24 Completed [facility] - 14:05:00 [facility] [id number] 2020-10-26 Completed Vu [id number] 00:00:00 SARS-COV-2 COVID-19 2020-10-26 Completed Unive rsity of MODERNA 12+ YRS 00:00:[address] [facility] ical VACCINE Branch SARS-COV-2 COVID-19 2020-10-26 Completed Unive rsity of MODERNA VACCINE 00:00:[address] [facility] ical Branch SARS-COV-2 COVID-19 2020-10-26 Completed Unive rsity of MODERNA VACCINE 00:00:[address] [facility] ical Branch SARS-COV-2 COVID-19 2020-10-26 Completed Unive rsity of MODERNA 12+ YRS 00:00:00 [facility] VACCINE Branch Synvisc Synvisc 2020-09-19 Completed [facility] - 09:24:00 [facility] Synvisc Synvisc 2020-09-19 Completed [facility] - 09:24:00 [facility] Synvisc Synvisc 2020-09-19 Completed [facility] - 09:24:00 [facility] Synvisc Synvisc 2020-09-19 Completed [facility] - 09:23:00 [facility] Synvisc Synvisc 2020-09-19 Completed [facility] - 09:23:00 [facility] Synvisc Synvisc 2020-09-19 Completed [facility] - 09:23:00 [facility] Synvisc Synvisc 2020-09-12 Completed [facility] - 09:45:00 [facility] Synvisc Synvisc 2020-09-12 Completed [facility] - 09:45:00 [facility] Synvisc Synvisc 2020-09-12 Completed [facility] - 09:45:00 [facility] Synvisc Synvisc 2020-09-12 Completed [facility] - 09:43:00 [facility] Synvisc Synvisc 2020-09-12 Completed [facility] - 09:43:00 [facility] Synvisc Synvisc 2020-09-12 Completed [facility] - 09:43:00 [facility] Kenalog Kenalog 2020-09-05 Completed [facility] - (Triamcinolone) (Triamcinolone) 10:05:00 [facility] Bupivicaine [place] Bupivicaine [place] 2020-09-05 Completed [facility] - 10:05:00 [facility] Bupivicaine [place] Bupivicaine [place] 2020-09-05 Completed [facility] - 10:05:00 [facility] Kenalog Kenalog 2020-09-05 Completed [facility] - (Triamcinolone) (Triamcinolone) 10:05:00 [facility] Bupivicaine [place] Bupivicaine [place] 2020-09-05 Completed [facility] - 10:05:00 [facility] Bupivicaine [place] Bupivicaine [place] 2020-09-05 Completed [facility] - 10:05:00 [facility] Kenalog Kenalog 2020-09-05 Completed [facility] - (Triamcinolone) (Triamcinolone) 10:05:00 [facility] Bupivicaine [place] Bupivicaine [place] 2020-09-05 Completed [facility] - 10:05:00 [facility] Bupivicaine [place] Bupivicaine [place] 2020-09-05 Completed [facility] - 10:05:00 [facility] Com[facility] - 10:04:00 [facility] Synvis Synvis 2020-09-05 Completed [facility] - 10:04:00 [facility] Kenlucius Kenalog 2020-09-05 Completed [facility] - (Triamcinolone) (Triamcinolone) 10:04:00 [facility] Synvisc Synvisc 2020-09-05 Completed [facility] - 10:04:00 [facility] Synvis Synvisc 2020-09-05 Completed [facility] - 10:04:00 [facility] Kenlucius Kenalog 2020-09-05 Completed [facility] - (Triamcinolone) (Triamcinolone) 10:04:00 [facility] Synvisc Synvisc 2020-09-05 Completed [facility] - 10:04:00 [facility] Synvis Synvisc 2020-09-05 Completed [facility] - 10:04:00 [facility] Kenalog Kenalog 2020-09-05 Completed [facility] - (Triamcinolone) (Triamcinolone) 10:04:00 [facility] [id number] 2020-03-30 Completed [facility] [place] [id number] 00:00:00 SARS-COV-2 COVID-19 2020-03-30 Completed Unive rsity of MODERNA 12+ YRS 00:00:00 [place] [facility] VACCINE Branch SARS-COV-2 COVID-19 2020-03-30 Completed [facility]ive rs[facility] of MODERNA VACCINE 00:00:00 [place] [facility] ical Branch SARS-COV-2 COVID-19 2020-03-30 Completed Unive rsity of MODERNA 12+ YRS 00:00:[address] [facility] ical VACCINE Branch [id number] 2020-03-02 Completed [facility] [place] [id number] 00:00:00 SARS-COV-2 COVID-19 2020-03-02 Completed Unive rs[facility] of MODERNA 12+ YRS 00:00:00 [place] [facility] ical VACCINE Branch SARS-COV-2 COVID-19 2020-03-02 Completed [facility] 12+ YRS 00:00:[address] [facility] ical VACCINE Branch Afluria single dose Afluria single dose 2019-11-18 Completed [facility] 11:17:00 [facility] Afluria single dose Afluria single dose 2019-11-18 Completed [facility] - 11:17:00 [facility] Afluria single dose Afluria single dose 2019-11-18 Completed [facility] - 11:17:00 [facility] Afluria single dose Afluria single dose 2019-11-18 Completed [facility] - 11:17:00 [facility] Afluria single dose Afluria single dose 2019-11-18 Completed [facility] - 11:17:00 [facility] Afluria single dose Afluria single dose 2019-11-18 Completed [facility] - 11:17:00 [facility] Afluria single dose Afluria single dose 2019-11-18 Completed [facility] - 11:17:00 [facility] Afluria single dose Afluria single dose 2019-11-18 Completed [facility] - 11:17:00 [facility] Afluria single dose Afluria single dose 2019-11-18 Completed [facility] - 11:17:00 [facility] Afluria single dose Afluria single dose 2019-11-18 Completed [facility] - 11:17:00 [facility] Afluria single dose Afluria single dose 2019-11-18 Completed [facility] - 11:17:00 [facility] Afluria single dose Afluria single dose 2019-11-18 Completed [facility] - 11:17:00 [facility] Afluria single dose Afluria single dose 2019-11-18 Completed [facility] - 11:17:00 [facility] Afluria single dose Afluria single dose 2019-11-18 Completed [facility] - 11:17:00 [facility] Afluria single dose Afluria single dose 2019-11-18 Completed [facility] - 11:17:00 [facility] Afluria single dose Afluria single dose 2019-11-18 Completed [facility] - 11:17:00 [facility] Afluria single dose Afluria single dose 2019-11-18 Completed [facility] - 11:17:00 [facility] Afluria single dose Afluria single dose 2019-11-18 Completed [facility] - 11:17:00 [facility] Afluria single dose Afluria single dose 2019-11-18 Completed [facility] - 11:17:00 [facility] Afluria single dose Afluria single dose 2019-11-18 Completed [facility] - 11:17:00 [facility] Afluria single dose Afluria single dose 2019-11-18 Completed [facility] - 11:17:00 [facility] Afluria single dose Afluria single dose 2019-11-18 Completed [facility] - 11:17:00 [facility] Afluria single dose Afluria single dose 2019-11-18 Completed [facility] - 11:17:00 [facility] Afluria single dose Afluria single dose 2019-11-18 Completed [facility] - 11:17:00 [facility] Afluria single dose Afluria single dose 2019-11-18 Completed [facility] - 11:17:00 [facility] Afluria single dose Afluria single dose 2019-11-18 Completed [facility] 11:17:00 [facility] Afluria single dose Afluria single dose 2019-11-18 Completed [facility] - 11:17:00 [facility] Afluria single dose Afluria single dose 2019-11-18 Completed [facility] - 11:17:00 [facility] Afluria single dose Afluria single dose 2019-11-18 Completed [facility] - 11:17:00 [facility] Afluria single dose Afluria single dose 2019-11-18 Completed [facility] - 11:17:00 [facility] Afluria single dose Afluria single dose 2019-11-18 Completed [facility] - 11:17:00 [facility] Afluria single dose Afluria single dose 2019-11-18 Completed [facility] 11:17:00 [facility] Afluria single dose Afluria single dose 2019-11-18 Completed [facility] - 11:17:00 [facility] Afluria single dose Afluria single dose 2019-11-18 Completed [facility] - 11:17:00 [facility] Afluria single dose Afluria single dose 2019-11-18 Completed [facility] - 11:17:00 [facility] Kenalog Kenalog 2019-03-04 Completed [facility] - (Triamcinolone) (Triamcinolone) 08:38:00 [facility] Kenalog Kenalog 2019-03-04 Completed [facility] - (Triamcinolone) (Triamcinolone) 08:38:00 [facility] Kenalog Kenalog 2019-03-04 Completed [facility] - (Triamcinolone) (Triamcinolone) 08:38:00 [facility] Kenalog Kenalog 2019-03-04 Completed [facility] - (Triamcinolone) (Triamcinolone) 08:37:00 [facility] Kenalog Kenalog 2019-03-04 Completed [facility] - (Triamcinolone) (Triamcinolone) 08:37:00 [facility] Kenalog Kenalog 2019-03-04 Completed [facility] - (Triamcinolone) (Triamcinolone) 08:37:00 [facility] Bupivicaine [place] Bupivicaine [place] 2019-03-04 Completed [facility] - 08:36:00 [facility] Bupivicaine [place] Bupivicaine [place] 2019-03-04 Completed [facility] - 08:36:00 [facility] Bupivicaine [place] Bupivicaine [place] 2019-03-04 Completed [facility] - 08:36:00 [facility] Bupivicaine [place] Bupivicaine [place] 2019-03-04 Completed [facility] - 08:36:00 [facility] Bupivicaine [place] Bupivicaine [place] 2019-03-04 Completed [facility] - 08:36:00 [facility] Bupivicaine [place] Bupivicaine [place] 2019-03-04 Completed [facility] - 08:36:00 [facility] Shingrix Shingrix 2019-03-01 Completed [facility] - 15:12:00 [facility] Shingrix Shingrix 2019-03-01 Completed [facility] - 15:12:00 [facility] Shingrix Shingrix 2019-03-01 Completed [facility] - 15:12:00 [facility] Shingrix Shingrix 2019-03-01 Completed [facility] - 15:12:00 [facility] Shingrix Shingrix 2019-03-01 Completed [facility] - 15:12:00 [facility] Shingrix Shingrix 2019-03-01 Completed [facility] - 15:12:00 [facility] Shingrix Shingrix 2019-03-01 Completed [facility] - 15:12:00 [facility] Shingrix Shingrix 2019-03-01 Completed [facility] - 15:12:00 [facility] Shingrix Shingrix 2019-03-01 Completed [facility] - 15:12:00 [facility] Shingrix Shingrix 2019-03-01 Completed [facility] - 15:12:00 [facility] Shingrix Shingrix 2019-03-01 Completed [facility] - 15:12:00 [facility] Shingrix Shingrix 2019-03-01 Completed [facility] - 15:12:00 [facility] Shingrix Shingrix 2019-03-01 Completed [facility] - 15:12:00 [facility] Shingrix Shingrix 2019-03-01 Completed [facility] - 15:12:00 [facility] Shingrix Shingrix 2019-03-01 Completed [facility] - 15:12:00 [facility] Shingrix Shingrix 2019-03-01 Completed [facility] - 15:12:00 [facility] Shingrix Shingrix 2019-03-01 Completed [facility] - 15:12:00 [facility] Shingrix Shingrix 2019-03-01 Completed [facility] - 15:12:00 [facility] Shingrix Shingrix 2019-03-01 Completed [facility] - 15:12:00 [facility] Shingrix Shingrix 2019-03-01 Completed [facility] - 15:12:00 [facility] Shingrix Shingrix 2019-03-01 Completed [facility] - 15:12:00 [facility] Shingrix Shingrix 2019-03-01 Completed [facility] - 15:12:00 [facility] Shingrix Shingrix 2019-03-01 Completed [facility] - 15:12:00 [facility] Shingrix Shingrix 2019-03-01 Completed [facility] - 15:12:00 [facility] Shingrix Shingrix 2019-03-01 Completed [facility] - 15:12:00 [facility] Shingrix Shingrix 2019-03-01 Completed [facility] - 15:12:00 [facility] Shingrix Shingrix 2019-03-01 Completed [facility] - 15:12:00 [facility] Shingrix Shingrix 2019-03-01 Completed [facility] - 15:12:00 [facility] Shingrix Shingrix 2019-03-01 Completed [facility] - 15:12:00 [facility] Shingrix Shingrix 2019-03-01 Completed [facility] - 15:12:00 [facility] Shingrix Shingrix 2019-03-01 Completed [facility] - 15:12:00 [facility] Shingrix Shingrix 2019-03-01 Completed [facility] 15:12:00 [facility] Shingrix Shingrix 2019-03-01 Completed [facility] - 15:12:00 [facility] Shingrix Shingrix 2019-03-01 Completed [facility] - 15:12:00 [facility] Shingrix Shingrix 2019-03-01 Completed [facility] - 15:12:00 [facility] Shingrix Shingrix 2019-03-01 Completed [facility] - 00:00:00 [facility] Shingrix Shingrix 2018-12-28 Completed [facility] - 15:32:00 [facility] Shingrix Shingrix 2018-12-28 Completed [facility] - 15:32:00 [facility] Shingrix Shingrix 2018-12-28 Completed [facility] - 15:32:00 [facility] Shingrix Shingrix 2018-12-28 Completed [facility] - 15:32:00 [facility] Shingrix Shingrix 2018-12-28 Completed [facility] - 15:32:00 [facility] Shingrix Shingrix 2018-12-28 Completed [facility] - 15:32:00 [facility] Shingrix Shingrix 2018-12-28 Completed [facility] - 15:32:00 [facility] Shingrix Shingrix 2018-12-28 Completed [facility] - 15:32:00 [facility] Shingrix Shingrix 2018-12-28 Completed [facility] - 15:32:00 [facility] Shingrix Shingrix 2018-12-28 Completed [facility] - 15:32:00 [facility] Shingrix Shingrix 2018-12-28 Completed [facility] - 15:32:00 [facility] Shingrix Shingrix 2018-12-28 Completed [facility] - 15:32:00 [facility] Shingrix Shingrix 2018-12-28 Completed [facility] - 15:32:00 [facility] Shingrix Shingrix 2018-12-28 Completed [facility] - 15:32:00 [facility] Shingrix Shingrix 2018-12-28 Completed [facility] - 15:32:00 [facility] Shingrix Shingrix 2018-12-28 Completed [facility] - 15:32:00 [facility] Shingrix Shingrix 2018-12-28 Completed [facility] - 15:32:00 [facility] Shingrix Shingrix 2018-12-28 Completed [facility] - 15:32:00 [facility] Shingrix Shingrix 2018-12-28 Completed [facility] - 15:32:00 [facility] Shingrix Shingrix 2018-12-28 Completed [facility] - 15:32:00 [facility] Shingrix Shingrix 2018-12-28 Completed [facility] - 15:32:00 [facility] Shingrix Shingrix 2018-12-28 Completed [facility] - 15:32:00 [facility] Shingrix Shingrix 2018-12-28 Completed [facility] - 15:32:00 [facility] Shingrix Shingrix 2018-12-28 Completed [facility] - 15:32:00 [facility] Shingrix Shingrix 2018-12-28 Completed [facility] - 15:32:00 [facility] Shingrix Shingrix 2018-12-28 Completed [facility] - 15:32:00 [facility] Shingrix Shingrix 2018-12-28 Completed [facility] - 15:32:00 [facility] Shingrix Shingrix 2018-12-28 Completed [facility] - 15:32:00 [facility] Shingrix Shingrix 2018-12-28 Completed [facility] - 15:32:00 [facility] Shingrix Shingrix 2018-12-28 Completed [facility] - 15:32:00 [facility] Shingrix Shingrix 2018-12-28 Completed [facility] - 15:32:00 [facility] Shingrix Shingrix 2018-12-28 Completed [facility] - 15:32:00 [facility] Shingrix Shingrix 2018-12-28 Completed [facility] - 15:32:00 [facility] Shingrix Shingrix 2018-12-28 Completed [facility] - 15:32:00 [facility] Shingrix Shingrix 2018-12-28 Completed [facility] - 15:32:00 [facility] Orthovisc Orthovisc 2018-10-27 Completed [facility] - 08:21:00 [facility] Orthovisc Orthovisc 2018-10-27 Completed [facility] - 08:21:00 [facility] Orthovisc Orthovisc 2018-10-27 Completed [facility] - 08:21:00 [facility] Orthovisc Orthovisc 2018-10-27 Completed [facility] - 08:20:00 [facility] Orthovisc Orthovisc 2018-10-27 Completed [facility] - 08:20:00 [facility] Orthovisc Orthovisc 2018-10-27 Completed [facility] - 08:20:00 [facility] Orthovisc Orthovisc 2018-10-20 Completed [facility] - 08:37:00 [facility] Orthovisc Orthovisc 2018-10-20 Completed [facility] - 08:37:00 [facility] Orthovisc Orthovisc 2018-10-20 Completed [facility] - 08:37:00 [facility] Orthovisc Orthovisc 2018-10-20 Completed [facility] - 08:36:00 [facility] Orthovisc Orthovisc 2018-10-20 Completed [facility] - 08:36:00 [facility] Orthovisc Orthovisc 2018-10-20 Completed [facility] - 08:36:00 [facility] Orthovisc Orthovisc 2018-10-13 Completed [facility] - 08:59:00 [facility] Orthovisc Orthovisc 2018-10-13 Completed [facility] - 08:59:00 [facility] Orthovisc Orthovisc 2018-10-13 Completed [facility] - 08:59:00 [facility] Orthovisc Orthovisc 2018-10-13 Completed [facility] - 08:58:00 [facility] Orthovisc Orthovisc 2018-10-13 Completed [facility] - 08:58:00 [facility] Orthovisc Orthovisc 2018-10-13 Completed [facility] - 08:58:00 [facility] LIDOCAINE HCL LIDOCAINE HCL 2018-06-24 Completed [facility] - 10MG/ML 10MG/ML 10:52:00 [facility] LIDOCAINE HCL LIDOCAINE HCL 2018-06-24 Completed [facility] - 10MG/ML 10MG/ML 10:52:00 [facility] LIDOCAINE HCL LIDOCAINE HCL 2018-06-24 Completed [facility] - 10MG/ML 10MG/ML 10:52:00 [facility] LIDOCAINE HCL LIDOCAINE HCL 2018-06-24 Completed [facility] - 10MG/ML 10MG/ML 10:52:00 [facility] LIDOCAINE HCL LIDOCAINE HCL 2018-06-24 Completed [facility] - 10MG/ML 10MG/ML 10:52:00 [facility] LIDOCAINE HCL LIDOCAINE HCL 2018-06-24 Completed [facility] - 10MG/ML 10MG/ML 10:52:00 [facility] Kenlucius Underwoodalog 2018-06-24 Completed [facility] - (Triamcinolone) (Triamcinolone) 10:51:00 [facility] Kenalog Kenalog 2018-06-24 Completed [facility] - (Triamcinolone) (Triamcinolone) 10:51:00 [facility] Kenlucius Kenalog 2018-06-24 Completed [facility] - (Triamcinolone) (Triamcinolone) 10:51:00 [facility] Kenlucius Kenalog 2018-06-24 Completed [facility] - (Triamcinolone) (Triamcinolone) 10:50:00 [facility] Kenlucius Kenalog 2018-06-24 Completed [facility] - (Triamcinolone) (Triamcinolone) 10:50:00 [facility] Kenlucius Kenalog 2018-06-24 Completed [facility] (Triamcinolone) (Triamcinolone) 10:50:00 [facility] Afluria Afluria 2017-11-27 Completed [facility] - 09:58:00 [facility] Afluria Afluria 2017-11-27 Completed [facility] - 09:58:00 [facility] Afluria Afluria 2017-11-27 Completed [facility] - 09:58:00 [facility] Afluria Afluria 2017-11-27 Completed [facility] - 09:58:00 [facility] Afluria Afluria 2017-11-27 Completed [facility] - 09:58:00 [facility] Afluria Afluria 2017-11-27 Completed [facility] - 09:58:00 [facility] Afluria Afluria 2017-11-27 Completed [facility] - 09:58:00 [facility] Afluria Afluria 2017-11-27 Completed [facility] - 09:58:00 [facility] Afluria Afluria 2017-11-27 Completed [facility] - 09:58:00 [facility] Afluria Afluria 2017-11-27 Completed [facility] - 09:58:00 [facility] Afluria Afluria 2017-11-27 Completed [facility] - 09:58:00 [facility] Afluria Afluria 2017-11-27 Completed [facility] - 09:58:00 [facility] Afluria Afluria 2017-11-27 Completed [facility] - 09:58:00 [facility] Afluria Afluria 2017-11-27 Completed [facility] - 09:58:00 [facility] Afluria Afluria 2017-11-27 Completed [facility] - 09:58:00 [facility] Afluria Afluria 2017-11-27 Completed [facility] - 09:58:00 [facility] Afluria Afluria 2017-11-27 Completed [facility] - 09:58:00 [facility] Afluria Afluria 2017-11-27 Completed [facility] - 09:58:00 [facility] Afluria Afluria 2017-11-27 Completed [facility] - 09:58:00 [facility] Afluria Afluria 2017-11-27 Completed [facility] - 09:58:00 [facility] Afluria Afluria 2017-11-27 Completed [facility] - 09:58:00 [facility] Afluria Afluria 2017-11-27 Completed [facility] - 09:58:00 [facility] Afluria Afluria 2017-11-27 Completed [facility] - 09:58:00 [facility] Afluria Afluria 2017-11-27 Completed [facility] - 09:58:00 [facility] Afluria Afluria 2017-11-27 Completed [facility] - 09:58:00 [facility] Afluria Afluria 2017-11-27 Completed [facility] - 09:58:00 [facility] Afluria Afluria 2017-11-27 Completed [facility] - 09:58:00 [facility] Afluria Afluria 2017-11-27 Completed [facility] - 09:58:00 [facility] Afluria Afluria 2017-11-27 Completed [facility] - 09:58:00 [facility] Afluria Afluria 2017-11-27 Completed [facility] - 09:58:00 [facility] Afluria Afluria 2017-11-27 Completed [facility] - 09:58:00 [facility] Afluria Afluria 2017-11-27 Completed [facility] - 09:58:00 [facility] Afluria Afluria 2017-11-27 Completed [facility] - 09:58:00 [facility] Afluria Afluria 2017-11-27 Completed [facility] - 09:58:00 [facility] Afluria Afluria 2017-11-27 Completed [facility] - 09:58:00 [facility] Afluria Afluria 2017-11-27 Completed [facility] - 00:00:00 [facility] Vital Signs Vital Name Observation Time Observation Value Comments Source height 2022-03-18 10:00:00 68 [in_i] [facility] weight 2022-03-18 10:00:00 174.00 [lb_av] [facility] temperature 2022-03-18 10:00:00 97.2 [degF] [facility] bmi 2022-03-18 10:00:00 26.45 kg/m2 [facility] oximetry 2022-03-18 10:00:00 98 % [facility] respiratory rate 2022-03-18 10:00:00 17 /min [facility] on [facility] blood pressure 2022-03-18 10:00:00 110 mm[Hg] [facility] - systolic [facility] blood pressure 2022-03-18 10:00:00 67 mm[Hg] [facility] diastolic [facility] height 2022-01-28 08:15:00 68 [in_i] [facility] weight 2022-01-28 08:15:00 173.2 [lb_av] [facility] temperature 2022-01-28 08:15:00 98.3 [degF] [facility] bmi 2022-01-28 08:15:00 26.33 kg/m2 [facility] blood pressure 2022-01-28 08:15:00 120 mm[Hg] [facility] - systolic [facility] blood pressure 2022-01-28 08:15:00 80 mm[Hg] [facility] - diastolic [facility] height 2022-01-21 09:40:00 68 [in_i] [facility] weight 2022-01-21 09:40:00 168.2 [lb_av] [facility] temperature 2022-01-21 09:40:00 97.5 [degF] [facility] bmi 2022-01-21 09:40:00 25.57 kg/m2 [facility] oximetry 2022-01-21 09:40:00 96 % [facility] respiratory rate 2022-01-21 09:40:00 17 /min [facility] on [facility] blood pressure 2022-01-21 09:40:00 117 mm[Hg] [facility] - systolic [facility] blood pressure 2022-01-21 09:40:00 69 mm[Hg] [facility] - diastolic [facility] height 2022-01-15 08:15:00 68 [in_i] [facility] weight 2022-01-15 08:15:00 177 [lb_av] [facility] temperature 2022-01-15 08:15:00 98.2 [degF] [facility] bmi 2022-01-15 08:15:00 26.91 kg/m2 [facility] blood pressure 2022-01-15 08:15:00 116 mm[Hg] [facility] - systolic [facility] blood pressure 2022-01-15 08:15:00 78 mm[Hg] [facility] - diastolic [facility] height 2022-01-08 08:00:00 68 [in_i] [facility] weight 2022-01-08 08:00:00 177 [lb_av] [facility] temperature 2022-01-08 08:00:00 97.4 [degF] [facility] bmi 2022-01-08 08:00:00 26.91 kg/m2 [facility] blood pressure 2022-01-08 08:00:00 118 mm[Hg] [facility] - systolic [facility] blood pressure 2022-01-08 08:00:00 71 mm[Hg] [facility] - diastolic [facility] HEIGHT 2021-11-13 11:02:00 172.7 cm WEIGHT 2021-11-13 11:02:00 78.472 kg HEIGHT 2021-11-06 14:58:00 172.7 cm WEIGHT 2021-11-06 14:58:00 79.379 kg HEIGHT 2021-11-13 11:02:00 172.7 cm WEIGHT 2021-11-13 11:02:00 78.472 kg HEIGHT 2021-11-06 14:58:00 172.7 cm WEIGHT 2021-11-06 14:58:00 79.379 kg HEIGHT 2021-11-13 11:02:00 172.7 cm WEIGHT 2021-11-13 11:02:00 78.472 kg HEIGHT 2021-11-06 14:58:00 172.7 cm WEIGHT 2021-11-06 14:58:00 79.379 kg HEIGHT 2021-11-12 11:17:00 172.7 cm WEIGHT 2021-11-12 11:17:00 79.379 kg HEIGHT 2021-11-12 11:17:00 172.7 cm WEIGHT 2021-11-12 11:17:00 79.379 kg HEIGHT 2021-11-12 11:17:00 172.7 cm WEIGHT 2021-11-12 11:17:00 79.379 kg height 2021-10-17 09:00:00 68 [in_i] [facility] weight 2021-10-17 09:00:00 175.3 [lb_av] [facility] temperature 2021-10-17 09:00:00 97.2 [degF] [facility] bmi 2021-10-17 09:00:00 26.65 kg/m2 [facility] oximetry 2021-10-17 09:00:00 98 % [facility] respiratory rate 2021-10-17 09:00:00 18 /min [facility] on [facility] blood pressure 2021-10-17 09:00:00 120 mm[Hg] [facility] - systolic [facility] blood pressure 2021-10-17 09:00:00 68 mm[Hg] [facility] - diastolic [facility] height 2021-10-16 15:00:00 68 [in_i] [facility] weight 2021-10-16 15:00:00 177 [lb_av] [facility] temperature 2021-10-16 15:00:00 97.0 [degF] [facility] bmi 2021-10-16 15:00:00 26.91 kg/m2 [facility] blood pressure 2021-10-16 15:00:00 118 mm[Hg] [facility] - systolic [facility] blood pressure 2021-10-16 15:00:00 80 mm[Hg] [facility] - diastolic [facility] Systolic blood 2021-10-08 18:15:00 107 mm[Hg] [facility] Diastolic blood 2021-10-08 18:15:00 64 mm[Hg] [facility] Heart rate 2021-10-08 18:15:00 75 /min [facility] Body height 2021-10-08 18:15:00 172.7 cm [facility] Body weight 2021-10-08 18:15:00 79.924 kg [facility] BMI 2021-10-08 18:15:00 26.79 kg/m2 [facility] height 2021-08-28 16:10:00 68 [in_i] [facility] weight 2021-08-28 16:10:00 174.6 [lb_av] [facility] temperature 2021-08-28 16:10:00 97.9 [degF] [facility] bmi 2021-08-28 16:10:00 26.54 kg/m2 [facility] oximetry 2021-08-28 16:10:00 100 % [facility] respiratory rate 2021-08-28 16:10:00 18 /min [facility] on [facility] blood pressure 2021-08-28 16:10:00 111 mm[Hg] [facility] - systolic [facility] blood pressure 2021-08-28 16:10:00 68 mm[Hg] [facility] - diastolic [facility] BP Diastolic 2021-07-18 00:00:00 76 mm[Hg] Tim Cordero edical Height 2021-07-18 00:00:00 68 [in_i] [facility] BMI (Body Mass 2021-07-18 00:00:00 26.5 kg[facility]2 [facility] BP Systolic 2021-07-18 00:00:00 121 mm[Hg] [facility] Body Weight 2021-07-18 00:00:00 174 [lb_av] Tim [facility] BP Diastolic 2021-05-18 00:00:00 72 mm[Hg] Tim Cordero edical Height 2021-05-18 00:00:00 68 [in_i] [facility] BMI (Body Mass 2021-05-18 00:00:00 26.5 kg/m2 [facility] BP Systolic 2021-05-18 00:00:00 118 mm[Hg] [facility] Weight 2021-05-18 00:00:00 174 [lb_av] [facility] height 2021-05-15 10:00:00 68 [in_i] [facility] weight 2021-05-15 10:00:00 175.4 [lb_av] [facility] temperature 2021-05-15 10:00:00 97.3 [degF] [facility] bmi 2021-05-15 10:00:00 26.67 kg/m2 [facility] oximetry 2021-05-15 10:00:00 98 % [facility] respiratory rate 2021-05-15 10:00:00 17 /min Comm on [facility] blood pressure 2021-05-15 10:00:00 110 mm[Hg] [facility] - systolic [facility] blood pressure 2021-05-15 10:00:00 62 mm[Hg] [facility] - diastolic [facility] BP Diastolic 2021-03-26 00:00:00 72 mm[Hg] [facility] Height 2021-03-26 00:00:00 68 [in_i] [facility] BMI (Body Mass 2021-03-26 00:00:00 26.2 kg/m2 [facility] Medical Index) BP Systolic 2021-03-26 00:00:00 126 mm[Hg] [facility] Body Weight 2021-03-26 00:00:00 172 [lb_av] [facility] Body height 2021-02-27 16:29:00 [facility] 2021-02-27 16:29:00 77.565 kg pt reported [facility] BMI 2021-02-27 16:29:00 26.00 kg/m2 [facility] Body height 2021-02-27 16:29:00 172.7 [facility] Body weight 2021-02-27 16:29:00 77.565 kg [facility] BMI 2021-02-27 16:29:00 26.00 kg/m2 [facility] Body height 2021-02-27 16:29:00 172.7 [facility] Body weight 2021-02-27 16:29:00 77.565 kg [facility] BMI 2021-02-27 16:29:00 26.00 kg/m2 [facility] Body height 2021-02-27 16:29:00 172.7 [facility] Body weight 2021-02-27 16:29:00 77.565 kg [facility] BMI 2021-02-27 16:29:00 26.00 kg[facility] height 2021-02-13 14:40:00 68 [in_i] [facility] weight 2021-02-13 14:40:00 176.9 [lb_av] [facility] temperature 2021-02-13 14:40:00 97.9 [degF] [facility] bmi 2021-02-13 14:40:00 26.89 kg/m2 [facility] oximetry 2021-02-13 14:40:00 100 % [facility] respiratory rate 2021-02-13 14:40:00 18 /min Comm on [facility] blood pressure 2021-02-13 14:40:00 116 mm[Hg] [facility] - systolic [facility] blood pressure 2021-02-13 14:40:00 73 mm[Hg] [facility] - diastolic [facility] height 2021-01-16 14:20:00 68 [in_i] Common [facility] weight 2021-01-16 14:20:00 176.1 [lb_av] [facility] temperature 2021-01-16 14:20:00 97.9 [degF] [facility] bmi 2021-01-16 14:20:00 26.77 kg/m2 [facility] oximetry 2021-01-16 14:20:00 99 % [facility] respiratory rate 2021-01-16 14:20:00 18 /min Comm on [facility] blood pressure 2021-01-16 14:20:00 104 mm[Hg] [facility] - systolic [facility] blood pressure 2021-01-16 14:20:00 68 mm[Hg] [facility] - diastolic [facility] height 2020-10-24 11:10:00 68 [in_i] Common [facility] weight 2020-10-24 11:10:00 170 [lb_av] [facility] temperature 2020-10-24 11:10:00 97.7 [degF] [facility] bmi 2020-10-24 11:10:00 25.85 kg/m2 [facility] respiratory rate 2020-10-24 11:10:00 18 /min Comm on [facility] blood pressure 2020-10-24 11:10:00 122 mm[Hg] [facility] - systolic [facility] blood pressure 2020-10-24 11:10:00 64 mm[Hg] [facility] - diastolic [facility] height 2020-10-20 09:50:00 68 [in_i] Common [facility] weight 2020-10-20 09:50:00 170.1 [lb_av] [facility] temperature 2020-10-20 09:50:00 97.0 [degF] [facility] bmi 2020-10-20 09:50:00 25.86 kg/m2 [facility] oximetry 2020-10-20 09:50:00 100 % [facility] respiratory rate 2020-10-20 09:50:00 16 /min Comm on [facility] blood pressure 2020-10-20 09:50:00 116 mm[Hg] [facility] blood pressure 2020-10-20 09:50:00 69 mm[Hg] [facility] - [facility] Systolic blood 2018-10-27 18:18:00 102 mm[Hg] [facility] pressure of Medicine Diastolic blood 2018-10-27 18:18:00 68 mm[Hg] [facility] pressure of Medicine Heart rate 2018-10-27 18:18:00 98 /min [facility] ollege of Medicine Body temperature 2018-10-27 18:18:00 36.94 Hilaria [facility] Respiratory rate 2018-10-27 18:18:00 16 /min [facility] Body height 2018-10-27 18:18:00 172.7 cm [facility] ollege of [facility] Body weight 2018-10-27 18:18:00 68.493 kg [facility] of [facility] BMI 2018-10-27 18:18:00 22.96 [facility] Systolic blood 2018-10-27 18:18:00 102 mm[Hg] [facility] pressure of Medicine Diastolic blood 2018-10-27 18:18:00 68 mm[Hg] [facility] pressure of Medicine Heart rate 2018-10-27 18:18:00 98 /min [facility] Medicine Body temperature 2018-10-27 18:18:00 36.94 Hilaria [facility] Respiratory rate 2018-10-27 18:18:00 16 /min [facility] Body height 2018-10-27 18:18:00 172.7 cm [facility] Body weight 2018-10-27 18:18:00 68.493 kg [facility] BMI 2018-10-27 18:18:00 22.96 [facility]m2 [facility] Height 2021-12-12 19:32:00 5 [ft_i] Nadya Kenney Weight 2021-12-12 19:32:00 Nadya Kenney BMI Calculated 2021-12-12 19:32:00 Brad Torres Heart Rate 2021-12-07 16:20:07 [facility] [place] Systolic (mm Hg) 2021-12-07 16:20:03 Jose rial [place] Diastolic (mm Hg) 2021-12-07 16:20:03 [facility] [place] Temperature Oral (F) 2021-12-07 16:19:36 98.1 F [facility] [place] Height 2021-12-05 19:07:00 5 [ft_i] [facility] [place] Weight 2021-12-05 19:07:00 [facility] [place] BMI Calculated 2021-12-05 19:07:00 Memori al [place] Systolic (mm Hg) 2021-11-20 18:11:00 Jose rial [place] Diastolic (mm Hg) 2021-11-20 18:11:00 [facility] [place] Height 2021-11-20 18:11:00 165.1 cm [facility] [place] Weight 2021-11-20 18:11:00 [facility] [place] BMI Calculated 2021-11-20 18:11:00 [facility] al [place] Systolic blood 2021-11-13 12:50:00 113 mm[Hg] [facility] Diastolic blood 2021-11-13 12:50:00 77 mm[Hg] [facility] Heart rate 2021-11-13 12:50:00 79 /min [facility] Respiratory rate 2021-11-13 12:50:00 18 /min [facility] Oxygen saturation in 2021-11-13 12:50:00 99 /min [facility] Arterial blood by Medical Ce nter Pulse oximetry Body temperature 2021-11-13 12:28:00 35.94 Hilaria [facility] Body height 2021-11-13 11:02:00 172.7 cm [facility] Body weight 2021-11-13 11:02:00 78.472 kg [facility] BMI 2021-11-13 11:02:00 26.30 kg/m2 [facility] Body height 2021-11-06 14:58:00 172.7 cm [facility] Body weight 2021-11-06 14:58:00 79.379 kg [facility] BMI 2021-11-06 14:58:00 26.61 kg/m2 [facility] Height 2021-02-05 18:55:00 165.1 cm [facility] [place] Weight 2021-02-05 18:55:00 [facility] [place] BMI Calculated 2021-02-05 18:55:00 [facility] [place] Height 2020-12-05 20:19:00 165.1 cm [facility] [place] Weight 2020-12-05 20:19:00 [facility] [place] BMI Calculated 2020-12-05 20:19:00 [facility] [place] Height 2020-07-31 14:27:00 165.1 cm [facility] [place] Weight 2020-07-31 14:27:00 [facility] [place] BMI Calculated 2020-07-31 14:27:00 [facility] [place] Height 2019-12-08 16:18:00 167.64 cm [facility] [place] Weight 2019-12-08 16:18:00 [facility] [place] BMI Calculated 2019-12-08 16:18:00 [facility] [place] Systolic (mm Hg) 2016-11-29 15:59:00 Jose rial [place] Diastolic (mm Hg) 2016-11-29 15:59:00 Mem [facility] [place] Temperature Oral (F) 2016-11-29 15:59:00 98.0 F [facility] [place] Heart Rate 2016-11-29 15:59:00 [facility] [place] Respitory Rate 2016-11-29 15:59:00 Memori [facility] [place] Temperature Oral (F) 2016-11-29 12:24:00 97.7 F [facility] [place] Heart Rate 2016-11-29 12:24:00 [facility] [place] Systolic (mm Hg) 2016-11-29 12:24:00 Jose rial [place] Diastolic (mm Hg) 2016-11-29 12:24:00 [facility] [place] Respitory Rate 2016-11-29 12:24:00 [facility] [place] Respitory Rate 2016-11-29 09:00:00 [facility] [place] Systolic (mm Hg) 2016-11-29 09:00:00 Jose rial [place] Diastolic (mm Hg) 2016-11-29 09:00:00 [facility] [place] Temperature Oral (F) 2016-11-29 09:00:00 97.6 F [facility] [place] Heart Rate 2016-11-29 09:00:00 [facility] [place] BMI Calculated 2016-11-21 18:12:00 Mundoraj ja [place] Weight 2016-11-21 18:12:00 [facility] Height 2016-11-21 18:12:00 172.72 cm [facility] Procedures Procedure Date / Time Performing Clinician Source Performed SARS-COV-2 COVID-19 2021-12-14 13:24:58 Doctor Unaamaris, Dave [facility] [place] VACCINE 18 YRS+, BIVALENT [facility] 0.5ML, IM (MODERNA BOOSTER) CONSENT/REFUSAL FOR 2021-12-14 13:11:06 Doctor [facility]zain[facility] [place] [facility] TREATMENT [facility] REMOVAL,48HR PH FU 2021-11-15 12:30:00 Nely Oakley [facility] CAPSULE Center REPORT OF PROCEDURE - 2021-11-13 12:31:53 Nely Oakley [facility] ENDOSCOPY URL Center TISSUE EXAM 2021-11-13 12:13:00 Nely Oakley [facility] ESOPHAGOGASTRODUODENOSCOPY 2021-11-13 12:00:00 Nely Oakley [facility] , WITH PH MONITORING Center CAPSULE INSERTION COLONOSCOPY 2021-11-13 12:00:00 Nely Oakley [facility] COLONOSCOPY, WITH 2021-11-13 11:59:00 Nely Oakley [facility] POLYPECTOMY Center MOTILITY STUDY, ESOPHAGUS 2021-11-12 13:30:00 Annia Lozano [facility] MOTILITY STUDY, ESOPHAGUS 2021-11-12 10:48:00 Annia Lozano [facility] SARS-COV-2 COVID-19 2021-06-04 19:15:46 Doctor Dave [facility]anon [facility] [place] VACCINE BOOSTER,0.25ML,IM [facility] (MODERNA) Incontinence Procedure: 2021-05-03 00:00:00 [facility] Suburethral Sling SARS-COV-2 COVID-19 2020-10-26 15:26:53 Doctor Henrry Castanone [facility] [place] VACCINE,0.5ML,IM (MODERNA) [facility] Back / Spine Surgery 2020-02-25 00:00:00 [facility] DEXA AXIAL (HIP AND SPINE) 2019-11-23 18:33:07 Requisition, Bassam r [facility] CONSENT/REFUSAL FOR 2019-11-23 18:13:07 Doctor Unassigned, Unive [facility] DIAGNOSIS AND TREATMENT [facility] ASSIGNMENT OF BENEFITS 2019-11-23 18:12:50 [facility] Gastric Bypass for Obesity 2016-02-25 00:00:00 [facility] Partial Resection of Colon 2007-02-24 00:00:00 [facility] Hysterectomy 1997-02-24 00:00:00 [facility] Laparoscopic gastric [facility] rmann bypass Cholecystectomy [facility] Laparoscopic [facility] [place] cholecystectomy hiatal hernia repair [facility] rmann Hysterectomy [facility] Small bowel [facility] [place] resection<sup>1</sup> Neck Spine Disk Surgery [facility] of Care Planned Activity Planned Date Details Comments Source Future Scheduled 2031-11-14 Screening for malignant [facility] Test 00:00:00 neoplasm of colon Medical Ce nter (procedure) [code = 974000547] Future Scheduled 2031-11-14 Screening for malignant [facility] Test 00:00:00 neoplasm of colon Medical Ce nter (procedure) [code = 232507826] Future Scheduled 2031-11-14 Screening for malignant [facility] Test 00:00:00 neoplasm of colon Medical Ce nter (procedure) [code = 690784626] Future Scheduled 2031-11-14 Screening for malignant [facility] Test 00:00:00 neoplasm of colon Medical Ce nter (procedure) [code = 045598300] Future Scheduled 2022-11-[address] [facility] Test 00:00:00 [facility] r Screening (12+) [code = Tobacco Cessation Counseling and Screening (12+)] Future Scheduled 2022-11-[address] [facility] Test 00:00:00 [facility] Cent[facility] r Screening (12+) [code = Tobacco Cessation Counseling and Screening (12+)] Future Scheduled 2022-10-[address] [facility] Test 00:00:00 (Season Ended) [code = Medic al Center INFLUENZA VACCINE (Season Ended)] Future Scheduled 2022-02-[address] [facility] Test 00:00:00 (12+) [code = Medical Center DEPRESSION SCREENING (12+)] Future Scheduled 2021-10-25 INFLUENZA VACCINE (#1) [facility] 00:00:00 [code = INFLUENZA Medical Ce nter VACCINE (#1)] Future Scheduled 2021-10-25 INFLUENZA VACCINE (#1) [facility] 00:00:00 [code = INFLUENZA Medical Ce nter VACCINE (#1)] Future Scheduled 2021-10-08 Screening for malignant [employer] Test 13:40:55 neoplasm of colon of Medicin e (procedure) [code = 108087349] Future Scheduled 2021-10-08 COLONOSCOPY W MAC GI 1 Occurrences [employer] Test 13:35:44 DEPT [code = 01552107] starting of Me dicine 10/08/2021 until 04/10/2022 Future Scheduled 2021-10-08 FU PH EGD [code = 1 Occurrences [employer] Test 13:35:44 38970] starting of Medicine 10/08/2021 until 04/10/2022 Future Scheduled 2021-10-08 ESOPHAGEAL 1 Occurrences [facility] Test 13:35:44 MANOMETRY/MOTILITY starting of Medici ne [code = NOCPT] 10/08/2021 until 04/10/2022 Future Scheduled 2021-10-08 Screening for malignant [facility] Test 13:14:27 neoplasm of breast of Medici ne (procedure) [code = 646389359] Future Scheduled 2021-10-08 TETANUS SHOT (ADULT) [facility] [employer] Test 13:14:27 [code = TETANUS SHOT of Medi cine (ADULT)] Future Scheduled 2021-10-08 Hepatitis C screening [employer] Test 13:14:27 (procedure) [code = of Medic ine 041241058] Future Scheduled 2021-10-08 Human immunodeficiency [employer] Test 13:14:27 virus screening of Medicine (procedure) [code = 965376964] Future Scheduled 2021-10-08 Screening for malignant [facility] Test 13:14:27 neoplasm of cervix of Medici ne (procedure) [code = 243326460] Future Scheduled 2021-10-08 ZOSTER VACCINE (1 of 2) [facility] Test 13:14:27 [code = ZOSTER VACCINE of Me dicine (1 of 2)] Future Scheduled 2021-10-08 FLU VACCINE > 6 MONTHS [facility] Test 13:14:27 [code = FLU VACCINE > 6 of M edicine MONTHS] Future Scheduled 2021-07-30 COVID-19 VACCINE ([facility] Booster for [facility] series) [code = COVID-19 VACCINE (5 - Booster for [employer] series)] Diagnostic Test 2021-04-09 urinalysis, complete [facility] Pending 00:00:00 [code = urinalysis, complete] Diagnostic Test 2021-04-09 culture, urine [code = [facility] Pending 00:00:00 culture, urine] Future Scheduled 2021-02-[address] [facility] Test 00:00:00 (12+) [code = Medical Center DEPRESSION SCREENING (12+)] Future Scheduled 2021-02-[address] [facility] Test 00:00:00 (12+) [code = Medical Center DEPRESSION SCREENING (12+)] Future Scheduled 2020-02-[address] [facility] Test 00:00:00 (12+) [code = Medical Center DEPRESSION SCREENING (12+)] Future Scheduled 2019-10-26 INFLUENZA VACCINE (#1) [facility] 00:00:00 [code = INFLUENZA Medical Ce nter VACCINE (#1)] Future Scheduled 2014-01-05 SHINGLES VACCINES ([address] [facility] Test 00:00:00 2) [code = SHINGLES Medical Center VACCINES (1 of 2)] Future Scheduled 2014-01-05 SHINGLES VACCINES ([address] [facility] Test 00:00:00 2) [code = SHINGLES Medical Center VACCINES (1 of 2)] Future Scheduled 2014-01-05 SHINGLES VACCINES ([address] [facility] Test 00:00:00 2) [code = SHINGLES Medical Center VACCINES (1 of 2)] Future Scheduled 2009-01-05 Lipid panel (procedure) [facility] Test 00:00:00 [code = 88759198] Medical Ce nter Future Scheduled 2009-01-05 Lipid panel (procedure) [facility] Test 00:00:00 [code = 46082029] Medical Ce nter Future Scheduled 2009-01-05 Lipid panel (procedure) [facility] Test 00:00:00 [code = 03458051] Medical Ce nter Future Scheduled 1985-01-05 Screening for malignant [facility] Test 00:00:00 neoplasm of cervix Medical C enter (procedure) [code = 870054408] Future Scheduled 1985-01-05 Screening for malignant [facility] Test 00:00:00 neoplasm of cervix Medical C enter (procedure) [code = 119766076] Future Scheduled 1985-01-05 Screening for malignant [facility] Test 00:00:00 neoplasm of cervix Medical C enter (procedure) [code = 187387127] Future Scheduled 1985-01-05 Screening for malignant [facility] Test 00:00:00 neoplasm of cervix Medical C enter (procedure) [code = 697674502] Future Scheduled 1983-01-05 DTAP/TDAP/TD VACCINES [facility] 00:00:00 (1 - Tdap) [code = Medical C enter DTAP/TDAP/TD VACCINES (1 - Tdap)] Future Scheduled 1983-01-05 DTAP/TDAP/TD VACCINES [facility] 00:00:00 (1 - Tdap) [code = Medical C enter DTAP/TDAP/TD VACCINES (1 - Tdap)] Future Scheduled 1983-01-05 DTAP/TDAP/TD VACCINES [facility] 00:00:00 (1 - Tdap) [code = Medical C enter DTAP/TDAP/TD VACCINES (1 - Tdap)] Future Scheduled 1982-01-05 HEPATITIS C SCREENING [facility] 00:00:00 [code = HEPATITIS C Medical Center SCREENING] Future Scheduled 1982-01-05 HEPATITIS C SCREENING [facility] 00:00:00 [code = HEPATITIS C Medical Center SCREENING] Future Scheduled 1982-01-05 HEPATITIS C SCREENING [facility] 00:00:00 [code = HEPATITIS C Medical Center SCREENING] Future Scheduled 1971-01-05 DTAP/TDAP/TD VACCINES [facility] 00:00:00 (1 - Tdap) [code = Medical C enter DTAP/TDAP/TD VACCINES (1 - Tdap)] Future Scheduled 1964 Screening for malignant [facility] Test 00:00:00 neoplasm of breast Medical C enter (procedure) [code = 107271411] Future Scheduled 1964 CT Colonography (combo) [facility] Test 00:00:00 [code = CT Colonography [facility] (combo)] Future Scheduled 1964 Screening for malignant [facility] Test 00:00:00 neoplasm of colon Medical Ce nter (procedure) [code = 973522747] Future Scheduled 1964 Screening for malignant [facility] Test 00:00:00 neoplasm of colon Medical Ce nter (procedure) [code = 839563618] Future Scheduled 1964 Sigmoidoscopy [facility]code = [facility] Screening for malignant [facility] Test 00:00:00 neoplasm of breast Medical C enter (procedure) [code = 679088871] Future Scheduled 1964 CT Colonography (combo) [facility] Test 00:00:00 [code = CT Colonography [facility] (combo)] Future Scheduled 1964 Screening for malignant [facility] Test 00:00:00 neoplasm of colon Medical Ce nter (procedure) [code = 944731428] Future Scheduled 1964 Screening for malignant [facility] Test 00:00:00 neoplasm of colon Medical Ce nter (procedure) [code = 410815365] Future Scheduled 1964 Sigmoidoscopy [code = [facility] 00:[facility]:00 Sigmoidoscopy] [facility] Future Scheduled 1964 Screening for malignant [facility] Test 00:00:00 neoplasm of breast Medical C enter (procedure) [code = 411310835] Future Scheduled 1964 Screening for malignant [facility] Test 00:00:00 neoplasm of colon Medical Ce nter (procedure) [code = 666619778] Future Scheduled 1964 Screening for malignant [facility] Test 00:00:00 neoplasm of breast Medical C enter (procedure) [code = 926167654] Future Scheduled 1964 CT Colonography (combo) [facility] Test 00:00:00 [code = CT Colonography [facility] (combo)] Future Scheduled 1964 Screening for malignant [facility] Test 00:00:00 neoplasm of colon Medical Ce nter (procedure) [code = 352111413] Future Scheduled 1964 Screening for malignant [facility] Test 00:00:00 neoplasm of colon Medical Ce nter (procedure) [code = 484843993] Future Scheduled 1964 Screening for malignant [facility] Test 00:00:00 neoplasm of colon Medical Ce nter (procedure) [code = 726606277] Future Scheduled 1964 Screening for malignant [facility] Test 00:00:00 neoplasm of colon Medical Ce nter (procedure) [code = 038540383] Future Scheduled 1964 Sigmoidoscopy [code = [facility] 00:[facility] Sigmoidoscopy] Medical Cente r Future Scheduled COLON CANCER SCREENING: [employer] [facility] COLONOSCOPY [code = of Medic ine COLON CANCER SCREENING: COLONOSCOPY] Future Scheduled MAMMOGRAM ANNUAL [code [employer] [facility] = MAMMOGRAM ANNUAL] of Medic ine Future Scheduled TETANUS SHOT (ADULT) [employer] [facility] [code = TETANUS SHOT of Medi cine (ADULT)] Future Scheduled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 Common 13:37:00 13:37:[address] [facility] 2019-08-05 2019-08-05 [facility] [id number] Common 08:31:00 08:31:[address] [facility] 2019-04-28 2019-04-28 Outpatient [facility] [id number] Common 15:00:00 15:00:[address] [facility] 2019-03-04 2019-03-04 [facility] [id number] Common 08:00:00 08:00:00 t Bone Bone and Spiri t and Joint [facility] 2019-03-01 2019-03-01 [facility] [id number] Common 15:00:00 15:00:[address] [facility] 2018-12-28 2018-12-28 Outpatient [facility] [id number] Common 15:00:00 15:00:[address] [facility] 2018-12-18 2018-12-18 Outpatient [facility] [id number] Common 15:44:00 15:44:[address] [facility] 2018-12-08 2018-12-08 Outpatient MHIE KANDIIE [id number] Memoria 13:00:00 13:00:00 02 gretta Kenney 2018-12-08 2018-12-08 Outpatient IE IE [id number] Memoria 13:00:00 13:00:00 02 gretta Pablito 2018-11-09 2018-11-09 Outpatient Jenna Ulloa [id number] Common 11:00:00 11:00:[address] [facility] 2018-10-27 2018-10-27 Office REYMUNDO Miller [id number] [facility] 13:07:55 13:47:13 Visit Suneal K AMBULATOR 350.1.13.21 College Y 0.2.7.2.686 of [id number] [facility] 325 e 2018-10-27 2018-10-27 Office REYMUNDO Miller [id number] [id number] 13:07:55 13:47:13 Visit Suneal K AMBULATOR 350.1.13.21 Y 0.2.7.2.686 [id number] [facility] 2018-10-27 2018-10-27 Outpatient Jenna Westt [id number] Common 08:00:00 08:00:00 t Bone Bone and Spiri t and Joint [facility] - [facility] 2018-10-20 2018-10-20 Outpatient Brazfredy Westt [id number] Common 09:00:00 09:00:00 t Bone Bone and Spiri t and Joint [facility] - [facility] 2018-10-13 2018-10-13 Outpatient Brazfredy Westt 26 [id number] Common 09:00:00 09:00:00 t Bone Bone and Spiri t and Joint [facility] - [facility] 2018-09-24 2018-09-24 [place]patient [facility] [place] 25 [id number] Common 09:30:00 09:30:[address] [facility] 2018-09-23 2018-09-23 Outpatient Brazfredy Westt 26 [id number] Common 09:54:00 09:54:00 t Bone Bone and Spiri t and Joint [facility] - [facility] 2018-09-09 2018-09-09 [facility] [id number] Common 12:32:00 12:32:00 t Bone Bone and Spiri t and Joint [facility] 2018-09-08 2018-09-08 [facility] [id number] Common 13:48:00 13:48:00 t Bone Bone and Spiri t and Joint [facility] 2018-08-25 2018-08-25 [facility] [id number] Common 14:30:00 14:30:00 t Bone Bone and Spiri t and Joint [facility] 2018-06-26 2018-06-26 [facility] [id number] Common 09:00:00 09:00:[address] [facility] 2018-06-24 2018-06-24 [facility] [id number] Common 09:00:00 09:00:00 t Bone Bone and Spiri t and Joint [facility] 2018-06-17 2018-06-17 [facility] [id number] Common 13:52:00 13:52:00 t Bone Bone and Spiri t and Joint [facility] 2018-06-09 2018-06-09 Out[facility] [id number] Common 13:30:00 13:30:00 t Bone Bone and Spiri t and Joint [facility] 2018-02-27 2018-02-27 [facility] [id number] Common 09:00:00 09:00:[address] [facility] 2017-11-27 2017-11-27 Out[facility] [id number] Common 09:15:00 09:15:[address] [facility] 2017-08-02 2017-08-02 Outpatient GC_SWHAWPRC PRIV PRIV [id number] [facility] 04:46:00 04:46:00 _June [id number] Medica l 2016-11-28 2016-11-29 Inpatient Stanislaw [facility] [id number] Memoria 11:24:00 19:00:00 r Pablito Shultz l [facility] 2016-11-28 2016-11-29 Inpatient Stanislaw [facility] [id number] Memoria 11:24:00 19:00:00 sg Kenney [facility] 2016-11-28 2016-11-29 [facility] [id number] 06:24:00 14:00:00 Wilfredo Thomas 01 Results Test Description Test Time Test Comments Results Result Comments Source HEMATOLOGY 2021-12-07 09:31:00 Test Item Value Reference Range Interpretation Comme nts Hgb (test code = Hgb) 11.0 12.0-16.0 [facility]2022-10-13 13:22:00 Test Item Value Reference Range Interpretation Comments Glucose POC (test code = Glucose POC) 91 70-99 [facility]GW[facility]IAE4652-68-09 19:40:00 Test Item Value Reference Range Interpretation Comments Glucose Lvl (test code = Glucose Lvl) 96 70-99 [facility] CenterNafmdupUCZUDYQKB3137-01-93 19:40:00 Test Item Value Reference Range Interpretation Comments BUN (test code = BUN) 14 7-22 [facility] CenterEonsphoRIBXSXEQG6728-66-19 19:40:00 Test Item Value Reference Range Interpretation Comments Creatinine Lvl (test code = Creatinine 0.82 0.50-1.40 Lvl) [facility] CenterNcpvmhiORGNFXZKD7949-69-43 19:40:00 Test Item Value Reference Range Interpretation Comments Sodium Lvl (test code = Sodium Lvl) 142 135-145 [facility] CenterXknmumuRITTUZIVQ4235-47-64 19:40:00 Test Item Value Reference Range Interpretation Comments Potassium Lvl (test code = Potassium 4.0 3.5-5.1 Lvl) [facility] CenterFmaikbuEFACVZWRR1153-83-88 19:40:00 Test Item Value Reference Range Interpretation Comments Chloride Lvl (test code = Chloride Lvl) 110 95-109 [facility] CenterBwcqowcFGYKVYEKO6646-53-17 19:40:00 Test Item Value Reference Range Interpretation Comments CO2 (test code = CO2) 30 24-32 [facility] CenterYwcpkujFTCXMZBDU0985-93-16 19:40:00 Test Item Value Reference Range Interpretation Comments Calcium Lvl (test code = Calcium Lvl) 8.7 8.5-10.5 [facility] EikybynPBWKVKGEQ1702-63-09 19:40:00 Test Item Value Reference Range Interpretation Comments Total Protein (test code = Total 6.9 6.4-8.4 Protein) [facility]14[facility]87-88 19:40:00 Test Item Value Reference Range Interpretation Comments Albumin Lvl (test code = Albumin Lvl) 3.7 3.5-5.0 [facility] HospitalLekbnfjZHXDOIZXH1032-82-64 19:40:00 Test Item Value Reference Range Interpretation Comments ALT (test code = ALT) 31 See_Comment [Auto mated message] The system which ge nerated this result transmit stella reference range : <=65. The reference range was not used to interpr et this result as nhung l/abnormal. [facility] CgldlfcEGKYONBZC6689-93-79 19:40:00 Test Item Value Reference Range Interpretation Comments AST (test code = AST) 27 See_Comment [Auto mated message] The system which ge nerated this result transmit stella reference range : <=37. The reference range was not used to interpr et this result as nhung l/abnormal. [facility] YawzzewMQEEYCIDG6172-48-31 19:40:00 Test Item Value Reference Range Interpretation Comments Alk Phos (test code = Alk Phos) 103 39-136 [facility] MbvyxwkZXGSTXVLE1331-34-77 19:40:00 Test Item Value Reference Range Interpretation Comments Bili Total (test code = Bili Total) 0.4 0.2-1.3 [facility] LmhyntcUEXZBOQUO9285-31-63 19:40:00 Test Item Value Reference Range Interpretation Comments AGAP (test code = AGAP) 6.0 10.0-20.0 [facility] TqqnzwoSZODCBQHZ5268-85-18 19:40:00 Test Item Value Reference Range Interpretation Comments B/C Ratio (test code = B/C Ratio) 17 1 6-25 [facility] VmabmgdAOGCRENLU9267-22-03 19:40:00 Test Item Value Reference Range Interpretation Comments Globulin (test code = Globulin) 3.2 2.7-4.2 [facility] NeaxhcqMHQNBYCOF2661-18-89 19:40:00 Test Item Value Reference Range Interpretation Comments A/G Ratio (test code = A/G Ratio) 1.2 1 0.7-1.6 [facility]xkduxeFFSZFLGFW8638-93-14 19:40:00 Test Item Value Reference Range Interpretation Comments eGFR (test code = eGFR) 83 [facility]em[facility]GTGWCDYF4348-95-93 19:40:00 Test Item Value Reference Range Interpretation Comments WBC (test code = WBC) 4.6 3.7-10.4 [facility] HospitalVfsfnwjLVSKNEJDGS3871-17-01 19:40:00 Test Item Value Reference Range Interpretation Comments RBC (test code = RBC) 4.13 4.20-5.40 [facility] HospitalYfqfyobODCWBTRPYY7856-64-89 19:40:00 Test Item Value Reference Range Interpretation Comments Hct (test code = Hct) 36.9 36.0-48.0 [facility] HospitalVzjrvzgVQDALRNVOM3402-08-70 19:40:00 Test Item Value Reference Range Interpretation Comments MCV (test code = MCV) 89.4 80.0-98.0 [facility] HospitalEtibbisEYWSWVUSCF6735-88-57 19:40:00 Test Item Value Reference Range Interpretation Comments MCH (test code = MCH) 30.2 pg 27.0-31.0 [facility] HospitalBtfdzuqCKYXOJZUOV1861-11-68 19:40:00 Test Item Value Reference Range Interpretation Comments MCHC (test code = MCHC) 33.8 32.0-36.0 [facility] HospitalYnzbvfnNOUPYDREBD7109-24-07 19:40:00 Test Item Value Reference Range Interpretation Comments RDW (test code = RDW) 13.5 11.5-14.5 [facility] HospitalRauealpPSSYKSAYAK6227-73-07 19:40:00 Test Item Value Reference Range Interpretation Comments Platelet (test code = Platelet) 173 133-450 [facility] HospitalKqvqanyVAJYCNNFTU4647-42-07 19:40:00 Test Item Value Reference Range Interpretation Comments MPV (test code = MPV) 9.6 7.4-10.4 [facility] HospitalWqqekozRXDHYNPYOQ7671-13-12 19:40:00 Test Item Value Reference Range Interpretation Comments PT (test code = PT) 13.5 s 12.0-14.7 [facility] HospitalZehathhNLVFENYMZU2657-55-38 19:40:00 Test Item Value Reference Range Interpretation Comments INR (test code = INR) 1.04 1 0.85-1.17 [place] 529912-10-12 19:40:00 Test Item Value Reference Range Interpretation Comments PTT (test code = PTT) 27.5 s 22.9-35.8 [place] 529912-10-12 19:40:00 Test Item Value Reference Range Interpretation Comments Segs (test code = Segs) 57.5 45.0-75.0 [place] [address]-10-12 19:40:00 Test Item Value Reference Range Interpretation Comments Lymphocytes (test code = Lymphocytes) 30.7 20.0-40.0 [place] [address]-10-12 19:40:00 Test Item Value Reference Range Interpretation Comments Monocytes (test code = Monocytes) 9.6 2.0-12.0 [place] [address]-10-12 19:40:00 Test Item Value Reference Range Interpretation Comments Eosinophils (test code = 1.3 See_Comment [A utomated message] The Eosinophils) system which ge nerated this result tra nsmitted reference range : <=4.0. The reference r kell was not used to int erpret this result as normal/abnormal . [facility] HospitalIcwppbfPYCWRMQUPV7970-98-31 19:40:00 Test Item Value Reference Range Interpretation Comments Basophils (test code = 0.9 See_Comment [Aut omated message] The Basophils) system which ge nerated this result tra nsmitted reference range : <=1.0. The reference r kell was not used to int erpret this result as normal/abnormal . [place] 529912-10-12 19:40:00 Test Item Value Reference Range Interpretation Comments Neutrophils # (test code = Neutrophils 2.6 1.5-8.1 #) [place] [address]-10-12 19:40:00 Test Item Value Reference Range Interpretation Comments Lymphocytes # (test code = Lymphocytes 1.4 1.0-5.5 #) [place] [address]-10-12 19:40:00 Test Item Value Reference Range Interpretation Comments Monocytes # (test code 0.4 See_Comment [Aut omated message] The = Monocytes #) system which generated this result tra nsmitted reference range : <=0.8. The reference r kell was not used to int erpret this result as normal/abnormal . [place] [address]-10-12 19:40:00 Test Item Value Reference Range Interpretation Comments Eosinophils # (test code 0.1 See_Comment [A utomated message] The = Eosinophils #) system [employer] generated this result tra nsmitted reference range : <=0.5. The reference r kell was not used to int erpret this result as normal/abnormal . [facility]2022-09-21 13:29:58 Test Item Value Reference Range Interpretation Comments Case Report (test code Surgical Pathology = 104) Report Case: [id number] Authorizing Provider: Nely Oakley MD Collected: 11/13/2021 12:13 PM Ordering Location: [facility] END[facility]COPY Received: 11/13/2021 02:16 PM SERVICES Pathologist: Tonie Sanchez MD Specimens: A) - Polyp, Colon - Right/Ascending, via [place]olds[place] x2 B) - Colon Biopsy, Random, r/o microscopic colitis DIAGNOSIS (test code = [id number] 3220) FuZzEwMzNcZnRuYmpcdWMx IHtccnRmMVxlcGljOTYwMl xaneDpQANnaDZvS7Shpvme YRujLV8bRP1tiAtasQLzhT PzREGoWwLve5wmx242zBGy t1ayBSIAqxkxxTd7gEvqV9 3fh1V2PndkE55qvFYrXDP8 CQAsJCTitHTvGXZbJZE6VE CkeHEyV7shKIIiUS3utuii CVvpAHizFGZcgUJ5FCUjcO XqA8IkKXUuMXxePMLepnv2 IvQvBi4saDUyxYbaRGjcYA KeNCOyYMgrBWNnKqQnKP9q JWPfaR5gRJItb5GhqpStlq xkfH4roFHcXVaoPACcm5i8 wBFmlJ4hmHveuKCzRSUrXp XaFYElKXtqOF51mwEpWfT9 lIG8vLOzDRHnQZ8bgYGnTG ZegmlcTLHuZr2bBSSceD7u OBDaAR0ic24fZZZfl5BlxG pccGFyXHRhYiAtIFJhcmUg puT3mRAllBuxtYKdBO8zWE 07mNDbHXDrA25hUlugGP78 FVInvKxnbP9aoVIeQGPuj4 NkUFqhwPs4IFSoWKRoy28g TV15YgobBAGrkRQlCCqsSJ R1f0qgnPDtMGGagOCnTZUj MFxhbnNpXGRlZmxhbmcxMD OeFNP8opMyDFNcZNdjRDDv DPxuLt5giSVujQwsPcEsAH Ujp5zelrEFdrngeXz1f1yy SFEhZxI2lYEnCGdwW0cwue JvbEVjNTPeFNb7fK53PGJe bB1iyOIkSVynzkNcCwS3TD gnAXPpOlU9MZSarZSkQAAt A8suOJQhLNylKZGlZKempY DlYSV7pLcay7A5dXThpAQt iGzaKnHdLuPaFnNOj6IrRB e6aSroC5YbRBDnQeJ2sSGf CZRqVCabVLEtHYQvfnX1lP 84LIhxcsK4yRHth3Jbq10k f117cJ9hhXIjPMQ7KIWsCH CisDJcLZCwTMH5SHZefJVi E8zzBWReXK4raqxgOGyeYR yfSQAgcGS1LRPyxBGiG3Lv CZStEMlzQSNvxbj8YrBoVb 7vgAIkpFkxOTdwq7mft1il qWKmChj0RRBjHsJpAsexNI onf1Dry3drTLKsin8zXOW2 zGTpzOopw6J6wLYqOTKqlW PvXVEgSW1enFTqSYTcmM0a cmxjXHBnYnJkcmhlYWRccG nrzvIiNf9raQogSWO7MAcp A6eaqX3lUhA7SEcgG1bhnT 3qQSd0TQqhPIXrqWW4waW3 RNSsaRDqJ4JnqI8cVWRoQA 5kvlr6v7ryQQU2FVtjWWGl AjW4tmA4SBYwmSQfXQCycP anRFpru535VWT9LaIvSURc z2ZsO7HcbKigA32sfCcmV3 7cZVDmdSssjY2zzVzlfC5o RnIrJvMfUOrjsXxqSV8sRM CtS4qdxBBaLEJjNUKtL5hy JfMhpN6zsBnyYXebqeReUV FgPmc1LGVwtVCoEKPhHvv7 FJMeZWLhZ31heepnANU1oT 9fc0hnq7MiMPxcLGB0MTJn k40lDMdzupB0QGgyGh33GP mnGTU8VPtwJFJ9nJ== COMMENT (test code = p3nlrAGyBVVfjVF9VbDoXM 5229) Mmr6hvk9EprRZnvJHxDCwf jYTqqmXkog36bOG4qO27JF 2bCFArToK2YPNuixT4Xwu2 HSLmIUSmhKChA215y0tgp8 duopEcsWO0bScrLAIortek ArY6OFwqNGXxrptjTCf5YG ulEIJtkDL3YPXutPRxN0To HFZmSE9mmmj9KWT5WQzhPH MaRdH4ZAKbrZOaNYTcoBke CCvmo951AVJ7ZqIwHWGmgz HdlElnlB7vVaSaVANKsnWv i7BvaErsIFRyeT2iqPR5NU JjoiQ9hCF9MONpDLNhhpan YXIgVGhlIHJhbmRvbSBjb2 loawNjzX6zy8acLTDcdcXr UMUvMKBse9ryDGXtFSXpCS FvXUQ4at9xqRknzwKxyaX6 wYHwjTHcoD2fUFCjs5WqaJ Gng8a4cTCuFSNwILQemLT7 eBIobs2bRUkbYOVdnrVxxy djUNLyFKRcjD0wuGIuKVIe SSXoZEpqli32HAFrDMGzaB 6uK7KtvUtxr6ejseutiGFs cvMdBPLiUCRil4SvqTJzwL l2oFSbBJ9tJOLbbQ4qy4Vl v1G1QOQpWAYdUALyGZH6IM NzezDhzpXjgBhvWEHPT1FF UYAoFVIzYKMriuOqK7Rzm6 5kDVKystKkAEJvv38abLPg cmVkIGRlcGVuZGluZyBvbi E0aHZoR6rwqtazGEesA55o vRB9kJ7bwMPsGRPruu5= CPT Code(s) (test code n7vemCJsFZOltUN1BrXwUK = 3357) Byw0any5NgaWRnmEIqUAja cPLdjmBqso52pMA5sK33AT 3mARGcDzR1VHYzyaG2Iba8 ALAiXFMfqXDvD147f6nrm6 evimAxrJH8hSucBHXezwml QdP0MPvhFMGhorkrBDk7LF puLTPwvZX8JEPfcZMsH2Lo ZOIuPQ1qggh7AJZ0QMzcMV WcLiU4IYRwhYAqAZKxzDne SQzaf631CPV7KiDmAZOpdd HtjAcvxQ9qNlOgZYK1FWZp NXgyXHBhcn0= CLINICAL HISTORY (test k6qwbWSsULDjwWT2UfJxCX code = 3356) Wqw5fir8DnoOExdOLyOFdz vDGlpwBzut05mRJ8rD03GG 0nAEKyGgA4XXQevwF5Ovb4 KXIvCSFwcCQmG002l1wln6 etbuIyjXT2LIKbSHHlD9Bw UR8jSSBjnHBqG96nlQHxOC U0AZFvLNOsbSHyWLWoJJO5 TITrlSEiH8bwPSCyDS2etw haPQvrDRdoZXCaeNV1JTLg iOGhO2XpCLYsQIidWUChdw d5WgCuRe9afPMrpNfvGLst YXJkXHJpMVxwbGFpblxmcz IwXGNmMSBDaHJvbmljIGRp YXJyaGVhXHBhcn0= GROSS DESCRIPTION (test s9xevFWuTPXmvJMAJRRvM3 code = 9301197442) qmbwOpHKHzqCRwD3Rugnfk BSxvYW2bXM2ybPcnzTPuoU HcFC5PVCLtRqTnPCUguXCu dePvYfLsWFTmgJXsiNX9VW LrZX6bzbcqZIheDKjePLVb lnB3BIImwYYoU4FhDZLlNY 7hicrsXQP8ZHcerA4epgEY NkyaVc9bwSWoqYlsReMnSm NoYXJzZXQwXGZuaWwgQXJp SKk6jH3XDlneL19py4O1Tz m4QNEmLPJrO5QsFO2yTAIz dAVcK82TUzufYIX1TUKCTk yhVJFrBF2Fy9orQQNgbBHt DSQ8FEqtvPXwOMWrZPMmWA d2BXMmANzqkXRnWA4wsRrm RrtkdRqba4LvnFUbBNwoHJ BkBSRaSQnuMDRtGK4RYzJv ZVV0MGW1OgtgRDg0TJj3SF 4SIqZrSXKoZHA3FiJ4SkJy MTn9TYvzTD2WRGYbBLM8NM coPnS6ZNH6PVGtXHHbEsBx XGYgQXJpYWwgXFxmbCBcXG 0ybUycoRBwaePXHoSTh1h7 wScjE28vv01dTSAOdZfzfK 8Qv5CcgoEqsvmkEEGzlxGH ClxlcGljTmVzdERvYzEgDQ pcbHRycGFyXGxpbjBccmlu MCANClxsdHJjaFxjZjFcZn MyMCBSZWNlaXZlZCBpbiBm x9OhQRmhivQnHHUktDKgIR dpdGggdGhlIHBhdGllbnRc D6E2jnQtLX7tEEJhLOHdB3 LyBWMwU88fQRQhzJ9gXFFi ZS7oGAw8WBSvCPIaEryaIN VzKN4ubM5vOPMzkM6uFOIc bHlwIiwgbGluZWFyIGFyZS VuqMy5pBXjQLY0XV6lFGUb pYzkp7nkMPEaJlXwjSwda0 NoPEHbJEazCX17zvOjTD5n eF5gRDGsv54jED9mGURtWD BjbSBpbiBncmVhdGVzdCBk nR6twtXnz81gUWLXsCTzqD GpR3QjaFVuzrMfuRSrmTFf cyBpbmtlZCBibHVlIGFuZC A4vEMie7JxP9lfUR7qhGLg JZ65rSYisCbrc5GbsRz6xH RtOPbtXHZxHjNzzRUwJM2V XHBhciANClxjZjBcZnMyMi ANClxwbGFpblxlcGljTmVz qYKiUnMbrGhnoN50ZQTnaO HvLME2EH2dNMReiqwuXXCc HKKgNDI6STjiwO63hOPvZX BdKKCyrQVjdF1Ky9usMGUn yCLjIQX9GUqofGVhPLTsKP BbENibOnXoY7TCKCFkAbv8 KickXCAzJDl4PMqfO7XFMX GcJJZyPVptLbqkSzO9FZa2 IZXZRn1wEtT8UiJ6YLQwQX E0AOQ5EYrxjIBhJVubMgNH rdashORhCXLlZXlbrkX4TW YaVAAbtBibpY4lLf3hR17o b26bAcnmqJM8ZBDXXR6pk1 0uXHBhciANClxlcGljTmVz dERvYzEgDQpcbHRycGFyXG xpbjBccmluMCANClxsdHJj aFxjZjFcZnMyMCBSZWNlaX AtIFDqjxWrq6YdEGtpocIq YWJlbGVkIHdpdGggdGhlIH SdqPmjgpXfR6A7jaWaRA5a AJPcFMNcI8FfIXVeP00hFP RmmL8lPULqZO7sKUf3LSLy OYIfVhhtntAtBO3eTBIlsZ 6wBfBtowZnAUT1II0je21c eBK3zSLeiQBzIdUpC96bop JrKC1iJBN7vkpuHaR9gVP2 axExQoDhA98irF6nW9TmTJ Aaf9GgGWfvZZ1xpW7jDLL1 hHyxtAEqajFbg0XfhKj0mD XrZSilDYDqsI4ipJ2aCcWk XHBhciANClxwYXIgDQpcY2 YwXGZzMjIgUGlsYXIgQXJn dWVsbGVzLCBQQSwgSFQgKE KAQ8ZqPIvydNzyzG8hKJGd N96hx5MRy7FiWQXrUTrtl7 dwuUhul8KsvVVlTProHZBc hEFnMEmxcI4qRtWou3ndiS s3DQjffdB2YZBqzs3NCvnk iZ3bDsSqv1rdxKw3FIHLIw hrmrB4y0oafUosn9XflOIx QT9HIm2= MICROSCOPIC DESCRIPTION t5wlwLFwNSAzyZL9QhDsTH (test code = 3371) Tyk4psr9RnvXQdeOIhOGdd sHFtfsYsba12jKG4eT12XA 7cKJEcXhU1JDUdyrM3Gcc8 KMNeWZGhjQQiB995t7fav6 yepdKinCZ9yYizQZLecngg TxU4XNclRIVfjznfTSj4BL prWYJkbMS4GGPjhIWgL5Uk EVNxYN2cejz8GXJ3FRcwBJ SaTdY6PGUknADbNHIarPyk LUicz485AAA3UbXwYNXeud ZffImfpZ9nPdHiVCZACULa w7TmMEWsJNBgcm7= Gross assessment was [facility] performed at ([facility], = 2777) Department of Pathology, [address] [place] [id number], Technical component was [facility] performed at ([facility], = 2248) Department of Pathology, [address] [place] [id number], Professional component [facility] was performed at ([facility], code = 2779) Department of Pathology, [address] [place] [address], [id number] 13:29:58 Test Item Value Reference Range Interpretation Comments Case Report (test code Surgical Pathology = 104) Report Case: [id number] Authorizing Provider: Nely Oakley MD Collected: 11/13/2021 12:13 PM Ordering Location: [facility] ENDOSCOPY Received: 11/13/2021 02:16 PM SERVICES Pathologist: Tonie Sanchez MD Specimens: A) - Polyp, Colon - Right/Ascending, via coldsnare x2 B) - Colon Biopsy, Random, r/o microscopic colitis DIAGNOSIS (test code = [id number] 3220) FuZzEwMzNcZnRuYmpcdWMx IHtccnRmMVxlcGljOTYwMl kuvmMnMLVceHByR3Datsyy DBcsJZ0hRB5qfInxgDQdoV CcPVEfWgHot5oxe017hCNh t8hvPEVEslxwmEk2vGevF9 2hg8D0ZnapS42ysZRkWYB3 FDAlUCZmnVEwBOKaXMB5EP DjiAJlH0plIBDjFD0qudqp DQraRDbwQVBzxRY1CDPgrP JhT9SqDEIfVJacSSRwwzr6 OvOrJt3abUKctJczYGryVQ CuGOMkDEqsTTFnDlGeQS1j TLBjfT5bAGCnf2ZcbdUvpe xroG4pvEWfFXqtVBHrp7l8 cLIanN0ywXsonRCfLGQsZg MnMSLxUYvnKH88itXpKcS2 bXQ4eCSrSKYvFT0ugIUyCP VrarwoWSRdEy1yAMYhhK1n ZMRyKH7qx87fVKJnu8PaiF pccGFyXHRhYiAtIFJhcmUg abE6lHFagXahmMKlUO6tKR 03vHJdTVPrA49bWlvjAT10 ZDTmkAqmrL8wwBSiQJAqh2 SkLMvtgFe7YAMgDGPmv36u BC43NcgfLXZhnOEmNLvxAJ R0y4xieDPjLYNbqAVrZMPh MFxhbnNpXGRlZmxhbmcxMD EjEGD5edXcYQVaGPldEKGh IAiaVl1teOZlnOjhZxZzLJ Uvr1ziflHJjccdcUf5d5jr DKJqOgG6uPKcMBqfF2nmmg ShcSDaIKHwBQy5tK52XEUb qI8teFTgROgxemHcLhD6HJ ssIECiKtI2FJAbvOZkOQCl P6uxXTWfHZzmWWDuOYcquA SoZCB7tXlba7A9jXSbjXAf iHfjFlLwKyWrZyAZo8PpKQ i3jEbiK8JpZVUrAuA8wQUo UCBhUAxsOPXeVYXlemM5jA 46WBswwzU4pVNdk7Jod27m i982eR9ghLUgMPO3ULYmRZ TtyNWsDIKcHLA9EGQcfSAz A7gwDEDkRZ8uahezGZdaVK zvTDTwzEP9HOFpqYHdU0Cn GMJuQPkwTHSayov4MhGfUf 2ecEUzyUqrPHbfd3xtu1pk lSFhAcf9HWPwFmSdNbktOF vvg9Bjb6trKUIgil2fXTU3 hXPblPsph7X9jTGwDIPqhQ AfZQPlQN3jdVUuQVKtzH3q cmxjXHBnYnJkcmhlYWRccG twhiKcDp3abObmLOL8TFti K5iwjU8jEuX3GEnjE9owyW 1vSEq9DPitIUGnaZB8wdU6 ZAQaiKMbK7SjsJ8kICGmLK 8lllr2f2glQXY8IUbcPWSo LxH7lpC6UKFuwUVzMFIgsD boBMqsd425TRO4HhJkYZVg o9VgG0EjtInbB72baEvbA7 8dOHSotCwacU6vfTilrR2g IuVyUgObBClpnPzoVL1bZL CqU8ntdPUbCUFjPMHrH5lx YaHssP9crIrzQGsuszSnUU EsEod0XMIrvGQgTAFoNtq1 QEItXZKlW60sjlymDAY7cE 3mi4egu2ZzHMtiHGY0ZBVh o68tDLcyfxS4VFizHh00OE cqHDB7DKgrXOH2jS== COMMENT (test code = q3phpAAtVBCzaZZ8ZbVfXD 5101) Hxh1fxd0JroKFodJCnJEof dPIeqxObox72kTD4aN98DX 3qMNVpBaC7IHUrosO9Qtm9 FSPiLFXuxEZoS546p0eom7 aseqVxvRK2zTocBDRxfrva OwT5WCbkZBNivxkaAEw1CA pbVRYmyBE0DQVoiFNsA6Gi VTFoMU3szzx6XNC1IXgvIO ViRnP5ZZAhwNOtFBMwcEum MRqgq925KGT6ZrYrJCCcyp RytUkgpM0lLeFgFVRWeiKw h0KrpLbwEZHniT7znKZ1KF IcyzW3bSV7BQZpRTKrtitv YXIgVGhlIHJhbmRvbSBjb2 gkopZhoF3dn2fsKEGlsiJg KZXfPBZkf3rfCFJaXNCjEJ MzFPP6wh7omVjxcyRwleQ4 jFKefVOlvN5wNFKox4BwcD Bre3w2vYZqIVXqENAndGG7 kUUryt9gXOzfMQNgfwZsmk ltAJJfPVLkfA9jvOPmLQYr ITTgBUshmm97LDZmDLCsnN 7pG3HfmAzdz5ouwdmvqMCh msEiYLHlKMQva8GnlCYirA a2xZHbQT4gQOUhaL4fa8Ii w5S4WXUhPHCzIDKgVPO1CD JvozPidyLnuBrxPMNTX9RQ SVBqETQbQHYoneCuW8Mpb0 8eNTVguiSnHTUhh39aoQJw cmVkIGRlcGVuZGluZyBvbi S5tEEpY1bftiehWVmmN78m dTT5yQ3ikIVkTMQugz4= CPT Code(s) (test code e0rmhJXuKGSpePC7SdKdMX = 3357) Dak8vue5OgyCRjiPAnNLuy qECzdmQwpv91cHL0wC50UO 7pZWBpZzK2MKQvciR0Kdl4 HVFoXCJkbMNfZ083o0nlw3 nigeOxnCH1hXuvNLFjuhlh QoR6TBlxDHZpixpxIDu3KG zmEIDkxJF4FKEhiYKiL7Df CUQgOI2pshz0MLO6KUueJI OdKrV4QHMlyVYdYHDzmGck RXkuv150ZQC3GhXhWLPgnj LlwKzqkJ1vXtWpFSV7BAKi NXgyXHBhcn0= CLINICAL HISTORY (test g6ribETtFEEagGT4LuRwGE code = 3356) Sse2ins4RzlADpbVFbLLfy mPOpctOgpn35dHL9nS34UB 4rAZGzPrI7MXTwimG8Oql1 PVZqVREaaIVaC237c6oyx7 tembOsmBB2AWPgUFViS7Pg JB4yFRPxdBLvX11reQPuBY W4OOGmZMImkYVrAMTvDHT8 ZCQtvBRbQ1hiKAWqCZ0xyk otKNfkYLdfBWTopOY0OSUx rPTeK0YqZIVxLKvrQIFacr l3OdBnCc9dkJOdoEgnOTgk YXJkXHJpMVxwbGFpblxmcz IwXGNmMSBDaHJvbmljIGRp YXJyaGVhXHBhcn0= GROSS DESCRIPTION (test p6rykTSqFNUscCEXKVRcM1 code = [id number]) cuxiRuDHIccKYcI5Yjizfe FVwzOH6zQL2afYeamOWvfN YwLQ4GUDVoMfTsSYDlkOKf ftAyLxDcOASigHQolNH1RM PgQT8vzhvdEFptZJlnPHLg pbM5DAIxjNPbD4DqISGiEX 4frjdeFDH7QWpelS4xauPQ TkzlSi7meEKzcXdxNcGuXg NoYXJzZXQwXGZuaWwgQXJp EFe7pM6SUwrbY97yv1L7Tm a3CPEzCNUnG0UvPL4sBAFf lZLfF71KXlukVQG9SQWQTe gyLRPkHD1Qu1ynSUGuiXTs OPS8STfnxAShRSQxVHIbDK e2AZUvFArmoBOsKJ0xnCnt JxvdvYbqj5BdcLFxBRnoTC DbGGNtVWulNNVtOR2LHrBp UGU2LQA7YqppZTl9LWr0EP 9OKmQuATKpQRG0SsK8ObZo BXl3ADikOG0ZITFtIUH8NB nfVvB0MGC4JEFuIQBkEyMm XGYgQXJpYWwgXFxmbCBcXG 3blLpknYOhreEPTfHPn0k5 aGlvX20gz74rUKFEdKumfR 7Rl9OhsqPdhimqXRMhlkZZ ClxlcGljTmVzdERvYzEgDQ pcbHRycGFyXGxpbjBccmlu MCANClxsdHJjaFxjZjFcZn MyMCBSZWNlaXZlZCBpbiBm j4YnWYfujgBjQWMpeRDqJF dpdGggdGhlIHBhdGllbnRc C4N9soBmUA1uEUPvCBNxR0 PdYCClX74qRQRwlD0xMMDk FA2gBGz2FGXuOZDyDjalAR XzOE6ifG8sVDRmfH3iFIMs bHlwIiwgbGluZWFyIGFyZS FhkSa0rVLgJUD1GF4pHXWv sAlqr9ubZMXsTcBxxOvqj1 YiVSQbYOqjXL56ubOvPS8r xZ3oHVYpv72oWK9fNPVxVD BjbSBpbiBncmVhdGVzdCBk qH6dpyJyr56qLQMEfBEcmC TdI6PvhQQjwlYffVWpqMRc cyBpbmtlZCBibHVlIGFuZC H2oKKvg3LuO2zqGV7oaBCx CL58zEZjeJrig8GudVc4mJ EvJGuhZVTxBgVxuKCjEK6R XHBhciANClxjZjBcZnMyMi ANClxwbGFpblxlcGljTmVz sLDtElBslAvrfS97NZWjzG CyWOV2EZ6kLJLlhgczWBLf YUTkOYZ0QHzrgI75zLVeDA CeBKDoxCUobT7Qi0psFETu kOZmYLA3UClznDXiEPTaBE BbZJmdShRjQ3LBENYvBzc4 TomqHFZbUOk8BPuyJ6BKPL ItAIHsCGxlDkkyPrX8NTo8 BFPMQn5wOdF2YaG8SHRuBJ E7GLM3CRfsiHAsMZkqXnPN brsrdBCqNJOaJCfrlnT3NG HsXZFxcAhjhU0nAk0jT73l d15jGiqdvNW1KRTFHJ6qq2 0uXHBhciANClxlcGljTmVz dERvYzEgDQpcbHRycGFyXG xpbjBccmluMCANClxsdHJj aFxjZjFcZnMyMCBSZWNlaX InZONzffDid4ByDNpkieKj YWJlbGVkIHdpdGggdGhlIH WouBmfsqEqP3M5pwPiGA7l FMQtHZNoL6TqGMTpL76wZG MsbR5bDTXnQD3vPDd6FNHm HTNsZikbfsTjQZ4wNNMmdD 9yAeKcxpWnLWA4KE0jl74z oJJ5dJLytAMrBjYgF17gyk EsDH1zHYP1fxryVeG3mNM7 ukOzPbMfU31wfY5mD6DcXA Gob3OvOWipYR3zdF1hQMQ5 zXrjtQIopbPji2JucDl7cB XjDFbqRUDfbR1qkD5wVmEy XHBhciANClxwYXIgDQpcY2 YwXGZzMjIgUGlsYXIgQXJn dWVsbGVzLCBQQSwgSFQgKE WNX9VrIAozvYbpvV9sKFJz A86wf2ISd5XjBDVlEJnin9 trlMkub4MllRBxRMzmQGFd gQDlNFprtX4wErGkw2rjyC p4FLuirbB4FTNpjd0TNosr zF9qCqPfs4torUt2SVFABy cpodU9h1talJbuk3QpuYZe ME3ZCq4= MICROSCOPIC DESCRIPTION b6wkvHDoYGWdlRV9RpWaQF (test code = 3371) Lbc0aqo4JpzYDbpONxADme hYGhylUnah06nTI8iD13OE 7lHPBmYoC3NPViqyZ8Szh7 YKLlTLKiqKXlE667y1ozo7 vdpfPmfDH4sFizIDJsfbmy AbC8GGppTJAotqitYVo8QT qbGWGzuFN8JJUfeUSqO4Ke PTRaOF3qukg6DQX3VJopCT MfIiX1XVNttFXjYZIpvWor WSvkf588SZP5IkPmKLRqny IplIxvbQ0rRrUuTDJCAVJw h2RxUUOwJPIkvn8= Gross assessment was [facility] performed at ([facility], = 2777) Department of Pathology, [address] [place] [address], Technical component was [facility] performed at ([facility], = 2779) Department of Pathology, [address] [place] [address], Professional component [facility] was performed at ([facility], code = 2779) Department of Pathology, [address] [place] [address], [facility] [id number] 13:29:58Surgical Pathology Report Case: [id number] Authorizing Provider: Nely Oakley MD Collected: 11/13/2021 12:13 PM Ordering Location: [facility] ENDOSCOPY Received: 11/13/2021 02:16 PM SERVICES Pathologist: Tonie Sanchez MD Specimens: A) - Polyp, Colon - Right/Ascending, via coldsnare x2 B) - Colon Biopsy, Random, r/o microscopic colitis A. Colon, ascending polyps x2, polypectomy: - Fragments of tubular adenoma.B. Colon, random, biopsy: - Rare neutrophils, no other significant pathologic abnormality; see comment. Signing Pathologist Direct Phone Line: [phone] signed by Tonie Sanchez MD on 11/14/2021 at 1:29 PMEndoscopic report was reviewed.The random colon biopsy (parts B) shows sparse neutrophils in the lamina propria with rare cryptitis. The findings are minimal and may not be clinically significant. The possibilities of colonoscopy prep effect, drugs (like NSAIDs) and infections can be considered depending on the clinical context.[id number] diarrheaA. Polyp, Colon - Right/Ascending.Received in formalin labeled with the patient's name, medical record number and"ascending colon polyp", linear are multiple chandler, polypoid soft tissue fragments ranging from 0.2-0.5 cm in greatest dimension. The largest fragment is inked blue and the specimen is entirely submittedin A1. B. Colon Biopsy, Random.Received in formalin labeled with the patient's name, medical record number and "random colon" are 4 chandler soft tissue fragments measuring up to 0.4 cm in greatest dimension, which are submitted in toto in B1.ANÍBAL Beltre, HT (ASCP)Performed.[facility], Department of Pathology, [address] [place] [address], [facility], [facility] of [facility]ology, [address] [place] [address], [facility], [facility] of [facility], [address] [place] [address], Sonvpgrl identified in Urine by [id number] 00:00:00 Test Item Value Reference Range Interpretation Comments Bacteria identified in Urine by see below no growth A Culture (test code = 630-4) [facility] MedicalUrinalysis complete panel - [id number] 00:00:00 Test Item Value Reference Range Interpretation Comments Specific gravity of Urine 1.027 1.003-1.030 (test code = 2965-2) pH of Urine (test code = 5.5 5.0-8.0 2756-5) Protein [Presence] in Urine by negative negative Test strip (test code = 74464-3) Glucose [Presence] in Urine by negative negative Test strip (test code = 60500-4) Ketones [Presence] in Urine by negative negative Test strip (test code = 2514-8) Urobilinogen [Units/volume] in 0.2 mg/dL 0.2-1.0 Urine by Test strip (test code = 24393-6) Bilirubin.total [Presence] in negative negative Urine by Test strip (test code = 5770-3) Hemoglobin [Presence] in Urine negative negative by Test strip (test code = 5794-3) Nitrite [Presence] in Urine by negative negative Test strip (test code = 5802-4) Crystals [type] in Urine none none sediment by Light microscopy (test code = 5782-8) Leukocytes [#/area] in Urine 0-4 0-4 sediment by Microscopy high power field (test code = 5821-4) Erythrocytes [#/area] in Urine none seen none seen sediment by Microscopy high power field (test code = 26571-1) RBC casts [Presence] in Urine none seen 0-1 sediment by Light microscopy (test code = 09744-3) Hyaline casts [Presence] in 0-4 0-4 Urine sediment by Light microscopy (test code = 09997-6) Epithelial cells [Presence] in few none-few Urine sediment by Light microscopy (test code = 31609-1) Granular casts [Presence] in none seen 0-1 Urine sediment by Light microscopy (test code = 24355-7) Bacteria [Presence] in Urine none none-few sediment by Light microscopy (test code = 01127-2) Leukocyte esterase [Presence] negative negative in Urine by Test strip (test code = 5799-2) Color of Urine (test code = dk yellow yellow, straw, ramon 5778-6) Character of Urine (test code clear clear = 03543-6) [facility] identified in Urine by [id number] 00:00:00 Test Item Value Reference Range Interpretation Comments Bacteria identified in Urine by comment Culture (test code = 630-4) [facility] MedicalCBC W Auto Differential panel - [id number] 00:00:00 Test Item Value Reference Range Interpretation Comments Leukocytes [#/volume] in Blood 2.8 x10e3/uL 3.4-10.8 L by Automated count (test code = 6690-2) Erythrocytes [#/volume] in 4.05 x10e6/uL 3.77-5.28 Blood by Automated count (test code = 789-8) Hemoglobin [Mass/volume] in 11.3 g/dL 11.1-15.9 Blood (test code = 718-7) Hematocrit [Volume Fraction] of 37.3 % 34.0-46.6 Blood by Automated count (test code = 4544-3) Erythrocyte mean corpuscular 92 fL 79-97 volume [Entitic volume] by Automated count (test code = 787-2) Erythrocyte mean corpuscular 27.9 pg 26.6-33.0 hemoglobin [Entitic mass] by Automated count (test code = 785-6) Erythrocyte mean corpuscular 30.3 g/dL 31.5-35.7 L hemoglobin concentration [Mass/volume] by Automated count (test code = 786-4) Erythrocyte distribution width 13.0 % 11.7-15.4 [Ratio] by Automated count (test code = 788-0) Platelets [#/volume] in Blood 157 x10e3/uL 150-450 by Automated count (test code = 777-3) Neutrophils/100 leukocytes in 53 % not estab. Blood by Automated count (test code = 770-8) Lymphocytes/100 leukocytes in 34 % not estab. Blood by Automated count (test code = 736-9) Monocytes/100 leukocytes in 10 % not estab. Blood by Automated count (test code = 5905-5) Eosinophils/100 leukocytes in 2 % not estab. Blood by Automated count (test code = 713-8) Basophils/100 leukocytes in 1 % not estab. Blood by Automated count (test code = 706-2) immature cells (test code = middle school combination teacher immature cells) Neutrophils [#/volume] in Blood 1.5 x10e3/uL 1.4-7.0 by Automated count (test code = 751-8) Lymphocytes [#/volume] in Blood 0.9 x10e3/uL 0.7-3.1 by Automated count (test code = 731-0) Monocytes [#/volume] in Blood 0.3 x10e3/uL 0.1-0.9 by Automated count (test code = 742-7) Eosinophils [#/volume] in Blood 0.1 x10e3/uL 0.0-0.4 by Automated count (test code = 711-2) Basophils [#/volume] in Blood 0.0 x10e3/uL 0.0-0.2 by Automated count (test code = 704-7) Immature granulocytes/100 0 % not estab. leukocytes in Blood by Automated count (test code = 91099-9) Immature granulocytes 0.0 x10e3/uL 0.0-0.1 [#/volume] in Blood by Automated count (test code = 89590-1) Nucleated erythrocytes/100 middle school combination teacher leukocytes [Ratio] in Blood by Automated count (test code = 00057-6) Morphology [Interpretation] in middle [employer] combination teacher Blood Narrative (test code = 82413-6) [facility] MedicalUrinalysis macro (dipstick) panel - [id number] 00:00:00 Test Item Value Reference Range Interpretation Comments Specific gravity of Urine by Test 1.023 1.005-1.030 strip (test code = 5811-5) pH of Urine by Test strip (test 6.5 5.0-7.5 code = 5803-2) Color of Urine (test code = yellow yellow 5778-6) Appearance of Urine (test code = clear clear 5767-9) Leukocyte esterase [Presence] in trace negative A Urine by Test strip (test code = 5799-2) Protein [Presence] in Urine by trace negative/trace Test strip (test code = 62860-2) Glucose [Presence] in Urine by negative negative Test strip (test code = 60014-4) Ketones [Presence] in Urine by trace negative A Test strip (test code = 2514-8) Hemoglobin [Presence] in Urine by negative negative Test strip (test code = 5794-3) Bilirubin.total [Presence] in negative negative Urine by Test strip (test code = 5770-3) Urobilinogen [Mass/volume] in 1.0 mg/dL 0.2-1.0 Urine by Test strip (test code = 82710-3) Nitrite [Presence] in Urine by negative negative Test strip (test code = 5802-4) Microscopic observation see below: [Identifier] in Urine sediment by Light microscopy (test code = 29206-5) Leukocytes [#/area] in Urine 0-5 0-5 sediment by Microscopy high power field (test code = 5821-4) Erythrocytes [#/area] in Urine 0-2 0-2 sediment by Microscopy high power field (test code = 66478-8) Epithelial cells [#/area] in Urine 0-10 0-10 sediment by Microscopy high power field (test code = 5787-7) Epithelial cells.renal [#/area] in [employer] combination [employer] Urine sediment by Microscopy high power field (test code = 62301-4) Casts [Presence] in Urine sediment none seen none seen by Light microscopy (test code = 70964-8) Casts [Type] in Urine sediment by middle school combination teacher Light microscopy (test code = 49168-5) Unidentified crystals [Presence] middle school combination teacher in Urine sediment by Light microscopy (test code = 5783-6) Crystals [type] in Urine sediment [employer] combination teacher by Light microscopy (test code = 5782-8) Mucus [Presence] in Urine sediment middle [employer] combination teacher by Light microscopy (test code = 8247-9) Bacteria [#/area] in Urine none seen none seen/few sediment by Microscopy high power field (test code = 5769-5) Yeast [#/area] in Urine sediment [employer] combination [employer] by Microscopy high power field (test code = 5822-2) Trichomonas vaginalis [Presence] middle school combination teacher in Urine sediment by Light microscopy (test code = 5813-1) Urine sediment comments by Light middle [employer] combination teacher microscopy Narrative (test code = 86011-9) [facility] metabolic 1998 panel - Serum or [id number] 00:00:00 Test Item Value Reference Range Interpretation Comments Glucose [Mass/volume] in Serum 91 mg/dL 65-99 or Plasma (test code = 2345-7) Urea nitrogen [Mass/volume] in 11 mg/dL 6-24 Serum or Plasma (test code = 3094-0) Creatinine [Mass/volume] in 0.87 mg/dL 0.57-1.00 Serum or Plasma (test code = 2160-0) Glomerular filtration 74 mL/min/1.73 >59 rate/1.73 sq M.predicted among non-blacks [Volume Rate/Area] in Serum, Plasma or Blood by Creatinine-based formula (CKD-EPI) (test code = 24305-9) Glomerular filtration 86 mL/min/1.73 >59 rate/1.73 sq M.predicted among blacks [Volume Rate/Area] in Serum, Plasma or Blood by Creatinine-based formula (CKD-EPI) (test code = 24670-8) Urea nitrogen/Creatinine [Mass 13 9-23 Ratio] in Serum or Plasma (test code = 3097-3) Sodium [Moles/volume] in Serum 142 mmol/L 134-144 or Plasma (test code = 2951-2) Potassium [Moles/volume] in 4.8 mmol/L 3.5-5.2 Serum or Plasma (test code = 2823-3) Chloride [Moles/volume] in 104 mmol/L 96-106 Serum or Plasma (test code = 2075-0) Carbon dioxide, total 23 mmol/L 20-29 [Moles/volume] in Serum or Plasma (test code = 2028-9) [facility] identified in Urine by [id number] 00:00:00 Test Item Value Reference Range Interpretation Comments Bacteria identified in Urine by no growth no growth Culture (test code = 630-4) [facility]acteria identified in Urine by [id number] 00:00:00 Test Item Value Reference Range Interpretation Comments Bacteria identified in Urine by see below no growth A Culture (test code = 630-4) [facility]acteria identified in Urine by [id number] 00:00:00 Test Item Value Reference Range Interpretation Comments Bacteria identified in Urine by see below no growth A Culture (test code = 630-4) [facility] MedicalUrinalysis complete panel - [id number] 00:00:00 Test Item Value Reference Range Interpretation Comments Specific gravity of Urine 1.024 1.003-1.030 (test code = 2965-2) pH of Urine (test code = 5.0 5.0-8.0 2756-5) Protein [Presence] in Urine by negative negative Test strip (test code = 93283-9) Glucose [Presence] in Urine by negative negative Test strip (test code = 07264-2) Ketones [Presence] in Urine by negative negative Test strip (test code = 2514-8) Urobilinogen [Units/volume] in 1.0 mg/dL 0.2-1.0 Urine by Test strip (test code = 16725-0) Bilirubin.total [Presence] in small negative A Urine by Test strip (test code = 5770-3) Hemoglobin [Presence] in Urine negative negative by Test strip (test code = 5794-3) Nitrite [Presence] in Urine by negative negative Test strip (test code = 5802-4) Crystals [type] in Urine none none sediment by Light microscopy (test code = 5782-8) Leukocytes [#/area] in Urine 0-4 0-4 sediment by Microscopy high power field (test code = 5821-4) Erythrocytes [#/area] in Urine none seen none seen sediment by Microscopy high power field (test code = 80683-8) RBC casts [Presence] in Urine none seen 0-1 sediment by Light microscopy (test code = 89790-4) Hyaline casts [Presence] in 0-4 0-4 Urine sediment by Light microscopy (test code = 25303-0) Epithelial cells [Presence] in few none-few Urine sediment by Light microscopy (test code = 39106-9) Granular casts [Presence] in none seen 0-1 Urine sediment by Light microscopy (test code = 99636-0) Bacteria [Presence] in Urine many none-few A sediment by Light microscopy (test code = 96336-1) Leukocyte esterase [Presence] negative negative in Urine by Test strip (test code = 5799-2) Color of Urine (test code = yellow yellow, straw, ramon 5778-6) Character of Urine (test code cloudy clear A = 81099-8) [facility] panel - [id number] 00:00:00 Test Item Value Reference Range Interpretation Comments Specific gravity of Urine 1.024 1.003-1.030 (test code = 2965-2) pH of Urine (test code = 5.0 5.0-8.0 2756-5) Protein [Presence] in Urine by negative negative Test strip (test code = 53328-4) Glucose [Presence] in Urine by negative negative Test strip (test code = 39993-9) Ketones [Presence] in Urine by negative negative Test strip (test code = 2514-8) Urobilinogen [Units/volume] in 1.0 mg/dL 0.2-1.0 Urine by Test strip (test code = 58104-7) Bilirubin.total [Presence] in small negative A Urine by Test strip (test code = 5770-3) Hemoglobin [Presence] in Urine negative negative by Test strip (test code = 5794-3) Nitrite [Presence] in Urine by negative negative Test strip (test code = 5802-4) Crystals [type] in Urine none none sediment by Light microscopy (test code = 5782-8) Leukocytes [#/area] in Urine 0-4 0-4 sediment by Microscopy high power field (test code = 5821-4) Erythrocytes [#/area] in Urine none seen none seen sediment by Microscopy high power field (test code = 93032-9) RBC casts [Presence] in Urine none seen 0-1 sediment by Light microscopy (test code = 91665-0) Hyaline casts [Presence] in 0-4 0-4 Urine sediment by Light microscopy (test code = 79317-0) Epithelial cells [Presence] in few none-few Urine sediment by Light microscopy (test code = 49869-5) Granular casts [Presence] in none seen 0-1 Urine sediment by Light microscopy (test code = 25657-9) Bacteria [Presence] in Urine many none-few A sediment by Light microscopy (test code = 98714-2) Leukocyte esterase [Presence] negative negative in Urine by Test strip (test code = 5799-2) Color of Urine (test code = yellow yellow, straw, ramon 5778-6) Character of Urine (test code cloudy clear A = 63801-7) [facility] AXIAL (HIP AND SPINE)2019-11-23 18:39:40HISTORY: TECHNIQUE: Bone density estimation is done using DEXA scan, over the righthip and lumbar spines. FINDINGS: Details of the results are enclosed for your review. The summaryis as follows. RIGHT HIP:BMD value is 0.891 gm/sq cm, with T-score of - 0.9. Estimated BMD in theneck is 0.810 g/sq cm with T score of -1.6. Slight further loss of bonemineral density noted when compared with April 2017 study. LUMBAR SPINES:Average BMD value from L2 through L5 is 1.094 gm/sq cm, with T- score - 0.8.Slight loss of bone mineral density noted when compared with April 2017study. CONCLUSION: Mild osteopenia in the neck of the right femur. ASSESSMENT: WHO-definitions: T-score normal: +/- 1 SD around the meanosteopenia: >1 to 2.4 SD below the meanosteoporosis: >2.5 SD below the meanFracture risk doubles for each 1.5 SD below the mean. [facility], Radiant Results Inft User - 11/23/2019 1:40 PM CDTHISTORY: TECHNIQUE: Bone density estimation is done using DEXA scan, over the righthip and lumbar spines.FINDINGS: Details of the results are enclosed for your review. The summaryis as follows.RIGHT HIP:BMD value is 0 .891 gm/sq cm, with T-score of - 0.9. Estimated BMD in theneck is 0.810 g/sq cm with T score of -1.6. Slight further loss of bonemineral density noted when compared with April 2017 study.LUMBAR SPINES:Average BMD value from L2 through L5 is 1.094 gm/sq cm, with T-score - 0.8.Slight loss of bone mineral density noted when compared with April 2017study.CONCLUSION: Mild osteopenia in the neck of the right femur.ASSESSMENT: WHO-definitions: T-scorenormal: +/- 1 SD around the meanosteopenia: >1 to 2.4SD below the meanosteoporosis: >2.5 SD below the meanFracture risk doubles for each 1.5 SD below the mean.[facility] [id number] 15:12:00Surgical Pathology Report Case: [id number] Authorizing Provider: John Hinson MD Collected:01/19/2018 0909 Ordering Location: [facility] PERIOPERATIVE Received: 01/19/2018 0948 SERVICES Pathologist: Farzaneh Emery MD Specimen: Bone, C4-C5 Ostephyte VERTEBRA, C4-C5 DISCECTOMY WITH OSTEOPHYTECTOMY: - BONE AND FIBROCARTILAGE WITH DEGENERATIVE CHANGES AND REACTIVE FEATURES - NEGATIVE FOR MALIGNANCY Signing Pathologist Direct Phone Line: [phone] signed by Farzaneh Emery MD on 01/28/2018 at 3:12 [id number] vertebral, other dysphagia. C4-C5 osteophyte The specimen is received in a fluidless container labeled with patient information and labeled "C4-C5 osteophyte" and consists of three fragments of off white fibrocartilaginous tissue measuring 1 x 0.4 x 0.2 cm in aggregate. Submitted entirely A1 for decalcification. CG/pl Performed.[place], [place] AUDIT[place] IN OR/30 MINUTE [id number] 12:31:00Reason for exam:->osteophyteFINAL REPORT Nondiagnostic exam. Radiology provided fluoroscopy for cervical surgery performed by Dr. hinson. Neither radiologist presence nor interpretation were requested. Please refer to the operative report for further information. Fluoroscopy time was 1.4 seconds. Total # of images: 1 Signed: JR Montoya Robert MDReport Verified Date/Time: 01/19/2018 12:31:32 Reading Location: [facility] Radiology Reading Room [place], [place] AUDITOR IN OR/30 MINUTE [id number] 09:09:00Reason for exam:->osteophyteFINAL REPORT [place], [place] AUDITOR IN OR/30 MINUTE INCREMENTS CLINICAL INDICATION: osteophyte COMPARISON: None IMPRESSION: A single lateral view of the cervical spine is obtained intraoperatively. The indicator probe is oriented at the C4-5 level. Results were discussed with Dr. Hinson, whoconcurred with the above findings. Signed: JR Montoya Robert MDReport Verified Date/Time: 01/19/2018 09:09:28 Reading Location: [facility] Reading Room RAD, CHEST, 2 [id number] 12:43:00Reason for Exam:- >pre opFINAL REPORT HISTORY : pre op. Comparison: None Comment: Two views of the chest, PA and lateral, were obtained. The cardiac silhouette is within normal limits. There is no pleural effusion, pneumothorax or infiltrate. No lytic or blastic abnormalities. Multilevel degenerative hughes es of the visualized thoracolumbar spine are seen. Surgical clips are seen over the right upper quadrant of the abdomen. Impression: No acute cardiothoracic abnormalities. Signed: Jeremy GuillenVerified Date/Time: 12/31/2017 12:43:22 Reading Location: [address] Radiology Reading Room URINALYSIS W/ REFLEX URINE [id number] 11:18:00 Test Item Value Reference Range Interpretation Comments COLOR (BEAKER) (test code = 470) Yellow CLARITY (BEAKER) (test code = 469) Clear SPECIFIC GRAVITY UA (BEAKER) (test 1.024 1.001-1.035 code = 468) PH UA (BEAKER) (test code = 467) 5.5 5.0-8.0 PROTEIN UA (BEAKER) (test code = 30 mg/dL Negative A 464) GLUCOSE UA (BEAKER) (test code = Negative Negative 365) KETONES UA (BEAKER) (test code = Negative Negative 371) BILIRUBIN UA (BEAKER) (test code = Negative Negative 462) BLOOD UA (BEAKER) (test code = 461) Negative Negative NITRITE UA (BEAKER) (test code = Negative Negative 465) LEUKOCYTE ESTERASE UA (BEAKER) Negative Negative (test code = 466) UROBILINOGEN UA (BEAKER) (test code 0.2 mg/dL 0.2-1.0 = 463) RBC UA (BEAKER) (test code = 519) < /HPF WBC UA (BEAKER) (test code = 520) 1 /HPF MUCUS (BEAKER) (test code = 1574) Moderate SQUAMOUS EPITHELIAL (BEAKER) (test < /HPF code = 516) HYALINE CASTS (BEAKER) (test code = 8 /LPF 514) SOURCE(BEAKER) (test code = 2795) [id number] 11:11:00 Test Item Value Reference Range Interpretation Comments PROTIME (BEAKER) (test code = 14.5 seconds 11.7-14.7 759) INR (BEAKER) (test code = 370) 1.1 <=5.9 PARTIAL THROMBOPLASTIN TIME 29.8 seconds 22.5-36.0 (BEAKER) (test code = 760) RECOMMENDED COUMADIN/WARFARIN INR THERAPY RANGESSTANDARD DOSE: 2.0 - 3.0 Includes: PROPHYLAXIS for venous thrombosis, systemic embolization; TREATMENT for venous thrombosis and/or pulmonary embolus.HIGH RISK: Target INR is 2.5-3.5 for patients with mechanical heart valves.PROTHROMBIN TIME/YOC6787-16-04 11:10:00 Test Item Value Reference Range Interpretation Comments PROTIME (BEAKER) (test code = 14.5 seconds 11.7-14.7 759) INR (BEAKER) (test code = 370) 1.1 <=5.9 RECOMMENDED COUMADIN/WARFARIN INR THERAPY RANGESSTANDARD DOSE: 2.0 - 3.0 Includes: PROPHYLAXIS for venous thrombosis, systemic embolization; TREATMENT for venous thrombosis and/or pulmonary embolus.HIGH RISK: Target INR is 2.5-3.5 for patients with mechanical heart valves.CBC W/PLT COUNT & AUTO FWEWJNAYKMKY8185-25-10 11:00:00 Test Item Value Reference Range Interpretation [...] 0-1 PERCENT (BEAKER) (test code = 2801) BKVCYFJZLTPU5417-52-00 09:13:00 Test Item Value Reference Range Interpretation Comments AGAP (test code = AGAP) 14.2 10.0-20.0 [facility]AajtzogNCSDIKHYLHEX8214-79-82 09:13:00 Test Item Value Reference Range Interpretation Comments eGFR (test code = eGFR) 76 [facility] HospitalWtuodkmGNAYNXULUCFR3431-56-54 09:13:00 Test Item Value Reference Range Interpretation Comments CO2 (test code = CO2) 27 24-32 [facility] HospitalWzdkwgcRTIITUPODZFZ1888-15-48 09:13:00 Test Item Value Reference Range Interpretation Comments Creatinine Lvl (test code = Creatinine 0.88 0.50-1.40 Lvl) [facility] HospitalKjzhxomKHQSUJCSJSEG5815-18-76 09:13:00 Test Item Value Reference Range Interpretation Comments BUN (test code = BUN) 9 7-22 [facility] HospitalOcipqgwMNPGFWQZFLSC4488-65-56 09:13:00 Test Item Value Reference Range Interpretation Comments Glucose Lvl (test code = Glucose Lvl) 119 70-99 [facility] HospitalWylbsacLPYJOASQIJGQ7243-08-94 09:13:00 Test Item Value Reference Range Interpretation Comments Sodium Lvl (test code = Sodium Lvl) 137 135-145 [facility] HospitalPxwatdfFFBKUCBVNMOA6179-27-78 09:13:00 Test Item Value Reference Range Interpretation Comments Chloride Lvl (test code = Chloride Lvl) 100 95-109 [facility] HospitalYxxmqnvHAMZQPQNBBGR6962-36-52 09:13:00 Test Item Value Reference Range Interpretation Comments Calcium Lvl (test code = Calcium Lvl) 8.6 8.5-10.5 [facility]lxeqpsTEMCJPLQKVMM5542-71-26 09:13:00 Test Item Value Reference Range Interpretation Comments Potassium Lvl (test code = Potassium 4.2 3.5-5.1 Lvl) [facility]TjdqjobWXCUPSVJZL8573-94-62 09:13:00 Test Item Value Reference Range Interpretation Comments Lymphocytes # (test code = Lymphocytes 0.7 1.0-5.5 #) [facility] HospitalIkxpedhPYGJVXNBEZ9696-81-54 09:13:00 Test Item Value Reference Range Interpretation Comments Basophils (test code = 0.1 See_Comment [Aut omated message] The Basophils) system which ge nerated this result tra nsmitted reference range : <=1.0. The reference r kell was not used to int erpret this result as normal/abnormal . [facility] HospitalIimadjvAJEUJNWZLT1373-13-42 09:13:00 Test Item Value Reference Range Interpretation Comments Monocytes # (test code 0.6 See_Comment [Aut omated message] The = Monocytes #) system which generated this result tra nsmitted reference range : <=0.8. The reference r kell was not used to int erpret this result as normal/abnormal . [facility] HospitalEwqflwjKFVWYBQSRX7430-20-74 09:13:00 Test Item Value Reference Range Interpretation Comments Segs-Bands # (test code = Segs-Bands #) 9.8 1.5-8.1 [facility] HospitalDsdffzcPFGHJZCWOZ4791-35-25 09:13:00 Test Item Value Reference Range Interpretation Comments Segs (test code = Segs) 88.3 45.0-75.0 [facility] HospitalXzqtfqrMHFCMIXZGI8200-50-86 09:13:00 Test Item Value Reference Range Interpretation Comments Monocytes (test code = Monocytes) 5.6 2.0-12.0 [facility] HospitalLgmmgijWYJUIMVUOQ5634-99-10 09:13:00 Test Item Value Reference Range Interpretation Comments Lymphocytes (test code = Lymphocytes) 6.0 20.0-40.0 [facility] HospitalZhkvikcZYMURKJOTG5775-47-72 09:13:00 Test Item Value Reference Range Interpretation Comments WBC (test code = WBC) 11.1 3.7-10.4 [facility] HospitalUifczdxBVQJHJUZRD6775-45-02 09:13:00 Test Item Value Reference Range Interpretation Comments RDW (test code = RDW) 14.6 11.5-14.5 [facility] HospitalQxcycaeXLSEDGMZMI0227-60-11 09:13:00 Test Item Value Reference Range Interpretation Comments Platelet (test code = Platelet) 198 133-450 [facility] HospitalYtmnpivJVJSCLCWTK7056-56-36 09:13:00 Test Item Value Reference Range Interpretation Comments Hgb (test code = Hgb) 12.9 12.0-16.0 [facility] HospitalUughvmgPERKUCCMRQ7727-37-45 09:13:00 Test Item Value Reference Range Interpretation Comments MPV (test code = MPV) 10.8 7.4-10.4 [facility] HospitalZwnvyhrVLOHVKTUNB0189-76-23 09:13:00 Test Item Value Reference Range Interpretation Comments MCH (test code = MCH) 29.8 pg 27.0-31.0 [facility] HospitalMttdvagOSCKDMVVXN8997-73-80 09:13:00 Test Item Value Reference Range Interpretation Comments MCHC (test code = MCHC) 34.1 32.0-36.0 [facility] HospitalAmmzdvmJDPRQEKXPQ4888-47-79 09:13:00 Test Item Value Reference Range Interpretation Comments Hct (test code = Hct) 37.7 36.0-48.0 [facility] HospitalCxsilpoUDTVYCPGTZ7170-47-34 09:13:00 Test Item Value Reference Range Interpretation Comments MCV (test code = MCV) 87.3 80.0-98.0 [facility] HospitalEirhwjeWNUPGWBJQV1229-16-16 09:13:00 Test Item Value Reference Range Interpretation Comments RBC (test code = RBC) 4.32 4.20-5.40 [facility] HospitalKlejdkzCRMXPMJBHWAR8925-68-92 09:13:00 Test Item Value Reference Range Interpretation Comments AGAP (test code = AGAP) 14.2 10.0-20.0 [facility] HospitalTbfobveTPMDADJOTEGT3811-94-97 09:13:00 Test Item Value Reference Range Interpretation Comments eGFR (test code = eGFR) 76 [facility] HospitalFqkorifLILWEYJJJDYT1799-50-42 09:13:00 Test Item Value Reference Range Interpretation Comments CO2 (test code = CO2) 27 24-32 [facility] HospitalYepfmbkMTHPKSOAYJOF4540-98-89 09:13:00 Test Item Value Reference Range Interpretation Comments Creatinine Lvl (test code = Creatinine 0.88 0.50-1.40 Lvl) [facility] HospitalFaxnuhiESQNUFXDENQC5120-35-08 09:13:00 Test Item Value Reference Range Interpretation Comments BUN (test code = BUN) 9 7-22 [facility] HospitalPjpdozjIPPJHWSHKNTN4543-88-04 09:13:00 Test Item Value Reference Range Interpretation Comments Glucose Lvl (test code = Glucose Lvl) 119 70-99 [facility] HospitalYhvknafAHKIRTTVIVJG0083-32-50 09:13:00 Test Item Value Reference Range Interpretation Comments Sodium Lvl (test code = Sodium Lvl) 137 135-145 [facility] HospitalCtrabygVVVLPXOKKKKC7358-48-04 09:13:00 Test Item Value Reference Range Interpretation Comments Chloride Lvl (test code = Chloride Lvl) 100 95-109 [facility] HospitalGnrenusQJUMMBQRBPDI1225-28-30 09:13:00 Test Item Value Reference Range Interpretation Comments Calcium Lvl (test code = Calcium Lvl) 8.6 8.5-10.5 [facility] HospitalAqrmlqwCKYRQWXZCKHN0322-55-70 09:13:00 Test Item Value Reference Range Interpretation Comments Potassium Lvl (test code = Potassium 4.2 3.5-5.1 Lvl) [facility] HospitalXwjexqvLQDHMAPRBS3562-56-13 09:13:00 Test Item Value Reference Range Interpretation Comments Lymphocytes # (test code = Lymphocytes 0.7 1.0-5.5 #) [facility] HospitalLyeoslxPQCSUOBEBL6134-61-13 09:13:00 Test Item Value Reference Range Interpretation Comments Basophils (test code = 0.1 See_Comment [Aut omated message] The Basophils) system which ge nerated this result tra nsmitted reference range : <=1.0. The reference r kell was not used to int erpret this result as normal/abnormal . [facility] HospitalOeizxqbWKXEJQUECV6781-89-29 09:13:00 Test Item Value Reference Range Interpretation Comments Monocytes # (test code 0.6 See_Comment [Aut omated message] The = Monocytes #) system which generated this result tra nsmitted reference range : <=0.8. The reference r kell was not used to int erpret this result as normal/abnormal . [facility] HospitalVdiddteTGEBKYEJPP1710-04-66 09:13:00 Test Item Value Reference Range Interpretation Comments Segs-Bands # (test code = Segs-Bands #) 9.8 1.5-8.1 [facility] HospitalSivzvztWBTSJHSRPF7086-54-72 09:13:00 Test Item Value Reference Range Interpretation Comments Segs (test code = Segs) 88.3 45.0-75.0 [facility] HospitalMxlxeuoGIVYDKAUXS4859-06-92 09:13:00 Test Item Value Reference Range Interpretation Comments Monocytes (test code = Monocytes) 5.6 2.0-12.0 [facility] HospitalFjdfzsrMIVZHAFXRD9467-81-96 09:13:00 Test Item Value Reference Range Interpretation Comments Lymphocytes (test code = Lymphocytes) 6.0 20.0-40.0 [facility] HospitalNmjeqwkDBNIKVZFFB4341-38-85 09:13:00 Test Item Value Reference Range Interpretation Comments WBC (test code = WBC) 11.1 3.7-10.4 [facility] HospitalNteuwwlPCBPDUNUPG9350-09-05 09:13:00 Test Item Value Reference Range Interpretation Comments RDW (test code = RDW) 14.6 11.5-14.5 [facility] HospitalZnszxioXIAHSVUFHY7222-64-22 09:13:00 Test Item Value Reference Range Interpretation Comments Platelet (test code = Platelet) 198 133-450 [facility] HospitalYqclrogISALEOTGIP8485-75-19 09:13:00 Test Item Value Reference Range Interpretation Comments Hgb (test code = Hgb) 12.9 12.0-16.0 [facility] HospitalApjlcsoRBUXDLRTEP5446-29-59 09:13:00 Test Item Value Reference Range Interpretation Comments MPV (test code = MPV) 10.8 7.4-10.4 [facility] HospitalNmulbbnVBSPKTCLDU9098-16-77 09:13:00 Test Item Value Reference Range Interpretation Comments MCH (test code = MCH) 29.8 pg 27.0-31.0 [facility] HospitalIttlrawTTDEQJBMHI1544-80-58 09:13:00 Test Item Value Reference Range Interpretation Comments MCHC (test code = MCHC) 34.1 32.0-36.0 [facility] HospitalAkpgdunULFFLTAGGY5753-20-18 09:13:00 Test Item Value Reference Range Interpretation Comments Hct (test code = Hct) 37.7 36.0-48.0 [facility] HospitalGzsrlleRHUXHZMZAE6845-28-56 09:13:00 Test Item Value Reference Range Interpretation Comments MCV (test code = MCV) 87.3 80.0-98.0 [facility] HospitalLaxysflFFWHGUFBBM2553-17-62 09:13:00 Test Item Value Reference Range Interpretation Comments RBC (test code = RBC) 4.32 4.20-5.40 [facility] How do you roll? LZUBMHM4740-23-17 15:31:00 Test Item Value Reference Range Interpretation Comments Antibody Scrn (test Negative (11/28/16 code = Antibody Scrn) 10:31 AM) [facility] How do you roll? UDHRGQO7685-31-81 15:31:00 Test Item Value Reference Range Interpretation Comments ABO/Rh (test code = ABO/Rh) B POS [facility] [place] How do you roll? REEYOXE8694-66-08 15:31:00 Test Item Value Reference Range Interpretation Comments Antibody Scrn (test Negative (11/28/16 code = Antibody Scrn) 10:31 AM) [facility] How do you roll? XOPTBQZ8761-13-50 15:31:00 Test Item Value Reference Range Interpretation Comments ABO/Rh (test code = ABO/Rh) B POS [facility] How do you roll? WABHKPC6500-57-75 11:00:00 Test Item Value Reference Range Interpretation Comments RBC product (test code Product available = RBC product) (11/28/16 6:00 AM) [facility] [place] How do you roll? MZEMTTP4687-72-61 11:00:00 Test Item Value Reference Range Interpretation Comments RBC product (test code Product available = RBC product) (11/28/16 6:00 AM) [facility] [employer] [id number] 18:29:00 Test Item Value Reference Range Interpretation Comments VITAMIN B1 (THIAMINE) WHOLE BLOOD (test 140.8 66.5-200.0 code = VITAMIN B1 (THIAMINE) WHOLE BLOOD) [facility] [employer] YASCY5815-26-80 18:29:00 Test Item Value Reference Range Interpretation Comments Vitamin D, 25-OH, Total (test code = 25.5 30.0-100.0 Vitamin D, 25-OH, Total) [facility] WambiniVWDGJEHEAGVP0925-38-78 18:29:00 Test Item Value Reference Range Interpretation Comments AGAP (test code = AGAP) 14.0 10.0-20.0 [facility]TX[facility]FRYJXS[facility]78-[facility]-63 18:29:00 Test Item Value Reference Range Interpretation Comments A/G Ratio (test code = A/G Ratio) 1.2 0.7-1.6 [facility] WhrkisiWYKAIVQWKHZW9006-47-24 18:29:00 Test Item Value Reference Range Interpretation Comments Globulin (test code = Globulin) 3.7 2.7-4.2 [facility] HospitalQvbntkrSHMBNTJHCNST1194-57-15 18:29:00 Test Item Value Reference Range Interpretation Comments B/C Ratio (test code = B/C Ratio) 14 6-25 [facility] HospitalBzpgburJQKOYWMBPBNJ5396-94-72 18:29:00 Test Item Value Reference Range Interpretation Comments Glucose Lvl (test code = Glucose Lvl) 95 70-99 [facility] HospitalAwrbpwhBGXRZJSWTQCL8390-56-77 18:29:00 Test Item Value Reference Range Interpretation Comments Calcium Lvl (test code = Calcium Lvl) 8.9 8.5-10.5 [facility] HospitalQkblhcmSDVJEQAUXCJM3769-98-79 18:29:00 Test Item Value Reference Range Interpretation Comments BUN (test code = BUN) 15 7-22 [facility] HospitalFozodbnEABCVXXHUWXQ4226-45-62 18:29:00 Test Item Value Reference Range Interpretation Comments Albumin Lvl (test code = Albumin Lvl) 4.4 3.5-5.0 [facility] HospitalJjesddwGJJOIANZRRWG3958-03-09 18:29:00 Test Item Value Reference Range Interpretation Comments Potassium Lvl (test code = Potassium 4.0 3.5-5.1 Lvl) [facility] HospitalOevewtrGZXAOPHNBEGZ6714-05-97 18:29:00 Test Item Value Reference Range Interpretation Comments Chloride Lvl (test code = Chloride Lvl) 107 95-109 [facility] HospitalVlkcsrkAQOFDRVWNBHA6990-74-53 18:29:00 Test Item Value Reference Range Interpretation Comments CO2 (test code = CO2) 27 24-32 [facility] HospitalEfqfwyuRFKSCLUYBMRP0151-21-78 18:29:00 Test Item Value Reference Range Interpretation Comments Sodium Lvl (test code = Sodium Lvl) 144 135-145 [facility] HospitalXdctpzzOLKHXZEQCGFO8660-86-83 18:29:00 Test Item Value Reference Range Interpretation Comments Bili Total (test code = Bili Total) 0.9 0.2-1.3 [facility] HospitalTsnkklfIRILZWHVQBQK4762-13-55 18:29:00 Test Item Value Reference Range Interpretation Comments Alk Phos (test code = Alk Phos) 109 39-136 [facility] HospitalOnisqojTPHNQHVFQJCQ3002-89-97 18:29:00 Test Item Value Reference Range Interpretation Comments Total Protein (test code = Total 8.1 6.4-8.4 Protein) [facility] HospitalMgbutopXSHUOGWCTNQC1286-46-62 18:29:00 Test Item Value Reference Range Interpretation Comments eGFR (test code = eGFR) 59 [facility] HospitalVlkuaekFDXVWXLJFKWJ6104-88-12 18:29:00 Test Item Value Reference Range Interpretation Comments ALT (test code = ALT) 36 See_Comment [Auto mated message] The system which ge nerated this result transmit stella reference range : <=65. The reference range was not used to interpr et this result as nhung l/abnormal. [facility] HospitalVjixvpcZXRCNQTTQHSC5614-02-05 18:29:00 Test Item Value Reference Range Interpretation Comments AST (test code = AST) 26 See_Comment [Auto mated message] The system which ge nerated this result transmit stella reference range : <=37. The reference range was not used to interpr et this result as nhung l/abnormal. [facility] HospitalXjgvmphEMSEOAWLGVKB2948-59-49 18:29:00 Test Item Value Reference Range Interpretation Comments Creatinine Lvl (test code = Creatinine 1.09 0.50-1.40 Lvl) [facility] HospitalFzzcnxaTKVVTQXEEI4333-96-25 18:29:00 Test Item Value Reference Range Interpretation Comments Platelet (test code = Platelet) 200 133-450 [facility] HospitalAyzliciYYIXDFANXF2686-12-93 18:29:00 Test Item Value Reference Range Interpretation Comments MPV (test code = MPV) 10.3 7.4-10.4 [facility] HospitalEzifgihGEOBAVZYJS3051-49-88 18:29:00 Test Item Value Reference Range Interpretation Comments RDW (test code = RDW) 14.6 11.5-14.5 [facility] HospitalSwbddlmPNAKOQOPKE3186-46-25 18:29:00 Test Item Value Reference Range Interpretation Comments RBC (test code = RBC) 4.58 4.20-5.40 [facility] HospitalLasqcbvLYDGTVVYHZ3081-99-61 18:29:00 Test Item Value Reference Range Interpretation Comments WBC (test code = WBC) 5.4 3.7-10.4 [facility]2017-09-28 18:29:00 Test Item Value Reference Range Interpretation Comments VITAMIN B1 (THIAMINE) WHOLE BLOOD (test 140.8 66.5-200.0 code = VITAMIN B1 (THIAMINE) WHOLE BLOOD) [facility]2017-09-28 18:29:00 Test Item Value Reference Range Interpretation Comments Vitamin D, 25-OH, Total (test code = 25.5 30.0-100.0 Vitamin D, 25-OH, Total) [facility] HospitalHqvobplASZPVAWREWIY2443-90-03 18:29:00 Test Item Value Reference Range Interpretation Comments AGAP (test code = AGAP) 14.0 10.0-20.0 [facility] HospitalMdvvmcoYCWEDKXTALKV4732-23-00 18:29:00 Test Item Value Reference Range Interpretation Comments A/G Ratio (test code = A/G Ratio) 1.2 0.7-1.6 [facility] HospitalBuqgshyOXXVAOFZGMXE4939-04-58 18:29:00 Test Item Value Reference Range Interpretation Comments Globulin (test code = Globulin) 3.7 2.7-4.2 [facility] HospitalHhmrwdtYAVWQVGLNRII9337-61-46 18:29:00 Test Item Value Reference Range Interpretation Comments B/C Ratio (test code = B/C Ratio) 14 6-25 [facility] HospitalVwdawuqYQJKBMRAYVYK7184-14-84 18:29:00 Test Item Value Reference Range Interpretation Comments Glucose Lvl (test code = Glucose Lvl) 95 70-99 [facility] HospitalGsjfqtqITIXACUFWYEL0556-62-60 18:29:00 Test Item Value Reference Range Interpretation Comments Calcium Lvl (test code = Calcium Lvl) 8.9 8.5-10.5 [facility] HospitalDidhrvxVQYWSKSABMJB4222-27-83 18:29:00 Test Item Value Reference Range Interpretation Comments BUN (test code = BUN) 15 7-22 [facility] HospitalNdqzhzwGFMZSHWFISAD4972-92-48 18:29:00 Test Item Value Reference Range Interpretation Comments Albumin Lvl (test code = Albumin Lvl) 4.4 3.5-5.0 [facility] HospitalAxtrjzeZTLMRQZHGTIT1547-19-48 18:29:00 Test Item Value Reference Range Interpretation Comments Potassium Lvl (test code = Potassium 4.0 3.5-5.1 Lvl) [facility] HospitalTqeduwhHAFPPECFYLWG3676-04-35 18:29:00 Test Item Value Reference Range Interpretation Comments Chloride Lvl (test code = Chloride Lvl) 107 95-109 [facility] HospitalCmvltmbNJAPAEZUEZVQ0203-29-71 18:29:00 Test Item Value Reference Range Interpretation Comments CO2 (test code = CO2) 27 24-32 [facility] HospitalTyohzceXNSRCAHHAECR7112-59-80 18:29:00 Test Item Value Reference Range Interpretation Comments Sodium Lvl (test code = Sodium Lvl) 144 135-145 [facility] HospitalRlbarljKXZOTLPMCZJU0659-98-28 18:29:00 Test Item Value Reference Range Interpretation Comments Bili Total (test code = Bili Total) 0.9 0.2-1.3 [facility] HospitalTjnilogDQMXLXMMTXBD1173-73-64 18:29:00 Test Item Value Reference Range Interpretation Comments Alk Phos (test code = Alk Phos) 109 39-136 [facility] HospitalTzqkacsZSLAFDTVXWKE5830-41-81 18:29:00 Test Item Value Reference Range Interpretation Comments Total Protein (test code = Total 8.1 6.4-8.4 Protein) [facility] HospitalGiteqenWSONANPAGXWY3507-25-42 18:29:00 Test Item Value Reference Range Interpretation Comments eGFR (test code = eGFR) 59 [facility] HospitalCsdfjcoTKAIXUEGHZAW1836-56-18 18:29:00 Test Item Value Reference Range Interpretation Comments ALT (test code = ALT) 36 See_Comment [Auto mated message] The system which ge nerated this result transmit stella reference range : <=65. The reference range was not used to interpr et this result as nhung l/abnormal. [facility] HospitalDgbmcfnFKQXXEGOHWIM9981-34-93 18:29:00 Test Item Value Reference Range Interpretation Comments AST (test code = AST) 26 See_Comment [Auto mated message] The system which ge nerated this result transmit stella reference range : <=37. The reference range was not used to interpr et this result as nhung l/abnormal. [facility] HospitalMqnjfusYRKIULHQONIG0737-35-69 18:29:00 Test Item Value Reference Range Interpretation Comments Creatinine Lvl (test code = Creatinine 1.09 0.50-1.40 Lvl) [facility] HospitalCnnocifJAIJEPDSWJ6712-28-01 18:29:00 Test Item Value Reference Range Interpretation Comments Platelet (test code = Platelet) 200 133-450 [facility] HospitalKfxowgtNXTAAXUYGR1568-46-46 18:29:00 Test Item Value Reference Range Interpretation Comments MPV (test code = MPV) 10.3 7.4-10.4 [facility] HospitalTiktjesAWNKNKUBDK9516-70-65 18:29:00 Test Item Value Reference Range Interpretation Comments RDW (test code = RDW) 14.6 11.5-14.5 [facility] HospitalUfaichvQYSVHEIIER9815-41-14 18:29:00 Test Item Value Reference Range Interpretation Comments RBC (test code = RBC) 4.58 4.20-5.40 [facility] HospitalQaneouaCQFLDRMIQH3182-78-27 18:29:00 Test Item Value Reference Range Interpretation Comments WBC (test code = WBC) 5.4 3.7-10.4 [facility] HospitalUfbswijVSULIXFHKG6573-72-06 18:29:00 Test Item Value Reference Range Interpretation Comments Hct (test code = Hct) 39.8 36.0-48.0 [facility] HospitalMpizaqvQOZMTJYDQF1982-40-76 18:29:00 Test Item Value Reference Range Interpretation Comments Hct (test code = Hct) 39.8 36.0-48.0 [facility] HospitalQaizuzkIHPLBAOSVQ0689-49-83 18:29:00 Test Item Value Reference Range Interpretation Comments MCV (test code = MCV) 86.9 80.0-98.0 [facility] HospitalKtpeiasFKNLQXWDUY8668-24-94 18:29:00 Test Item Value Reference Range Interpretation Comments Hgb (test code = Hgb) 13.2 12.0-16.0 [facility] HospitalMmryhzvENTNDEZHWS0675-66-74 18:29:00 Test Item Value Reference Range Interpretation Comments MCHC (test code = MCHC) 33.3 32.0-36.0 [facility] HospitalAldipleVMOLMICDIN4809-58-27 18:29:00 Test Item Value Reference Range Interpretation Comments MCH (test code = MCH) 28.9 pg 27.0-31.0 [facility] HospitalWggtxmlURPQHUNDMQ0260-10-73 18:29:00 Test Item Value Reference Range Interpretation Comments Segs (test code = Segs) 51.4 45.0-75.0 [facility] HospitalXuovwpsAZUDVLYZKM8756-00-87 18:29:00 Test Item Value Reference Range Interpretation Comments Eosinophils (test code = 2.4 See_Comment [A utomated message] The Eosinophils) system which ge nerated this result tra nsmitted reference range : <=4.0. The reference r kell was not used to int erpret this result as normal/abnormal . [facility] HospitalDqgommwXLHMBTMSBJ2731-65-36 18:29:00 Test Item Value Reference Range Interpretation Comments Lymphocytes (test code = Lymphocytes) 34.7 20.0-40.0 [facility] HospitalVibnsmlZYEAHBAULL0924-63-09 18:29:00 Test Item Value Reference Range Interpretation Comments Monocytes (test code = Monocytes) 10.8 2.0-12.0 [facility] HospitalKcvsuwfQTVRQQTXVX0228-57-14 18:29:00 Test Item Value Reference Range Interpretation Comments Basophils (test code = 0.7 See_Comment [Aut omated message] The Basophils) system which ge nerated this result tra nsmitted reference range : <=1.0. The reference r kell was not used to int erpret this result as normal/abnormal . [facility] HospitalAgckapiWWCAKTCCOA6882-58-58 18:29:00 Test Item Value Reference Range Interpretation Comments Segs-Bands # (test code = Segs-Bands #) 2.8 1.5-8.1 [facility] HospitalLwqouipBVFCFPDQOE3458-88-52 18:29:00 Test Item Value Reference Range Interpretation Comments Lymphocytes # (test code = Lymphocytes 1.9 1.0-5.5 #) [facility] HospitalGdjzrraUMYBEHNWQD0946-03-74 18:29:00 Test Item Value Reference Range Interpretation Comments Monocytes # (test code 0.6 See_Comment [Aut omated message] The = Monocytes #) system which generated this result tra nsmitted reference range : <=0.8. The reference r kell was not used to int erpret this result as normal/abnormal . [facility] HospitalKbiwzaaINOEMGCOHL5327-11-18 18:29:00 Test Item Value Reference Range Interpretation Comments Eosinophils # (test code 0.1 See_Comment [A utomated message] The = Eosinophils #) system whic h generated this result tra nsmitted reference range : <=0.5. The reference r kell was not used to int erpret this result as normal/abnormal . [id number] 18:29:00 Test Item Value Reference Range Interpretation Comments PTT (test code = PTT) 44.5 s 22.9-35.8 [id number] 18:29:00 Test Item Value Reference Range Interpretation Comments PT (test code = PT) 13.3 s 12.0-14.7 [id number] 18:29:00 Test Item Value Reference Range Interpretation Comments INR (test code = INR) 0.99 0.85-1.17 [facility] H[id number] 18:29:00 Test Item Value Reference Range Interpretation Comments MCV (test code = MCV) 86.9 80.0-98.0 [facility] H[id number] 18:29:00 Test Item Value Reference Range Interpretation Comments Hgb (test code = Hgb) 13.2 12.0-16.0 [facility] Ho[id number] 18:29:00 Test Item Value Reference Range Interpretation Comments MCHC (test code = MCHC) 33.3 32.0-36.0 [facility] Hos[id number] 18:29:00 Test Item Value Reference Range Interpretation Comments MCH (test code = MCH) 28.9 pg 27.0-31.0 [facility] HospitalS[id number] 18:29:00 Test Item Value Reference Range Interpretation Comments Segs (test code = Segs) 51.4 45.0-75.0 [facility] H[id number] 18:29:00 Test Item Value Reference Range Interpretation Comments Eosinophils (test code = 2.4 See_Comment [A utomated message] The Eosinophils) system which ge nerated this result tra nsmitted reference range : <=4.0. The reference r kell was not used to int erpret this result as normal/abnormal . [facility] Hospit[id number] 18:29:00 Test Item Value Reference Range Interpretation Comments Lymphocytes (test code = Lymphocytes) 34.7 20.0-40.0 [facility] HospitalHiglcxqXJTMFJFNIO5120-16-11 18:29:00 Test Item Value Reference Range Interpretation Comments Monocytes (test code = Monocytes) 10.8 2.0-12.0 [facility] HospitalNdmsefxDZWDUENNFY6519-31-63 18:29:00 Test Item Value Reference Range Interpretation Comments Basophils (test code = 0.7 See_Comment [Aut omated message] The Basophils) system which ge nerated this result tra nsmitted reference range : <=1.0. The reference r kell was not used to int erpret this result as normal/abnormal . [facility] HospitalAybjcaxAPCEKUYRTF8339-78-13 18:29:00 Test Item Value Reference Range Interpretation Comments Segs-Bands # (test code = Segs-Bands #) 2.8 1.5-8.1 [facility] HospitalEwmdtqrKEKBQFFDCJ3279-01-07 18:29:00 Test Item Value Reference Range Interpretation Comments Lymphocytes # (test code = Lymphocytes 1.9 1.0-5.5 #) [facility] Hospit[id number] 18:29:00 Test Item Value Reference Range Interpretation Comments Monocytes # (test code 0.6 See_Comment [Aut omated message] The = Monocytes #) system which generated this result tra nsmitted reference range : <=0.8. The reference r kell was not used to int erpret this result as normal/abnormal . [facility] Hospit[id number] 18:29:00 Test Item Value Reference Range Interpretation Comments Eosinophils # (test code 0.1 See_Comment [A utomated message] The = Eosinophils #) system whic h generated this result tra nsmitted reference range : <=0.5. The reference r kell was not used to int erpret this result as normal/abnormal . [facility] Hospit[id number] 18:29:00 Test Item Value Reference Range Interpretation Comments PTT (test code = PTT) 44.5 s 22.9-35.8 [facility] Hospit[id number] 18:29:00 Test Item Value Reference Range Interpretation Comments PT (test code = PT) 13.3 s 12.0-14.7 [facility] HospitalSwwctykKYHUNQVPGJ8435-16-29 18:29:00 Test Item Value Reference Range Interpretation Comments INR (test code = INR) 0.99 0.85-1.17 [facility]2017-09-28 18:20:00 Test Item Value Reference Range Interpretation Comments UA Urobilinogen (test code = UA <=1.0 mg/dL 0.1-1.0 Urobilinogen) [facility]2017-09-28 18:20:00 Test Item Value Reference Range Interpretation Comments UA Ketones (test code = UA Ketones) Negative [facility]2017-09-28 18:20:00 Test Item Value Reference Range Interpretation Comments UA RBC (test code = 2 See_Comment [Automa stella message] The UA RBC) system which ge nerated this result transmit stella reference range : <=2. The reference range was not used to interpr et this result as nhung l/abnormal. [facility]2017-09-28 18:20:00 Test Item Value Reference Range Interpretation Comments UA Mucus (test code = UA Mucus) Few /LPF [facility] AND [id number] 18:20:00 Test Item Value Reference Range Interpretation Comments UA Glucose (test code = UA Negative mg/dL Glucose) [facility] AND [id number] 18:20:00 Test Item Value Reference Range Interpretation Comments UA Blood (test code = Negative (11/21/16 1:20 UA Blood) PM) [facility] AND [id number] 18:20:00 Test Item Value Reference Range Interpretation Comments UA Nitrite (test code Negative (11/21/16 1:20 = UA Nitrite) PM) [facility] AND [id number] 18:20:00 Test Item Value Reference Range Interpretation Comments UA Protein (test code = UA Negative mg/dL Protein) [facility] AND [id number] 18:20:00 Test Item Value Reference Range Interpretation Comments UA Bili (test code = Negative *NA*(11/21/16 UA Bili) 1:20 PM) [facility] AND [id number] 18:20:00 Test Item Value Reference Range Interpretation Comments UA Leuk Est (test Negative (11/21/16 1:20 code = UA Leuk Est) PM) [facility] AND [id number] 18:20:00 Test Item Value Reference Range Interpretation Comments UA WBC (test code = 1 See_Comment [Automa stelal message] The UA WBC) system which ge nerated this result transmit stella reference range : <=5. The reference range was not used to interpr et this result as nhung l/abnormal. [facility] AND [id number] 18:20:00 Test Item Value Reference Range Interpretation Comments UA Sq Epi (test code = UA Sq Epi) Few /LPF [facility] AND [id number] 18:20:00 Test Item Value Reference Range Interpretation Comments UA Color (test code = Yellow *NA*(11/21/16 UA Color) 1:20 PM) [facility] AND [id number] 18:20:00 Test Item Value Reference Range Interpretation Comments UA Turbidity (test code = Clear (11/21/16 1:20 UA Turbidity) PM) [facility] AND [id number] 18:20:00 Test Item Value Reference Range Interpretation Comments UA Spec Grav (test code = UA Spec Grav) 1.025 [facility] AND [id number] 18:20:00 Test Item Value Reference Range Interpretation Comments UA pH (test code = UA pH) 5.0 5.0-8.0 [facility] AND [id number] 18:20:00 Test Item Value Reference Range Interpretation Comments UA Urobilinogen (test code = UA <=1.0 mg/dL 0.1-1.0 Urobilinogen) [facility] AND [id number] 18:20:00 Test Item Value Reference Range Interpretation Comments UA Ketones (test code = UA Ketones) Negative [facility] AND [id number] 18:20:00 Test Item Value Reference Range Interpretation Comments UA RBC (test code = 2 See_Comment [Automa stella message] The UA RBC) system which ge nerated this result transmit stella reference range : <=2. The reference range was not used to interpr et this result as nhung l/abnormal. [facility] AND [id number] 18:20:00 Test Item Value Reference Range Interpretation Comments UA Mucus (test code = UA Mucus) Few /LPF [facility] AND [id number] 18:20:00 Test Item Value Reference Range Interpretation Comments UA Glucose (test code = UA Negative mg/dL Glucose) [facility] AND [id number] 18:20:00 Test Item Value Reference Range Interpretation Comments UA Blood (test code = Negative (11/21/16 1:20 UA Blood) PM) [facility] AND [id number] 18:20:00 Test Item Value Reference Range Interpretation Comments UA Nitrite (test code Negative (11/21/16 1:20 = UA Nitrite) PM) [facility] AND [id number] 18:20:00 Test Item Value Reference Range Interpretation Comments UA Protein (test code = UA Negative mg/dL Protein) [facility] AND [id number] 18:20:00 Test Item Value Reference Range Interpretation Comments UA Bili (test code = Negative *NA*(11/21/16 UA Bili) 1:20 PM) [facility] AND [id number] 18:20:00 Test Item Value Reference Range Interpretation Comments UA Leuk Est (test Negative (11/21/16 1:20 code = UA Leuk Est) PM) [facility] AND [id number] 18:20:00 Test Item Value Reference Range Interpretation Comments UA WBC (test code = 1 See_Comment [Automa stella message] The UA WBC) system which ge nerated this result transmit stella reference range : <=5. The reference range was not used to interpr et this result as nhung l/abnormal. [facility] AND [id number] 18:20:00 Test Item Value Reference Range Interpretation Comments UA Sq Epi (test code = UA Sq Epi) Few /LPF [facility] AND [id number] 18:20:00 Test Item Value Reference Range Interpretation Comments UA Color (test code = Yellow *NA*(11/21/16 UA Color) 1:20 PM) [facility] AND [id number] 18:20:00 Test Item Value Reference Range Interpretation Comments UA Turbidity (test code = Clear (11/21/16 1:20 UA Turbidity) PM) [facility] AND [id number] 18:20:00 Test Item Value Reference Range Interpretation Comments UA Spec Grav (test code = UA Spec Grav) 1.025 [facility] AND [id number] 18:20:00 Test Item Value Reference Range Interpretation Comments UA pH (test code = UA pH) 5.0 5.0-8.0 [facility] Notes Date/Time Note Provider Source 2018-01-19 09:44:00-00:00 [facility] REPORT OF PROCEDURE SOFÍA HIRAL FADI FACILITY: [facility] BILLING #: [id number] ROOM: [place] [address] MR #: [id number] : 1965 DATE OF PROCEDURE: 01/19/2018 SURGEON: Tao Little MD FERMENTER WINE: Mesfin Horner CO-SURGEON: Dr. John Hinson PREOPERATIVE DIAGNOSES 1. Cervical vertebral osteophytes. 2. Dysphagia. POSTOPERATIVE DIAGNOSES 1. Cervical vertebral osteophytes. 2. Dysphagia. PROCEDURE PERFORMED: Complex approach to anterio r spine for osteophytectomy. INDICATION FOR PROCEDURE: The patient is a 53-ye ar-old female with long history of progressive dysphagia. The patient wa s found to have cervical osteophytes impinging on the pharynx. Decision w as made to perform osteophytectomy. We are consulted for complex ap proach to anterior spine. PROCEDURE IN DETAIL: The patient was informed of her condition as well as the details of the procedure including its risks , benefits, and alternatives. The patient expressed good understanding of the procedure and subsequently signed informed consent. She was then taken to [facility] operating room, placed on the operating table in supine position. She was induced using general anesthesia by the anesthesia service and intubat ed without complications. She was then prepped and draped in usual sterile fashion. A time out was performed where the procedure and site were veri fied. Next, a horizontal incision was fashioned at the level between thyr oid notch and the cricoid cartilage. Incision was made using a 15-blade sc alpel and carried down through the dermis. Subplatysmal flaps were elev ated superiorly to the level of the hyoid bone, inferiorly below the level of the cricoid cartilage. The investing layer of deep cervical fascia was inci sed along the anterior border of the sternocleidomastoid muscle. Using blunt d issection, the great vessels were identified. The carotid artery was subseque ntly retracted laterally. This allowed for identification of the viscerove rtebral angle. The pharyngeal contents were gently retracted to the contralateral side. This allowed for complete visualization of cervical v ertebrae 4, 5, and 6. The prevertebral fascia was incised using Bovie caut mahin allowing for exposure of the bilateral longus colli musculature. After ad equate exposure, the case was handed over to Dr. Hinson. FINDINGS: Patient exhibited osteophytes of C4 an d 5. No evidence of pharyngeal perforation was observed. ESTIMATED BLOOD LOSS: Less than 5 mL. COMPLICATIONS: None. SPECIMENS: None. URINE OUTPUT: Please see anesthesia record. IV FLUIDS: Please see anesthesia record. BLAYNE/ A A Job#: [id number] Doc#: [id number] FN: [id number] cc: Tao Little MD
--- NOTE | 2022-07-23 12:42 | RAD REPORT ---
EXAM DESCRIPTION: Pamela Single View07/23/2022 12:22 pm CLINICAL HISTORY: Chest pain COMPARISON: 2020 FINDINGS: The lungs appear clear of acute infiltrate. The heart is normal size IMPRESSION: No acute abnormalities displayed
[2022-07-23 12:57] LABS: Absolute Lymphocytes (CBC) 1.3 K/uL (0.7-4.9); Hematocrit 37.3 % (36.0-45.0); Lymphocytes % 19.9 % (15.3-44.8); MCV 92.1 fL (80-100); MPV 9.4 fL (7.6-11.3); RBC Red Blood Cell Count 4.05 M/uL (3.86-4.86)
[2022-07-23 13:13] LABS: Magnesium 2.2 mg/dL (1.6-2.4); Potassium 4.1 mEq/L (3.5-5.1); Troponin High Sensitivity 3.4 pg/mL (<58.9)
--- NOTE | 2022-07-23 14:03 | RAD REPORT ---
EXAM DESCRIPTION: CT - Chest For Pe Angio - 07/23/2022 1:38 pm CLINICAL HISTORY: Chest pain COMPARISON: None. TECHNIQUE: Dynamically enhanced axial 3 mm thick images of the chest were obtained during administra tion of 75 mL Isovue 370 IV contrast. Coronal and oblique reconstruction images were generated and re viewed. Exam utilizes a protocol for optimal evaluation of pulmonary arterial tree. Maximum intensity projections 3D imaging was utilized All CT scans are performed using dose optimization technique as appropriate and may include automated exposure control or mA/KV adjustment according to patient size. FINDINGS: A pulmonary embolus is not seen. A thoracic aortic aneurysm is not noted. A pleural effusion is not seen. A pericardial effusion is not seen. A lung consolidation is not present. IMPRESSION: Negative for a pulmonary embolism.
--- NOTE | 2022-07-23 14:46 | ER ---
Nurse's Notes [facility]enna Name: Hiral Ruelas Age: 57 yrs Sex: Female : 1965 Arrival Date: 07/23/2022 Time: 11:44 Bed 17 Private MD: Diagnosis: Chest pain, unspecified Presentation: 07/23 12:02 Chief complaint: Left lower chest pain x 3 days, pain is worse with deep breathing. hb Coronavirus screen: At this time, the client does not indicate any symptoms associated with coronavirus-19. Ebola Screen: No symptoms or risks identified at this time. Initial Sepsis Screen: Does the patient meet any 2 criteria? No. Patient's initial sepsis screen is negative. Does the patient have a suspected source of infection? No. Patient's initial sepsis screen is negative. Risk Assessment: Do you want to hurt yourself or someone else? Patient reports no desire to harm self or others. Onset of symptoms was July 20, 2022. 12:02 Method Of Arrival: Ambulatory hb 12:02 Acuity: LINETTE 3 hb Historical: - Allergies: 12:05 Tetracycline; hb 12:05 Neosporin (apa-qde-axnyv); hb - PMHx: 12:05 Bipolar disorder; Hypothyroidism; hb - PSHx: 12:05 Gastric Bypass; Appendectomy; Cholecystectomy; Hysterectomy; Back; hb 12:06 Colorectal sx; hb - Immunization history:: Adult Immunizations up to date. - Social history:: Smoking status: . Screenin:47 [facility] ED Fall Risk Assessment (Adult) History of falling in the last 3 months, mb9 including since admission No falls in past 3 months (0 pts) Confusion or Disorientation No (0 pts) Intoxicated or Sedated No (0 pts) Impaired Gait No (0 pts) Mobility Assist Device Used No (0 pt) Altered Elimination No (0 pt) Score/Fall Risk Level 0 - 2 = Low Risk Oriented to surroundings, Maintained a safe environment, Educated pt \T\ family on fall prevention, incl call for assistance when getting out of bed. Abuse screen: Denies threats or abuse. Nutritional screening: No deficits noted. Tuberculosis screening: No symptoms or risk factors identified. Assessment: 12:52 General: Appears in no apparent distress. Behavior is calm, cooperative, appropriate mb9 for age. Pain: Complains of pain in chest Pain radiates to left lower chest Pain currently is 7 out of 10 on a pain scale. Quality of pain is described as throbbing, Pain began 2-3 days ago. Is continuous, Aggravated by inspiration. Neuro: Savage Agitation-Sedation Scale (RASS): 0 - Alert and Calm Level of Consciousness is awake, alert, obeys commands, Oriented to person, place, time, situation, Appropriate for age. Cardiovascular: Heart tones S1 S2 present Patient's skin is warm and dry. Rhythm is regular. Respiratory: Airway is patent Respiratory effort is even, unlabored, Respiratory pattern is regular, symmetrical, Breath sounds are clear bilaterally. GI: Abdomen is flat, non-distended, Bowel sounds present X 4 quads. Abd is soft and non tender X 4 quads. Patient currently denies diarrhea, nausea. Derm: Skin is pink, warm \T\ dry. Musculoskeletal: Range of motion: intact in all extremities. 15:03 Reassessment: No changes from previously documented assessment. Patient and/or family mb9 updated on plan of care and expected duration. Pain level reassessed. Patient is alert, oriented x 3, equal unlabored respirations, skin warm/dry/pink. Vital Signs: 12:02 BP 134 / 100; Pulse 77; Resp 18; Temp 97.5; Pulse Ox 100% on R/A; Weight 78.47 kg; hb Height 5 ft. 8 in. ; Pain 7/10; 12:53 BP 130 / 86; Pulse 67; Resp 16; Pulse Ox 99% on R/A; mb9 14:22 BP 128 / 82; Pulse 60; Resp 18; Pulse Ox 100% on R/A; mb9 15:03 BP 125 / 77; Pulse 78; Resp 18; Pulse Ox 98% on R/A; mb9 12:02 Body Mass Index 26.30 (78.47 kg, 172.72 cm) hb 12:02 Pain Scale: Adult hb ED Course: 11:45 Patient arrived in ED. am2 11:53 Radha Brantley FNP-C is PHCP. kb 11:53 Edmund Canada MD is Attending Physician. kb 12:05 Triage completed. hb 12:06 Arm band placed on. hb 12:22 XRAY Chest (1 view) In Process Unspecified. EDMS 12:47 Breneman, Theresa, RN is Primary Nurse. mb9 12:48 Placed in gown. Bed in low position. Call light in reach. Side rails up X 1. Client mb9 placed on continuous cardiac and pulse oximetry monitoring. NIBP monitoring applied. lunchroom monitor on. 12:48 No provider procedures requiring assistance completed. mb9 13:40 CT Chest For PE Angio In Process Unspecified. EDMS 15:05 IV discontinued, intact, bleeding controlled, No redness/swelling at site. Pressure mb9 dressing applied. Administered Medications: 15:01 Drug: Decadron - Dexamethasone IVP 10 mg Route: IVP; Site: right antecubital; mb9 Medication: 12:48 VIS not applicable for this client. mb9 Outcome: 14:45 Discharge ordered by . tom 15:04 Discharged to home ambulatory. mb9 15:04 Condition: stable 15:04 Discharge instructions given to patient, Instructed on discharge instructions, follow up and referral plans. Demonstrated understanding of instructions, follow-up care. 15:05 Patient left the ED. mb9 Signatures: Dispatcher [employer] EDVT Radha Brantley, ESTATE PLANNING DIRECTOR-C ESTATE PLANNING DIRECTOR-CkNakia Watkins, RN RN Soraida Zamora Mary Beth, RN RN mb9
--- NOTE | 2022-07-23 14:46 | EDPHYS ---
Physician Documentation [facility] Name: Hiral Ruelas Age: 57 yrs Sex: Female : 1965 Arrival Date: 07/23/2022 Time: 11:44 Bed 17 Private MD: ED Physician Edmund Canada HPI: 07/23 17:00 This 57 yrs old Female presents to ER via Ambulatory with complaints of Abdominal Pain, kb Chest Pain, Flank Pain. 17:00 The patient or guardian reports chest pain that is located primarily in the left lower kb chest. Onset: 4 day(s) ago. The pain does not radiate. Associated signs and symptoms: The patient has no apparent associated signs or symptoms. The chest pain is described as sharp. Duration: The patient or guardian reports a single episode. Modifying factors: The symptoms are alleviated by nothing. the symptoms are aggravated by deep breath, movement, palpation of area. Severity of pain: At its worst the pain was mild moderate in the emergency department the pain is unchanged. The patient has experienced a previous episode. The patient has not recently seen a physician. Historical: - Allergies: 12:05 Tetracycline; hb 12:05 Neosporin ([id number]); hb - PMHx: 12:05 Bipolar disorder; Hypothyroidism; hb - PSHx: 12:05 Gastric Bypass; Appendectomy; Cholecystectomy; Hysterectomy; Back; hb 12:06 Colorectal sx; hb - Immunization history:: Adult Immunizations up to date. - Social history:: Smoking status: . ROS: 16:58 Constitutional: Negative for fever, chills, and weight loss. kb 16:58 Cardiovascular: Positive for chest pain. 16:58 All other systems are negative. Exam: 16:58 Constitutional: This is a well developed, well nourished patient who is awake, alert, kb and in no acute distress. Head/Face: Normocephalic, atraumatic. ENT: Moist Mucous membranes Cardiovascular: Regular rate and rhythm with a normal S1 and S2. No gallops, murmurs, or rubs. No pulse deficits. Respiratory: Respirations even and unlabored. No increased work of breathing. Talking in full sentences Abdomen/GI: Soft, non-tender. No distention Skin: Warm, dry with normal turgor. Normal color. MS/ Extremity: Pulses equal, no cyanosis. Neurovascular intact. Full, normal range of motion. Neuro: Awake and alert, GCS 15, oriented to person, place, time, and situation. Moves all extremities. Normal gait. 16:58 Chest/axilla: Inspection: normal, Palpation: tenderness, that is moderate, of the left breast. 16:58 ECG was reviewed by the Attending Physician. Vital Signs: 12:02 BP 134 / 100; Pulse 77; Resp 18; Temp 97.5; Pulse Ox 100% on R/A; Weight 78.47 kg; hb Height 5 ft. 8 in. ; Pain 7/10; 12:53 BP 130 / 86; Pulse 67; Resp 16; Pulse Ox 99% on R/A; mb9 14:22 BP 128 / 82; Pulse 60; Resp 18; Pulse Ox 100% on R/A; mb9 15:03 BP 125 / 77; Pulse 78; Resp 18; Pulse Ox 98% on R/A; mb9 12:02 Body Mass Index 26.30 (78.47 kg, 172.72 cm) hb 12:02 Pain Scale: Adult hb MDM: 12:02 Patient medically screened. kb 16:58 Data reviewed: vital signs, nurses notes. kb 16:59 Differential diagnosis: abnormal EKG, acute myocardial infarction, chest wall pain, kb costochondritis, pleurisy, pneumonia, pneumothorax, pulmonary embolus. Consideration of Admission/Observation Escalation of care including admission/observation considered. admission considered for chest pain, troponin normal. Counseling: I had a detailed discussion with the patient and/or guardian regarding: the historical points, exam findings, and any diagnostic results supporting the discharge/admit diagnosis, lab results, radiology results, the need for outpatient follow up, a family practitioner, to return to the emergency department if symptoms worsen or persist or if there are any questions or concerns that arise at home. 07/23 12:05 Order name: Basic Metabolic Panel; Complete Time: 13:14 kb 07/23 12:05 Order name: CBC with Diff; Complete Time: 13:12 kb 07/23 12:05 Order name: D-Dimer; Complete Time: 13:12 kb 07/23 12:05 Order name: Magnesium; Complete Time: 13:14 kb 07/23 12:05 Order name: NT PRO-BNP; Complete Time: 13:14 kb 07/23 12:05 Order name: Troponin HS; Complete Time: 13:14 kb 07/23 12:05 Order name: XRAY Chest (1 view); Complete Time: 12:44 kb 07/23 13:13 Order name: CT Chest For PE Angio; Complete Time: 14:06 kb 07/23 12:05 Order name: EKG; Complete Time: 12:06 kb 07/23 12:05 Order name: Cardiac monitoring; Complete Time: 12:48 kb 07/23 12:05 Order name: EKG - Nurse/Tech; Complete Time: 12:48 kb 07/23 12:05 Order name: IV Saline Lock; Complete Time: 12:48 kb 07/23 12:05 Order name: Labs collected and sent; Complete Time: 12:48 kb 07/23 12:05 Order name: O2 Per Protocol; Complete Time: 12:48 kb 07/23 12:05 Order name: O2 Sat Monitoring; Complete Time: 12:48 kb EC:58 Rate is 64 beats/min. Rhythm is regular. QRS [place] is Normal. [place] interval is normal at kb 124 msec. QRS interval is normal at 84 msec. QT interval is normal at 420 msec. Administered Medications: 15:01 Drug: Decadron - Dexamethasone IVP 10 mg Route: IVP; Site: right antecubital; mb9 Disposition: 17:07 Co-signature as Attending Physician, Edmund Canada MD I reviewed the patient's care rn provided by the Advanced Practice Provider and agree with the diagnosis and treatment plan. Disposition Summary: 07/23/22 14:45 Discharge Ordered Location: Home kb Condition: Stable kb Diagnosis - Chest pain, unspecified kb Followup: kb - With: Emergency Department - When: As needed - Reason: Worsening of condition Followup: kb - With: Private Physician - When: 2 - 3 days - Reason: Recheck today's complaints, Continuance of care, Re-evaluation by your physician Discharge Instructions: - Discharge Summary Sheet kb - Nonspecific Chest Pain, Adult, [id number] kb - Pleurisy, [id number] kb Forms: - Medication Reconciliation Form kb - Thank You Letter kb - Antibiotic Education kb - Prescription Opioid Use kb - Work release form mb9 Signatures: Dispatcher [employer] EDMT Radha Brantley, CLINICAL DOCUMENTATION CLERK-C CLINICAL DOCUMENTATION CLERK-Ckb Edmund Canada MD MD rn Baxter, Heather, RN RN hb Breneman, Trinity Cristina, RN RN mb9
[2022-07-23] MEDS ORDERED: dexAMETHasone 10 MG/ML VIAL ONE (14:58)
[2022-07-23 15:24] VITALS: TEMP 97.5
[2022-07-23 15:27] VITALS: BP 125/77; O2SAT 98
--- NOTE | 2022-07-24 14:39 | EKG ---
Test Date: 2022-07-23 Test Time: 12:36:37 Surgical Scrub Technologist: ANABELLE MEASUREMENT RESULTS: Intervals: Rate: 64 IA: 126 QRSD: 84 QT: 408 QTc: 420 [place]: P: 62 IA: 126 QRS: 44 T: 39 INTERPRETIVE STATEMENTS: Normal sinus rhythm Nonspecific ST abnormality Abnormal ECG Compared to ECG 04/25/2021 07:49:01 ST (T wave) deviation now present Sinus bradycardia no longer present Electronically Signed On 07-24-22 14:37:01 CDT by Jose Armando Perez
== END 2022-07-23 15:05 | disposition home or self-care (01) ==
LOC: ER 11:44
DX: R07.89 Other chest pain (principal); Z88.1 Allergy status to other antibiotic agents; Z88.3 Allergy status to other anti-infective agents
CPT/HCPCS: 93005; 85025; 80048; 36415; 83735; 85379; 84484; 83880; 71275; 71045; 96374; 99284; Q9967; J1100